=== PATIENT | female | born 1945 | race Caucasian/White ===

== ENCOUNTER 2017-11-09 13:25 | Inpatient (IN) ==
[2017-11-09 15:25] LABS: Hematocrit 30.8 % (35.3-44.9); Nucleated Red Blood Cells 0.1 /100 WBC (0)
[2017-11-09 15:27] LABS: Hemoglobin 9.4 g/dL (11.5-15.4); Mean Corpuscular HGB Conc 30.5 g/dL (31.6-35.5); Mean Corpuscular Hemoglobin 29.2 pg (28.0-33.3); Mean Corpuscular Volume 95.7 fL (83.0-100.0); Red Blood Count 3.22 M/mcL (3.82-4.97); Red Cell Distribution Width 17.9 % (11.5-14.5)
[2017-11-09 15:31] LABS: Platelet Count 79 K/mcL (140-400)
[2017-11-09 15:45] LABS: BUN/Creatinine Ratio 20 (6-26); Blood Urea Nitrogen 21 mg/dL (8-23); Calcium 8.7 mg/dL (8.6-10.3); Carbon Dioxide 25 mEq/L (23-29); Chloride 108 mEq/L (98-107); Glucose 164 mg/dL (70-105); Osmolality,Calculated 295 (280-300); Sodium 139 mEq/L (136-145); eGFR For African Americans > 60 (> 60); eGFR For Non-African Americans 50 (> 60)
[2017-11-09 16:09] LABS: Lymphocytes # 5.4 K/mcL (0.6-4.6); Neutrophils # 54.4 K/mcL (1.6-8.9); Platelet Estimate Decreased (Normal)
--- NOTE | 2017-11-09 16:20 | Emergency Department Note ---
Disposition Clinical Impression: HCAP (healthcare-associated pneumonia), Pleural effusion Disposition: Admitted As Inpatient Condition: Good SOB HPI - General Chief Complaint: ED Shortness of Breath/Dyspnea Stated Complaint: Possible pneumonia Time Seen by Provider: 11/09/17 13:48 Source: patient Mode of arrival: private vehicle Limitations: no limitations Nursing Notes Reviewed: Yes Vital Signs Reviewed: Yes - History of Present Illness 72-year-old female presents to the ER with a chief complaint of cough with productive sputum and shortness of breath for 3 weeks. Patient reports she was admitted to the [facility] back in September for facial swelling and abnormal labs. She went home they are feeling well but then started getting short of breath and coughing over the last 3 weeks. No history of COPD or asthma. No fever or chest pain at home. She thinks that she might be developing pneumonia. Reports she has felt dizzy with aspirin since she was discharged from the [facility]. No other complaints. Pt Subjective Complaint: shortness of breath, cough Onset (ago): week(s) Context: recent illness Severity: moderate Consistency/Duration: constant Improves with: nothing Worsens with: nothing Associated symptoms: Reports: cough, sputum production. Denies: chest pain, fever Treatment prior to arrival: none Cough present: Yes Cough Description: Involuntary - Related Data Home oxygen amount: none Home Medications Medication Instructions Recorded Confirmed Allopurinol [Zyloprim 300 MG] 300 mg PO DAILY 09/26/17 09/26/17 Cyclobenzaprine HCl 10 mg PO TID 09/26/17 09/26/17 Docusate [Colace] 100 mg PO BID 09/26/17 09/26/17 Enalapril Maleate [Vasotec] 30 mg PO DAILY 09/26/17 09/26/17 HYDROcodone/Acet 5/325 mg [[place] 1 tab PO Q6H PRN 09/26/17 09/26/17 5-325 mg] LORazepam [Ativan] 0.5 mg PO TID 09/26/17 09/26/17 Meclizine HCl [Bonine] 25 mg PO DAILY 09/26/17 09/26/17 Metformin HCl [Fortamet] 500 mg PO BID 09/26/17 09/26/17 NIFEdipine [Nifedipine] 90 mg PO DAILY 09/26/17 09/26/17 Nabumetone [Relafen] 500 mg PO BID 09/26/17 09/26/17 Simvastatin [Zocor] 40 mg PO HS 09/26/17 09/26/17 hydrALAZINE [HydrALAZINE] 100 mg PO Q8HR 09/26/17 09/26/17 Allergies Allergy/AdvReac Type Severity Reaction Status Date / Time Sulfa (Sulfonamide Allergy Fainting Verified 11/09/17 15:58 Antibiotics) All systems ED: reviewed and negative except as stated. Constitutional: Denies: fever Cardiovascular: Denies: chest pain Respiratory: Reports: cough, dyspnea, sputum production Gastrointestinal: Denies: nausea, vomiting, diarrhea Past Medical History - Past Medical History Attestation: Yes The following information was validated with the patient. Source: patient Medical history: Reports: diabetes, hyperlipidemia, hypertension, other Psychiatric history: Reports: no psych history WEATHER REPORTER history: Reports: no WEATHER REPORTER history - Social History Smoking Status: Former smoker Smokeless Tobacco Status: No Alcohol use: Reports: none Drug use: Reports: none Physical Exam - General Limitations: no limitations General appearance: alert, in no apparent distress - Head Head exam: atraumatic, normocephalic - Eye Eye exam: Present: normal appearance - ENT ENT exam: normal exam - Neck Neck exam: Present: normal inspection - Chest Chest inspection: Present: normal inspection, symmetric chest wall rise - Respiratory Respiratory exam: Present: other (Diminished breath sounds bilaterally) - Cardiovascular Cardiovascular exam: Present: regular rate, normal rhythm, normal heart sounds - Abdominal Exam Abdominal exam: Present: soft, Non-Tender, other (There are multiple blisters to the lower abdomen with some overlying cellulitic changes.). Absent: tenderness - Extremities Exam Extremities exam: Present: normal inspection, full ROM - Expanded Upper Extremity Exam Shoulder exam: Present: normal inspection, full ROM Arm exam: Present: normal inspection, full ROM Elbow exam: Present: normal inspection, full ROM Forearm/Wrist exam: Present: normal inspection, full ROM Hand exam: Present: normal inspection, full ROM - Expanded Lower Extremity Exam Hip/Pelvis exam: Present: normal inspection, full ROM Upper leg exam: Present: normal inspection, full ROM Knee exam: Present: normal inspection, full ROM Lower leg exam: Present: normal inspection, full ROM Ankle exam: Present: normal inspection, full ROM Foot/toe exam: Present: normal inspection, full ROM - Skin Skin exam: Present: warm, dry Course Course Narrative: Patient seen and examined. Vital signs reviewed. We will get an EKG, chest x- ray as well as labs including troponin. - Reevaluation(s) Reevaluation #1: Chest x-ray with right lower lobe developing infiltrate. She is also noted to have a leukocytosis of 68. We will pursue a CTA of her chest for evaluation. I had a long discussion with the patient and family present about the etiology of her leukocytosis. She was unable to give me a clear reason as to why. Her significant other says it was 3-lead her which she believes is either CML or CLL. He states she had a bone marrow biopsy performed there and follows up with oncology in a few weeks for repeat labs. She has not underwent chemotherapy. Reevaluation #2: Discussed results of imaging with the patient. Noted to have pneumonia by CTA with bilateral effusions as per radiology read. She has a recent hospitalization in September. We will cover her for healthcare associated pneumonia with vancomycin, Zosyn and Levaquin. Vital Signs Temperature 98.3 F 11/09/17 13:39 Pulse Rate 71 11/09/17 13:39 Respiratory Rate 18 11/09/17 13:39 Blood Pressure 171/80 11/09/17 13:39 O2 Sat by Pulse Oximetry 97 11/09/17 13:39 Temperature 98.3 F 11/09/17 13:39 Pulse Rate 72 11/09/17 19:09 Respiratory Rate 20 11/09/17 19:09 Blood Pressure 132/65 11/09/17 19:09 O2 Sat by Pulse Oximetry 94 11/09/17 19:09 Oxygen Delivery Oxygen Delivery Room Air Shortness of Breath/Dyspnea - [facility] Narrative Medical decision making narrative: 72-year-old female presents to the ER due to shortness of breath and cough for 3 weeks. She follows with the [facility] for abnormal labs and believe she either has CML or CLL. She is alert and well appearing here and hemodynamically stable. Chest x-ray with right lower lobe opacity. We pursued CTA of the chest given her history of malignancy and dyspnea. CT read of pneumonia with large effusion. She is noted to have a leukocytosis of 68 which is what she has been previously. Patient has recent admission requiring aggressive antibiotic therapy with vancomycin and Zosyn and Levaquin. She is admitted to the hospitalist service for healthcare associated pneumonia, pleural effusion. - Lab Data Lab results reviewed: Yes I reviewed the patient's lab results. Result diagrams: 11/09/17 15:11 11/09/17 15:11 Lab Results 11/09/17 11/09/17 11/09/17 Range/Units 15:11 15:11 16:17 WBC 68.0 H* (4.3-11.1) K/mcL RBC 3.22 L (3.82-4.97) M/mcL Hgb 9.4 L (11.5-15.4) g/dL Hct 30.8 L (35.3-44.9) % MCV 95.7 (83.0-100.0) fL MCH 29.2 (28.0-33.3) pg MCHC 30.5 L (31.6-35.5) g/dL RDW 17.9 H (11.5-14.5) % Plt Count 79 L (140-400) K/mcL MPV TNP Seg Neutrophils % 70.0 % Band Neutrophils % 10.0 H (0-4) % Lymphocytes % 8.0 % Myelocytes % 8.0 H (0) % Promyelocytes % 4.0 H (0) % Neutrophils # 54.4 H (1.6-8.9) K/mcL Lymphocytes # 5.4 H (0.6-4.6) K/mcL Nucleated RBCs/100 WBC 0.1 H (0) /100 WBC Platelet Estimate Decreased L (Normal) Sodium 139 (136-145) mEq/L Potassium 4.0 (3.5-5.1) mEq/L Chloride 108 H (98-107) mEq/L Carbon Dioxide 25 (23-29) mEq/L BUN 21 (8-23) mg/dL Creatinine 1.07 (0.60-1.20) mg/dL Est GFR ( Amer) > 60 (> 60) Est GFR (Non-Af Amer) 50 L (> 60) BUN/Creatinine Ratio 20 (6-26) Glucose 164 H (70-105) mg/dL Calculated Osmolality 295 (280-300) Lactic Acid 0.8 (0.5-2.2) mmol/L Calcium 8.7 (8.6-10.3) mg/dL Troponin I (< 0.04) ng/mL B-Natriuretic Peptide (Less than 100) pg/mL 11/09/17 11/09/17 Range/Units 16:17 16:17 WBC (4.3-11.1) K/mcL RBC (3.82-4.97) M/mcL Hgb (11.5-15.4) g/dL Hct (35.3-44.9) % MCV (83.0-100.0) fL MCH (28.0-33.3) pg MCHC (31.6-35.5) g/dL RDW (11.5-14.5) % Plt Count (140-400) K/mcL MPV Seg Neutrophils % % Band Neutrophils % (0-4) % Lymphocytes % % Myelocytes % (0) % Promyelocytes % (0) % Neutrophils # (1.6-8.9) K/mcL Lymphocytes # (0.6-4.6) K/mcL Nucleated RBCs/100 WBC (0) /100 WBC Platelet Estimate (Normal) Sodium (136-145) mEq/L Potassium (3.5-5.1) mEq/L Chloride (98-107) mEq/L Carbon Dioxide (23-29) mEq/L BUN (8-23) mg/dL Creatinine (0.60-1.20) mg/dL Est GFR ( Amer) (> 60) Est GFR (Non-Af Amer) (> 60) BUN/Creatinine Ratio (6-26) Glucose (70-105) mg/dL Calculated Osmolality (280-300) Lactic Acid (0.5-2.2) mmol/L Calcium (8.6-10.3) mg/dL Troponin I < 0.03 (< 0.04) ng/mL B-Natriuretic Peptide 183 H (Less than 100) pg/mL - Radiology Data Radiology results reviewed: Yes I reviewed the patient's radiology results. Chest X-Ray 11/09/17 13:49 IMPRESSION: Airspace opacity at the right lung base, new since the prior study, likely related to atelectasis versus pneumonia. Small right pleural effusion. Stable mild cardiomegaly. D/ / Duke Becker MD / Duke Becker MD Interpreting Provider: Duke Becker MD Chest CTA 11/09/17 16:08 IMPRESSION: No CT evidence of pulmonary embolism. [id number] right and small left pleural effusions as well as multifocal bilateral patchy airspace disease most compatible with pneumonia. Given areas of nodularity and history of cancer, short-term follow-up following treatment is recommended to ensure resolution. D/ / Pily Rao Cha, MD / Pily Rao Cha, MD Interpreting Provider: Pily Rao Cha, MD - EKG Data EKG attestation: Yes I reviewed and interpreted this EKG. EKG results narrative: EKG demonstrates sinus rhythm with a rate of 73 beats minute. Normal axis. Normal intervals. Normal R-wave progression. Low voltage diffusely. No gross ST elevations or depressions. No acute ischemic findings. S.B.Kumar. - Dwayne.Jamie.Cadence Situation: Demographics, MOA Background: Presenting Complaint, Relevant PMH, Meds, & Allergies Assessment: Vital Signs, Course and respsone to treatment, Exam Concerns, Patient/Family Expectation, Pertinant Lab Results Recommendation: Barrier(s) to disposition, Recommendation based on pending studies, treatments, or consults S.B.A.RLucinda Report Given to: Dr. Dhiraj Evans Repor Time: 18:40 Attestation Statement - Attestation Attestation: I examined this patient and my medical decision-making was reviewed with the Resident Physician. I agree with the documented findings, disposition and treatment plan as described except to the extent set forth below. Pneumonia, we will start antibiotics and admitted for further evaluation, may benefit from pulmonary consultation given extent of pleural effusion accompanied with leukocytosis. The patient has been evaluated by [facility] previously for leukocytosis. It is improved from baseline. Patient will be admitted in stable condition.
[2017-11-09] MEDS ORDERED: 0.9 % Sodium Chloride 1,000 ML IVC ONE (17:02)
[2017-11-09] MEDS ORDERED: Piperacillin/Tazobactam 3.375 GM in Water for inj. (sterile) 20 ML IVP ONE (18:05)
[2017-11-09] MEDS ORDERED: Vancomycin 1,500 MG in D5% in Water 250 ML IVPB ONE (18:05)
[2017-11-09] MEDS ORDERED: Levofloxacin 750 MG/150 ML 750 MG/150 ML BAG IVPB ONE (18:05)
[2017-11-09] MEDS ORDERED: Nystatin POWDER 30 GM BOTTLE TP PRN (20:53)
[2017-11-09] MEDS ORDERED: Dextrose Gel 15 GM/37.5 ML TUBE PO PRN ×2 (20:55)
[2017-11-09] MEDS ORDERED: D5% in Water 1,000 ML IVC PRN (20:55)
[2017-11-09] MEDS ORDERED: *HR* Dextrose 50 % in Water (Syg) 50 ML SYRINGE IVP PRN (20:55)
[2017-11-09] MEDS ORDERED: Naloxone 0.4 MG/ML INJ IVP PRN ×2 (20:56→20:58)
[2017-11-09] MEDS ORDERED: Vancomycin 0 MG in D5% in Water 250 ML IVPB SCH (21:00)
[2017-11-09] MEDS ORDERED: 0.9 % Sodium Chloride 1,000 ML IVC SCH (21:00)
--- NOTE | 2017-11-09 21:02 | Internal Med History&Physical ---
Date of Encounter: 11/09/17 Time of Encounter: 21:02 Assessment and Plan (1) HCAP (healthcare-associated pneumonia) Current visit: Yes Status: Acute IV vanc, cefepime send serologies cx pend duobnebs IS IVF overnight. Hold home lasix given on fluids - re-eval need in the a.m pulse ox, tele (2) Pleural effusion Current visit: Yes Status: Acute moderate. Monitor for now. If worsening respiratory status, consider therapeutic thora (3) Hematologic disorder Current visit: Yes Status: Acute leukocytosis follows with [facility] patient does not know her disease dx blood work diff suggest possible CMML ??? 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 Suarez is a 72 year old female with hematological disorder(does not know what disease she has) who presents with 2-3 weeks hx of cough, chills, SOB, not resting well. Found multifocal PNA She is established at [facility] for hematological disorder and appears to be in observational status at this time. This was discovered after hospital admission at [facility] from -Sep and later Sep for hemorrhoidal bleed. She is being managed with blood work and prn transfusion per her report. She will revisit her coach mechanic in 2 weeks. She presents to the hospital today for 2-3 weeks of cough, chills, SOB, not resting. Associated with chills and SOB to the point that she gets winded around her house. She does not use oxygen as baseline. EKG personally reviewed with rate 73, NSR CT/CT angio chest IMPRESSION: No CT evidence of pulmonary embolism. Bgvvdoma-[id number] right and small left pleural effusions as well as multifocal bilateral patchy airspace disease most compatible with pneumonia. Given areas of nodularity and history of cancer, short-term follow-up following treatment is recommended to ensure resolution. XR/XR chest 1V portable IMPRESSION: Airspace opacity at the right lung base, new since the prior study, likely related to atelectasis versus pneumonia. Small right pleural effusion. Stable mild cardiomegaly. Past Med Surg Social Fam HX - Past Medical History Medical history: diabetes, hyperlipidemia, hypertension, other Psychiatric history: no psych history - Past Surgical History Surgical History: non-contributory, other - Social History Smoking Status: Former smoker Smokeless Tobacco Status: No Alcohol use: none Drug use: none - Additional Family History Additional family history: HTN Internal Medicine - H&P: Meds Allopurinol [Zyloprim] 300 mg PO DAILY 11/09/17 [History] Carvedilol 12.5 mg PO BID 11/09/17 [History] Docusate [Colace] 100 mg PO BID 11/09/17 [History] Enalapril Maleate [Vasotec] 30 mg PO DAILY 11/09/17 [History] Furosemide [Lasix] 40 mg PO DAILY 11/09/17 [History] Hydralazine HCl 100 mg PO Q8H 11/09/17 [History] Hydrocodone/Acetaminophen [Xodol 5-300 Tablet] 1 each PO Q4H PRN 11/09/17 [ History] Insulin Glargine,Hum.rec.anlog [Lantus Solostar] 0 unit SQ HS 11/09/17 [History] Meclizine HCl [Verticalm] 25 mg PO DAILY PRN 11/09/17 [History] NIFEdipine [Nifedipine ER] 90 mg PO DAILY 11/09/17 [History] Nabumetone [Relafen] 500 mg PO BID 11/09/17 [History] Nystatin POWDER [Nystop] 1 appl TP TID PRN 11/09/17 [History] Omeprazole [PriLOSEC] 40 mg PO DAILY 11/09/17 [History] Polyethylene Glycol 3350 [MiraLAX] 17 gm PO DAILY 11/09/17 [History] Sennosides [Senna] 17.2 mg PO HS 11/09/17 [History] Simvastatin [Zocor] 40 mg PO HS 11/09/17 [History] metFORMIN [Glucophage] 500 mg PO BIDWM 11/09/17 [History] 3 Allergy/AdvReac Type Severity Reaction Status Date / Time Sulfa (Sulfonamide Allergy Fainting Verified 11/09/17 15:58 Antibiotics) All Systems PM: A 10-system review of systems was performed and is negative for pertinent findings except as documented above in the HPI. Review of systems: ROS 14 point review of systems reviewed as best as possible given presentation. Pertinent positive or negative as per HPI or otherwise reviewed as negative - Constitutional Vitals: Temp Pulse Resp BP Pulse Ox 98.3 F 72 20 132/65 94 11/09/17 13:39 11/09/17 19:09 11/09/17 19:09 11/09/17 19:09 11/09/17 19:09 Exam: General - AAO x 3 Psych - Appropriate affect/speech. No agitation Eyes - SHIV. Eye lids intact. No scleral icterus Neuro - No gross peripheral or central neuro deficits on inspection Heart - Sinus. RRR. S1 and S2 present. No added HS/murmurs appreciated. No elevated JVD appreciated. Lung - Adequate air entry b/l, Bibasal crackles, decrease BS along right base. No wheeze GI - Soft, non-tender. No hepatosplenomegaly/ascites. BS+ - No CVA/suprapubic tenderness or palpable bladder distension Skin - Fluid filled blister in the abdomen Internal Med - H&P Results - Labs CBC & Chem 7: 11/09/17 15:11 11/09/17 15:11
[2017-11-09] MEDS ORDERED: Ipratropium/Albuterol Neb 3 ML IH PRN (21:10)
[2017-11-09] MEDS ORDERED: *HR* Labetalol 20 MG/4 ML SYRINGE IVP PRN (21:51)
[2017-11-09] MEDS: Sennosides 8.6 MG TABLET PO SCH (22:00)
[2017-11-09] MEDS: hydrALAZINE 25 MG TABLET PO SCH (22:01)
[2017-11-09] MEDS: Insulin LISPRO 300 UNITS/3 ML VIAL SQ SCH (22:09)
[2017-11-10 04:41] LABS: Hemoglobin 8.6 g/dL (11.5-15.4); Nucleated Red Blood Cells 0.1 /100 WBC (0)
[2017-11-10 04:43] LABS: Mean Corpuscular HGB Conc 30.7 g/dL (31.6-35.5); Mean Corpuscular Hemoglobin 29.2 pg (28.0-33.3); Mean Corpuscular Volume 94.9 fL (83.0-100.0); Red Blood Count 2.95 M/mcL (3.82-4.97)
[2017-11-10 05:00] LABS: BUN/Creatinine Ratio 17 (6-26); Blood Urea Nitrogen 16 mg/dL (8-23); Calcium 8.4 mg/dL (8.6-10.3); Carbon Dioxide 24 mEq/L (23-29); Chloride 109 mEq/L (98-107); Glucose 136 mg/dL (70-105); Osmolality,Calculated 293 (280-300); Potassium 3.7 mEq/L (3.5-5.1); Sodium 140 mEq/L (136-145); eGFR For African Americans > 60 (> 60); eGFR For Non-African Americans 58 (> 60)
[2017-11-10] MEDS: Ipratropium/Albuterol Neb 3 ML IH SCH ×5 (05:04→23:29)
[2017-11-10 05:22] LABS: Platelet Count 71 K/mcL (140-400)
[2017-11-10] MEDS: hydrALAZINE 25 MG TABLET PO SCH ×3 (05:26→20:49)
[2017-11-10] MEDS: Cefepime HCl 2,000 MG in Water for inj. (sterile) 20 ML IVP SCH ×2 (05:28→17:55)
[2017-11-10] MEDS ORDERED: Cefepime HCl 2,000 MG in D5% in Water (Mini-Bag+) 100 ML IVPB SCH (06:00)
[2017-11-10 07:25] LABS: Lymphocytes # 4.7 K/mcL (0.6-4.6); Neutrophils # 43.3 K/mcL (1.6-8.9)
[2017-11-10 07:30] LABS: Anisocytosis 1+ (Not Present); Basophilic Stippling 1+ (Not Present); Polychromasia 1+ (Not Present)
[2017-11-10 07:31] LABS: Reactive Lymphocytes Present (Not Present)
[2017-11-10] MEDS: Insulin LISPRO 300 UNITS/3 ML VIAL SQ SCH ×4 (08:53→20:51)
[2017-11-10] MEDS: Lisinopril 20 MG TABLET PO SCH (08:53)
[2017-11-10] MEDS: NIFEdipine XL (24 HR) 30 MG TAB.ER.24 PO SCH (08:54)
[2017-11-10] MEDS: Vancomycin 1,250 MG in D5% in Water 250 ML IVPB SCH (08:54)
[2017-11-10] MEDS: Ondansetron 4 MG/2 ML VIAL IVP PRN (09:03)
--- NOTE | 2017-11-10 09:57 | Electrocardiograph Report ---
[place] [id number] Test Date: 2017-11-09 Pat Name: Yesi Suarez Department: 104 Room: 3B Gender: F Superintendent Service: DANA : 1945 Requested By: iWlmer Adames Order Number: [id number] Reading MD: Becki Stubbs Measurements Intervals [place] Rate: 73 P: 29 MT: 195 QRS: 47 QRSD: 89 T: 12 QT: 390 QTc: 416 Interpretive Statements SINUS RHYTHM RIGHT BUNDLE BRANCH BLOCK LOW QRS VOLTAGE IN PRECORDIAL LEADS [QRS DEFLECTION < 1.0 mV IN CHEST LEADS] Electronically Signed On 11-10-2017 9:55:56 EST by Becki Stubbs
--- NOTE | 2017-11-10 12:42 | Pulmonology Consult Note ---
Date of Encounter: 11/10/17 Time of Encounter: 12:40 Assessment and Plan (1) Pleural effusion Current Visit: Yes Status: Acute She has bilateral pleural effusions which reviewing her imaging in the past she has had persistent bilateral effusions although the right side is clearly much larger than where it has been in the past. I suspect this is related to hydrostatic pulmonary edema also possible but felt less likely hematological malignancy (although in this respect chylothorax would be a possibility). I do not feel that this is a complication of pneumonia such as uncomplicated complicated parapneumonic effusion or are there radiographic evidence of complex features that would suggest empyema. Patient is very comfortable at present has excellent saturation on room air and so there is no urgency from an infection standpoint nor symptom standpoint to menjivar to thoracentesis although I feel that this is warranted. Given that I do not feel that this is urgently necessary and given her large body habitus I would defer to the interventional radiology service to perform this procedure and collect pleural fluid for both diagnostic and therapeutic purposes . Please send serum for LDH and total protein if not collected. Pleural fluid analysis should include pH total cell count total protein LDH amylase lipase triglycerides cholesterol, Gram stain and culture . She also is sent for cytological analysis (pathology) This is a malignant effusion she may be a candidate for Pleurx catheter down the line based upon clinical course (2) Pneumonia Current Visit: Yes Status: Acute She is receiving antimicrobials for this and appears to be quite stable her white count elevation is a product of her hematological malignancy I do not think it reflects his severity of underlying pneumonia. She remains afebrile. Send sputum culture and blood cultures if not obtained along with respiratory infection panel Can likely be de-escalated to respiratory fluoroquinolone or Augmentin by mouth to complete 7 day course based upon clinical response Qualifiers: Qualified Code(s): J18.9 - Pneumonia, unspecified organism (3) Elevated brain natriuretic peptide (BNP) level Current Visit: Yes Status: Acute Long-standing poorly controlled hypertension she is at high risk for heart failure and she has clinical evidence of volume overload. We will need echocardiography if not performed recently at [facility] commend starting IV diuretic per medicine service with monitoring of kidney function and electrolytes daily Optimize blood pressure control (4) Hematologic disorder Current Visit: Yes Status: Acute Plan evaluated at [facility] outside hospital records per primary service have been requested (5) LUCAS (obstructive sleep apnea) Current Visit: Yes Status: Acute High pretest probability of obstructive sleep apnea she is scheduled for an outpatient polysomnogram. She is at high risk for cardiorespiratory failure with use of IV narcotics or benzodiazepines and so caution should be given if using these medications. Possible adverse effects of untreated sleep apnea explained including increased risk of stroke, hypertension, headaches, and pulmonary hypertension. Advised not to drive if sleepy as untreated LUCAS can cause motor vehicle accidents. (6) COPD (chronic obstructive pulmonary disease) Current Visit: Yes Status: Acute Vision is a former smoker and has had significant exposure to passive tobacco smoke I have a high suspicion that she has underlying obstructive lung disease and wheezing on examination which could be a manifestation of pulmonary edema however I think is just as likely or more a manifestation of COPD with likely mild exacerbation. Given concerns about pulmonary edema I do not think IV or oral steroids aggressively indicated right now as this is not appeared to be severe but patient should at least be on schedule bronchodilators and if she is not on a bronchodilator regimen at home at least a prescription for a nebulizer machine and duo nebs every 6-8 hours is warranted with outpatient follow-up in pulmonary for PFTs etc.. Pulmonary will continue to follow I discussed the case with the primary attending on the hospitalist service along with the nurse practitioner taking care of the patient. 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 She has had a recent sick exposure with multiple family members and patient's at the [facility] who were infected with influenza per the patient's story. She is a former smoker she smoked from the age of 12 up until about 14 years ago anywhere from a half a pack to a pack a day with substantial passive tobacco smoke exposure but no formal diagnosis of COPD and does not take any inhalers at home. 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 She denies fevers chills night sweats or hemoptysis. She Endorses progressive lower extremity edema and abdominal swelling including fluid "blisters" on the abdomen. Note she also snores so laterally that she wakes herself up and has unrefreshing sleep and daytime hypersomnolence. In the ED this x-ray was performed which was suggestive of right lower lobe pneumonia and pleural effusion a CTA was also performed which is negative for filling defect but notable for moderate to large right-sided pleural effusion and possible multifocal pneumonia she has been started on antimicrobials for this. Pulmonary was consulted for evaluation of right pleural effusion Past Med Surg Social Fam HX - Past Medical History Medical history: diabetes, hyperlipidemia, hypertension, other Psychiatric history: no psych history - Past Surgical History Surgical History: non-contributory, other - Social History Smoking Status: Former smoker Packs per day: 1 Smokeless Tobacco Status: No Alcohol use: none Drug use: none Medications and Allergies Allopurinol [Zyloprim] 300 mg PO DAILY 11/09/17 [History] Carvedilol 12.5 mg PO BID 11/09/17 [History] Docusate [Colace] 100 mg PO BID 11/09/17 [History] Enalapril Maleate [Vasotec] 30 mg PO DAILY 11/09/17 [History] Furosemide [Lasix] 40 mg PO DAILY 11/09/17 [History] Hydralazine HCl 100 mg PO Q8H 11/09/17 [History] Hydrocodone/Acetaminophen [Xodol 5-300 Tablet] 1 each PO Q4H PRN 11/09/17 [ History] Insulin Glargine,Hum.rec.anlog [Lantus Solostar] 0 unit SQ HS 11/09/17 [History] Meclizine HCl [Verticalm] 25 mg PO DAILY PRN 11/09/17 [History] NIFEdipine [Nifedipine ER] 90 mg PO DAILY 11/09/17 [History] Nabumetone [Relafen] 500 mg PO BID 11/09/17 [History] Nystatin POWDER [Nystop] 1 appl TP TID PRN 11/09/17 [History] Omeprazole [PriLOSEC] 40 mg PO DAILY 11/09/17 [History] Polyethylene Glycol 3350 [MiraLAX] 17 gm PO DAILY 11/09/17 [History] Sennosides [Senna] 17.2 mg PO HS 11/09/17 [History] Simvastatin [Zocor] 40 mg PO HS 11/09/17 [History] metFORMIN [Glucophage] 500 mg PO BIDWM 11/09/17 [History] 3 Allergy/AdvReac Type Severity Reaction Status Date / Time Sulfa (Sulfonamide Allergy Fainting Verified 11/09/17 15:58 Antibiotics) All Systems: A 10-system review of systems was performed and is negative for pertinent findings except as documented above in the HPI. Physical Examination Vital Signs: Vital Signs, Last 4 Hours Temp Pulse Resp BP Pulse Ox 11/10/17 12:24 98.5 F 70 16 110/62 90 11/10/17 11:32 18 98 General appearance: no acute distress Eyes: nonicteric ENT: oropharynx moist, other (Poor dentition) Mallampati (class): 4 Neck: supple Effort: normal Auscultation: right: diminished breath sounds, bilateral: wheezes Cardiovascular: regular rate and rhythm Gastrointestinal: normoactive bowel sounds, soft, tender Integumentary: other (She has evidence of chronic stasis throughout the abdomen and lower extremities including blisters noted on the anterior surface of the abdomen) Extremities: no cyanosis, no edema, no clubbing Musculoskeletal: no deformities normal mental status, non-focal exam mood appropriate Results - Laboratory Findings CBC and BMP: 11/10/17 04:24 11/10/17 04:24 Abnormal lab findings: Abnormal lab results WBC 58.5 K/mcL (4.3-11.1) H* 11/10/17 04:24 RBC 2.95 M/mcL (3.82-4.97) L 11/10/17 04:24 Hgb 8.6 g/dL (11.5-15.4) L 11/10/17 04:24 Hct 28.0 % (35.3-44.9) L 11/10/17 04:24 MCHC 30.7 g/dL (31.6-35.5) L 11/10/17 04:24 RDW 18.0 % (11.5-14.5) H 11/10/17 04:24 Plt Count 71 K/mcL (140-400) L 11/10/17 04:24 Metamyelocytes % 2.0 % (0) H 11/10/17 04:24 Myelocytes % 14.0 % (0) H 11/10/17 04:24 Promyelocytes % 2.0 % (0) H 11/10/17 04:24 Neutrophils # 43.3 K/mcL (1.6-8.9) H 11/10/17 04:24 Lymphocytes # 4.7 K/mcL (0.6-4.6) H 11/10/17 04:24 Nucleated RBCs/100 WBC 0.1 /100 WBC (0) H 11/10/17 04:24 Reactive Lymphocytes Present (Not Present) A 11/10/17 04:24 Platelet Estimate Decreased (Normal) L 11/09/17 15:11 Polychromasia 1+ (Not Present) A 11/10/17 04:24 Basophilic Stippling 1+ (Not Present) A 11/10/17 04:24 Anisocytosis 1+ (Not Present) A 11/10/17 04:24 Chloride 109 mEq/L (98-107) H 11/10/17 04:24 Est GFR (Non-Af Amer) 58 (> 60) L 11/10/17 04:24 Glucose 136 mg/dL (70-105) H 11/10/17 04:24 POC Glucose 177 (58-89) H 11/09/17 21:28 Calcium 8.4 mg/dL (8.6-10.3) L 11/10/17 04:24 B-Natriuretic Peptide 183 pg/mL (Less than 100) H 11/09/17 16:17 - Diagnostic Findings Chest x-ray: report reviewed, image reviewed CT scan - chest: report reviewed, image reviewed - Clinical Findings Intake & Output: Intake & Output 11/09/17 11/10/17 11/10/17 23:59 07:59 15:59 Output Total 400 / 400 600 / 600 Balance -400 / 770 -600 / -600 Weight 118.841 kg 118.932 kg Consult Discharge Plan - Plan Referrals: Noris Chavez, [employer] [Primary Care Provider] -
--- NOTE | 2017-11-10 13:17 | Internal Med Progress Note ---
<Melvina Bautista - Last Filed: 11/10/17 14:42> Date of Encounter: 11/10/17 Time of Encounter: 13:14 - Assessment and plan (1) MPN (myeloproliferative neoplasm) Current Visit: Yes Status: Chronic Assessment and plan: Ms. Suarez is a 72 year old female with MPN who presented with 2-3 weeks history of cough, chills, SOB, not resting well. Found on scan to have multifocal PNA. She is established at [facility] for hematological disorder and appears to be in observational status at this time. This was discovered after hospital admission at [facility] from -[facility] and later Sep for hemorrhoidal bleed. She is being managed with blood work and as needed transfusion per her report. She will revisit her line out man in 2 weeks. She presents to the hospital today for 2-3 weeks of cough, chills, SOB, not resting. Associated with chills and SOB to the point that she gets winded around her house. She does not use oxygen as baseline. EKG with rate 73, NSR leukocytosis with WBCs 58.5 which is down from initial reading of 90s in September She has had multiple bone marrow biopsies perr family report Patient does not know her disease dx, obtained from the daughter Requested records from [facility] (2) HCAP (healthcare-associated pneumonia) Current Visit: Yes Status: Acute Assessment and plan: White count elevation is secondary to her MPN She is afebrile Cough productive for yellow sputum, we will send sputum for culture Blood cultures are pending Influenza panel is negative for types AB antigen Check respiratory infection panel Continue IV vancomycin and cefepime, according to pulmonary can likely be de- escalated to respiratory fluoroquinolone or Augmentin by mouth to complete a 7 day course based upon clinical response Serological studies are 40 IV twice a day Continuous pulse ox O2 as needed, patient does not utilize oxygen at home Cardiac monitoring Duonebs every 4 hours Chest x-ray revealed air pasty at the right lung base CTA of the chest revealed moderate to large right and small left pleural effusions as well as multifocal bilateral patchy airspace disease most compatible with pneumonia No CT evidence of pulmonary embolism (3) Pleural effusion Current Visit: Yes Status: Acute Assessment and plan: Pulmonary consult Pulmonary states: "the bilateral pleural effusions which upon reviewing her imaging in the past she has had persistent bilateral effusions although the right side is clearly much larger than where it has been in the past. I suspect this is related to hydrostatic pulmonary edema but also possible but felt less likely hematological malignancy (although in this respect chylothorax would be a possibility). I do not feel that this is a complication of pneumonia such as uncomplicated complicated parapneumonic effusion or are there radiographic evidence of complex features that would suggest empyema. Patient is very comfortable at present has excellent saturation on room air and so there is no urgency from an infection standpoint nor symptom standpoint to menjivar to thoracentesis although I feel that this is warranted. Given that I do not feel that this is urgently necessary and given her large body habitus I would defer to the interventional radiology service to perform this procedure and collect pleural fluid for both diagnostic and therapeutic purposes ". 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; Z79.4 - 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 of insulin; Z79.4 - custodial ( current) use of insulin; Z79.4 - 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 of insulin (5) Elevated brain natriuretic peptide (BNP) level Current Visit: Yes Status: Acute Assessment and plan: Obtained echocardiogram report from [facility] that was done in September Continue IV diuretics 40 mg IV twice a day Monitor kidney function and electrolytes daily Maintain blood pressure control Daily weights Intake and output (6) LUCAS (obstructive sleep apnea) Current Visit: Yes Status: Acute Assessment and plan: Patient is scheduled for a outpatient polysomnogram High pretest probability of obstructive sleep apnea per pulmonary Avoid IV narcotics or benzodiazepines / exercise caution if given these medications (7) COPD (chronic obstructive pulmonary disease) Current Visit: Yes Status: Acute Assessment and plan: Former smoker and significant exposure to passive tobacco smoke in the past Pulmonary recommends nebulizer for home therapy rahel 6 to 8 hours Outpatient PFTs Qualifiers: Qualified Code(s): J44.9 - Chronic obstructive pulmonary disease, unspecified - Subjective Interval history: Patient sitting up in bed eating breakfast. She denies any chest pain or shortness of breath at rest. She reports shortness of breath with exertion. She also has a cough productive for some yellow sputum. She has some nasal congestion. She denied any fever or chills, chest pain or night sweats. She denies any change in bowel or bladder routine. Denies abdominal pain or headache. Family is at the bedside and provided some of her history. She was last seen at [facility] 2 weeks ago and is due to go back there in 2 more weeks to see hematology. Family tells me she was recently diagnosed in September with myeloproliferative neoplasm or MPN, She is currently sitting up in bed in no distress on room air. - Constitutional Vitals: Temp Pulse Resp BP Pulse Ox 98.5 F 70 16 110/62 90 11/10/17 12:24 11/10/17 12:24 11/10/17 12:24 11/10/17 12:24 11/10/17 12:24 General appearance: Present: cooperative, A&O X 3, morbidly obese, no acute distress, answers questions appropriately - Head Head exam: Present: atraumatic, normocephalic - Eye Eye exam: Present: conjuntiva pink, sclera anicteric - Neck Neck exam general surgery: Present: supple, trachea midline. Absent: lymphadenopathy - Respiratory Respiratory exam: Present: decreased breath sounds, wheezes. Absent: accessory muscle use, rales, rhonchi - Cardiovascular Cardiovascular exam: Present: RRR, +S1, +S2. Absent: diastolic murmur, gallop, rubs, systolic murmur Additional comments: Distant heart sounds - GI/Abdominal GI/Abdominal exam: Present: normal bowel sounds, soft, no peritoneal signs. Absent: distended, tenderness - Extremities Exam Extremities exam: Present: pedal edema, warm, radial pulses palpable and symmetrical. Absent: calf tenderness, cyanotic Additional comments: Abdominal wall edema with blisters noted on the mid abdomen - Neurological Exam Neurological exam: Present: oriented X3, no focal deficits. Absent: pronater drift, facial droop, speech deficit - Skin Skin exam: Present: dry, warm Additional comments: What her blisters on abdomen several intact one has been broken and is now reddened, 2 small areas on her breast. Internal Medicine: Result - Labs CBC & Chem 7: 11/10/17 04:24 11/10/17 04:24 Labs: Short CBC 11/10/17 Range/Units 04:24 WBC 58.5 H* (4.3-11.1) K/mcL Hgb 8.6 L (11.5-15.4) g/dL Hct 28.0 L (35.3-44.9) % Plt Count 71 L (140-400) K/mcL Neutrophils # 43.3 H (1.6-8.9) K/mcL BMP 11/10/17 04:24 Sodium 140 Potassium 3.7 Chloride 109 H Carbon Dioxide 24 BUN 16 Creatinine 0.95 Glucose 136 H Calcium 8.4 L - VTE Documentation of Mechanical Device: Graduated compression elastic hosiery Consult Discharge Plan - Plan Referrals: Noris Chavez, [employer] [Primary Care Provider] - <Natasha Morin - Last Filed: 11/10/17 17:16> Date of Encounter: 11/10/17 - Constitutional Vitals: Temp Pulse Resp BP Pulse Ox 97.6 F 71 20 98/50 90 11/10/17 15:02 11/10/17 15:02 11/10/17 15:02 11/10/17 15:02 11/10/17 15:02 Internal Medicine: Result - Labs CBC & Chem 7: 11/10/17 04:24 11/10/17 04:24 Labs: Short CBC 11/10/17 Range/Units 04:24 WBC 58.5 H* (4.3-11.1) K/mcL Hgb 8.6 L (11.5-15.4) g/dL Hct 28.0 L (35.3-44.9) % Plt Count 71 L (140-400) K/mcL Neutrophils # 43.3 H (1.6-8.9) K/mcL BMP 11/10/17 04:24 Sodium 140 Potassium 3.7 Chloride 109 H Carbon Dioxide 24 BUN 16 Creatinine 0.95 Glucose 136 H Calcium 8.4 L Urine 11/10/17 Range/Units 13:57 Urine Color Yellow (Yellow) Urine Clarity Clear (Clear) Urine pH 6.0 (5.0-8.0) pH Units Ur Specific [place] 1.017 (1.010-1.025) Urine Protein >=300 H (Neg-Trace) mg/dL Urine Glucose (UA) 100 H (Normal) mg/dL - Attending Attestation I have personally performed a face to face evaluation on this patient. I have reviewed and agree with the care plan provided by SMASHER Lucinda Lily . History and Exam by me shows: This is a 72 y/o F who recently diagnosed with myelo proliferative neoplasm, severe leukocytosis who is following at [facility], now presented to our ER with SOB, COugh with yellowish expectoration. Her CT of chest showed moderate to large right and small left pleural effusions as well as multifocal bilateral patchy airspace disease most compatible with pneumonia. Pt is comfortably breathing on RA. Denied any CP. Gen: A, A< O x 3 Chest : diminished BS b/l, moderate wheezing, rales + Heart: SS2+ RRR No murmurs Abd: blisters over lower abdomen region a/p 1. Acute Resp distress 2. Acute MLL Pneumonia Cont broad spec abx 3. Acute b/l Pleural effusion Rt > Lt 4. Acute CHF exacerbation Pleural effusion - unclear etiology could be CHF exacerbation will obtain recent 2 D Echo from [facility] Talked to Pulm about Thoracocentesis, since pt is so obese, will consult IR for thoracoentesis cont close monitoring BELKYS bronchodilators IV Lasix 40 BID Strict I & O
[2017-11-10 15:23] LABS: Bilirubin,Urine Negative (Negative); Blood,Urine Negative (Negative); Clarity,Urine Clear (Clear); Color,Urine Yellow (Yellow); Glucose,Urine (UA) 100 mg/dL (Normal); Ketones,Urine Trace mg/dL (Negative); Leukocyte Esterase,Urine Negative (Negative); Nitrite,Urine Negative (Negative); Protein,Urine >=300 mg/dL (Neg-Trace); Specific Gravity,Urine 1.017 (1.010-1.025); Urobilinogen,Urine Normal (Normal)
[2017-11-10 15:26] LABS: Bacteria,Urine None Seen per hpf (None-Few); Hyaline Casts,Urine None Seen per lpf (None-Few); Squamous Epithelial Cell,Urine Many per lpf (None-Few)
[2017-11-10] MEDS: Furosemide 40 MG/4 ML VIAL IVP SCH (15:41)
[2017-11-10 15:54] LABS: Adenovirus Not Detected (Not Detect); Bordetella Pertussis Not Detected (Not Detect); Chlamydophila pneumoniae Not Detected (Not Detect); Coronavirus 229E Not Detected (Not Detect); Coronavirus HKU1 Not Detected (Not Detect); Coronavirus NL63 Not Detected (Not Detect); Coronavirus OC43 Not Detected (Not Detect); Human Metapneumovirus Not Detected (Not Detect); Human Rhinovirus/Enterovirus Not Detected (Not Detect); Influenza A Subtype 2009 H1 Not Detected (Not Detect); Influenza A Untypeable Not Detected (Not Detect); Influenza B Not Detected (Not Detect); Mycoplasma pneumoniae Not Detected (Not Detect); Parainfluenza Virus 1 Not Detected (Not Detect); Parainfluenza Virus 2 Not Detected (Not Detect); Parainfluenza Virus 3 Not Detected (Not Detect); Parainfluenza Virus 4 Not Detected (Not Detect); Respiratory Syncytial Virus Not Detected (Not Detect)
[2017-11-10] MEDS: Sennosides 8.6 MG TABLET PO SCH (20:50)
[2017-11-11] MEDS: Ipratropium/Albuterol Neb 3 ML IH SCH ×6 (03:52→23:53)
[2017-11-11 04:05] LABS: Calcium 8.4 mg/dL (8.6-10.3); Potassium 3.9 mEq/L (3.5-5.1)
[2017-11-11 04:13] LABS: Lactate Dehydrogenase 262 Units/L (140-271); Total Protein 5.7 g/dL (6.4-8.9)
[2017-11-11 04:20] LABS: Hematocrit 28.4 % (35.3-44.9); Hemoglobin 8.6 g/dL (11.5-15.4); Mean Corpuscular HGB Conc 30.3 g/dL (31.6-35.5); Mean Corpuscular Hemoglobin 29.2 pg (28.0-33.3); Mean Corpuscular Volume 96.3 fL (83.0-100.0); Nucleated Red Blood Cells 0.2 /100 WBC (0); Red Blood Count 2.95 M/mcL (3.82-4.97); Red Cell Distribution Width 18.1 % (11.5-14.5)
[2017-11-11 05:20] LABS: Platelet Count 93 K/mcL (140-400)
[2017-11-11 05:29] LABS: Eosinophils # 1.2 K/mcL (0.0-0.6); Lymphocytes # 14.4 K/mcL (0.6-4.6); Neutrophils # 38.5 K/mcL (1.6-8.9); Platelet Estimate Decreased (Normal)
[2017-11-11] MEDS: Cefepime HCl 2,000 MG in Water for inj. (sterile) 20 ML IVP SCH ×2 (05:39→16:49)
[2017-11-11] MEDS: hydrALAZINE 25 MG TABLET PO SCH ×3 (05:40→20:26)
[2017-11-11] MEDS: Lisinopril 20 MG TABLET PO SCH (08:12)
[2017-11-11] MEDS: Furosemide 40 MG/4 ML VIAL IVP SCH ×2 (08:14→16:49)
[2017-11-11] MEDS: NIFEdipine XL (24 HR) 30 MG TAB.ER.24 PO SCH (08:14)
[2017-11-11] MEDS: Insulin LISPRO 300 UNITS/3 ML VIAL SQ SCH ×4 (08:27→20:26)
[2017-11-11] MEDS: Vancomycin 1,250 MG in D5% in Water 250 ML IVPB SCH (09:38)
--- NOTE | 2017-11-11 18:26 | Internal Med Progress Note ---
Date of Encounter: 11/11/17 Time of Encounter: 18:24 - Assessment and plan (1) MPN (myeloproliferative neoplasm) Current Visit: Yes Status: Chronic Assessment and plan: Ms. Suarez is a 72 year old female with MPN who presented with 2-3 weeks history of cough, chills, SOB, not resting well. Found on scan to have multifocal PNA. She is established at [facility] for hematological disorder and appears to be in observational status at this time. This was discovered after hospital admission at [facility] from -Sep and later Sep for hemorrhoidal bleed. She is being managed with blood work and as needed transfusion per her report. She will revisit her glass blower in 2 weeks. She presents to the hospital today for 2-3 weeks of cough, chills, SOB, not resting. Associated with chills and SOB to the point that she gets winded around her house. She does not use oxygen as baseline. EKG with rate 73, NSR leukocytosis with WBCs 58.5, now 60.1 which is down from initial reading of 90s in September She has had multiple bone marrow biopsies perr family report Patient does not know her disease dx, obtained from the daughter Requested records from [facility] (2) HCAP (healthcare-associated pneumonia) Current Visit: Yes Status: Acute Assessment and plan: White count elevation is secondary to her MPN She is afebrile Cough productive for yellow sputum, sputum for culture with preliminary read of many WBCs, few epithelial cells observed bacteria few gram-positive cocci considered normal upper respiratory tract kaelyn Blood cultures eliminate dairy reading no growth 2 bottles Legionella and Streptococcus pneumo antigens are negative Respiratory infectious panel is negative Influenza panel is negative for types AB antigen Check respiratory infection panel Continue IV vancomycin and cefepime, according to pulmonary can likely be de- escalated to respiratory fluoroquinolone or Augmentin by mouth to complete a 7 day course based upon clinical response continue Lasix 40 mg IV twice a day Continuous pulse ox O2 as needed, patient does not utilize oxygen at home Cardiac monitoring Duonebs every 4 hours Chest x-ray revealed air pasty at the right lung base CTA of the chest revealed moderate to large right and small left pleural effusions as well as multifocal bilateral patchy airspace disease most compatible with pneumonia No CT evidence of pulmonary embolism (3) Pleural effusion Current Visit: Yes Status: Acute Assessment and plan: Pulmonary consult Pulmonary states: "the bilateral pleural effusions which upon reviewing her imaging in the past she has had persistent bilateral effusions although the right side is clearly much larger than where it has been in the past. I suspect this is related to hydrostatic pulmonary edema but also possible but felt less likely hematological malignancy (although in this respect chylothorax would be a possibility). I do not feel that this is a complication of pneumonia such as uncomplicated complicated parapneumonic effusion or are there radiographic evidence of complex features that would suggest empyema. Patient is very comfortable at present has excellent saturation on room air and so there is no urgency from an infection standpoint nor symptom standpoint to menjivar to thoracentesis although I feel that this is warranted. Given that I do not feel that this is urgently necessary and given her large body habitus I would defer to the interventional radiology service to perform this procedure and collect pleural fluid for both diagnostic and therapeutic purposes ". 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; Z79.4 - 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 of insulin; Z79.4 - middle or intermediate school principal ( current) use of insulin; Z79.4 - 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 of insulin (5) Elevated brain natriuretic peptide (BNP) level Current Visit: Yes Status: Acute Assessment and plan: Obtain echocardiogram report from [facility] that was done in September Continue IV diuretics 40 mg IV twice a day Monitor kidney function and electrolytes daily Maintain blood pressure control Daily weights Intake and output (6) LUCAS (obstructive sleep apnea) Current Visit: Yes Status: Acute Assessment and plan: Patient is scheduled for a outpatient polysomnogram High pretest probability for obstructive sleep apnea per pulmonary Avoid IV narcotics or benzodiazepines / exercise caution if given these medications (7) COPD (chronic obstructive pulmonary disease) Current Visit: Yes Status: Acute Assessment and plan: Former smoker and significant exposure to passive tobacco smoke in the past Pulmonary recommends nebulizer for home therapy rahel 6 to 8 hours Obtain Outpatient PFTs Qualifiers: Qualified Code(s): J44.9 - Chronic obstructive pulmonary disease, unspecified - Subjective Interval history: Patient sitting up in bed eating breakfast. She denies any chest pain or shortness of breath at rest. She reports less shortness of breath with exertion, less sputum with cough. She has some nasal congestion. She denied any fever or chills, chest pain or night sweats. She denies any change in bowel or bladder routine. Denies abdominal pain or headache. She is sitting in a chair in no distress on room air. - Constitutional Vitals: Temp Pulse Resp BP Pulse Ox 97.8 F 71 16 189/62 94 11/11/17 16:26 11/11/17 16:26 11/11/17 16:26 11/11/17 16:26 11/11/17 16:26 General appearance: Present: cooperative, A&O X 3, morbidly obese, no acute distress, answers questions appropriately - Head Head exam: Present: atraumatic, normocephalic - Eye Eye exam: Present: PERRL, conjuntiva pink, sclera anicteric Pupils: Present: PERRL - Neck Neck exam general surgery: Present: supple, trachea midline. Absent: lymphadenopathy - Respiratory Respiratory exam: Present: decreased breath sounds. Absent: accessory muscle use, rales, respiratory distress, rhonchi, wheezes - Cardiovascular Cardiovascular exam: Present: distant heart sounds, RRR, +S1, +S2. Absent: diastolic murmur, gallop, rubs, systolic murmur - GI/Abdominal GI/Abdominal exam: Present: normal bowel sounds, soft, no peritoneal signs. Absent: distended, tenderness Additional comments: Several fluid-filled blisters on her abdomen and a few that have broken. She also has some excoriation and yeast in her skin folds - Extremities Exam Extremities exam: Present: warm, radial pulses palpable and symmetrical. Absent : calf tenderness, cyanotic, pedal edema - Neurological Exam Neurological exam: Present: CN II-XII intact, oriented X3, no focal deficits. Absent: pronater drift, facial droop, speech deficit Additional comments: Bilateral SHORTY hose intact - Skin Skin exam: Present: dry, intact, vesicles, warm Internal Medicine: Result - Labs CBC & Chem 7: 11/11/17 03:07 11/11/17 03:07 Labs: Short CBC 11/11/17 Range/Units 03:07 WBC 60.1 H* (4.3-11.1) K/mcL Hgb 8.6 L (11.5-15.4) g/dL Hct 28.4 L (35.3-44.9) % Plt Count 93 L (140-400) K/mcL Neutrophils # 38.5 H (1.6-8.9) K/mcL BMP 11/11/17 03:07 Sodium 142 Potassium 3.9 Chloride 111 H Carbon Dioxide 25 BUN 20 Creatinine 1.33 H Glucose 141 H Calcium 8.4 L - VTE Documentation of Mechanical Device: Graduated compression elastic hosiery Consult Discharge Plan - Plan Referrals: Noris Chavez, [facility] [Primary Care Provider] -
[2017-11-11] MEDS: Sennosides 8.6 MG TABLET PO SCH (20:25)
[2017-11-12] MEDS: Ipratropium/Albuterol Neb 3 ML IH SCH ×5 (04:29→20:26)
[2017-11-12 04:34] LABS: Nucleated Red Blood Cells 0.1 /100 WBC (0); Red Blood Count 2.84 M/mcL (3.82-4.97)
[2017-11-12 04:36] LABS: Hematocrit 27.4 % (35.3-44.9); Hemoglobin 8.2 g/dL (11.5-15.4); Mean Corpuscular HGB Conc 29.9 g/dL (31.6-35.5); Mean Corpuscular Hemoglobin 28.9 pg (28.0-33.3); Mean Corpuscular Volume 96.5 fL (83.0-100.0); Red Cell Distribution Width 17.8 % (11.5-14.5)
[2017-11-12 05:12] LABS: Platelet Count 91 K/mcL (140-400)
[2017-11-12] MEDS: Cefepime HCl 2,000 MG in Water for inj. (sterile) 20 ML IVP SCH ×2 (05:26→18:15)
[2017-11-12] MEDS: hydrALAZINE 25 MG TABLET PO SCH ×3 (05:27→20:01)
[2017-11-12 06:49] LABS: Anisocytosis 1+ (Not Present); Lymphocytes # 13.8 K/mcL (0.6-4.6); Monocytes # 2.3 K/mcL (0.0-1.3); Neutrophils # 41.3 K/mcL (1.6-8.9); Platelet Estimate Decreased (Normal)
[2017-11-12 06:50] LABS: Macrocytosis Present (Not Present); Microcytosis Present (Not Present)
[2017-11-12 08:39] LABS: Calcium 8.4 mg/dL (8.6-10.3); Potassium 4.3 mEq/L (3.5-5.1)
--- NOTE | 2017-11-12 08:41 | History & Physical Report ---
Date of Encounter: 11/12/17 Time of Encounter: 08:40 24 Hour HP Update - Instructions Instructions: If the History and Physical is less than 30 days old and was completed prior to A.M. admission and or procedure and has NOT been updated on calendar day of procedure please complete this update prior to performing procedure. - Update Patient reports changes in Medical Condition: No Changes in examination, assessment, or condition: No Changes in Medication: No Preop tests/diagnostics Reviewed: Yes Surgery Remains Indicated: Yes Consent for Planned Operative Procedure(s) Verified: Yes
--- NOTE | 2017-11-12 09:44 | Pulmonology Progress Note ---
Date of Encounter: 11/13/17 Time of Encounter: 09:30 Assessment and Plan (1) Pleural effusion Current Visit: Yes Status: Acute Patient has bilateral pleural effusion with elevated BNP and with imaging these pleural effusion secondary to CHF with thoracentesis the pleural fluid chemistry suggestive of transudative more in favor of heart failure to continue diuresis according to primary team . (2) Pneumonia Current Visit: Yes Status: Acute Patient antibiotics can be descalated to fluoroquinolones or pencillin like Augmentin Qualifiers: Pneumonia type: due to unspecified organism Laterality: unspecified laterality Qualified Code(s): J18.9 - Pneumonia, unspecified organism (3) COPD (chronic obstructive pulmonary disease) Current Visit: Yes Status: Acute To continue the nebulizer patient send her home on Duo neb and nebulizer will evaluate her as on outpatient Qualifiers: Emphysema type: unspecified Qualified Code(s): J43.9 - Emphysema, unspecified (4) LUCAS (obstructive sleep apnea) Current Visit: Yes Status: Chronic Needs outpatient PSG Subjective Principal diagnosis: Bilateral pleural effusion Interval history: 72 year old female consulted for evaluation of pleural effusion , COPD had a right sided thoracentesis patient tolerated the procedure well , denies any chest pain or tightness of shortness of breadth . Objective PUL Vital signs: Last Vital Signs Temp 98.1 F 11/12/17 07:18 Pulse 77 11/12/17 07:18 Resp 18 11/12/17 07:28 BP 132/64 11/12/17 07:18 Pulse Ox 93 11/12/17 07:28 Auscultation: right: diminished breath sounds (sided diminished breadth sounds ) Results - Laboratory Findings CBC and BMP: 11/12/17 04:13 11/12/17 04:13 Abnormal lab findings: Abnormal lab results WBC 57.4 K/mcL (4.3-11.1) H* 11/12/17 04:13 RBC 2.84 M/mcL (3.82-4.97) L 11/12/17 04:13 Hgb 8.2 g/dL (11.5-15.4) L 11/12/17 04:13 Hct 27.4 % (35.3-44.9) L 11/12/17 04:13 MCHC 29.9 g/dL (31.6-35.5) L 11/12/17 04:13 RDW 17.8 % (11.5-14.5) H 11/12/17 04:13 Plt Count 91 K/mcL (140-400) L 11/12/17 04:13 Metamyelocytes % 2.0 % (0) H 11/10/17 04:24 Myelocytes % 14.0 % (0) H 11/10/17 04:24 Promyelocytes % 2.0 % (0) H 11/10/17 04:24 Neutrophils # 41.3 K/mcL (1.6-8.9) H 11/12/17 04:13 Lymphocytes # 13.8 K/mcL (0.6-4.6) H 11/12/17 04:13 Monocytes # 2.3 K/mcL (0.0-1.3) H 11/12/17 04:13 Eosinophils # 1.2 K/mcL (0.0-0.6) H 11/11/17 03:07 Nucleated RBCs/100 WBC 0.1 /100 WBC (0) H 11/12/17 04:13 Reactive Lymphocytes Present (Not Present) A 11/10/17 04:24 Platelet Estimate Decreased (Normal) L 11/12/17 04:13 Polychromasia 1+ (Not Present) A 11/10/17 04:24 Basophilic Stippling 1+ (Not Present) A 11/10/17 04:24 Anisocytosis 1+ (Not Present) A 11/12/17 04:13 Microcytosis Present (Not Present) A 11/12/17 04:13 Macrocytosis Present (Not Present) A 11/12/17 04:13 BUN 24 mg/dL (8-23) H 11/12/17 04:13 Creatinine 1.78 mg/dL (0.60-1.20) H 11/12/17 04:13 Est GFR ( Amer) 34 (> 60) L 11/12/17 04:13 Est GFR (Non-Af Amer) 28 (> 60) L 11/12/17 04:13 Glucose 193 mg/dL (70-105) H 11/12/17 04:13 POC Glucose 181 (58-89) H 11/11/17 20:14 Calcium 8.4 mg/dL (8.6-10.3) L 11/12/17 04:13 B-Natriuretic Peptide 183 pg/mL (Less than 100) H 11/09/17 16:17 Serum Total Protein 5.7 g/dL (6.4-8.9) L 11/11/17 03:07 Urine Protein >=300 mg/dL (Neg-Trace) H 11/10/17 13:57 Urine Glucose (UA) 100 mg/dL (Normal) H 11/10/17 13:57 Urine Ketones Trace mg/dL (Negative) H 11/10/17 13:57 Urine Microscopic RBC 3-5 per hpf (0-3) H 11/10/17 13:57 Urine Microscopic WBC 5-15 per hpf (0-3) H 11/10/17 13:57 Ur Squamous Epith Cells Many per lpf (None-Few) H 11/10/17 13:57 - Microbiology Findings Microbiology Findings: Microbiology, Last 48 Hours 11/10/17 13:57 Sputum Culture - Preliminary Sputum 11/10/17 13:57 Legionella Antigen - Final Urine,Clean Catch Streptococcus pneumoniae Antigen (M - Final - Clinical Findings Intake & Output: Intake & Output 11/11/17 11/12/17 11/12/17 23:59 07:59 15:59 Intake Total 380 / 380 Output Total 200 / 200 Balance 180 / 180 Weight 118.025 kg - VTE Documentation of Mechanical Device: Graduated compression elastic hosiery Consult Discharge Plan - Plan Referrals: Noris Chavez, [employer] [employer] [Primary Care Provider] -
[2017-11-12] MEDS: NIFEdipine XL (24 HR) 30 MG TAB.ER.24 PO SCH (10:08)
[2017-11-12] MEDS: Lisinopril 20 MG TABLET PO SCH (10:09)
[2017-11-12] MEDS: Furosemide 40 MG/4 ML VIAL IVP SCH ×2 (10:11→18:14)
[2017-11-12] MEDS: Insulin LISPRO 300 UNITS/3 ML VIAL SQ SCH ×4 (10:19→21:28)
[2017-11-12] MEDS: Vancomycin 1,250 MG in D5% in Water 250 ML IVPB SCH (10:26)
[2017-11-12 13:04] LABS: Albumin 2.8 g/dL (3.5-5.7); Bilirubin,Indirect 0.2 mg/dL (0.0-1.2); Bilirubin,Total 0.2 mg/dL (0.3-1.0)
[2017-11-12 13:10] LABS: Albumin/Globulin Ratio 0.9 (1.1-2.2); Globulin 3.1 g/dL (2.4-3.5); Total Protein 5.9 g/dL (6.4-8.9)
[2017-11-12 13:39] LABS: Amylase,Pleural Fluid < 10 Units/L (No Ref Range); Glucose,Pleural Fluid 185 mg/dL (No Ref Range); LDH,Pleural Fluid 55 Units/L (No Ref Range); Total Protein,Pleural Fluid < 3.0 g/dL (No Ref Range); Triglycerides, Pleural Fluid 14 mg/dL (No Ref Range)
[2017-11-12 14:52] LABS: RBC,Pleural Fluid < 0.002 M/mcL
[2017-11-12 14:56] LABS: Appearance of Pleural Fl Clear (Clear)
[2017-11-12] MEDS: Ondansetron 4 MG/2 ML VIAL IVP PRN (18:14)
--- NOTE | 2017-11-12 19:45 | Internal Med Progress Note ---
Date of Encounter: 11/12/17 Time of Encounter: 19:36 - Assessment and plan (1) MPN (myeloproliferative neoplasm) Current Visit: Yes Status: Chronic Assessment and plan: Ms. Suarez is a 72 year old female with MPN who presented with 2-3 weeks history of cough, chills, SOB, not resting well. Found on scan to have multifocal PNA. She is established at [facility] for hematological disorder and appears to be in observational status at this time. This was discovered after hospital admission at [facility] from -[facility] and later Sep for hemorrhoidal bleed. She is being managed with blood work and as needed transfusion per her report. 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 She presents to the hospital today for 2-3 weeks of cough, chills, SOB, not resting. Associated with chills and SOB to the point that she gets winded around her house. She does not use oxygen as baseline. EKG with rate 73, NSR leukocytosis with WBCs 58.5, now 57.4 which is down from initial reading of 90s in September She has had multiple bone marrow biopsies per family report Patient does not know her disease dx, obtained from the daughter Requested records from [facility] (2) HCAP (healthcare-associated pneumonia) Current Visit: Yes Status: Acute Assessment and plan: White count elevation is secondary to her MPN She is afebrile Cough productive for yellow sputum, sputum for culture with preliminary read of many WBCs, few epithelial cells observed bacteria few gram-positive cocci considered normal upper respiratory tract kaelyn Blood cultures eliminate dairy reading no growth 2 bottles Legionella and Streptococcus pneumo antigens are negative Respiratory infectious panel is negative Influenza panel is negative for types AB antigen respiratory infection panel negative Continue IV vancomycin and cefepime, according to pulmonary can likely be de- escalated to respiratory fluoroquinolone or Augmentin by mouth to complete a 7 day course based upon clinical response continue Lasix 40 mg IV twice a day Continuous pulse ox O2 as needed, patient does not utilize oxygen at home Cardiac monitoring Duonebs every 4 hours Chest x-ray revealed opacity at the right lung base CTA of the chest revealed moderate to large right and small left pleural effusions as well as multifocal bilateral patchy airspace disease most compatible with pneumonia No CT evidence of pulmonary embolism (3) Pleural effusion Current Visit: Yes Status: Acute Assessment and plan: Pulmonary consult Pulmonary states: "the bilateral pleural effusions which upon reviewing her imaging in the past she has had persistent bilateral effusions although the right side is clearly much larger than where it has been in the past. I suspect this is related to hydrostatic pulmonary edema but also possible but felt less likely hematological malignancy (although in this respect chylothorax would be a possibility). I do not feel that this is a complication of pneumonia such as uncomplicated complicated parapneumonic effusion or are there radiographic evidence of complex features that would suggest empyema. Patient is very comfortable at present has excellent saturation on room air and so there is no urgency from an infection standpoint nor symptom standpoint to menjivar to thoracentesis although I feel that this is warranted. Given that I do not feel that this is urgently necessary and given her large body habitus I would defer to the interventional radiology service to perform this procedure and collect pleural fluid for both diagnostic and therapeutic purposes ". Pleural fluid analysis should include pH total cell count total protein LDH amylase lipase triglycerides cholesterol, Gram stain and culture, cytological analysis (pathology) obtain status post thoracentesis, a total of 0.8 L straw- colored fluid was removed during the procedure Lasix 40mg BID Follow labs (4) DMII (diabetes mellitus, type 2) Current Visit: Yes Status: Acute Assessment and plan: SS insulin and adjust accordingly, glucose controlled Qualifiers: Diabetes mellitus complication status: without complication Diabetes mellitus joint terminal attack controller insulin use: with joint terminal attack controller use Qualified Code(s): E11.9 - Type 2 diabetes mellitus without complications; Z79.4 - rat exterminator (current) use of insulin; Z79.4 - rat exterminator (current) use of insulin; Z79.4 - rat exterminator ( current) use of insulin; Z79.4 - rat exterminator (current) use of insulin (5) Elevated brain natriuretic peptide (BNP) level Current Visit: Yes Status: Acute Assessment and plan: Try Obtain echocardiogram report from [facility] that was done in September Continue IV diuretics 40 mg IV twice a day Monitor kidney function and electrolytes daily Maintain blood pressure control Daily weights Intake and output (6) LUCAS (obstructive sleep apnea) Current Visit: Yes Status: Acute Assessment and plan: Patient is scheduled for an outpatient polysomnogram High pretest probability for obstructive sleep apnea per pulmonary Avoid IV narcotics or benzodiazepines / exercise caution if given these medications (7) COPD (chronic obstructive pulmonary disease) Current Visit: Yes Status: Acute Assessment and plan: Former smoker and significant exposure to passive tobacco smoke in the past Pulmonary recommends nebulizer for home therapy rahel 6 to 8 hours Obtain Outpatient PFTs on discharge Qualifiers: Qualified Code(s): J44.9 - Chronic obstructive pulmonary disease, unspecified - Subjective Interval history: Patient lying in bed in no acute distress, her niece is at the bedside. She states that she has no shortness of breath and it is much easier to get her breath and now. Her only complaint is of leg pain. She states they hurt Her awake last night. The blisters on her belly are also little sore as some have broken open - Constitutional Vitals: Temp Pulse Resp BP Pulse Ox 97.4 F L 74 16 105/51 91 11/12/17 19:26 11/12/17 19:26 11/12/17 19:26 11/12/17 19:26 11/12/17 19:26 General appearance: Present: cooperative, A&O X 3, morbidly obese, no acute distress, answers questions appropriately - Head Head exam: Present: atraumatic, normocephalic - Eye Eye exam: Present: PERRL, conjuntiva pink, sclera anicteric Pupils: Present: PERRL - Neck Neck exam general surgery: Present: supple, trachea midline. Absent: lymphadenopathy - Respiratory Respiratory exam: Present: decreased breath sounds, CTAB. Absent: accessory muscle use, rales, rhonchi, wheezes - Cardiovascular Cardiovascular exam: Present: RRR, +S1, +S2. Absent: diastolic murmur, gallop, rubs, systolic murmur - GI/Abdominal GI/Abdominal exam: Present: normal bowel sounds, soft, no peritoneal signs. Absent: distended, tenderness Additional comments: Blisters on abdomen various sizes with some open and bases reddened and tender. No signs of infection. - Extremities Exam Extremities exam: Present: pedal edema, warm, radial pulses palpable and symmetrical. Absent: calf tenderness, cyanotic Additional comments: Anasarca of the lower extremities with some blisters noted around the ankle area on the right lower extremity - Neurological Exam Neurological exam: Present: CN II-XII intact, oriented X3, no focal deficits. Absent: pronater drift, facial droop, speech deficit - Skin Skin exam: Present: dry, vesicles, warm Internal Medicine: Result - Labs CBC & Chem 7: 11/12/17 04:13 11/12/17 04:13 Labs: Short CBC 11/12/17 Range/Units 04:13 WBC 57.4 H* (4.3-11.1) K/mcL Hgb 8.2 L (11.5-15.4) g/dL Hct 27.4 L (35.3-44.9) % Plt Count 91 L (140-400) K/mcL Neutrophils # 41.3 H (1.6-8.9) K/mcL BMP 11/12/17 04:13 Sodium 137 Potassium 4.3 Chloride 107 Carbon Dioxide 23 BUN 24 H Creatinine 1.78 H Glucose 193 H Calcium 8.4 L Liver Function 11/12/17 Range/Units 12:36 Total Bilirubin 0.2 L (0.3-1.0) mg/dL Direct Bilirubin 0.0 (0.0-0.2) mg/dL AST 9 L (13-39) Units/L ALT 5 L (7-52) Units/L Alkaline Phosphatase 63 (34-104) Units/L Albumin 2.8 L (3.5-5.7) g/dL - Impressions Impressions Thoracentesis Ultrasound 11/12/17 00:00 IMPRESSION: Successful ultrasound guided thoracentesis. D/ / Tristan Josue MD / Tristan Josue MD Interpreting Provider: Tristan Josue MD Chest X-Ray 11/12/17 08:54 IMPRESSION: 1. Interval decrease in previously seen right pleural effusion. There remains a small right residual pleural effusion. 2. No pneumothorax post thoracentesis. 3. Stable mild enlargement of the cardiac silhouette. D/ / Seth Hull MD / Seth Hull MD Interpreting Provider: Seth Hull MD - VTE Documentation of Mechanical Device: Graduated compression elastic hosiery Consult Discharge Plan - Plan Referrals: Noris Chavez, [facility] [Primary Care Provider] -
[2017-11-12] MEDS: Sennosides 8.6 MG TABLET PO SCH (20:00)
[2017-11-12] MEDS: Gabapentin 100 MG CAPSULE PO SCH (21:29)
[2017-11-13] MEDS: Ipratropium/Albuterol Neb 3 ML IH SCH ×6 (00:01→20:42)
[2017-11-13] MEDS: hydrALAZINE 25 MG TABLET PO SCH ×3 (05:57→21:08)
[2017-11-13] MEDS: Cefepime HCl 2,000 MG in Water for inj. (sterile) 20 ML IVP SCH ×2 (05:58→18:32)
[2017-11-13 07:38] LABS: Mycoplasma pneumoniae IgG 0.14 U/L (<=0.09)
[2017-11-13] MEDS: Gabapentin 100 MG CAPSULE PO SCH ×3 (10:10→21:08)
[2017-11-13] MEDS: NIFEdipine XL (24 HR) 30 MG TAB.ER.24 PO SCH (10:11)
[2017-11-13] MEDS: Lisinopril 20 MG TABLET PO SCH (10:11)
[2017-11-13] MEDS: Furosemide 40 MG/4 ML VIAL IVP SCH ×2 (10:12→18:31)
[2017-11-13] MEDS: Insulin LISPRO 300 UNITS/3 ML VIAL SQ SCH ×4 (10:22→21:09)
[2017-11-13 10:44] LABS: Basophils # 0.3 K/mcL (0.0-0.2); Basophils % 0.4 %; Eosinophils # 0.1 K/mcL (0.0-0.6); Eosinophils % 0.1 %; Hematocrit 28.8 % (35.3-44.9); Hemoglobin 8.8 g/dL (11.5-15.4); Immature Granulocytes % 29.2 % (0-4); Lymphocytes # 3.8 K/mcL (0.6-4.6); Lymphocytes % 5.3 %; Mean Corpuscular HGB Conc 30.6 g/dL (31.6-35.5); Mean Corpuscular Hemoglobin 29.3 pg (28.0-33.3); Monocytes # 0.6 K/mcL (0.0-1.3); Monocytes % 0.9 %; Neutrophils # 45.3 K/mcL (1.6-8.9); Nucleated Red Blood Cells 0.1 /100 WBC (0); Platelet Count 114 K/mcL (140-400); Red Cell Distribution Width 18.1 % (11.5-14.5); Segmented Neutrophils % 64.1 %
[2017-11-13 11:00] LABS: Calcium 8.4 mg/dL (8.6-10.3); Potassium 4.4 mEq/L (3.5-5.1)
[2017-11-13 11:45] LABS: Platelet Estimate Decreased (Normal)
--- NOTE | 2017-11-13 14:53 | Oncology Inp Consult Note ---
<Anay Lacey L - Last Filed: 11/13/17 16:28> Date of Encounter: 11/13/17 Time of Encounter: 14:50 Assessment and Plan (1) MPN (myeloproliferative neoplasm) Status: Chronic Assessment and plan: Follows Hem/Onc at [facility], has planned follow up within next 1-2 weeks Peripheral smear showed 1% blasts and a left shift. Bone marrow biopsy showed hypercellular bone marrow (95%) with granulocytic hyperplasia, consistent with myeloproliferative neoplasm. Analysis for t(9.22)/BCR-ABL with FISH was negative. WBC count was 83-90 during previous hospital stay at [facility]. WBC count at this current time is 70. Plan: Continue to monitor lab work and treat supportively with transfusion as needed, anemia and platelets are stable at this time and no current need for transfusion. Newly diagnosed with no current treatment planned at this time. She will need to follow up with [facility] for further treatment discussions following resolution of her acute illness, currently receiving treatment for pneumonia. Please refer to Dr. Burns's attestation below for further details. - Data of Consult Patient: new to practice Consult date: 11/13/17 Requesting Physician: Roxane Weems CNP Primary Care Provider: Noris Chavez CNP - Consult Narrative Reason for consult: Myeloproliferative Disorder History of present illness: Ms. Suarez is a 72 year old female with past medical history significant for HTN, hyperlipidemia and diabetes. Presented to [facility] ER with complaints of cough, chills, SOB, not resting for 2-3 weeks. She does not use oxygen as baseline. Admitted with HCAP and Pneumonia. She was previously hospitalized at [facility] in September for anemia/hematochezia. Follows Hem/Onc at [facility] who consulted on patient during this stay. Upon review of records, there was initial concern for acute leukemia, however, peripheral smear showed 1% blasts and a left shift. Bone marrow biopsy showed hypercellular bone marrow (95%) with granulocytic hyperplasia, consistent with myeloproliferative neoplasm. Analysis for t(9.22)/BCR-ABL with FISH was negative. Additionally she was found to have a 3 cm left adrenal incidentaloma. Evaluation for a functioning mass was unremarkable as the dexamethasone suppression test, serum aldosterone and serum metanephrines were normal. Her labs at discharge from [facility] on 09/27/17 show WBC 83, hgb 8.8, platelet 89 Past Med Surg Social Fam HX - Past Medical History Medical history: diabetes, hyperlipidemia, hypertension, other Psychiatric history: no psych history - Past Surgical History Surgical History: non-contributory, other - Social History Smoking Status: Former smoker Packs per day: 1 Smokeless Tobacco Status: No Alcohol use: none Drug use: none Medications and Allergies Allopurinol [Zyloprim] 300 mg PO DAILY 11/09/17 [History] Carvedilol 12.5 mg PO BID 11/09/17 [History] Docusate [Colace] 100 mg PO BID 11/09/17 [History] Enalapril Maleate [Vasotec] 30 mg PO DAILY 11/09/17 [History] Furosemide [Lasix] 40 mg PO DAILY 11/09/17 [History] Hydralazine HCl 100 mg PO Q8H 11/09/17 [History] Hydrocodone/Acetaminophen [Xodol 5-300 Tablet] 1 each PO Q4H PRN 11/09/17 [ History] Insulin Glargine,Hum.rec.anlog [Lantus Solostar] 0 unit SQ HS 11/09/17 [History] Meclizine HCl [Verticalm] 25 mg PO DAILY PRN 11/09/17 [History] NIFEdipine [Nifedipine ER] 90 mg PO DAILY 11/09/17 [History] Nabumetone [Relafen] 500 mg PO BID 11/09/17 [History] Nystatin POWDER [Nystop] 1 appl TP TID PRN 11/09/17 [History] Omeprazole [PriLOSEC] 40 mg PO DAILY 11/09/17 [History] Polyethylene Glycol 3350 [MiraLAX] 17 gm PO DAILY 11/09/17 [History] Sennosides [Senna] 17.2 mg PO HS 11/09/17 [History] Simvastatin [Zocor] 40 mg PO HS 11/09/17 [History] metFORMIN [Glucophage] 500 mg PO BIDWM 11/09/17 [History] Amoxicillin/Clavulanate [Augmentin] 875 mg PO BIDWM #12 tablet 11/14/17 [Rx] Ipratropium/Albuterol Neb [Duoneb] 3 ml IH Q6H #100 inhsol 11/14/17 [Rx] 3 Allergy/AdvReac Type Severity Reaction Status Date / Time Sulfa (Sulfonamide Allergy Fainting Verified 11/09/17 15:58 Antibiotics) Constitutional: Present: as per HPI, chills, fever(s), malaise Eyes: Absent: change in vision Nose, mouth and throat: Absent: mouth lesions Cardiovascular: Absent: chest pain, irregular heart rhythm, palpitations Gastrointestinal: Absent: abdominal pain, hematochezia, melena, nausea, vomiting Genitourinary: Absent: dysuria Musculoskeletal: Present: muscle weakness. Absent: numbness, tingling Integumentary: Absent: wounds Neurological: Absent: syncope Hematologic/Lymphatic: Absent: easy bleeding, lymphadenopathy Oncology - Exam - Constitutional Vitals: Temp Pulse Resp BP Pulse Ox 97.9 F 70 16 115/55 94 11/13/17 11:48 11/13/17 11:48 11/13/17 11:48 11/13/17 11:48 11/13/17 11:48 General appearance: cooperative, no acute distress, obese, no febrile - Head Head exam: Present: atraumatic - Respiratory Respiratory exam: Present: decreased breath sounds, wheezes. Absent: respiratory distress - Cardiovascular Cardiovascular exam: Present: RRR, +S1, +S2 - GI/Abdominal GI/Abdominal exam: Present: normal bowel sounds, soft. Absent: guarding, tenderness - Extremities Exam Extremities exam: Present: pedal edema. Absent: calf tenderness - Neurological Exam Neurological exam: Present: alert, oriented X3, no focal deficits, strengths equal and symetr throughout - Psychiatric Psychiatric exam: Present: normal affect, normal mood - Skin Skin exam: Present: normal color, warm Oncology - Results Labs: Short CBC 11/13/17 Range/Units 10:33 WBC 70.7 H* (4.3-11.1) K/mcL Hgb 8.8 L (11.5-15.4) g/dL Hct 28.8 L (35.3-44.9) % Plt Count 114 L (140-400) K/mcL Neutrophils # 45.3 H (1.6-8.9) K/mcL BMP 11/13/17 10:33 Sodium 136 Potassium 4.4 Chloride 108 H Carbon Dioxide 22 L BUN 29 H Creatinine 1.67 H Glucose 230 H Calcium 8.4 L Consult Discharge Plan - Plan Additional Instructions: Please take your medications as directed. Use your nebulizer every 6 hours as directed. Follow up with pulmonology as scheduled. Follow up with your PCP in the next 7-10 days for a follow up visit. You will still need the sleep study and assessment for CPAP at home. Take your normal medications and continue your normal dose of Lasix. Resume your normal activities as tolerated Eat a low fat, lower calorie diet Return to the ER as needed for any problems or concerns, or if your symptoms return or worsen. Referrals: Noris Chavez CNP [Primary Care Provider] - Prescriptions: Amoxicillin/Clavulanate [Augmentin] 875 mg PO BIDWM #12 tablet Ipratropium/Albuterol Neb [Duoneb] 3 ml IH Q6H #100 inhsol <Sobeida Govea - Last Filed: 11/14/17 12:52> Date of Encounter: 11/14/17 - Data of Consult Requesting Physician: Roxane Weems CNP Primary Care Provider: Noris Chavez CNP - Consult Narrative History of present illness: I examined this patient and my medical decision-making was reviewed with the Advanced Practice Nurse, Anay Lacey. I agree with the documented findings, disposition and treatment plan as described except to the extent set forth below. At [facility] patient has had colonoscopy for anemia w/u, bone marrow bx-leucocytosis. 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 She wants to follow up at [place] [facility] for additional treatments after discharge from here. Oncology - Exam - Constitutional Vitals: Temp Pulse Resp BP Pulse Ox 97.8 F 78 16 141/59 95 11/14/17 11:16 11/14/17 11:16 11/14/17 11:16 11/14/17 08:43 11/14/17 11:16 Oncology - Results Labs: Short CBC 11/14/17 Range/Units 05:41 WBC 61.8 H* (4.3-11.1) K/mcL Hgb 8.2 L (11.5-15.4) g/dL Hct 27.2 L (35.3-44.9) % Plt Count 94 L (140-400) K/mcL Neutrophils # 44.5 H (1.6-8.9) K/mcL BMP 11/14/17 05:41 Sodium 138 Potassium 4.1 Chloride 107 Carbon Dioxide 26 BUN 31 H Creatinine 1.67 H Glucose 166 H Calcium 8.3 L
[2017-11-13] MEDS ORDERED: Vancomycin 1,000 MG in D5% in Water 250 ML IVPB SCH (15:00)
--- NOTE | 2017-11-13 17:53 | Internal Med Progress Note ---
Date of Encounter: 11/13/17 Time of Encounter: 11:50 - Assessment and plan (1) COPD (chronic obstructive pulmonary disease) Current Visit: Yes Status: Acute Assessment and plan: No acute exacerbation at this time. Lungs are clear and diminished throughout. Patient is a former smoker and has had significant exposure to secondhand smoke throughout her life. Pulmonology recommended nebulizer for home therapy every 6-8 hours and outpatient PFTs on discharge. She has needed to maintain sats greater than 92%. Qualifiers: Emphysema type: unspecified Qualified Code(s): J43.9 - Emphysema, unspecified (2) DMII (diabetes mellitus, type 2) Current Visit: Yes Status: Acute Assessment and plan: Continue sliding scale insulin, Accu-Cheks before meals at bedtime, diabetic diet. A1c ordered for morning. Qualifiers: Diabetes mellitus complication status: without complication Diabetes mellitus half-way insulin use: with garment patternmaker use Qualified Code(s): E11.9 - Type 2 diabetes mellitus without complications; Z79.4 - senior living (current) use of insulin; Z79.4 - occupational medicine officer (current) use of insulin; Z79.4 - occupational medicine officer ( current) use of insulin; Z79.4 - senior living (current) use of insulin (3) Pleural effusion Current Visit: Yes Status: Acute Assessment and plan: Patient presented with pleural effusions, thoracentesis yesterday with a total of 0.8 L straw-colored fluid removed during the procedure. Continue Lasix 40 mg twice a day Attending monitor labs. [facility] is requesting that patient have a nebulizer for home, as well as follow with them for outpatient PFTs. Lungs are clear and diminished throughout. Patient is in no distress. Continue to monitor labs and titrate oxygen as needed to maintain sats greater than 92%. (4) Pneumonia Current Visit: Yes Status: Acute Assessment and plan: Patient was recently admitted at [facility] in early September for 6 days for pneumonia. Patient presents with productive cough with yellow sputum, sputum cultures were negative. Blood cultures negative legionella and strep pneumo negative respiratory infectious panel was negative. Influenza is negative. Chest x-ray showed a pace in the right lung base and chest CT a revealed moderate to large right and small left pleural effusions, as well as multifocal bilateral patchy airspace disease most compatible with pneumonia. Continue IV vancomycin and cefepime, will de-escalate tomorrow to fluoroquinolones are Augmentin to complete 7 days. Continue Lasix 40 mg IV twice daily Continue pulse ox as needed, she does not wear oxygen at home. Titrate oxygen to maintain sats greater than 92%. Continue telemetry. Continue duo nebs every 4 hours. Qualifiers: Pneumonia type: due to unspecified organism Laterality: unspecified laterality Qualified Code(s): J18.9 - Pneumonia, unspecified organism (5) MPN (myeloproliferative neoplasm) Current Visit: Yes Status: Chronic Assessment and plan: Further history patient she presents to 3 week history of cough, chills, shortness of breath. She is established at [facility] for hematological disorder that was discovered after hospital admission in early September. She is being managed with blood work and when necessary transfusions. Leukocytosis has increased to greater than 70 and was evaluated by oncology here. She has had multiple bone marrow biopsies at [facility]. [facility] reviewed by [facility]ology. Per oncology continue to monitor lab work and treat supportively with transfusions as needed. Patient is newly diagnosed and there is no current treatment plan, she will need to follow up with [facility] after discharge. Continue to monitor labs in the morning. (6) LUCAS (obstructive sleep apnea) Current Visit: Yes Status: Chronic Assessment and plan: Patient is scheduled for an outpatient polysomnogram High pretest probability for obstructive sleep apnea per pulmonary Avoid IV narcotics or benzodiazepines / exercise caution if given these medications (7) DVT prophylaxis Current Visit: Yes Status: Acute Assessment and plan: SCDs ordered. - Time Spent With Patient less than 15 minutes - Subjective Interval history: Patient was seen and assessed at bedside 1150. She was sitting up in her chair. She denies any pain, shortness of breath, headache or dizziness. No abdominal pain, nausea vomiting or diarrhea. Patient reports that she is constipated, enemas were ordered. Patient was evaluated by oncology today for leukocytosis. - Constitutional Vitals: Temp Pulse Resp BP Pulse Ox 97.9 F 80 18 110/61 94 11/13/17 15:56 11/13/17 15:56 11/13/17 15:56 11/13/17 15:56 11/13/17 15:56 General appearance: Present: cooperative, A&O X 3, morbidly obese, pleasant, no acute distress, answers questions appropriately - Head Head exam: Present: atraumatic, normal inspection, normocephalic - Eye Eye exam: Present: normal appearance, conjuntiva pink, sclera anicteric - Neck Neck exam general surgery: Present: supple, trachea midline. Absent: lymphadenopathy - Respiratory Respiratory exam: Present: decreased breath sounds, CTAB. Absent: accessory muscle use, chest wall tenderness, rales, respiratory distress, rhonchi, wheezes - Cardiovascular Cardiovascular exam: Present: RRR, +S1, +S2. Absent: diastolic murmur, gallop, rubs, systolic murmur - GI/Abdominal GI/Abdominal exam: Present: distended, normal bowel sounds, soft. Absent: hepatomegaly, tenderness - Extremities Exam Extremities exam: Present: normal capillary refill, normal inspection, warm, radial pulses palpable and symmetrical. Absent: calf tenderness, cyanotic, pedal edema - Neurological Exam Neurological exam: Present: alert, oriented X3, no focal deficits. Absent: altered, facial droop, speech deficit - Skin Skin exam: Present: dry, intact, normal color, warm. Absent: rash Internal Medicine: Result - Labs CBC & Chem 7: 11/13/17 10:33 11/13/17 10:33 Labs: Short CBC 11/13/17 Range/Units 10:33 WBC 70.7 H* (4.3-11.1) K/mcL Hgb 8.8 L (11.5-15.4) g/dL Hct 28.8 L (35.3-44.9) % Plt Count 114 L (140-400) K/mcL Neutrophils # 45.3 H (1.6-8.9) K/mcL BMP 11/13/17 10:33 Sodium 136 Potassium 4.4 Chloride 108 H Carbon Dioxide 22 L BUN 29 H Creatinine 1.67 H Glucose 230 H Calcium 8.4 L - VTE Documentation of Mechanical Device: Graduated compression elastic hosiery Consult Discharge Plan - Plan Referrals: Noris Chavez, FOOD ASSEMBLER [employer] [Primary Care Provider] -
[2017-11-13] MEDS: Sennosides 8.6 MG TABLET PO SCH (21:08)
[2017-11-14] MEDS: Ipratropium/Albuterol Neb 3 ML IH SCH ×4 (00:39→11:39)
[2017-11-14] MEDS: hydrALAZINE 25 MG TABLET PO SCH ×2 (05:41→12:54)
[2017-11-14] MEDS: Cefepime HCl 2,000 MG in Water for inj. (sterile) 20 ML IVP SCH (05:41)
[2017-11-14 06:17] LABS: Mean Corpuscular HGB Conc 30.1 g/dL (31.6-35.5); Nucleated Red Blood Cells 0.1 /100 WBC (0); Red Blood Count 2.85 M/mcL (3.82-4.97)
[2017-11-14 06:19] LABS: Hematocrit 27.2 % (35.3-44.9); Hemoglobin 8.2 g/dL (11.5-15.4); Mean Corpuscular Hemoglobin 28.8 pg (28.0-33.3); Mean Corpuscular Volume 95.4 fL (83.0-100.0)
[2017-11-14 06:27] LABS: Platelet Count 94 K/mcL (140-400)
[2017-11-14 06:40] LABS: Calcium 8.3 mg/dL (8.6-10.3); Potassium 4.1 mEq/L (3.5-5.1)
[2017-11-14 06:50] LABS: Hemoglobin A1C 5.9 %
[2017-11-14 08:19] LABS: Lymphocytes # 11.1 K/mcL (0.6-4.6); Monocytes # 3.7 K/mcL (0.0-1.3); Neutrophils # 44.5 K/mcL (1.6-8.9)
[2017-11-14 08:20] LABS: Platelet Estimate Slight Decrease (Normal)
[2017-11-14 08:45] VITALS: BP 141/59
[2017-11-14] MEDS: Furosemide 40 MG/4 ML VIAL IVP SCH (09:56)
[2017-11-14] MEDS: Lisinopril 20 MG TABLET PO SCH (09:57)
[2017-11-14] MEDS: NIFEdipine XL (24 HR) 30 MG TAB.ER.24 PO SCH (09:57)
[2017-11-14] MEDS: Gabapentin 100 MG CAPSULE PO SCH (09:57)
[2017-11-14] MEDS: Insulin LISPRO 300 UNITS/3 ML VIAL SQ SCH ×2 (09:58→12:55)
--- NOTE | 2017-11-14 10:27 | Discharge Summary ---
Date of Encounter: 11/14/17 Time of Encounter: 09:40 - Discharge Diagnosis (1) COPD (chronic obstructive pulmonary disease) Priority: Primary Status: Acute Comments: No acute exacerbation at this time. Lungs are clear and diminished throughout. Patient is a former smoker and has had significant exposure to secondhand smoke throughout her life. Pulmonology recommended nebulizer for home therapy every 6-8 hours and outpatient PFTs on discharge. Pt is aware, rx will be given prior to discharge. Qualifiers: Emphysema type: unspecified Qualified Code(s): J43.9 - Emphysema, unspecified (2) DMII (diabetes mellitus, type 2) Priority: Secondary Status: Chronic Comments: A1c 5.9%. Continue home medications and accuchecks, diabetic diet. Qualifiers: Diabetes mellitus complication status: without complication Diabetes mellitus continuous churn buttermaker insulin use: with alf use Qualified Code(s): E11.9 - Type 2 diabetes mellitus without complications; Z79.4 - local company intermodal truck driver (current) use of insulin; Z79.4 - shelter (current) use of insulin; Z79.4 - local company intermodal truck driver ( current) use of insulin; Z79.4 - shelter (current) use of insulin (3) Pleural effusion Priority: Secondary Status: Acute Comments: Patient presented with pleural effusions, thoracentesis 11/12 with a total of 0.8 L straw-colored fluid removed during the procedure. Continue Lasis home dose. Pulmonology is requesting that patient have a nebulizer for home, as well as follow with them for outpatient PFTs. Lungs are clear and diminished throughout. Patient is in no distress. (4) Pneumonia Priority: Secondary Status: Acute Comments: Patient was recently admitted at [facility] in early September for 6 days for pneumonia. Patient presents with productive cough with yellow sputum, sputum cultures were negative. Blood cultures negative legionella and strep pneumo negative respiratory infectious panel was negative. Influenza is negative. Chest x-ray showed opacity in the right lung base and chest CT a revealed moderate to large right and small left pleural effusions, as well as multifocal bilateral patchy airspace disease most compatible with pneumonia. Started Augmentin 875mg po bid x 4 days Continue Lasix home dose po Continue duo nebs every 6 hours. Qualifiers: Pneumonia type: due to unspecified organism Laterality: unspecified laterality Qualified Code(s): J18.9 - Pneumonia, unspecified organism (5) MPN (myeloproliferative neoplasm) Priority: Secondary Status: Chronic Comments: Per pt history, she presents to 3 week history of cough, chills, shortness of breath. She is established at [facility] for hematological disorder that was discovered after hospital admission in early September. She is being managed with blood work and prn transfusions. Leukocytosis has increased to greater than 70 and was evaluated by oncology here. She has had multiple bone marrow biopsies at [facility]. [facility] reviewed by [facility]ology. Per oncology continue to monitor lab work and treat supportively with transfusions as needed. Patient is newly diagnosed and there is no current treatment plan, she will need to follow up with [facility] after discharge. WBC today 61.8. Oncology has signed off and encourage follow up at [facility]. (6) LUCAS (obstructive sleep apnea) Priority: Secondary Status: Chronic Comments: Patient is scheduled for an outpatient polysomnogram High pretest probability for obstructive sleep apnea per pulmonary Avoid IV narcotics or benzodiazepines / exercise caution if given these medications. Pt is aware of need for follow up (7) DVT prophylaxis Priority: Secondary Status: Acute Comments: SCDs ordered. (8) Morbid obesity with BMI of 45.0-49.9, adult Priority: Secondary Status: Chronic Comments: Chronic. Encourage lifestyle modifications. - Discharge Medications Prescriptions: Amoxicillin/Clavulanate [Augmentin] 875 mg PO BIDWM #12 tablet Ipratropium/Albuterol Neb [Duoneb] 3 ml IH Q6H #100 inhsol Home Medications: Allopurinol [Zyloprim] 300 mg PO DAILY 11/09/17 [History] Carvedilol 12.5 mg PO BID 11/09/17 [History] Docusate [Colace] 100 mg PO BID 11/09/17 [History] Enalapril Maleate [Vasotec] 30 mg PO DAILY 11/09/17 [History] Furosemide [Lasix] 40 mg PO DAILY 11/09/17 [History] Hydralazine HCl 100 mg PO Q8H 11/09/17 [History] Hydrocodone/Acetaminophen [Xodol 5-300 Tablet] 1 each PO Q4H PRN 11/09/17 [ History] Insulin Glargine,Hum.rec.anlog [Lantus Solostar] 0 unit SQ HS 11/09/17 [History] Meclizine HCl [Verticalm] 25 mg PO DAILY PRN 11/09/17 [History] NIFEdipine [Nifedipine ER] 90 mg PO DAILY 11/09/17 [History] Nabumetone [Relafen] 500 mg PO BID 11/09/17 [History] Nystatin POWDER [Nystop] 1 appl TP TID PRN 11/09/17 [History] Omeprazole [PriLOSEC] 40 mg PO DAILY 11/09/17 [History] Polyethylene Glycol 3350 [MiraLAX] 17 gm PO DAILY 11/09/17 [History] Sennosides [Senna] 17.2 mg PO HS 11/09/17 [History] Simvastatin [Zocor] 40 mg PO HS 11/09/17 [History] metFORMIN [Glucophage] 500 mg PO BIDWM 11/09/17 [History] Amoxicillin/Clavulanate [Augmentin] 875 mg PO BIDWM #12 tablet 11/14/17 [Rx] Ipratropium/Albuterol Neb [Duoneb] 3 ml IH Q6H #100 inhsol 11/14/17 [Rx] Allergies/Adverse Reactions: 3 Allergy/AdvReac Type Severity Reaction Status Date / Time Sulfa (Sulfonamide Allergy Fainting Verified 11/09/17 15:58 Antibiotics) Procedures/tests Complete & Pending: Procedures Performed prior 72 hours Category Date Time Status IR thoracentesis ultrasound [IR] Routine IR 11/12/17 Completed Date of admission: 11/09/17 20:57 Primary care physician: Noris Chavez CNP Consults: 11/10/17 12:30 Consult to Pulmonology [CONS] Routine Consulting Provider: Pulm [facility] Reason for Consult: pleural effusion and PNA Time Notified: 12:30 Call Completed: Yes 11/10/17 15:15 Consult to Interventional Radiology [CONS] Routine Consulting Provider: Radiology Interventional Cols Reason for Consult: Therapeutic thoracentesis of large right pleural effusion Time Notified: 15:17 Call Completed: Yes 11/13/17 13:27 Consult to Oncology Hematology [CONS] Routine Consulting Provider: Anay Lacey Reason for Consult: Leukocytosis, 70k. Pt with MPN and is pt at [facility]. Being treated for pna with Vanco and Cefepime and white count elevating. Requesting evaluation of labs and recommendations . Time Notified: 13:28 Call Completed: Yes Discharging clinician: Jennifer Kendall Anticipated date of discharge: 11/14/17 - Patient Status Disposition: Home, Self-Care Condition: Good Functional capacity at discharge: uses cane/walker Overall status at discharge: patient is progressing back to baseline - Discharge Instructions Follow Up With: Noris Chavez, STORAGE FACILITY RENTAL CLERK [Primary Care Provider] - Additional Instructions: Please take your medications as directed. Use your nebulizer every 6 hours as directed. Follow up with pulmonology as scheduled. Follow up with your PCP in the next 7-10 days for a follow up visit. You will still need the sleep study and assessment for CPAP at home. Take your normal medications and continue your normal dose of Lasix. Resume your normal activities as tolerated Eat a low fat, lower calorie diet Return to the ER as needed for any problems or concerns, or if your symptoms return or worsen. - Diet and Activity Activity: increase activity as tolerated Diet: low fat, low cholesterol, low salt diet Hospital course: Ms. Suarez is a 72 year old female - Time Spent with Patient Total time spent providing and/or coordinating discharge services: - Constitutional Vitals: Temp Pulse Resp BP Pulse Ox 98.0 F 86 18 141/59 90 11/14/17 07:31 11/14/17 08:43 11/14/17 08:43 11/14/17 08:43 11/14/17 09:00 General appearance: Present: cooperative, A&O X 3, morbidly obese, pleasant, no acute distress, answers questions appropriately - Head Head exam: Present: atraumatic, normal inspection, normocephalic - Eye Eye exam: Present: normal appearance, conjuntiva pink, sclera anicteric - Neck Neck exam general surgery: Present: normal inspection, supple, trachea midline. Absent: lymphadenopathy, tenderness - Respiratory Respiratory exam: Present: decreased breath sounds, CTAB. Absent: accessory muscle use, chest wall tenderness, rales, respiratory distress, rhonchi, wheezes - Cardiovascular Cardiovascular exam: Present: RRR, +S1, +S2. Absent: bradycardia, diastolic murmur, gallop, rubs, systolic murmur, tachycardia - GI/Abdominal GI/Abdominal exam: Present: normal bowel sounds, soft. Absent: distended, hepatomegaly, tenderness - Extremities Exam Extremities exam: Present: normal capillary refill, normal inspection, warm, radial pulses palpable and symmetrical. Absent: calf tenderness, cyanotic, pedal edema, tenderness - Neurological Exam Neurological exam: Present: alert, oriented X3, no focal deficits, strengths equal and symetr throughout. Absent: facial droop, speech deficit - Skin Skin exam: Present: dry, intact, normal color, warm. Absent: rash - VTE Documentation of Mechanical Device: Graduated compression elastic hosiery
[2017-11-14] MEDS ORDERED: Aminoglycoside Consult 1 EACH MC ONE (16:20)
== END 2017-11-14 16:21 | disposition home or self-care (01) | DRG 139 ==
LOC: 3BNU 13:25 → EMEROO 13:25 → 3BNU 21:05
PROVIDERS: ADMIT Internal Medicine; ATTEND Registered Nurse

== ENCOUNTER 2018-02-20 09:51 | Inpatient (IN) ==
--- NOTE | 2018-02-20 11:24 | Emergency Department Note ---
Disposition Clinical Impression: History of leukemia Leukocytosis Qualifiers: Leukocytosis type: unspecified Qualified Code(s): D72.829 - Elevated white blood cell count, unspecified Pneumonia Qualifiers: Pneumonia type: due to unspecified organism Laterality: right Lung location: lower lobe of lung Qualified Code(s): J18.1 - Lobar pneumonia, unspecified organism Dyspnea Qualifiers: Dyspnea type: unspecified Qualified Code(s): R06.00 - Dyspnea, unspecified Disposition: Admitted As Inpatient Condition: Good Referrals: Mayra Uribe CNP [Primary Care Provider] - Forms: ED Satisfaction Letter Time of Disposition: 14:17 General Adult HPI - General Chief complaint: ED Weakness Stated complaint: Weakness, fluid retention Time Seen by Provider: 02/20/18 10:04 Source: patient, family Mode of arrival: ambulatory Limitations: no limitations Nursing Notes Reviewed: Yes Vital Signs Reviewed: Yes - History of Present Illness HPI Narrative: Patient is a 72-year-old female with past medical history of hypertension, hyperlipidemia, diabetes, CHF, previous right lower lobe effusion that had to be drained by thoracentesis, history of leukemia. She presents today due to shortness of breath. She states that over the past several days, she has became fatigued with generalized weakness, increased swelling of lower extremities, worsening shortness of breath above baseline with CHF. She also has been having a productive cough. Denies any fevers, nausea, vomiting, diarrhea, abdominal pain, dysuria, hematuria. She has been taking Lasix 20 mg twice daily. She was concern for possible pneumonia versus CHF exacerbation. Pain Scale: 4 - Related Data Home Medications Medication Instructions Recorded Confirmed Allopurinol [Zyloprim] 300 mg PO DAILY 11/09/17 02/20/18 Docusate [Colace] 100 mg PO BID 11/09/17 02/20/18 Enalapril Maleate [Vasotec] 30 mg PO DAILY 11/09/17 02/20/18 Furosemide [Lasix] 40 mg PO BID 11/09/17 02/20/18 Hydralazine HCl 100 mg PO Q8H 11/09/17 02/20/18 Hydrocodone/Acetaminophen [Xodol 1 each PO Q4H PRN 11/09/17 02/20/18 5-300 Tablet] Insulin Glargine,Hum.rec.anlog 45 unit SQ HS 11/09/17 02/20/18 [Lantus Solostar] Meclizine HCl [Verticalm] 25 mg PO DAILY PRN 11/09/17 02/20/18 NIFEdipine [Nifedipine ER] 90 mg PO DAILY 11/09/17 02/20/18 Omeprazole [PriLOSEC] 40 mg PO DAILY 11/09/17 02/20/18 Polyethylene Glycol 3350 [MiraLAX] 17 gm PO DAILY PRN 11/09/17 02/20/18 Simvastatin [Zocor] 40 mg PO HS 11/09/17 02/20/18 metFORMIN [Glucophage] 500 mg PO BIDWM 11/09/17 02/20/18 Carvedilol [Coreg] 25 mg PO BID 02/20/18 02/20/18 Previous Rx's Medication Instructions Recorded Ipratropium/Albuterol Neb [Duoneb] 3 ml IH Q6H #100 inhsol 11/14/17 Allergies Allergy/AdvReac Type Severity Reaction Status Date / Time Sulfa (Sulfonamide Allergy Fainting Verified 11/09/17 15:58 Antibiotics) All systems ED: reviewed and negative except as stated. Constitutional: Denies: fever Cardiovascular: Denies: chest pain Respiratory: Reports: cough, dyspnea, sputum production. Denies: wheezes Gastrointestinal: Denies: abdominal pain, nausea, vomiting, diarrhea Genitourinary: Denies: urgency, dysuria, frequency, hematuria, discharge Integumentary: Denies: rash Neurological: Denies: headache, weakness, numbness, paresthesias Endocrine: Reports: fatigue Past Medical History - Past Medical History Attestation: Yes The following information was validated with the patient. Source: patient Medical history: Reports: arthritis, cancer, diabetes, hyperlipidemia, hypertension, other Surgical history: Reports: other (Bone marrow biopsy) Psychiatric history: Reports: no psych history CHANNELER OUTSOLE history: Reports: no CHANNELER OUTSOLE history - Social History Smoking Status: Former smoker Smokeless Tobacco Status: No Alcohol use: Reports: none Drug use: Reports: none Physical Exam - General Limitations: no limitations General appearance: alert - Head Head exam: atraumatic, normocephalic, normal inspection - Eye Eye exam: Present: normal appearance, PERRL, EOMI - ENT ENT exam: normal exam, normal oropharynx, mucous membranes moist - Neck Neck exam: Present: normal inspection, full ROM, trachea midline - Chest Chest inspection: Present: normal inspection, symmetric chest wall rise - Respiratory Respiratory exam: Present: other (Decreased aeration and rhonchi of RLL). Absent: respiratory distress, wheezes, accessory muscle use - Cardiovascular Cardiovascular exam: Present: regular rate, normal rhythm, normal heart sounds - Abdominal Exam Abdominal exam: Present: soft, Non-Tender. Absent: tenderness, distention, guarding, rebound, rigidity - Extremities Exam Extremities exam: Present: full ROM, pedal edema (moderate pitting of bilateral LE). Absent: tenderness, joint swelling, calf tenderness - Neurological Exam Neurological exam: Present: alert, oriented X3 - Psychiatric Psychiatric exam: Present: normal affect, normal mood - Skin Skin exam: Present: warm, dry, intact, normal color Course Course Narrative: Physical blood work, troponin, EKG, chest x-ray obtained. EKG shows no acute ST elevation or depression, normal sinus rhythm. Troponin was negative. Creatinine near baseline for the patient. CBC was obtained and did show elevation in white blood cell count, this was part he noted to the patient due to history of leukemia. She has not established care with oncology at this time. Chest x-ray shows right lower lobe pneumonia. Due to history of recent previous admissions to the hospital, we will cover the patient with vancomycin, Zosyn, Levaquin. Blood culture was also obtained. Patient has needed 2 L nasal cannula placement during her stay to keep oxygen saturation above 89%. We will admit for further care at this time. Dr. Lloyd has accepted for admission. Dr. Ya is hospitalist providing care currently and has requested that we [facility] as well since patient has not had any established care for leukemia. Consult has been placed. Chest X-Ray 02/20/18 11:00 IMPRESSION: 1. New large right lower lobe pulmonary opacity with moderate right pleural effusion. Underlying consolidation cannot be excluded. 2. Mild interval worsening in pulmonary interstitial edema. D/ / Paul Vences MD / Paul Vences MD Interpreting Provider: Paul Vences MD Vital Signs Temperature 97.8 F 02/20/18 09:53 Pulse Rate 61 02/20/18 09:53 Respiratory Rate 22 02/20/18 09:53 Blood Pressure 153/71 02/20/18 09:53 O2 Sat by Pulse Oximetry 95 02/20/18 09:53 Temperature 97.8 F 02/20/18 10:36 Pulse Rate 64 02/20/18 10:36 Respiratory Rate 20 02/20/18 10:36 Blood Pressure 92/81 02/20/18 10:36 O2 Sat by Pulse Oximetry 96 02/20/18 10:36 Oxygen Delivery Oxygen Delivery Room Air Medical Decision Making - MDM Narrative Medical decision making narrative: Physical blood work, troponin, EKG, chest x-ray obtained. EKG shows no acute ST elevation or depression, normal sinus rhythm. Troponin was negative. Creatinine near baseline for the patient. CBC was obtained and did show elevation in white blood cell count, this was part he noted to the patient due to history of leukemia. She has not established care with oncology at this time. Chest x-ray shows right lower lobe pneumonia. Due to history of recent previous admissions to the hospital, we will cover the patient with vancomycin, Zosyn, Levaquin. Blood culture was also obtained. Patient has needed 2 L nasal cannula placement during her stay to keep oxygen saturation above 89%. We will admit for further care at this time. Dr. Lloyd has accepted for admission. Dr. Ya is hospitalist providing care currently and has requested that we consult [facility] as well since patient has not had any established care for leukemia. Consult has been placed. - Medical Records Medical records reviewed: Yes I reviewed the patient's medical records. - Lab Data Lab results reviewed: Yes I reviewed the patient's lab results. Result diagrams: 02/20/18 11:18 02/20/18 12:45 Lab Results 02/20/18 02/20/18 02/20/18 Range/Units 11:18 11:18 11:18 WBC 67.9 H* (4.3-11.1) K/mcL RBC 2.98 L (3.82-4.97) M/mcL Hgb 8.6 L (11.5-15.4) g/dL Hct 27.7 L (35.3-44.9) % MCV 93.0 (83.0-100.0) fL MCH 28.9 (28.0-33.3) pg MCHC 31.0 L (31.6-35.5) g/dL RDW 17.5 H (11.5-14.5) % Plt Count 113 L (140-400) K/mcL MPV TNP Seg Neutrophils % 62.0 % Band Neutrophils % 11.0 H (0-4) % Lymphocytes % 20.0 % Metamyelocytes % 3.0 H (0) % Myelocytes % 4.0 H (0) % Neutrophils # 49.6 H (1.6-8.9) K/mcL Lymphocytes # 13.6 H (0.6-4.6) K/mcL Platelet Estimate Slight Decrease L (Normal) Immature Plt Fraction 37.3 H (1.1-6.1) % Anisocytosis 2+ A (Not Present) Sodium Cancelled Potassium Cancelled Chloride Cancelled Carbon Dioxide Cancelled BUN Cancelled Creatinine Cancelled Est GFR ( Amer) Cancelled Est GFR (Non-Af Amer) Cancelled BUN/Creatinine Ratio Cancelled Glucose Cancelled Calculated Osmolality Cancelled Calcium Cancelled Troponin I < 0.03 (< 0.04) ng/mL Specimen Rejected Hemolyzed 02/20/18 Range/Units 12:45 WBC (4.3-11.1) K/mcL RBC (3.82-4.97) M/mcL Hgb (11.5-15.4) g/dL Hct (35.3-44.9) % MCV (83.0-100.0) fL MCH (28.0-33.3) pg MCHC (31.6-35.5) g/dL RDW (11.5-14.5) % Plt Count (140-400) K/mcL MPV Seg Neutrophils % % Band Neutrophils % (0-4) % Lymphocytes % % Metamyelocytes % (0) % Myelocytes % (0) % Neutrophils # (1.6-8.9) K/mcL Lymphocytes # (0.6-4.6) K/mcL Platelet Estimate (Normal) Immature Plt Fraction (1.1-6.1) % Anisocytosis (Not Present) Sodium 138 Potassium 3.9 Chloride 107 Carbon Dioxide 24 BUN 25 H Creatinine 1.32 H Est GFR ( Amer) 48 L Est GFR (Non-Af Amer) 39 L BUN/Creatinine Ratio 19 Glucose 157 H Calculated Osmolality 294 Calcium 8.5 L Troponin I (< 0.04) ng/mL Specimen Rejected - Radiology Data Radiology results reviewed: Yes I reviewed the patient's radiology results. Chest X-Ray 02/20/18 11:00 IMPRESSION: 1. New large right lower lobe pulmonary opacity with moderate right pleural effusion. Underlying consolidation cannot be excluded. 2. Mild interval worsening in pulmonary interstitial edema. D/ / Paul Vences MD / Paul Vences MD Interpreting Provider: Paul Vences MD - EKG Data EKG #1 EKG attestation: Yes I reviewed and interpreted this EKG. EKG results narrative: 02/20/2018 at 11:17. Normal sinus rhythm. Rate 64. NM 184. QRS 141. QTC 436. Normal axis. No acute ST elevation or depression. T-wave inversion in V1 , V2, V3 that are chronic for the patient when compared to EKG on 11/09/2017. S.B.A.R. - S.B.A.R. Situation: Demographics, MOA Background: Presenting Complaint, Relevant PMH, Meds, & Allergies Assessment: Vital Signs, Course and respsone to treatment, Exam Concerns, Patient/Family Expectation, Pertinant Lab Results Recommendation: Barrier(s) to disposition, Recommendation based on pending studies, treatments, or consults S.B.A.R. Report Given to: Dr. Lloyd
[2018-02-20 11:41] LABS: Hematocrit 27.7 % (35.3-44.9); Hemoglobin 8.6 g/dL (11.5-15.4); Immature Platelets 37.3 % (1.1-6.1); Mean Corpuscular Hemoglobin 28.9 pg (28.0-33.3); Platelet Count 113 K/mcL (140-400); Red Blood Count 2.98 M/mcL (3.82-4.97); Red Cell Distribution Width 17.5 % (11.5-14.5)
[2018-02-20 12:17] LABS: Lymphocytes # 13.6 K/mcL (0.6-4.6); Neutrophils # 49.6 K/mcL (1.6-8.9)
[2018-02-20 12:18] LABS: Anisocytosis 2+ (Not Present); Platelet Estimate Slight Decrease (Normal)
[2018-02-20 13:16] LABS: Calcium 8.5 mg/dL (8.6-10.3); Potassium 3.9 mEq/L (3.5-5.1)
[2018-02-20] MEDS ORDERED: Piperacillin/Tazobactam 3.375 GM in 0.9 % Sodium Chloride Mini Bag 100 ML IVPB ONE (13:42)
[2018-02-20] MEDS ORDERED: Levofloxacin 750 MG/150 ML 750 MG/150 ML BAG IVPB SCH (14:00)
[2018-02-20] MEDS ORDERED: Ondansetron ODT 4 MG TAB.RAPDIS SL ONE (14:15)
[2018-02-20] MEDS ORDERED: Naloxone 0.4 MG/ML INJ IVP PRN (14:19)
--- NOTE | 2018-02-20 14:30 | Internal Med History&Physical ---
Date of Encounter: 02/21/18 Time of Encounter: 14:28 Internal Medicine - H&P: HPI Chief complaint: generalized weakness Admitted From: Emergency Dept Plans for Post Hospital Care: Home History of present illness: Ms. Suarez is a 72 year old female who is a background history of diabetes, hypertension, dyslipidemia, previous right lower lobe pneumonia/effusion. Admitted with shortness of breath. Was supposed to see her primary care physician but was unable to get to the primary care's office. This was the reason she was sent to the emergency room for further evaluation. Workup in the emergency room: Patient was evaluated in the emergency room baseline labs were drawn. X-ray shows left lower lobe pneumonia. Reason for admission: Left lower lobe pneumonia and elevated white blood cell count to 67K. likely CLL. Past Med Surg Social Fam HX - Past Medical History Medical history: arthritis, cancer, diabetes, hyperlipidemia, hypertension, other Psychiatric history: no psych history - Past Surgical History Surgical History: other (Bone marrow biopsy) - Social History Smoking Status: Former smoker Smokeless Tobacco Status: No Alcohol use: none Drug use: none - Family History Mother Name: Becki White Family Member Ethnicity: Non- Living Status: Age at : 74 Cause of : fall, possible NE Hx Family Cardiac Disorders: Yes (NE) Internal Medicine - H&P: Meds Allopurinol [Zyloprim] 300 mg PO DAILY 11/09/17 [History] Docusate [Colace] 100 mg PO BID 11/09/17 [History] Enalapril Maleate [Vasotec] 30 mg PO DAILY 11/09/17 [History] Furosemide [Lasix] 40 mg PO BID 11/09/17 [History] Hydralazine HCl 100 mg PO Q8H 11/09/17 [History] Hydrocodone/Acetaminophen [Xodol 5-300 Tablet] 1 each PO Q4H PRN 11/09/17 [ History] Insulin Glargine,Hum.rec.anlog [Lantus Solostar] 45 unit SQ HS 11/09/17 [History ] Meclizine HCl [Verticalm] 25 mg PO DAILY PRN 11/09/17 [History] NIFEdipine [Nifedipine ER] 90 mg PO DAILY 11/09/17 [History] Omeprazole [PriLOSEC] 40 mg PO DAILY 11/09/17 [History] Polyethylene Glycol 3350 [MiraLAX] 17 gm PO DAILY PRN 11/09/17 [History] Simvastatin [Zocor] 40 mg PO HS 11/09/17 [History] metFORMIN [Glucophage] 500 mg PO BIDWM 11/09/17 [History] Ipratropium/Albuterol Neb [Duoneb] 3 ml IH Q6H #100 inhsol 11/14/17 [Rx] Carvedilol [Coreg] 25 mg PO BID 02/20/18 [History] 3 Allergy/AdvReac Type Severity Reaction Status Date / Time Sulfa (Sulfonamide Allergy Fainting Verified 11/09/17 15:58 Antibiotics) All Systems PM: A 10-system review of systems was performed and is negative for pertinent findings except as documented above in the HPI. - Constitutional Constitutional: no chills, no fever(s), no night sweats - EENT Eyes: no change in vision, no discharge, no pain, no photophobia Ears: no ear discharge, no ear pain, no tinnitus Nose, mouth and throat: no dysphagia, no nasal discharge, no neck pain, no sore throat - Cardiovascular Cardiovascular ROS IM: dyspnea, dyspnea on exertion, no chest pain, no diaphoresis, no lightheadedness, no palpitations, no syncope - Respiratory Respiratory: no cough, no dyspnea, no wheezing, no excessive phlegm production - Gastrointestinal Gastrointestinal: no abdominal pain, no diarrhea, no hematemesis, no hematochezia, no melena, no nausea, no vomiting - Genitourinary Genitourinary: no change in urinary stream, no dysuria, no flank pain, no hematuria - Musculoskeletal Musculoskeletal ROS IM: no numbness, no tingling - Integumentary Integumentary IM: no rash, no unusual bruising - Neurological Neurological ROS: no confusion, no convulsions, no focal weakness, no numbness, no tingling, no tremor(s) - Hematologic/Lymphatic Hematologic/Lymphatic: no easy bruising - Constitutional Vitals: Temp Pulse Resp BP Pulse Ox 97.8 F 69 18 162/70 98 02/20/18 10:36 02/20/18 14:25 02/20/18 14:25 02/20/18 14:25 02/20/18 14:25 General appearance: Present: A&O X 3, pleasant, no acute distress - Head Head exam: Present: atraumatic, normocephalic - Eye Eye exam: Present: PERRL, conjuntiva pink, sclera anicteric Pupils: Present: PERRL - Neck Neck exam general surgery: Present: supple, trachea midline. Absent: lymphadenopathy - Respiratory Respiratory exam: Present: CTAB. Absent: accessory muscle use, rales, rhonchi, wheezes - Cardiovascular Cardiovascular exam: Present: RRR, +S1, +S2. Absent: diastolic murmur, gallop, rubs, systolic murmur - GI/Abdominal GI/Abdominal exam: Present: normal bowel sounds, soft, no peritoneal signs. Absent: distended, tenderness - Extremities Exam Extremities exam: Present: warm, radial pulses palpable and symmetrical. Absent : calf tenderness, cyanotic, pedal edema - Neurological Exam Neurological exam: Present: CN II-XII intact, oriented X3, no focal deficits. Absent: pronater drift, facial droop, speech deficit - Skin Skin exam: Present: dry, intact Internal Med - H&P Results - Labs CBC & Chem 7: 02/21/18 00:35 02/21/18 00:35 - Assessment and plan (1) HCAP (healthcare-associated pneumonia) Current Visit: No Status: Acute Assessment and plan: 72/female Admitted with right-sided lower lobe pneumonia. She has been exposed to the healthcare facility in last 90 days. This is healthcare associated pneumonia Patient does have underlying immunocompromised status. Plan: Admit as inpatient. Resume home medication. Blood culture 2. IV antibiotics as per HAP guidelines. Close monitoring of the respiratory status. I examined this patient in the emergency department room #1. There were no family members at the bedside. Along with me timber buyer was present during my examination. Plan of care explained to the patient. She verbalized understanding. (2) DMII (diabetes mellitus, type 2) Current Visit: No Status: Chronic Assessment and plan: Patient does have type 2 diabetes mellitus. She is presently on insulin. We will follow the recommendations from subcutaneous tenderness insulin order set. Qualifiers: Diabetes mellitus business analytics director insulin use: with business analytics director use Diabetes mellitus complication status: with unspecified complications Qualified Code(s) : E11.8 - Type 2 diabetes mellitus with unspecified complications; Z79.4 - animal keeper (current) use of insulin; Z79.4 - retirement (current) use of insulin; Z79.4 - retirement (current) use of insulin; Z79.4 - animal keeper (current) use of insulin (3) COPD (chronic obstructive pulmonary disease) Current Visit: No Status: Acute Assessment and plan: Patient is known to have a COPD. At this point she is not in exacerbation. We will closely monitor and follow up during this hospitalization her respiratory status. Qualifiers: COPD type: unspecified COPD Qualified Code(s): J44.9 - Chronic obstructive pulmonary disease, unspecified (4) MPN (myeloproliferative neoplasm) Current Visit: No Status: Chronic Assessment and plan: Patient likely has a chronic lymphocytic leukemia. We will get hematology to see the patient. We will follow the recommendations from hematology oncology. (5) Morbid obesity with BMI of 45.0-49.9, adult Current Visit: No Status: Chronic Assessment and plan: Patient may benefit from outpatient evaluation by bariatric surgery. (6) DVT prophylaxis Current Visit: No Status: Acute Assessment and plan: heaprin Medical decision making: This patient has a moderate to severe risk of worsening in spite of being on appropriate medication due to the underlying complex comorbid conditions. - Time Spent With Patient Total time spent is greater than 50% in coordination of care (as documented) at patient's floor/unit and/or counseling patient:
[2018-02-20] MEDS ORDERED: D5% in Water 1,000 ML IVC PRN (14:31)
[2018-02-20] MEDS ORDERED: Dextrose Gel 15 GM/37.5 ML TUBE PO PRN ×2 (14:31)
[2018-02-20] MEDS ORDERED: *HR* Dextrose 50 % in Water (Syg) 50 ML SYRINGE IVP PRN (14:31)
[2018-02-20] MEDS: Ipratropium/Albuterol Neb 3 ML IH SCH ×2 (16:16→22:35)
[2018-02-20] MEDS: *HR* Heparin 5,000 UNIT/ML VIAL SQ SCH (16:31)
[2018-02-20] MEDS: hydrALAZINE 25 MG TABLET PO SCH ×2 (16:31→21:44)
[2018-02-20] MEDS: Furosemide 40 MG TABLET PO SCH (16:32)
[2018-02-20] MEDS: Insulin LISPRO 300 UNITS/3 ML VIAL SQ SCH (16:34)
--- NOTE | 2018-02-20 17:10 | Emergency Department Note ---
Disposition Clinical Impression: History of leukemia Leukocytosis Qualifiers: Leukocytosis type: unspecified Qualified Code(s): D72.829 - Elevated white blood cell count, unspecified Pneumonia Qualifiers: Pneumonia type: due to unspecified organism Laterality: right Lung location: lower lobe of lung Qualified Code(s): J18.1 - Lobar pneumonia, unspecified organism Dyspnea Qualifiers: Dyspnea type: unspecified Qualified Code(s): R06.00 - Dyspnea, unspecified Disposition: Admitted As Inpatient Condition: Good General Adult HPI - General Chief complaint: ED Weakness Stated complaint: Weakness, fluid retention Time Seen by Provider: 02/20/18 10:04 Source: patient, family Mode of arrival: ambulatory Limitations: no limitations - History of Present Illness Pain Scale: 0 - Related Data Home Medications Medication Instructions Recorded Confirmed Allopurinol [Zyloprim] 300 mg PO DAILY 11/09/17 02/20/18 Docusate [Colace] 100 mg PO BID 11/09/17 02/20/18 Enalapril Maleate [Vasotec] 30 mg PO DAILY 11/09/17 02/20/18 Furosemide [Lasix] 40 mg PO BID 11/09/17 02/20/18 Hydralazine HCl 100 mg PO Q8H 11/09/17 02/20/18 Hydrocodone/Acetaminophen [Xodol 1 each PO Q4H PRN 11/09/17 02/20/18 5-300 Tablet] Insulin Glargine,Hum.rec.anlog 45 unit SQ HS 11/09/17 02/20/18 [Lantus Solostar] Meclizine HCl [Verticalm] 25 mg PO DAILY PRN 11/09/17 02/20/18 NIFEdipine [Nifedipine ER] 90 mg PO DAILY 11/09/17 02/20/18 Omeprazole [PriLOSEC] 40 mg PO DAILY 11/09/17 02/20/18 Polyethylene Glycol 3350 [MiraLAX] 17 gm PO DAILY PRN 11/09/17 02/20/18 Simvastatin [Zocor] 40 mg PO HS 11/09/17 02/20/18 metFORMIN [Glucophage] 500 mg PO BIDWM 11/09/17 02/20/18 Carvedilol [Coreg] 25 mg PO BID 02/20/18 02/20/18 Previous Rx's Medication Instructions Recorded Ipratropium/Albuterol Neb [Duoneb] 3 ml IH Q6H #100 inhsol 11/14/17 Allergies Allergy/AdvReac Type Severity Reaction Status Date / Time Sulfa (Sulfonamide Allergy Fainting Verified 11/09/17 15:58 Antibiotics) Constitutional: Denies: fever Cardiovascular: Denies: chest pain Respiratory: Reports: cough, dyspnea, sputum production. 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 history: Reports: no TAR DISTRIBUTOR OPERATOR history - Social History Smoking Status: Former smoker Smokeless Tobacco Status: No Alcohol use: Reports: none Drug use: Reports: none Physical Exam - General Limitations: no limitations General appearance: alert Course Vital Signs Temperature 97.8 F 02/20/18 09:53 Pulse Rate 61 02/20/18 09:53 Respiratory Rate 22 02/20/18 09:53 Blood Pressure 153/71 02/20/18 09:53 O2 Sat by Pulse Oximetry 95 02/20/18 09:53 Temperature 97.6 F 02/20/18 16:06 Pulse Rate 74 02/20/18 16:06 Respiratory Rate 18 02/20/18 16:16 Blood Pressure 178/62 02/20/18 16:06 O2 Sat by Pulse Oximetry 98 02/20/18 16:16 Oxygen Delivery Oxygen Delivery Room Air Medical Decision Making - Lab Data Result diagrams: 02/20/18 11:18 02/20/18 12:45 Lab Results 02/20/18 02/20/18 02/20/18 Range/Units 11:18 11:18 11:18 WBC 67.9 H* (4.3-11.1) K/mcL RBC 2.98 L (3.82-4.97) M/mcL Hgb 8.6 L (11.5-15.4) g/dL Hct 27.7 L (35.3-44.9) % MCV 93.0 (83.0-100.0) fL MCH 28.9 (28.0-33.3) pg MCHC 31.0 L (31.6-35.5) g/dL RDW 17.5 H (11.5-14.5) % Plt Count 113 L (140-400) K/mcL MPV TNP Seg Neutrophils % 62.0 % Band Neutrophils % 11.0 H (0-4) % Lymphocytes % 20.0 % Metamyelocytes % 3.0 H (0) % Myelocytes % 4.0 H (0) % Neutrophils # 49.6 H (1.6-8.9) K/mcL Lymphocytes # 13.6 H (0.6-4.6) K/mcL Platelet Estimate Slight Decrease L (Normal) Immature Plt Fraction 37.3 H (1.1-6.1) % Anisocytosis 2+ A (Not Present) Sodium Cancelled Potassium Cancelled Chloride Cancelled Carbon Dioxide Cancelled BUN Cancelled Creatinine Cancelled Est GFR ( Amer) Cancelled Est GFR (Non-Af Amer) Cancelled BUN/Creatinine Ratio Cancelled Glucose Cancelled Calculated Osmolality Cancelled Calcium Cancelled Troponin I < 0.03 (< 0.04) ng/mL Specimen Rejected Hemolyzed 02/20/18 Range/Units 12:45 WBC (4.3-11.1) K/mcL RBC (3.82-4.97) M/mcL Hgb (11.5-15.4) g/dL Hct (35.3-44.9) % MCV (83.0-100.0) fL MCH (28.0-33.3) pg MCHC (31.6-35.5) g/dL RDW (11.5-14.5) % Plt Count (140-400) K/mcL MPV Seg Neutrophils % % Band Neutrophils % (0-4) % Lymphocytes % % Metamyelocytes % (0) % Myelocytes % (0) % Neutrophils # (1.6-8.9) K/mcL Lymphocytes # (0.6-4.6) K/mcL Platelet Estimate (Normal) Immature Plt Fraction (1.1-6.1) % Anisocytosis (Not Present) Sodium 138 Potassium 3.9 Chloride 107 Carbon Dioxide 24 BUN 25 H Creatinine 1.32 H Est GFR ( Amer) 48 L Est GFR (Non-Af Amer) 39 L BUN/Creatinine Ratio 19 Glucose 157 H Calculated Osmolality 294 Calcium 8.5 L Troponin I (< 0.04) ng/mL Specimen Rejected Attestation Statement - Attestation Attestation: I examined this patient and my medical decision-making was reviewed with the Resident Physician. I agree with the documented findings, disposition and treatment plan as described except to the extent set forth below. No chemotherapy for her leukemia. No respiratory distress. At risk for drug resistant bacteria with recent admission. Stable for admission.
[2018-02-20] MEDS: Insulin DETEMIR 100 UNIT/ML X5UNITS SQ SCH (21:45)
[2018-02-21] MEDS: *HR* Heparin 5,000 UNIT/ML VIAL SQ SCH ×3 (01:06→14:51)
[2018-02-21 01:12] LABS: Basophils % 0.2 %; Eosinophils % 0.1 %; Hematocrit 26.1 % (35.3-44.9); Hemoglobin 7.8 g/dL (11.5-15.4); Immature Granulocytes % 19.5 % (0-4); Lymphocytes # 2.2 K/mcL (0.6-4.6); Lymphocytes % 3.5 %; Mean Corpuscular HGB Conc 29.9 g/dL (31.6-35.5); Mean Corpuscular Hemoglobin 28.3 pg (28.0-33.3); Mean Corpuscular Volume 94.6 fL (83.0-100.0); Monocytes # 0.4 K/mcL (0.0-1.3); Monocytes % 0.6 %; Platelet Count 103 K/mcL (140-400); Red Blood Count 2.76 M/mcL (3.82-4.97); Red Cell Distribution Width 17.3 % (11.5-14.5); Segmented Neutrophils % 76.1 %
[2018-02-21 01:13] LABS: Basophils # 0.1 K/mcL (0.0-0.2); Eosinophils # 0.1 K/mcL (0.0-0.6); Neutrophils # 48.6 K/mcL (1.6-8.9)
[2018-02-21 01:17] LABS: INR 1.3; Prothrombin Time 14.1 Seconds (9.4-12.1)
[2018-02-21 01:20] LABS: Activated Partial Thrombo Time 26.1 Seconds (26.0-36.0)
[2018-02-21 01:31] LABS: Albumin 2.9 g/dL (3.5-5.7); Bilirubin,Total 0.2 mg/dL (0.3-1.0); Globulin 2.8 g/dL (2.4-3.5); Magnesium 1.9 mg/dL (1.6-2.6); Potassium 3.8 mEq/L (3.5-5.1); Total Protein 5.7 g/dL (6.4-8.9)
[2018-02-21] MEDS: Ipratropium/Albuterol Neb 3 ML IH SCH ×4 (04:22→22:15)
[2018-02-21] MEDS: Furosemide 40 MG TABLET PO SCH ×2 (09:09→18:53)
[2018-02-21] MEDS: Lisinopril 20 MG TABLET PO SCH (09:09)
[2018-02-21] MEDS: NIFEdipine XL (24 HR) 30 MG TAB.ER.24 PO SCH (09:10)
[2018-02-21] MEDS: Insulin LISPRO 300 UNITS/3 ML VIAL SQ SCH ×3 (09:10→18:53)
[2018-02-21] MEDS: hydrALAZINE 25 MG TABLET PO SCH ×3 (09:11→22:52)
--- NOTE | 2018-02-21 11:35 | Oncology Inp Consult Note ---
<DiegoRigo S - Last Filed: 02/22/18 08:51> Date of Encounter: 02/22/18 - Data of Consult Requesting Physician: Eric Lloyd Primary Care Provider: Mayra Uribe - Consult Narrative History of present illness: Ms. Suarez is a 72 year old female Medications and Allergies Allopurinol [Zyloprim] 300 mg PO DAILY 11/09/17 [History] Docusate [Colace] 100 mg PO BID 11/09/17 [History] Enalapril Maleate [Vasotec] 30 mg PO DAILY 11/09/17 [History] Furosemide [Lasix] 40 mg PO BID 11/09/17 [History] Hydralazine HCl 100 mg PO Q8H 11/09/17 [History] Hydrocodone/Acetaminophen [Xodol 5-300 Tablet] 1 each PO Q4H PRN 11/09/17 [ History] Insulin Glargine,Hum.rec.anlog [Lantus Solostar] 45 unit SQ HS 11/09/17 [History ] Meclizine HCl [Verticalm] 25 mg PO DAILY PRN 11/09/17 [History] NIFEdipine [Nifedipine ER] 90 mg PO DAILY 11/09/17 [History] Omeprazole [PriLOSEC] 40 mg PO DAILY 11/09/17 [History] Polyethylene Glycol 3350 [MiraLAX] 17 gm PO DAILY PRN 11/09/17 [History] Simvastatin [Zocor] 40 mg PO HS 11/09/17 [History] metFORMIN [Glucophage] 500 mg PO BIDWM 11/09/17 [History] Ipratropium/Albuterol Neb [Duoneb] 3 ml IH Q6H #100 inhsol 11/14/17 [Rx] Carvedilol [Coreg] 25 mg PO BID 02/20/18 [History] 3 Allergy/AdvReac Type Severity Reaction Status Date / Time Sulfa (Sulfonamide Allergy Fainting Verified 11/09/17 15:58 Antibiotics) Oncology - Exam - Constitutional Vitals: Temp Pulse Resp BP Pulse Ox 98.0 F 66 12 117/48 94 02/21/18 16:36 02/21/18 16:36 02/21/18 16:36 02/21/18 16:36 02/21/18 16:36 Oncology - Results Labs: Short CBC 02/21/18 Range/Units 00:35 WBC 63.8 H* (4.3-11.1) K/mcL Hgb 7.8 L (11.5-15.4) g/dL Hct 26.1 L (35.3-44.9) % Plt Count 103 L (140-400) K/mcL Neutrophils # 48.6 H (1.6-8.9) K/mcL BMP 02/21/18 00:35 Sodium 140 Potassium 3.8 Chloride 110 H Carbon Dioxide 24 BUN 24 H Creatinine 1.28 H Glucose 168 H Calcium 8.0 L Cardiac Enzymes 02/21/18 02/21/18 Range/Units 00:35 05:55 Troponin I < 0.03 < 0.03 (< 0.04) ng/mL Liver Function 02/21/18 Range/Units 00:35 Total Bilirubin 0.2 L (0.3-1.0) mg/dL AST 6 L (13-39) Units/L ALT 3 L (7-52) Units/L Alkaline Phosphatase 69 (34-104) Units/L Albumin 2.9 L (3.5-5.7) g/dL Consult Discharge Plan - Plan Referrals: Mayra Uribe, SHARDA [Primary Care Provider] - - Attending Attestation Atypical Myeloproliferative disorder. Anemia hemoglobin 7.8 and thrombocytopenia platelet count 103 Peripheral blood shows WBC count 63,000 mostly neutrophils 48,000 with 4% blasts Bone marrow aspirate/biopsy 09/21/2017 [facility] Flow cytometry: There is no immunophenotypic evidence of an abnormal population of B lymphocytes, T lymphocytes. The myeloid blasts, 0.5% of the total events analyzed, express ing CD33+, CD34+, CD117+, CD5+, HLA-DR+, with subpopulations expressing CD13+ (40%), CD7+ (28%) Bone marrow core: Hypercellular marrow (95%) with granulocytic hyperplasia Karyotype: 46,XX; FISH negative for BCR-ABL Molecular studies: Negative for JAK2 V617F and CALR, positive for ASXL1, SRSF2, TET2 Not a candidate for allogenic stem cell transplant. Patient and family understands the prognosis is guarded She may be a candidate for hypo-methylating agents. I do not think she will be a candidate for any clinical trial He can offer her Vidaza. We will make an appointment as an outpatient. Also discussed with her and the family that she can get treatment here and we can coordinate her care with [facility] <Anay Lacey - Last Filed: 02/25/18 12:30> Date of Encounter: 02/21/18 Time of Encounter: 11:35 Assessment and Plan (1) MPN (myeloproliferative neoplasm) Status: Chronic Assessment and plan: Myeloprolferative neoplasm, NOS - Yesi's mutation analysis is consistent with an underlying MPN, although she is JAK2, and CALR negative. Previously established with [facility]. Patient now wishing to establish care closer to home, will plan to establish care with Dr. Cortez. She has not previously received any treatment as it has not previously been indicated and has been on continual lab/clinic visit surveillance. B symptoms- she does report recent fevers/chills with recurrent pneumonia infections, denies weight loss, she does report drenching night sweats that occur on a regular basis. She has been progressively weak since her diagnosis in September, states she has not ambulated since this time but is able to transfer to/from wheelchair with assistance. Her anemia appears to have worsened below baseline-will check Iron profile, ferritin, B12, folate, LDH, occult stool. She had a recent colonoscopy at [facility] in October 2017 which revealed hemorrhoids were found on perianal exam, six sessile polyps were found in the sigmoid colon , transverse colon and ascending colon, multiple small-mouthed diverticula were found in the sigmoid colon, non-bleeding, grade I internal hemorrhoids were found during retroflexion. As mentioned above, she will establish care with Dr. Cortez for continued monitoring. Dr. Cortez to review [facility] records and continue to monitor counts/ patients symptoms and make decision on need for future treatment with hypomethylating agent versus continued monitoring. She is admitted for HAP. Chest x-ray shows a large right lower lobe opacity with moderate right pleural effusion. Etiology unclear whether infectious versus effusion. Awaiting chest CT and echo results-may pursue thoracentesis. Pulmonology following. - Data of Consult Patient: new to practice Consult date: 02/21/18 Requesting Physician: Eric Lloyd Primary Care Provider: Mayra Uribe - Consult Narrative Reason for consult: Myeloprolferative neoplasm, NOS History of present illness: Ms. Suarez is a 72 year old female with a past medical history notable for hypertension, type II DM, and adrenal incidentaloma and history of GI bleeds who was noted to have a marked leukocytosis in September 2017 amidst work-up for GI bleeding. She was referred the [facility] at this time and has completed oncological workup as summarized below. Bone marrow aspirate/biopsy 09/21/2017 [facility] Flow cytometry: There is no immunophenotypic evidence of an abnormal population of B lymphocytes, T lymphocytes. The myeloid blasts, 0.5% of the total events analyzed, express ing CD33+, CD34+, CD117+, CD5+, HLA-DR+, with subpopulations expressing CD13+ (40%), CD7+ (28%) Bone marrow core: Hypercellular marrow (95%) with granulocytic hyperplasia Karyotype: 46,XX; FISH negative for BCR-ABL Molecular studies: Negative for JAK2 V617F and CALR, positive for ASXL1, SRSF2, TET2 Myeloprolferative neoplasm, NOS - Yesi's mutation analysis is consistent with an underlying MPN, although she is JAK2, and CALR negative. She understands that it is rare with limited treatment options, but would likely require an allogeneic stem cell transplant for curative intent. At her most recent visit at [facility] in November 2017 she previously had moderate leukocytosis with WBC count 53, no circulating blasts and no PRBC (hgb 10.7) or platelet needs ( platelets 71). There has been no role for treatment and she has stayed on continual monitoring. Should her counts worsen or should she start to require PRBC/Platelets transfusions [facility] may consider HMA therapy, depending on further discussions for how well she may tolerate this treatment. Past Med Surg Social Fam HX - Past Medical History Medical history: arthritis, cancer, diabetes, hyperlipidemia, hypertension, other Psychiatric history: no psych history - Past Surgical History Surgical History: other (Bone marrow biopsy) - Social History Smoking Status: Former smoker Smokeless Tobacco Status: No Alcohol use: none Drug use: none - Family History Mother Name: Becki White Family Member Ethnicity: Non- Living Status: Age at : 74 Cause of : fall, possible [place] Hx Family Cardiac Disorders: Yes ([place]) Constitutional: Present: anorexia, chills, fatigue, fever(s), night sweats, weakness. Absent: weight loss Eyes: Absent: change in vision Nose, mouth and throat: Absent: dysphagia Cardiovascular: Absent: chest pain, irregular heart rhythm Respiratory: Present: cough, dyspnea. Absent: hemoptysis Gastrointestinal: Present: constipation, diarrhea. Absent: abdominal pain, change in bowel habits, hematemesis, hematochezia, melena, nausea, vomiting Genitourinary: Absent: dysuria, hematuria Musculoskeletal: Present: muscle weakness Integumentary: Absent: wounds Neurological: Absent: focal weakness, frequent falls Hematologic/Lymphatic: Present: as per HPI Oncology - Exam - Constitutional Vitals: Temp Pulse Resp BP Pulse Ox 97.9 F 95 16 154/68 95 02/21/18 06:56 02/21/18 06:56 02/21/18 10:44 02/21/18 06:56 02/21/18 10:44 General appearance: cooperative, no acute distress, obese Exam: fatigued, chronically ill appearing - Head Head exam: Present: atraumatic - ENT ENT exam: Present: mucous membranes moist - Respiratory Respiratory exam: Present: decreased breath sounds, CTAB. Absent: respiratory distress - Cardiovascular Cardiovascular exam: Present: RRR, +S1, +S2 - GI/Abdominal GI/Abdominal exam: Present: normal bowel sounds, soft. Absent: tenderness - Extremities Exam Extremities exam: Present: pedal edema. Absent: calf tenderness Additional comments: +1-2 pitting - Neurological Exam Neurological exam: Present: alert, oriented X3, no focal deficits, strengths equal and symetr throughout - Psychiatric Psychiatric exam: Present: normal affect, normal mood - Skin Skin exam: Present: dry, intact, pallor, warm Oncology - Results Labs: Short CBC 02/21/18 Range/Units 00:35 WBC 63.8 H* (4.3-11.1) K/mcL Hgb 7.8 L (11.5-15.4) g/dL Hct 26.1 L (35.3-44.9) % Plt Count 103 L (140-400) K/mcL Neutrophils # 48.6 H (1.6-8.9) K/mcL BMP 02/21/18 00:35 Sodium 140 Potassium 3.8 Chloride 110 H Carbon Dioxide 24 BUN 24 H Creatinine 1.28 H Glucose 168 H Calcium 8.0 L Cardiac Enzymes 02/20/18 02/21/18 02/21/18 Range/Units 16:42 00:35 05:55 Troponin I < 0.03 < 0.03 < 0.03 (< 0.04) ng/mL Liver Function 02/21/18 Range/Units 00:35 Total Bilirubin 0.2 L (0.3-1.0) mg/dL AST 6 L (13-39) Units/L ALT 3 L (7-52) Units/L Alkaline Phosphatase 69 (34-104) Units/L Albumin 2.9 L (3.5-5.7) g/dL
[2018-02-21] MEDS ORDERED: Isovue-370 500 ML INFUS..BTL IV ONE (11:37)
--- NOTE | 2018-02-21 11:51 | Internal Med Progress Note ---
Date of Encounter: 02/21/18 Time of Encounter: 11:50 - Assessment and plan (1) Acute respiratory failure with hypoxia Current Visit: Yes Status: Acute Assessment and plan: Sang 2/2 to pneumonia vs CHF. Continue antibiotics and diuresis. F/U CT chest , 2D echo (2) HCAP (healthcare-associated pneumonia) Current Visit: No Status: Acute Assessment and plan: Pt has right lower lobe plueral effusion with consolidation. On vanc and zosyn. Obtain CT chest and 2D echo to assess etiology of effusion. Pulmonary recs appreciated. (3) DMII (diabetes mellitus, type 2) Current Visit: No Status: Chronic Assessment and plan: Continue insulin and monitor fingersticks Qualifiers: Diabetes mellitus mcfp insulin use: with mcfp use Diabetes mellitus complication status: with unspecified complications Qualified Code(s) : E11.8 - Type 2 diabetes mellitus with unspecified complications; Z79.4 - termite exterminator (current) use of insulin; Z79.4 - termite exterminator (current) use of insulin; Z79.4 - termite exterminator (current) use of insulin; Z79.4 - termite exterminator (current) use of insulin (4) COPD (chronic obstructive pulmonary disease) Current Visit: No Status: Acute Assessment and plan: Nebs PRN Qualifiers: COPD type: unspecified COPD Qualified Code(s): J44.9 - Chronic obstructive pulmonary disease, unspecified (5) MPN (myeloproliferative neoplasm) Current Visit: No Status: Chronic Assessment and plan: Patient likely has a chronic lymphocytic leukemia. We will get hematology to see the patient. We will follow the recommendations from hematology oncology. (6) DVT prophylaxis Current Visit: No Status: Acute Assessment and plan: heaprin Medical decision making: This patient has a moderate to severe risk of worsening in spite of being on appropriate medication due to the underlying complex comorbid conditions. (7) Morbid obesity with BMI of 45.0-49.9, adult Current Visit: No Status: Chronic Assessment and plan: Patient may benefit from outpatient evaluation by bariatric surgery. - Time Spent With Patient Total time spent is greater than 50% in coordination of care (as documented) at patient's floor/unit and/or counseling patient: - Subjective Interval history: No acute events overnight - Constitutional Vitals: Temp Pulse Resp BP Pulse Ox 98.1 F 72 12 143/67 97 02/21/18 11:47 02/21/18 11:47 02/21/18 11:47 02/21/18 11:47 02/21/18 11:47 General appearance: Present: A&O X 3, pleasant, no acute distress - Head Head exam: Present: atraumatic, normocephalic - Eye Eye exam: Present: PERRL, conjuntiva pink, sclera anicteric Pupils: Present: PERRL - Neck Neck exam general surgery: Present: supple, trachea midline. Absent: lymphadenopathy - Respiratory Respiratory exam: Present: CTAB. Absent: accessory muscle use, rales, rhonchi, wheezes - Cardiovascular Cardiovascular exam: Present: RRR, +S1, +S2. Absent: diastolic murmur, gallop, rubs, systolic murmur - GI/Abdominal GI/Abdominal exam: Present: normal bowel sounds, soft, no peritoneal signs. Absent: distended, tenderness - Extremities Exam Extremities exam: Present: warm, radial pulses palpable and symmetrical. Absent : calf tenderness, cyanotic, pedal edema - Neurological Exam Neurological exam: Present: CN II-XII intact, oriented X3, no focal deficits. Absent: pronater drift, facial droop, speech deficit - Skin Skin exam: Present: dry, intact Internal Medicine: Result - Labs CBC & Chem 7: 02/21/18 00:35 02/21/18 00:35 Labs: Short CBC 02/21/18 Range/Units 00:35 WBC 63.8 H* (4.3-11.1) K/mcL Hgb 7.8 L (11.5-15.4) g/dL Hct 26.1 L (35.3-44.9) % Plt Count 103 L (140-400) K/mcL Neutrophils # 48.6 H (1.6-8.9) K/mcL BMP 02/21/18 00:35 Sodium 140 Potassium 3.8 Chloride 110 H Carbon Dioxide 24 BUN 24 H Creatinine 1.28 H Glucose 168 H Calcium 8.0 L Cardiac Enzymes 02/20/18 02/21/18 02/21/18 Range/Units 16:42 00:35 05:55 Troponin I < 0.03 < 0.03 < 0.03 (< 0.04) ng/mL Liver Function 02/21/18 Range/Units 00:35 Total Bilirubin 0.2 L (0.3-1.0) mg/dL AST 6 L (13-39) Units/L ALT 3 L (7-52) Units/L Alkaline Phosphatase 69 (34-104) Units/L Albumin 2.9 L (3.5-5.7) g/dL - ABG Interpretation ABG results: PT/INR, D-dimer PT 14.1 Seconds (9.4-12.1) H 02/21/18 00:35 Consult Discharge Plan - Plan Referrals: Mayra Uribe CNP [Primary Care Provider] -
[2018-02-21] MEDS ORDERED: Vancomycin 1,750 MG in 0.9 % Sodium Chloride 250 ML IVPB SCH (12:00)
--- NOTE | 2018-02-21 12:28 | Pulmonology Consult Note ---
<Ben Martinez - Last Filed: 02/21/18 13:57> Date of Encounter: 02/21/18 Time of Encounter: 12:33 Assessment and Plan (1) Pneumonia Current Visit: Yes Status: Acute Patient presents clinically with signs of cough, weakness. Patient's had increasing dyspnea with productive sputum. Patient had hospitalization in the past for pneumonia. Chest x-ray shows a large right lower lobe opacity with moderate right pleural effusion. At this point is difficult to ascertain whether this is infectious etiology versus effusion. Being treated for HAP. PLAN: -Recommend to continue antibiotic therapy at this point. Defer to primary team. -Supplemental oxygen titrate 92%-97% Qualifiers: Pneumonia type: due to unspecified organism Laterality: right Lung location: lower lobe of lung Qualified Code(s): J18.1 - Lobar pneumonia, unspecified organism (2) Pleural effusion Current Visit: No Status: Acute Moderate pleural effusion demonstrated on chest x-ray. Patient does have a history of bilateral pleural effusions in the past. Patient states she did not get significant relief after thoracentesis of those effusions. Patient's records in the past showed that the patient's pleural effusion was transudative likely in the setting of congestive heart failure. PLAN - Recommend diuresis-patient's kidney function is at baseline, will give lasix 40mg IV daily x 2. Monitor potassium. - Recommend echo, CT chest pending - If symptoms and effusion persist the patient would be a candidate for diagnostic thoracentesis. (3) COPD (chronic obstructive pulmonary disease) Current Visit: No Status: Acute Patient is a former smoker. 01/2018 Spirometry is Normal FEV1 and mild reduction in FVC, but TLC is normal. No response to inhaled bronchodilators is seen MVV is decreased. Increased residual Lung Volumes reveal hyperinflation and air trapping. Diffusion Capacity is moderately reduced. Flow Volume Loop: Normal. Plan: -titrate oxygen to 92%-97% -Duonebs scheduled and albuterol prn -Patient is not in acute exacerbation, continue with treatment of pneumonia. Qualifiers: COPD type: unspecified COPD Qualified Code(s): J44.9 - Chronic obstructive pulmonary disease, unspecified (4) LUCAS (obstructive sleep apnea) Current Visit: No Status: Chronic Patient will need outpatient sleep study. History of Present Illness Consult date: 02/21/18 Requesting physician: Rebecca Malone Reason for consult: pneumonia, pleural effusion Chief complaint: Weakness History of present illness: 72-year-old female with a history of COPD, hypertension, diabetes since for evaluation of weakness and dyspnea. Patient states she has been feeling weak over the past 2 weeks. Patient states he has had difficulty ambulating related the weakness. Patient also notes progressive dyspnea. Patient's also had a productive yellow sputum. Patient states that her dyspnea has progressed to the point that she can no longer perform her activities of daily living. Patient is dyspneic at rest. Patient also reported some lower leg swelling. Patient had chills. Patient denies any specific fevers. Patient denies any chest pain. Patient denies any history of heart attacks. Patient denies any abdominal pain. No nausea or vomiting. Patient reports a former smoking history approximately 14 years ago. Patient denies having home oxygen or use of CPAP. Patient states that she typically uses an inhaler at home. Reports a recent hospitalization 5 months ago where she was diagnosed with pneumonia. Past Med Surg Social Fam HX - Past Medical History Medical history: arthritis, cancer, diabetes, hyperlipidemia, hypertension, other Psychiatric history: no psych history - Past Surgical History Surgical History: other (Bone marrow biopsy) - Social History Smoking Status: Former smoker Smokeless Tobacco Status: No Alcohol use: none Drug use: none - Family History Mother Name: Becki White Family Member Ethnicity: Non- Living Status: Age at : 76 Cause of : fall, possible [place] Hx Family Cardiac Disorders: Yes ([place]) Medications and Allergies Allopurinol [Zyloprim] 300 mg PO DAILY 11/09/17 [History] Docusate [Colace] 100 mg PO BID 11/09/17 [History] Enalapril Maleate [Vasotec] 30 mg PO DAILY 11/09/17 [History] Furosemide [Lasix] 40 mg PO BID 11/09/17 [History] Hydralazine HCl 100 mg PO Q8H 11/09/17 [History] Hydrocodone/Acetaminophen [Xodol 5-300 Tablet] 1 each PO Q4H PRN 11/09/17 [ History] Insulin Glargine,Hum.rec.anlog [Lantus Solostar] 45 unit SQ HS 11/09/17 [History ] Meclizine HCl [Verticalm] 25 mg PO DAILY PRN 11/09/17 [History] NIFEdipine [Nifedipine ER] 90 mg PO DAILY 11/09/17 [History] Omeprazole [PriLOSEC] 40 mg PO DAILY 11/09/17 [History] Polyethylene Glycol 3350 [MiraLAX] 17 gm PO DAILY PRN 11/09/17 [History] Simvastatin [Zocor] 40 mg PO HS 11/09/17 [History] metFORMIN [Glucophage] 500 mg PO BIDWM 11/09/17 [History] Ipratropium/Albuterol Neb [Duoneb] 3 ml IH Q6H #100 inhsol 11/14/17 [Rx] Carvedilol [Coreg] 25 mg PO BID 02/20/18 [History] 3 Allergy/AdvReac Type Severity Reaction Status Date / Time Sulfa (Sulfonamide Allergy Fainting Verified 11/09/17 15:58 Antibiotics) All Systems: The remainder of the systems were reviewed and are negative - Constitutional Constitutional: as per HPI, chills, weakness, no fever(s) - Cardiovascular Cardiovascular: as per HPI, dyspnea, dyspnea on exertion, leg edema, no chest pain - Respiratory Respiratory: as per HPI, cough, dyspnea, dyspnea on exertion, no hemoptysis - Gastrointestinal Gastrointestinal: as per HPI - Genitourinary Genitourinary: as per HPI - Musculoskeletal Musculoskeletal: joint pain Physical Examination Vital Signs: Vital Signs, Last 4 Hours Temp Pulse Resp BP Pulse Ox 02/21/18 11:30 98.0 F 59 20 118/44 94 02/21/18 10:44 16 95 General appearance: no acute distress, other (Obese) Eyes: nonicteric ENT: oropharynx moist Neck: supple Effort: normal Inspection: normal Auscultation: right: diminished breath sounds (diminshed R lower lobe), bilateral: clear Cardiovascular: regular rate and rhythm Gastrointestinal: normoactive bowel sounds Integumentary: normal Extremities: no cyanosis, edema (1-2+ pitting edema) Musculoskeletal: no deformities normal mental status, non-focal exam Results - Laboratory Findings CBC and BMP: 02/21/18 00:35 02/21/18 00:35 PT/INR, D-dimer PT 14.1 Seconds (9.4-12.1) H 02/21/18 00:35 Abnormal lab findings: Abnormal lab results WBC 63.8 K/mcL (4.3-11.1) H* 02/21/18 00:35 RBC 2.76 M/mcL (3.82-4.97) L 02/21/18 00:35 Hgb 7.8 g/dL (11.5-15.4) L 02/21/18 00:35 Hct 26.1 % (35.3-44.9) L 02/21/18 00:35 MCHC 29.9 g/dL (31.6-35.5) L 02/21/18 00:35 RDW 17.3 % (11.5-14.5) H 02/21/18 00:35 Plt Count 103 K/mcL (140-400) L 02/21/18 00:35 Immature Gran % 19.5 % (0-4) H 02/21/18 00:35 Band Neutrophils % 11.0 % (0-4) H 02/20/18 11:18 Metamyelocytes % 3.0 % (0) H 02/20/18 11:18 Myelocytes % 4.0 % (0) H 02/20/18 11:18 Neutrophils # 48.6 K/mcL (1.6-8.9) H 02/21/18 00:35 Platelet Estimate Slight Decrease (Normal) L 02/20/18 11:18 Immature Plt Fraction 37.3 % (1.1-6.1) H 02/20/18 11:18 Anisocytosis 2+ (Not Present) A 02/20/18 11:18 PT 14.1 Seconds (9.4-12.1) H 02/21/18 00:35 Chloride 110 mEq/L (98-107) H 02/21/18 00:35 BUN 24 mg/dL (8-23) H 02/21/18 00:35 Creatinine 1.28 mg/dL (0.60-1.20) H 02/21/18 00:35 Est GFR ( Amer) 49 (> 60) L 02/21/18 00:35 Est GFR (Non-Af Amer) 41 (> 60) L 02/21/18 00:35 Glucose 168 mg/dL (70-105) H 02/21/18 00:35 POC Glucose 135 mg/dL (70-99) H 02/20/18 16:12 Calcium 8.0 mg/dL (8.6-10.3) L 02/21/18 00:35 Total Bilirubin 0.2 mg/dL (0.3-1.0) L 02/21/18 00:35 AST 6 Units/L (13-39) L 02/21/18 00:35 ALT 3 Units/L (7-52) L 02/21/18 00:35 B-Natriuretic Peptide 361 pg/mL (Less than 100) H 02/21/18 00:35 Serum Total Protein 5.7 g/dL (6.4-8.9) L 02/21/18 00:35 Albumin 2.9 g/dL (3.5-5.7) L 02/21/18 00:35 Albumin/Globulin Ratio 1.0 (1.1-2.2) L 02/21/18 00:35 Triglycerides 153 mg/dL (< 150) H 02/21/18 00:35 VLDL Cholesterol, Calc 31 mg/dL (< 31) H 02/21/18 00:35 HDL Cholesterol 29 mg/dL (40-59) L 02/21/18 00:35 - Clinical Findings Intake & Output: Intake & Output 02/20/18 02/21/18 02/21/18 23:59 07:59 15:59 Intake Total 250 / 250 100 / 100 120 / 120 Output Total 200 / 200 1000 / 1000 0 / 0 Balance 50 / 50 -900 / -900 120 / 120 Weight 120.8 kg Consult Discharge Plan - Plan Referrals: Mayra Uribe, [employer] [Primary Care Provider] - <Heriberto Gómez - Last Filed: 02/21/18 16:07> Date of Encounter: 02/21/18 All Systems: The remainder of the systems were reviewed and are negative Physical Examination Vital Signs: Vital Signs, Last 4 Hours Resp Pulse Ox 02/21/18 15:16 16 90 Results - Laboratory Findings CBC and BMP: 02/21/18 00:35 02/21/18 00:35 PT/INR, D-dimer PT 14.1 Seconds (9.4-12.1) H 02/21/18 00:35 Abnormal lab findings: Abnormal lab results WBC 63.8 K/mcL (4.3-11.1) H* 02/21/18 00:35 RBC 2.76 M/mcL (3.82-4.97) L 02/21/18 00:35 Hgb 7.8 g/dL (11.5-15.4) L 02/21/18 00:35 Hct 26.1 % (35.3-44.9) L 02/21/18 00:35 MCHC 29.9 g/dL (31.6-35.5) L 02/21/18 00:35 RDW 17.3 % (11.5-14.5) H 02/21/18 00:35 Plt Count 103 K/mcL (140-400) L 02/21/18 00:35 Immature Gran % 19.5 % (0-4) H 02/21/18 00:35 Band Neutrophils % 11.0 % (0-4) H 02/20/18 11:18 Metamyelocytes % 3.0 % (0) H 02/20/18 11:18 Myelocytes % 4.0 % (0) H 02/20/18 11:18 Neutrophils # 48.6 K/mcL (1.6-8.9) H 02/21/18 00:35 Platelet Estimate Slight Decrease (Normal) L 02/20/18 11:18 Immature Plt Fraction 37.3 % (1.1-6.1) H 02/20/18 11:18 Anisocytosis 2+ (Not Present) A 02/20/18 11:18 PT 14.1 Seconds (9.4-12.1) H 02/21/18 00:35 Chloride 110 mEq/L (98-107) H 02/21/18 00:35 BUN 24 mg/dL (8-23) H 02/21/18 00:35 Creatinine 1.28 mg/dL (0.60-1.20) H 02/21/18 00:35 Est GFR ( Amer) 49 (> 60) L 02/21/18 00:35 Est GFR (Non-Af Amer) 41 (> 60) L 02/21/18 00:35 Glucose 168 mg/dL (70-105) H 02/21/18 00:35 POC Glucose 135 mg/dL (70-99) H 02/20/18 16:12 Calcium 8.0 mg/dL (8.6-10.3) L 02/21/18 00:35 Total Bilirubin 0.2 mg/dL (0.3-1.0) L 02/21/18 00:35 AST 6 Units/L (13-39) L 02/21/18 00:35 ALT 3 Units/L (7-52) L 02/21/18 00:35 B-Natriuretic Peptide 361 pg/mL (Less than 100) H 02/21/18 00:35 Serum Total Protein 5.7 g/dL (6.4-8.9) L 02/21/18 00:35 Albumin 2.9 g/dL (3.5-5.7) L 02/21/18 00:35 Albumin/Globulin Ratio 1.0 (1.1-2.2) L 02/21/18 00:35 Triglycerides 153 mg/dL (< 150) H 02/21/18 00:35 VLDL Cholesterol, Calc 31 mg/dL (< 31) H 02/21/18 00:35 HDL Cholesterol 29 mg/dL (40-59) L 02/21/18 00:35 - Clinical Findings Intake & Output: Intake & Output 02/21/18 02/21/18 02/21/18 07:59 15:59 23:59 Intake Total 100 / 100 240 / 240 Output Total 1000 / 1000 0 / 0 Balance -900 / -900 240 / 240 Weight 120.8 kg - Attending Attestation I examined this patient and my medical decision-making was reviewed with the Resident Physician. I agree with the documented findings, disposition and treatment plan as described except to the extent set forth below. Patient seen and examined. Labs, radiology, chart personally reviewed. 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 Patient is not sure about previous thoracentesis that she had done has helped her for symptomatic relief and since there is some improvement continue diuresis if possible and empiric antibiotics for now if no improvement then we will need diagnostic and therapeutic thoracentesis again and even possible bronchoscopy for airway inspection. Explained this to the patient and family member at the bedside in the presence of the nurse. We will continue follow-up. Thank you for consultation
--- NOTE | 2018-02-21 13:25 | Electrocardiograph Report ---
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
[2018-02-21] MEDS: Furosemide 40 MG/4 ML VIAL IVP SCH (14:51)
[2018-02-21 17:45] LABS: % Iron Saturation 6 % (15-50); Ferritin 34 ng/ml (10-120); Iron 18 mcg/dL (50-170); Lactate Dehydrogenase 261 Units/L (140-271); Transferrin 233 mg/dL (203-362)
[2018-02-21 18:10] LABS: Folate 11.8 ng/mL (3.0-16.0)
[2018-02-21] MEDS ORDERED: Perflutren Lipid Microsphere 1.3 ML in 0.9 % Sodium Chloride 8.7 ML IVP ONE (21:00)
[2018-02-21] MEDS: Insulin DETEMIR 100 UNIT/ML X5UNITS SQ SCH (22:52)
[2018-02-22] MEDS: *HR* Heparin 5,000 UNIT/ML VIAL SQ SCH ×3 (00:55→16:50)
[2018-02-22] MEDS: Ipratropium/Albuterol Neb 3 ML IH SCH ×4 (03:42→21:46)
[2018-02-22] MEDS: hydrALAZINE 25 MG TABLET PO SCH ×2 (06:51→16:50)
--- NOTE | 2018-02-22 09:12 | Pulmonology Progress Note ---
<Ben Martinez - Last Filed: 02/22/18 11:07> Date of Encounter: 02/22/18 Time of Encounter: 09:10 Assessment and Plan (1) Pneumonia Current Visit: Yes Status: Acute CT of the chest reviewed shows bilateral lower lobe consolidations with right greater than left. Atelectasis versus aspiration pneumonia. Patient also has tree-in-bud pulmonary nodules throughout the lungs which is possibly infectious which includes bronchiolitis or multifocal pneumonia. Patient continues to require oxygen. Patient continues to have a productive cough. Breathing slightly improved from yesterday. PLAN -Agree with and continue antibiotics, incentive spirometry as the patient continues to improve -Respiratory support-Titrate oxygen 92-97% Qualifiers: Pneumonia type: due to unspecified organism Laterality: right Lung location: lower lobe of lung Qualified Code(s): J18.1 - Lobar pneumonia, unspecified organism (2) Pleural effusion Current Visit: No Status: Acute Patient has bilateral pleural effusions with a moderate right pleural effusion with a small on the left per CT of the chest. Patient received Lasix yesterday with a scheduled dose today. Patient has responded well to the Lasix. Echo: Impressions: LVEF 55-60%. Normal LV chamber size, wall thickness and function. Mild left ventricular diastolic dysfunction. PLAN -At this point the patient responded to a short course of diuretics. Patient did have a elevation in kidney function. Patient's breathing also improved. Reviewing the thoracentesis in the past that appeared to be a transudative effusion. Since the patient is improving clinically would recommend against thoracentesis at this time. Concerns that the fluid would reaccumulate if the patient underwent a thorocentesis. (3) COPD (chronic obstructive pulmonary disease) Current Visit: No Status: Acute History of COPD in the past. Continue with aerosols. Less likely exacerbation. Patient's on antibiotics for pneumonia. Qualifiers: COPD type: unspecified COPD Qualified Code(s): J44.9 - Chronic obstructive pulmonary disease, unspecified (4) LUCAS (obstructive sleep apnea) Current Visit: No Status: Chronic Subjective Principal diagnosis: COPD, pleural effusions Interval history: Patient seen and examined. Patient was resting comfortably. Patient states that her breathing is slightly improved. Patient continues to have a productive sputum. Patient does note increase urine output with the diuretics. Denies any chest pain. Denies any fevers. Objective PUL Vital signs: Last Vital Signs Temp 98.2 F 02/22/18 07:00 Pulse 100 02/22/18 07:00 Resp 18 02/22/18 07:00 BP 138/56 02/22/18 07:00 Pulse Ox 95 02/22/18 07:00 General appearance: no acute distress, alert Eyes: nonicteric ENT: oropharynx moist Neck: supple Effort: normal Auscultation: bilateral: clear Cardiovascular: regular rate and rhythm Gastrointestinal: normoactive bowel sounds, non-distended Integumentary: normal Extremities: no cyanosis, edema (1+ pitting edema b/l) Musculoskeletal: no deformities normal mental status mood appropriate, affect normal Results - Laboratory Findings CBC and BMP: 02/21/18 00:35 02/22/18 09:17 PT/INR, D-dimer PT 14.1 Seconds (9.4-12.1) H 02/21/18 00:35 Abnormal lab findings: Abnormal lab results WBC 63.8 K/mcL (4.3-11.1) H* 02/21/18 00:35 RBC 2.76 M/mcL (3.82-4.97) L 02/21/18 00:35 Hgb 7.8 g/dL (11.5-15.4) L 02/21/18 00:35 Hct 26.1 % (35.3-44.9) L 02/21/18 00:35 MCHC 29.9 g/dL (31.6-35.5) L 02/21/18 00:35 RDW 17.3 % (11.5-14.5) H 02/21/18 00:35 Plt Count 103 K/mcL (140-400) L 02/21/18 00:35 Immature Gran % 19.5 % (0-4) H 02/21/18 00:35 Band Neutrophils % 11.0 % (0-4) H 02/20/18 11:18 Metamyelocytes % 3.0 % (0) H 02/20/18 11:18 Myelocytes % 4.0 % (0) H 02/20/18 11:18 Neutrophils # 48.6 K/mcL (1.6-8.9) H 02/21/18 00:35 Platelet Estimate Slight Decrease (Normal) L 02/20/18 11:18 Immature Plt Fraction 37.3 % (1.1-6.1) H 02/20/18 11:18 Anisocytosis 2+ (Not Present) A 02/20/18 11:18 PT 14.1 Seconds (9.4-12.1) H 02/21/18 00:35 Chloride 110 mEq/L (98-107) H 02/21/18 00:35 BUN 24 mg/dL (8-23) H 02/21/18 00:35 Creatinine 1.28 mg/dL (0.60-1.20) H 02/21/18 00:35 Est GFR ( Amer) 49 (> 60) L 02/21/18 00:35 Est GFR (Non-Af Amer) 41 (> 60) L 02/21/18 00:35 Glucose 168 mg/dL (70-105) H 02/21/18 00:35 POC Glucose 182 mg/dL (70-99) H 02/21/18 16:39 Calcium 8.0 mg/dL (8.6-10.3) L 02/21/18 00:35 Iron 18 mcg/dL (50-170) L 02/21/18 16:30 % Saturation 6 % (15-50) L 02/21/18 16:30 Total Bilirubin 0.2 mg/dL (0.3-1.0) L 02/21/18 00:35 AST 6 Units/L (13-39) L 02/21/18 00:35 ALT 3 Units/L (7-52) L 02/21/18 00:35 B-Natriuretic Peptide 361 pg/mL (Less than 100) H 02/21/18 00:35 Serum Total Protein 5.7 g/dL (6.4-8.9) L 02/21/18 00:35 Albumin 2.9 g/dL (3.5-5.7) L 02/21/18 00:35 Albumin/Globulin Ratio 1.0 (1.1-2.2) L 02/21/18 00:35 Triglycerides 153 mg/dL (< 150) H 02/21/18 00:35 VLDL Cholesterol, Calc 31 mg/dL (< 31) H 02/21/18 00:35 HDL Cholesterol 29 mg/dL (40-59) L 02/21/18 00:35 Direct Antiglob Test 1+ (Negative) A 02/21/18 17:58 - Diagnostic Findings Chest x-ray: pending CT scan - chest: report reviewed, image reviewed - Clinical Findings Intake & Output: Intake & Output 02/21/18 02/22/18 02/22/18 23:59 07:59 15:59 Intake Total 240 / 240 1002 / 1002 240 / 240 Output Total 0 / 0 200 / 200 Balance 240 / 240 1002 / 1002 40 / 40 Weight 122.5 kg Consult Discharge Plan - Plan Referrals: Mayra Uribe CNP [Primary Care Provider] - <Heriberto Gómez - Last Filed: 02/22/18 13:12> Date of Encounter: 02/22/18 Objective PUL Vital signs: Last Vital Signs Temp 97.8 F 02/22/18 11:15 Pulse 95 02/22/18 11:15 Resp 18 02/22/18 11:15 BP 144/60 02/22/18 11:15 Pulse Ox 93 02/22/18 12:58 Results - Laboratory Findings CBC and BMP: 02/21/18 00:35 02/22/18 09:17 PT/INR, D-dimer PT 14.1 Seconds (9.4-12.1) H 02/21/18 00:35 Abnormal lab findings: Abnormal lab results WBC 63.8 K/mcL (4.3-11.1) H* 02/21/18 00:35 RBC 2.76 M/mcL (3.82-4.97) L 02/21/18 00:35 Hgb 7.8 g/dL (11.5-15.4) L 02/21/18 00:35 Hct 26.1 % (35.3-44.9) L 02/21/18 00:35 MCHC 29.9 g/dL (31.6-35.5) L 02/21/18 00:35 RDW 17.3 % (11.5-14.5) H 02/21/18 00:35 Plt Count 103 K/mcL (140-400) L 02/21/18 00:35 Immature Gran % 19.5 % (0-4) H 02/21/18 00:35 Band Neutrophils % 11.0 % (0-4) H 02/20/18 11:18 Metamyelocytes % 3.0 % (0) H 02/20/18 11:18 Myelocytes % 4.0 % (0) H 02/20/18 11:18 Neutrophils # 48.6 K/mcL (1.6-8.9) H 02/21/18 00:35 Platelet Estimate Slight Decrease (Normal) L 02/20/18 11:18 Immature Plt Fraction 37.3 % (1.1-6.1) H 02/20/18 11:18 Anisocytosis 2+ (Not Present) A 02/20/18 11:18 PT 14.1 Seconds (9.4-12.1) H 02/21/18 00:35 Chloride 109 mEq/L (98-107) H 02/22/18 09:17 BUN 26 mg/dL (8-23) H 02/22/18 09:17 Creatinine 1.95 mg/dL (0.60-1.20) H 02/22/18 09:17 Est GFR ( Amer) 30 (> 60) L 02/22/18 09:17 Est GFR (Non-Af Amer) 25 (> 60) L 02/22/18 09:17 Glucose 162 mg/dL (70-105) H 02/22/18 09:17 POC Glucose 154 mg/dL (70-99) H 02/22/18 11:21 Calcium 8.2 mg/dL (8.6-10.3) L 02/22/18 09:17 Iron 18 mcg/dL (50-170) L 02/21/18 16:30 % Saturation 6 % (15-50) L 02/21/18 16:30 Total Bilirubin 0.2 mg/dL (0.3-1.0) L 02/21/18 00:35 AST 6 Units/L (13-39) L 02/21/18 00:35 ALT 3 Units/L (7-52) L 02/21/18 00:35 B-Natriuretic Peptide 361 pg/mL (Less than 100) H 02/21/18 00:35 Serum Total Protein 5.7 g/dL (6.4-8.9) L 02/21/18 00:35 Albumin 2.9 g/dL (3.5-5.7) L 02/21/18 00:35 Albumin/Globulin Ratio 1.0 (1.1-2.2) L 02/21/18 00:35 Triglycerides 153 mg/dL (< 150) H 02/21/18 00:35 VLDL Cholesterol, Calc 31 mg/dL (< 31) H 02/21/18 00:35 HDL Cholesterol 29 mg/dL (40-59) L 02/21/18 00:35 Direct Antiglob Test 1+ (Negative) A 02/21/18 17:58 - Clinical Findings Intake & Output: Intake & Output 02/21/18 02/22/18 02/22/18 23:59 07:59 15:59 Intake Total 240 / 240 1002 / 1002 240 / 240 Output Total 0 / 0 200 / 200 Balance 240 / 240 1002 / 1002 40 / 40 Weight 122.5 kg - Attending Attestation I examined this patient and my medical decision-making was reviewed with the Resident Physician. I agree with the documented findings, disposition and treatment plan as described except to the extent set forth below. Patient seen and examined. Labs, radiology, chart personally reviewed. 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 Recommendation has outlined under resident's recommendation. Please call for any questions and will follow-up when necessary. Cardiovascular: stable
[2018-02-22] MEDS: Lisinopril 20 MG TABLET PO SCH (09:25)
[2018-02-22] MEDS: NIFEdipine XL (24 HR) 30 MG TAB.ER.24 PO SCH (09:25)
[2018-02-22] MEDS: Insulin LISPRO 300 UNITS/3 ML VIAL SQ SCH ×3 (09:26→16:51)
[2018-02-22] MEDS: Furosemide 40 MG/4 ML VIAL IVP SCH (09:26)
[2018-02-22] MEDS: Furosemide 40 MG TABLET PO SCH ×2 (09:27→16:50)
[2018-02-22 09:46] LABS: Calcium 8.2 mg/dL (8.6-10.3)
--- NOTE | 2018-02-22 11:03 | Internal Med Progress Note ---
Date of Encounter: 02/22/18 Time of Encounter: 11:00 - Assessment and plan (1) Acute respiratory failure with hypoxia Current Visit: Yes Status: Acute Assessment and plan: Sang 2/2 to pneumonia vs CHF. Continue antibiotics and diuresis. CT chest showed b/l pleural effusions. F/U 2D echo (2) HCAP (healthcare-associated pneumonia) Current Visit: No Status: Acute Assessment and plan: Pt has right lower lobe plueral effusion with consolidation. On vanc and zosyn. Obtain CT chest and 2D echo to assess etiology of effusion. Pulmonary recs appreciated. (3) DMII (diabetes mellitus, type 2) Current Visit: No Status: Chronic Assessment and plan: Continue insulin and monitor fingersticks Qualifiers: Diabetes mellitus chcf insulin use: with chcf use Diabetes mellitus complication status: with unspecified complications Qualified Code(s) : E11.8 - Type 2 diabetes mellitus with unspecified complications; Z79.4 - prison (current) use of insulin; Z79.4 - watermelon inspector (current) use of insulin; Z79.4 - prison (current) use of insulin; Z79.4 - prison (current) use of insulin (4) COPD (chronic obstructive pulmonary disease) Current Visit: No Status: Acute Assessment and plan: Nebs PRN Qualifiers: COPD type: unspecified COPD Qualified Code(s): J44.9 - Chronic obstructive pulmonary disease, unspecified (5) MPN (myeloproliferative neoplasm) Current Visit: No Status: Chronic Assessment and plan: Patient likely has a chronic lymphocytic leukemia. We will get hematology to see the patient. We will follow the recommendations from hematology oncology. (6) DVT prophylaxis Current Visit: No Status: Acute Assessment and plan: heaprin Medical decision making: This patient has a moderate to severe risk of worsening in spite of being on appropriate medication due to the underlying complex comorbid conditions. (7) Morbid obesity with BMI of 45.0-49.9, adult Current Visit: No Status: Chronic Assessment and plan: Diet and weight loss. - Time Spent With Patient Total time spent is greater than 50% in coordination of care (as documented) at patient's floor/unit and/or counseling patient: - Subjective Interval history: No acute events overnight - Constitutional Vitals: Temp Pulse Resp BP Pulse Ox 98.2 F 100 18 138/56 95 02/22/18 07:00 02/22/18 07:00 02/22/18 07:00 02/22/18 07:00 02/22/18 07:00 General appearance: Present: A&O X 3, pleasant, no acute distress Internal Medicine: Result - Labs CBC & Chem 7: 02/21/18 00:35 02/22/18 09:17 Labs: BMP 02/22/18 09:17 Sodium 140 Potassium 4.0 Chloride 109 H Carbon Dioxide 25 BUN 26 H Creatinine 1.95 H Glucose 162 H Calcium 8.2 L - ABG Interpretation ABG results: PT/INR, D-dimer PT 14.1 Seconds (9.4-12.1) H 02/21/18 00:35 - Impressions Impressions Chest CT 02/21/18 11:37 IMPRESSION: 1. Interval development of bilateral pleural effusions, moderate on the right, and small on the left. 2. Bilateral lower lobe airspace consolidation, right greater than left, most likely representing passive atelectasis, though aspiration or pneumonia are considered less likely. 3. Additional scattered ground-glass opacity within the bilateral upper lobes likely reflects asymmetric pulmonary edema. 4. New scattered nonspecific tree-in-bud pulmonary nodules throughout both lungs likely reflects an acute infectious or inflammatory process to include either bronchiolitis or multifocal pneumonia. 5. Stable bilateral adrenal adenomas. 6. Interval progression of nonspecific edematous change and fluid noted within the right breast soft tissues and bilateral flanks. RECOMMENDATIONS: Given the constellation of new lung findings, suggest appropriate clinical treatment and short-term chest CT follow-up in 6-8 weeks to ensure resolution of the pleural effusions, airspace consolidation, and multiple scattered pulmonary nodules. D/ / 02/21/2018 13:35:54 Cristi Johnson MD / [facility] Interpreting Provider: Cristi Johnson MD Echocardiogram 02/21/18 11:52 Impressions: LVEF 55-60%. Normal LV chamber size, wall thickness and function. Mild left ventricular diastolic dysfunction. Atypical septal motion consistent with bundle branch block. Normal right ventricular structure and function. Aortic valve not well visualized. Mild aortic stenosis suggested by Doppler. Mean gradient 14 mmHg. No evidence of pulmonary hypertension. Left Ventricular Wall Motion: Rest Echo Findings All wall segments showed normal motion. Findings: Study Quality * Technically adequate exam. ECG Findings * Sinus rhythm with BBB. Left Ventricle * LVEF 55-60%. * Normal LV chamber size, wall thickness and function. * Mild left ventricular diastolic dysfunction. * Atypical septal motion consistent with bundle branch block. Right Ventricle * Normal right ventricular structure and function. Left Atrium * Mildly dilated left atrium. Right Atrium * Normal right atrial size. Aortic Valve * Aortic valve not well visualized. * Mild aortic stenosis suggested by Doppler. Mean gradient 14 mmHg. * No aortic regurgitation. Mitral Valve * Normal mitral valve structure and function. * No mitral stenosis. * No mitral regurgitation. Tricuspid Valve * Normal tricuspid valve structure and function. * Trace tricuspid regurgitation. * No evidence of pulmonary hypertension. Pulmonic Valve * Normal pulmonic valve structure and function. * No pulmonic regurgitation. Aorta * Normally sized aortic root. Pericardium * The pericardium appears normal. IVC * Normal IVC dimensions and inspiratory collapse. Pulmonary Artery * Normal visualized portions of the main pulmonary artery. Consult Discharge Plan - Plan Referrals: Mayra Uribe, SHARDA [Primary Care Provider] -
[2018-02-22 14:08] LABS: Bilirubin,Urine Negative (Negative); Blood,Urine Negative (Negative); Color,Urine Yellow (Yellow); Glucose,Urine (UA) Normal (Normal); Ketones,Urine Negative (Negative); Leukocyte Esterase,Urine Negative (Negative); Nitrite,Urine Negative (Negative); PH,Urine 5.5 pH Units (5.0-8.0); Protein,Urine 100 mg/dL (Neg-Trace); Specific Gravity,Urine 1.016 (1.010-1.025); Urobilinogen,Urine Normal (Normal)
[2018-02-22 14:13] LABS: Bacteria,Urine None Seen per hpf (None-Few); Hyaline Casts,Urine None Seen per lpf (None-Few); Squamous Epithelial Cell,Urine Moderate per lpf (None-Few); WBC,Urine 0-3 per hpf (0-3)
[2018-02-22 14:17] LABS: Clarity,Urine Clear (Clear)
[2018-02-22] MEDS: Piperacillin/Tazobactam 3.375 GM in 0.9 % Sodium Chloride Mini Bag 100 ML IVPB SCH (16:50)
[2018-02-22] MEDS: *HR* HYDROcodone/Acet 5/325 mg TABLET PO PRN (16:50)
[2018-02-22] MEDS ORDERED: Nystatin POWDER 30 GM BOTTLE TP SCH (21:00)
[2018-02-22] MEDS: Nystatin POWDER 30 GM BOTTLE TP SCH (22:57)
[2018-02-22] MEDS: Insulin DETEMIR 100 UNIT/ML X5UNITS SQ SCH (22:57)
[2018-02-23] MEDS: hydrALAZINE 25 MG TABLET PO SCH ×4 (00:39→22:20)
[2018-02-23] MEDS: *HR* Heparin 5,000 UNIT/ML VIAL SQ SCH ×4 (00:39→23:40)
[2018-02-23] MEDS: Piperacillin/Tazobactam 3.375 GM in 0.9 % Sodium Chloride Mini Bag 100 ML IVPB SCH ×4 (00:43→23:50)
[2018-02-23 01:14] LABS: Hematocrit 26.4 % (35.3-44.9); Hemoglobin 7.7 g/dL (11.5-15.4); Mean Corpuscular HGB Conc 29.2 g/dL (31.6-35.5); Mean Corpuscular Hemoglobin 28.1 pg (28.0-33.3); Mean Corpuscular Volume 96.4 fL (83.0-100.0); Red Blood Count 2.74 M/mcL (3.82-4.97)
[2018-02-23 01:31] LABS: Platelet Count 99 K/mcL (140-400)
[2018-02-23 01:34] LABS: Calcium 8.1 mg/dL (8.6-10.3)
[2018-02-23 02:50] LABS: Lymphocytes # 3.1 K/mcL (0.6-4.6); Neutrophils # 58.8 K/mcL (1.6-8.9); Platelet Estimate Slight Decrease (Normal)
[2018-02-23 02:52] LABS: Anisocytosis 1+ (Not Present)
[2018-02-23] MEDS: Ipratropium/Albuterol Neb 3 ML IH SCH ×4 (03:54→21:57)
--- NOTE | 2018-02-23 09:12 | Internal Med Progress Note ---
Date of Encounter: 02/23/18 Time of Encounter: 09:00 - Assessment and plan (1) Acute respiratory failure with hypoxia Current Visit: Yes Status: Acute Assessment and plan: Sang 2/2 to pneumonia vs CHF. Continue antibiotics and diuresis. CT chest showed b/l pleural effusions. 2D echo showed Ef of 55-60%. Creatinine has been trending up and we will hold lasix at this time. Etioogy of pleural effusion seems likely infectious. Will repeat chest xray today. Pulmonary recommend against thoracentesis due to likelihood of fluid reaccumulating (2) HCAP (healthcare-associated pneumonia) Current Visit: No Status: Acute Assessment and plan: Pt has right lower lobe plueral effusion with consolidation. On vanc and zosyn. Repeat cxr today. Pulmonary following (3) DMII (diabetes mellitus, type 2) Current Visit: No Status: Chronic Assessment and plan: Continue insulin and monitor fingersticks Qualifiers: Diabetes mellitus reimbursement consultant insulin use: with reimbursement consultant use Diabetes mellitus complication status: with unspecified complications Qualified Code(s) : E11.8 - Type 2 diabetes mellitus with unspecified complications; Z79.4 - meat supervisor (current) use of insulin; Z79.4 - meat supervisor (current) use of insulin; Z79.4 - long-term (current) use of insulin; Z79.4 - long-term (current) use of insulin (4) COPD (chronic obstructive pulmonary disease) Current Visit: No Status: Acute Assessment and plan: Nebs PRN Qualifiers: COPD type: unspecified COPD Qualified Code(s): J44.9 - Chronic obstructive pulmonary disease, unspecified (5) MPN (myeloproliferative neoplasm) Current Visit: No Status: Chronic Assessment and plan: Patient likely has a chronic lymphocytic leukemia. We will follow the recommendations from hematology oncology. (6) DVT prophylaxis Current Visit: No Status: Acute Assessment and plan: heaprin Medical decision making: This patient has a moderate to severe risk of worsening in spite of being on appropriate medication due to the underlying complex comorbid conditions. (7) Morbid obesity with BMI of 45.0-49.9, adult Current Visit: No Status: Chronic Assessment and plan: Diet and weight loss. (8) Vertigo Current Visit: Yes Status: Acute Assessment and plan: started on meclizine. Obtain CT head to r/o any intracranial pathology - Time Spent With Patient Total time spent is greater than 50% in coordination of care (as documented) at patient's floor/unit and/or counseling patient: - Subjective Interval history: No acute events overnight - Constitutional Vitals: Temp Pulse Resp BP Pulse Ox 97.8 F 75 18 140/51 92 02/23/18 06:55 02/23/18 06:55 02/23/18 06:55 02/23/18 06:55 02/23/18 06:55 General appearance: Present: A&O X 3, pleasant, no acute distress - Head Head exam: Present: atraumatic, normocephalic - Eye Eye exam: Present: PERRL, conjuntiva pink, sclera anicteric Pupils: Present: PERRL - Neck Neck exam general surgery: Present: supple, trachea midline. Absent: lymphadenopathy - Respiratory Respiratory exam: Present: CTAB. Absent: accessory muscle use, rales, rhonchi, wheezes - Cardiovascular Cardiovascular exam: Present: RRR, +S1, +S2. Absent: diastolic murmur, gallop, rubs, systolic murmur - GI/Abdominal GI/Abdominal exam: Present: normal bowel sounds, soft, no peritoneal signs. Absent: distended, tenderness - Extremities Exam Extremities exam: Present: warm, radial pulses palpable and symmetrical. Absent : calf tenderness, cyanotic, pedal edema - Neurological Exam Neurological exam: Present: CN II-XII intact, oriented X3, no focal deficits. Absent: pronater drift, facial droop, speech deficit - Skin Skin exam: Present: dry, intact Internal Medicine: Result - Labs CBC & Chem 7: 02/23/18 01:02 02/23/18 01:02 Labs: Short CBC 02/23/18 Range/Units 01:02 WBC 77.4 H* (4.3-11.1) K/mcL Hgb 7.7 L (11.5-15.4) g/dL Hct 26.4 L (35.3-44.9) % Plt Count 99 L (140-400) K/mcL Neutrophils # 58.8 H (1.6-8.9) K/mcL BMP 02/22/18 02/23/18 09:17 01:02 Sodium 140 138 Potassium 4.0 4.0 Chloride 109 H 109 H Carbon Dioxide 25 22 L BUN 26 H 29 H Creatinine 1.95 H 2.08 H Glucose 162 H 141 H Calcium 8.2 L 8.1 L Urine 02/22/18 Range/Units 12:45 Urine Color Yellow (Yellow) Urine Clarity Clear (Clear) Urine pH 5.5 (5.0-8.0) pH Units Ur Specific [place] 1.016 (1.010-1.025) Urine Protein 100 H (Neg-Trace) mg/dL Urine Glucose (UA) Normal (Normal) mg/dL - ABG Interpretation ABG results: PT/INR, D-dimer PT 14.1 Seconds (9.4-12.1) H 02/21/18 00:35 - Impressions Impressions Echocardiogram 02/21/18 11:52 Impressions: LVEF 55-60%. Normal LV chamber size, wall thickness and function. Mild left ventricular diastolic dysfunction. Atypical septal motion consistent with bundle branch block. Normal right ventricular structure and function. Aortic valve not well visualized. Mild aortic stenosis suggested by Doppler. Mean gradient 14 mmHg. No evidence of pulmonary hypertension. Left Ventricular Wall Motion: Rest Echo Findings All wall segments showed normal motion. Findings: Study Quality * Technically adequate exam. ECG Findings * Sinus rhythm with BBB. Left Ventricle * LVEF 55-60%. * Normal LV chamber size, wall thickness and function. * Mild left ventricular diastolic dysfunction. * Atypical septal motion consistent with bundle branch block. Right Ventricle * Normal right ventricular structure and function. Left Atrium * Mildly dilated left atrium. Right Atrium * Normal right atrial size. Aortic Valve * Aortic valve not well visualized. * Mild aortic stenosis suggested by Doppler. Mean gradient 14 mmHg. * No aortic regurgitation. Mitral Valve * Normal mitral valve structure and function. * No mitral stenosis. * No mitral regurgitation. Tricuspid Valve * Normal tricuspid valve structure and function. * Trace tricuspid regurgitation. * No evidence of pulmonary hypertension. Pulmonic Valve * Normal pulmonic valve structure and function. * No pulmonic regurgitation. Aorta * Normally sized aortic root. Pericardium * The pericardium appears normal. IVC * Normal IVC dimensions and inspiratory collapse. Pulmonary Artery * Normal visualized portions of the main pulmonary artery. Consult Discharge Plan - Plan Referrals: Mayra Uribe, EPIC KALEIDOSCOPE ANALYST [Primary Care Provider] -
[2018-02-23] MEDS: NIFEdipine XL (24 HR) 30 MG TAB.ER.24 PO SCH (10:14)
[2018-02-23] MEDS: Lisinopril 20 MG TABLET PO SCH (10:15)
[2018-02-23] MEDS: Insulin LISPRO 300 UNITS/3 ML VIAL SQ SCH ×3 (10:15→17:26)
[2018-02-23] MEDS: Nystatin POWDER 30 GM BOTTLE TP SCH ×2 (10:16→22:20)
--- NOTE | 2018-02-23 10:52 | Oncology Inp Progress Note ---
Date of Encounter: 02/23/18 Time of Encounter: 11:30 (1) Iron deficiency anemia due to chronic blood loss Current Visit: Yes Status: Acute Assessment and plan: She has underlying iron deficiency by labs 02/21/2018. Will arrange for venofer 400mg x 1 today. Will likely need further IV iron as an outpatient. (2) Pneumonia Current Visit: Yes Status: Acute Assessment and plan: Clinically improving. Continue supportive measures and Zosyn/Vancomycin coverage. 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 In either case, her WBC is stable x 1 year and no cytoreductive therapy is indicated acutely. Will arrange for f/u with Dr. Cortez at discharge. Oncology: Subj Interval history: Ms. Suarez is feeling a bit better. Still SOB with cough productive of thick yellow sputum. Afebrile, and no chills. No new aches or pains. Fatigued still , but improving. No bleeding symptoms of epistaxis, hemoptysis, hematemesis, melena or hematochezia. Repeat CXR planned today. - Constitutional Vitals: Vital Signs Temp Pulse Resp BP Pulse Ox 02/23/18 10:49 97.8 F 75 16 140/46 95 02/23/18 10:08 16 95 02/23/18 06:55 97.8 F 75 18 140/51 92 02/23/18 04:00 98.3 F 94 19 113/55 94 02/23/18 03:54 19 87 02/22/18 22:00 91 02/22/18 21:46 16 92 02/22/18 18:59 98.4 F 92 18 102/45 91 02/22/18 16:00 98.2 F 67 18 119/45 92 02/22/18 15:42 18 93 02/22/18 12:58 93 02/22/18 11:15 97.8 F 95 18 144/60 93 02/22/18 11:07 18 94 Intake and Output 02/23/18 02/23/18 02/23/18 00:59 08:59 16:59 Intake Total 150 / 150 350 / 350 Output Total 100 / 100 200 / 200 Balance 50 / 50 150 / 150 Intake: IV Fluids 100 / 100 100 / 100 Zosyn 3.375 GM In 0.9 % Sodium 100 / 100 100 / 100 Chloride (Mini-Bag +) 100 ML @ 25 mls/hr IVPB Q8HR [facility] Rx#: [id number] Oral 50 / 50 250 / 250 Output: Urine 100 / 100 200 / 200 Other: Meal Breakfast Percent of Meal Consumed 15% Weight 123.2 kg Blood Glucose* 158 125 Patient Weight 02/24/18 00:59 Weight 123.2 kg General appearance: cooperative, morbidly obese - Head Head exam: Present: atraumatic, normal inspection, normocephalic - Eye Eye exam: Present: normal appearance, conjuntiva pink, sclera anicteric - ENT ENT exam: Present: mucous membranes moist, normal oropharynx - Neck Neck exam: Present: full ROM, normal inspection - Respiratory Respiratory exam: Present: decreased breath sounds, prolonged expiratory phase - Cardiovascular Cardiovascular exam: Present: RRR - GI/Abdominal GI/Abdominal exam: Present: normal bowel sounds, soft - Extremities Exam Extremities exam: Present: normal inspection, pedal edema - Neurological Exam Neurological exam: Present: alert, CN II-XII intact, oriented X3, no focal deficits Oncology: Obj Data - Labs CBC & Chem 7: 02/23/18 01:02 02/23/18 01:02 Labs: Laboratory Results - last 24 hr 02/21/18 02/22/18 02/22/18 20:25 07:09 11:21 WBC RBC Hgb Hct MCV MCH MCHC RDW Plt Count MPV Seg Neutrophils % Band Neutrophils % Lymphocytes % Metamyelocytes % Myelocytes % Promyelocytes % Neutrophils # Lymphocytes # Platelet Estimate Anisocytosis Sodium Potassium Chloride Carbon Dioxide BUN Creatinine Est GFR ( Amer) Est GFR (Non-Af Amer) BUN/Creatinine Ratio Glucose POC Glucose 126 H 128 H 154 H Calculated Osmolality Calcium Urine Color Urine Clarity Urine pH Ur Specific [place] Urine Protein Urine Glucose (UA) Urine Ketones Urine Blood Urine Nitrite Urine Bilirubin Urine Urobilinogen Ur Leukocyte Esterase Urine Microscopic RBC Urine Microscopic WBC Ur Squamous Epith Cells Urine Bacteria Hyaline Casts Ur Culture Indicated? Vancomycin Trough 02/22/18 02/22/18 02/22/18 12:45 16:15 19:03 WBC RBC Hgb Hct MCV MCH MCHC RDW Plt Count MPV Seg Neutrophils % Band Neutrophils % Lymphocytes % Metamyelocytes % Myelocytes % Promyelocytes % Neutrophils # Lymphocytes # Platelet Estimate Anisocytosis Sodium Potassium Chloride Carbon Dioxide BUN Creatinine Est GFR ( Amer) Est GFR (Non-Af Amer) BUN/Creatinine Ratio Glucose POC Glucose 151 H 158 H Calculated Osmolality Calcium Urine Color Yellow Urine Clarity Clear Urine pH 5.5 Ur Specific [place] 1.016 Urine Protein 100 H Urine Glucose (UA) Normal Urine Ketones Negative Urine Blood Negative Urine Nitrite Negative Urine Bilirubin Negative Urine Urobilinogen Normal Ur Leukocyte Esterase Negative Urine Microscopic RBC 3-5 H Urine Microscopic WBC 0-3 Ur Squamous Epith Cells Moderate H Urine Bacteria None Seen Hyaline Casts None Seen Ur Culture Indicated? NO Vancomycin Trough 02/23/18 02/23/18 02/23/18 01:02 01:02 01:02 WBC 77.4 H* RBC 2.74 L Hgb 7.7 L Hct 26.4 L MCV 96.4 MCH 28.1 MCHC 29.2 L RDW 18.0 H Plt Count 99 L MPV TNP Seg Neutrophils % 56.0 Band Neutrophils % 20.0 H Lymphocytes % 4.0 Metamyelocytes % 6.0 H Myelocytes % 6.0 H Promyelocytes % 8.0 H Neutrophils # 58.8 H Lymphocytes # 3.1 Platelet Estimate Slight Decrease L Anisocytosis 1+ A Sodium 138 Potassium 4.0 Chloride 109 H Carbon Dioxide 22 L BUN 29 H Creatinine 2.08 H Est GFR ( Amer) 28 L Est GFR (Non-Af Amer) 23 L BUN/Creatinine Ratio 14 Glucose 141 H POC Glucose Calculated Osmolality 294 Calcium 8.1 L Urine Color Urine Clarity Urine pH Ur Specific [place] Urine Protein Urine Glucose (UA) Urine Ketones Urine Blood Urine Nitrite Urine Bilirubin Urine Urobilinogen Ur Leukocyte Esterase Urine Microscopic RBC Urine Microscopic WBC Ur Squamous Epith Cells Urine Bacteria Hyaline Casts Ur Culture Indicated? Vancomycin Trough 26 H - Impressions Impressions Echocardiogram 02/21/18 11:52 Impressions: LVEF 55-60%. Normal LV chamber size, wall thickness and function. Mild left ventricular diastolic dysfunction. Atypical septal motion consistent with bundle branch block. Normal right ventricular structure and function. Aortic valve not well visualized. Mild aortic stenosis suggested by Doppler. Mean gradient 14 mmHg. No evidence of pulmonary hypertension. Left Ventricular Wall Motion: Rest Echo Findings All wall segments showed normal motion. Findings: Study Quality * Technically adequate exam. ECG Findings * Sinus rhythm with BBB. Left Ventricle * LVEF 55-60%. * Normal LV chamber size, wall thickness and function. * Mild left ventricular diastolic dysfunction. * Atypical septal motion consistent with bundle branch block. Right Ventricle * Normal right ventricular structure and function. Left Atrium * Mildly dilated left atrium. Right Atrium * Normal right atrial size. Aortic Valve * Aortic valve not well visualized. * Mild aortic stenosis suggested by Doppler. Mean gradient 14 mmHg. * No aortic regurgitation. Mitral Valve * Normal mitral valve structure and function. * No mitral stenosis. * No mitral regurgitation. Tricuspid Valve * Normal tricuspid valve structure and function. * Trace tricuspid regurgitation. * No evidence of pulmonary hypertension. Pulmonic Valve * Normal pulmonic valve structure and function. * No pulmonic regurgitation. Aorta * Normally sized aortic root. Pericardium * The pericardium appears normal. IVC * Normal IVC dimensions and inspiratory collapse. Pulmonary Artery * Normal visualized portions of the main pulmonary artery. Chest X-Ray 02/23/18 09:03 IMPRESSION: Increasing moderate left and small right pleural effusions with adjacent atelectasis. D/ / Ellen Vences MD / Ellen Vences MD Interpreting Provider: Ellen Vences MD Head CT 02/23/18 09:16 IMPRESSION: Atrophy and small-vessel ischemic change. No acute intracranial abnormality D/ / Tristan Benton MD / Tritsan Benton MD Interpreting Provider: Tristan Benton MD - ABG Interpretation ABG results: PT/INR, D-dimer PT 14.1 Seconds (9.4-12.1) H 02/21/18 00:35 Consult Discharge Plan - Plan Referrals: Mayra Uribe, HOT PRESS OPERATOR [Primary Care Provider] -
[2018-02-23] MEDS ORDERED: Iron Sucrose Complex 400 MG in 0.9 % Sodium Chloride 250 ML IVPB ONE (12:03)
[2018-02-23 18:50] LABS: ABG Base Excess -2 mEq/L (-2 to 3); ABG HCO3 24 mEq/L (21-27); ABG Oxygen Saturation 90 % (95-98); ABG PCO2 45 mmHg (35-45); ABG PH 7.33 pH Units (7.32-7.45); ABG PO2 63 mmHg (85-104); ABG TCO2 25 mEq/L (20-26)
[2018-02-23] MEDS: Insulin DETEMIR 100 UNIT/ML X5UNITS SQ SCH (20:02)
[2018-02-23] MEDS ORDERED: Furosemide 20 MG/2 ML VIAL IVP ONE (20:22)
[2018-02-23] MEDS: Ondansetron 4 MG/2 ML VIAL IVP PRN (20:34)
[2018-02-24] MEDS: Ipratropium/Albuterol Neb 3 ML IH SCH ×4 (03:42→22:00)
[2018-02-24] MEDS ORDERED: Furosemide 20 MG/2 ML VIAL IVP ONE (03:52)
[2018-02-24 04:57] LABS: Hematocrit 24.1 % (35.3-44.9); Hemoglobin 7.3 g/dL (11.5-15.4); Mean Corpuscular HGB Conc 30.3 g/dL (31.6-35.5); Mean Corpuscular Hemoglobin 29.6 pg (28.0-33.3); Mean Corpuscular Volume 97.6 fL (83.0-100.0); Nucleated Red Blood Cells 0.1 /100 WBC (0); Red Blood Count 2.47 M/mcL (3.82-4.97); Red Cell Distribution Width 17.9 % (11.5-14.5)
[2018-02-24 05:05] LABS: Platelet Count 91 K/mcL (140-400)
[2018-02-24 05:22] LABS: Calcium 8.1 mg/dL (8.6-10.3); Potassium 4.1 mEq/L (3.5-5.1)
[2018-02-24 05:29] LABS: Anisocytosis 1+ (Not Present); Lymphocytes # 4.3 K/mcL (0.6-4.6); Monocytes # 1.4 K/mcL (0.0-1.3); Neutrophils # 41.2 K/mcL (1.6-8.9)
[2018-02-24 05:30] LABS: Large Platelets Present (Not Present); Platelet Estimate Decreased (Normal); Poikilocytosis 1+ (Not Present)
[2018-02-24] MEDS: hydrALAZINE 25 MG TABLET PO SCH ×2 (05:43→17:25)
[2018-02-24] MEDS: Insulin LISPRO 300 UNITS/3 ML VIAL SQ SCH ×3 (07:58→17:26)
--- NOTE | 2018-02-24 08:30 | Internal Med Progress Note ---
Date of Encounter: 02/24/18 Time of Encounter: 08:30 - Assessment and plan (1) Acute respiratory failure with hypoxia Current Visit: Yes Status: Acute Assessment and plan: Sang 2/2 to pneumonia vs CHF. Continue antibiotics and diuresis. CT chest showed b/l pleural effusions. 2D echo showed Ef of 55-60%. Creatinine has been trending up and we will hold lasix at this time. Etiology of pleural effusion seems likely infectious. Repeat cxr shows worsening effusion. patients oxygen needs are increasing and she is on 5L. Pulmonary recs appreciated (2) HCAP (healthcare-associated pneumonia) Current Visit: No Status: Acute Assessment and plan: Pt has right lower lobe pleural effusion with consolidation. On vanc and zosyn. 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 Follow onc recs (6) DVT prophylaxis Current Visit: No Status: Acute Assessment and plan: heaprin Medical decision making: This patient has a moderate to severe risk of worsening in spite of being on appropriate medication due to the underlying complex comorbid conditions. (7) Morbid obesity with BMI of 45.0-49.9, adult Current Visit: No Status: Chronic Assessment and plan: Diet and weight loss. (8) Vertigo Current Visit: Yes Status: Acute Assessment and plan: started on meclizine. CT head was negative for any acute findfindings. continue meclizine - Time Spent With Patient Total time spent is greater than 50% in coordination of care (as documented) at patient's floor/unit and/or counseling patient: - Subjective Interval history: No acute events overnight - Constitutional Vitals: Temp Pulse Resp BP Pulse Ox 97.8 F 100 20 115/40 94 02/24/18 06:58 02/24/18 06:58 02/24/18 06:58 02/24/18 06:58 02/24/18 06:58 General appearance: Present: A&O X 3, pleasant, no acute distress - Head Head exam: Present: atraumatic, normocephalic - Eye Eye exam: Present: PERRL, conjuntiva pink, sclera anicteric Pupils: Present: PERRL - Neck Neck exam general surgery: Present: supple, trachea midline. Absent: lymphadenopathy - Respiratory Respiratory exam: Present: CTAB. Absent: accessory muscle use, rales, rhonchi, wheezes - Cardiovascular Cardiovascular exam: Present: RRR, +S1, +S2. Absent: diastolic murmur, gallop, rubs, systolic murmur - GI/Abdominal GI/Abdominal exam: Present: normal bowel sounds, soft, no peritoneal signs. Absent: distended, tenderness - Extremities Exam Extremities exam: Present: warm, radial pulses palpable and symmetrical. Absent : calf tenderness, cyanotic, pedal edema - Neurological Exam Neurological exam: Present: CN II-XII intact, oriented X3, no focal deficits. Absent: pronater drift, facial droop, speech deficit - Skin Skin exam: Present: dry, intact Internal Medicine: Result - Labs CBC & Chem 7: 02/24/18 04:16 02/24/18 04:16 Labs: Short CBC 02/24/18 Range/Units 04:16 WBC 71.0 H* (4.3-11.1) K/mcL Hgb 7.3 L (11.5-15.4) g/dL Hct 24.1 L (35.3-44.9) % Plt Count 91 L (140-400) K/mcL Neutrophils # 41.2 H (1.6-8.9) K/mcL BMP 02/24/18 04:16 Sodium 139 Potassium 4.1 Chloride 108 H Carbon Dioxide 22 L BUN 35 H Creatinine 2.58 H Glucose 137 H Calcium 8.1 L - ABG Interpretation ABG results: ABG ABG pH 7.33 pH Units (7.32-7.45) 02/23/18 18:48 ABG pCO2 45 mmHg (35-45) 02/23/18 18:48 ABG pO2 63 mmHg (85-104) L 02/23/18 18:48 ABG O2 Saturation 90 % (95-98) L 02/23/18 18:48 PT/INR, D-dimer PT 14.1 Seconds (9.4-12.1) H 02/21/18 00:35 - Impressions Impressions Chest X-Ray 02/23/18 09:03 IMPRESSION: Increasing moderate left and small right pleural effusions with adjacent atelectasis. D/ / Ellen Vences MD / Ellen Vences MD Interpreting Provider: Ellen Vences MD Head CT 02/23/18 09:16 IMPRESSION: Atrophy and small-vessel ischemic change. No acute intracranial abnormality D/ / Tristan Benton MD / Tristan Benton MD Interpreting Provider: Tristan Benton MD Consult Discharge Plan - Plan Referrals: Mayra Uribe, SHARDA [Primary Care Provider] -
[2018-02-24] MEDS: *HR* Heparin 5,000 UNIT/ML VIAL SQ SCH ×2 (08:55→17:26)
[2018-02-24] MEDS: NIFEdipine XL (24 HR) 30 MG TAB.ER.24 PO SCH (09:11)
[2018-02-24] MEDS: *HR* HYDROcodone/Acet 5/325 mg TABLET PO PRN (09:12)
[2018-02-24] MEDS: Piperacillin/Tazobactam 3.375 GM in 0.9 % Sodium Chloride Mini Bag 100 ML IVPB SCH ×2 (09:12→16:25)
[2018-02-24] MEDS: Lisinopril 20 MG TABLET PO SCH (09:17)
[2018-02-24] MEDS: Nystatin POWDER 30 GM BOTTLE TP SCH ×2 (09:17→20:08)
[2018-02-24] MEDS ORDERED: Furosemide 40 MG/4 ML VIAL IVP ONE (10:55)
[2018-02-24] MEDS: Ondansetron 4 MG/2 ML VIAL IVP PRN (12:11)
--- NOTE | 2018-02-24 14:48 | Pulmonology Progress Note ---
Date of Encounter: 02/24/18 Time of Encounter: 11:30 Assessment and Plan (1) Acute respiratory failure with hypoxia Current Visit: Yes Status: Acute The Acute hypoxic respiratory failure is multifactorial pneumonia with bilateral atelectasis and diastolic heart failure with fluid overload patient needs to sit up most of the day unless she is napping . Will need aggressive incentive spirometry and diuresis as tolerated . Pleural effusion is not only contributing to V/Q mismatch . (2) Pneumonia Current Visit: Yes Status: Acute Patient has bilateral lower lobe consolidation with some atelectasis to continue broad spectrum antibiotics . Encouraged patient to sit up and do incentive spirometry 10 time per hour while awake . Qualifiers: Pneumonia type: due to unspecified organism Laterality: bilateral Lung location: lower lobe of lung Qualified Code(s): J18.1 - Lobar pneumonia, unspecified organism (3) Diastolic heart failure Current Visit: Yes Status: Acute Patient has Acute on Chronic diastolic heart failure will need diuresis . Patient worsening renal function secondary to Cardiorenal syndrome Vs ATN Vs Prerenal if she is not diuresing and the renal function not improving consider Nephrology consult tomorrow. Will need Cardiology consult if she is difficult to diurese. Qualifiers: Qualified Code(s): I50.33 - Acute on chronic diastolic (congestive) heart failure (4) COPD (chronic obstructive pulmonary disease) Current Visit: No Status: Acute Qualifiers: COPD type: unspecified COPD Qualified Code(s): J44.9 - Chronic obstructive pulmonary disease, unspecified (5) Pleural effusion Current Visit: No Status: Acute Patient has bilateral pleural effusion secondary to CHF patient has thoracentesis in the past which showed transduative . Since pleural effusion is not alone contributing to V/Q mismatch doing thoracentesis will not help it may come back again . If the fluid is increasing V/Q mismatch worsening will refer to IR for Thoracentesis . Currently her Oxygenation is stable will hold off Thoracentesis today . Subjective Principal diagnosis: COPD, pleural effusions Interval history: Patient says she is sitting , but still breathing is not at baseline bringing some cough and sputum production . Denies any chest pain or tightness .Patient still has increasing O2 requirements Objective PUL Vital signs: Last Vital Signs Temp 98 F 02/24/18 12:17 Pulse 101 02/24/18 12:17 Resp 18 02/24/18 12:17 BP 130/54 02/24/18 12:17 Pulse Ox 93 02/24/18 12:17 Auscultation: bilateral: diminished breath sounds Extremities: edema Results - Laboratory Findings CBC and BMP: 02/24/18 04:16 02/24/18 04:16 ABG ABG pH 7.33 pH Units (7.32-7.45) 02/23/18 18:48 ABG pCO2 45 mmHg (35-45) 02/23/18 18:48 ABG pO2 63 mmHg (85-104) L 02/23/18 18:48 ABG O2 Saturation 90 % (95-98) L 02/23/18 18:48 PT/INR, D-dimer PT 14.1 Seconds (9.4-12.1) H 02/21/18 00:35 Abnormal lab findings: Abnormal lab results WBC 71.0 K/mcL (4.3-11.1) H* 02/24/18 04:16 RBC 2.47 M/mcL (3.82-4.97) L 02/24/18 04:16 Hgb 7.3 g/dL (11.5-15.4) L 02/24/18 04:16 Hct 24.1 % (35.3-44.9) L 02/24/18 04:16 MCHC 30.3 g/dL (31.6-35.5) L 02/24/18 04:16 RDW 17.9 % (11.5-14.5) H 02/24/18 04:16 Plt Count 91 K/mcL (140-400) L 02/24/18 04:16 Immature Gran % 19.5 % (0-4) H 02/21/18 00:35 Band Neutrophils % 12.0 % (0-4) H 02/24/18 04:16 Metamyelocytes % 2.0 % (0) H 02/24/18 04:16 Myelocytes % 28.0 % (0) H 02/24/18 04:16 Promyelocytes % 4.0 % (0) H 02/24/18 04:16 Neutrophils # 41.2 K/mcL (1.6-8.9) H 02/24/18 04:16 Monocytes # 1.4 K/mcL (0.0-1.3) H 02/24/18 04:16 Nucleated RBCs/100 WBC 0.1 /100 WBC (0) H 02/24/18 04:16 Platelet Estimate Decreased (Normal) L 02/24/18 04:16 Large Platelets Present (Not Present) A 02/24/18 04:16 Immature Plt Fraction 37.3 % (1.1-6.1) H 02/20/18 11:18 Poikilocytosis 1+ (Not Present) A 02/24/18 04:16 Anisocytosis 1+ (Not Present) A 02/24/18 04:16 PT 14.1 Seconds (9.4-12.1) H 02/21/18 00:35 ABG pO2 63 mmHg (85-104) L 02/23/18 18:48 ABG O2 Saturation 90 % (95-98) L 02/23/18 18:48 Chloride 108 mEq/L (98-107) H 02/24/18 04:16 Carbon Dioxide 22 mEq/L (23-29) L 02/24/18 04:16 BUN 35 mg/dL (8-23) H 02/24/18 04:16 Creatinine 2.58 mg/dL (0.60-1.20) H 02/24/18 04:16 Est GFR ( Amer) 22 (> 60) L 02/24/18 04:16 Est GFR (Non-Af Amer) 18 (> 60) L 02/24/18 04:16 Glucose 137 mg/dL (70-105) H 02/24/18 04:16 POC Glucose 133 mg/dL (70-99) H 02/24/18 06:58 Calcium 8.1 mg/dL (8.6-10.3) L 02/24/18 04:16 Iron 18 mcg/dL (50-170) L 02/21/18 16:30 % Saturation 6 % (15-50) L 02/21/18 16:30 Total Bilirubin 0.2 mg/dL (0.3-1.0) L 02/21/18 00:35 AST 6 Units/L (13-39) L 02/21/18 00:35 ALT 3 Units/L (7-52) L 02/21/18 00:35 B-Natriuretic Peptide 361 pg/mL (Less than 100) H 02/21/18 00:35 Serum Total Protein 5.7 g/dL (6.4-8.9) L 02/21/18 00:35 Albumin 2.9 g/dL (3.5-5.7) L 02/21/18 00:35 Albumin/Globulin Ratio 1.0 (1.1-2.2) L 02/21/18 00:35 Triglycerides 153 mg/dL (< 150) H 02/21/18 00:35 VLDL Cholesterol, Calc 31 mg/dL (< 31) H 02/21/18 00:35 HDL Cholesterol 29 mg/dL (40-59) L 02/21/18 00:35 Urine Protein 100 mg/dL (Neg-Trace) H 02/22/18 12:45 Urine Microscopic RBC 3-5 per hpf (0-3) H 02/22/18 12:45 Ur Squamous Epith Cells Moderate per lpf (None-Few) H 02/22/18 12:45 Vancomycin Trough 21 mcg/mL (5-10) H 02/23/18 12:49 Direct Antiglob Test 1+ (Negative) A 02/21/18 17:58 - Clinical Findings Intake & Output: Intake & Output 02/23/18 02/24/18 02/24/18 23:59 07:59 15:59 Intake Total 340 / 340 100 / 100 120 / 120 Output Total 100 / 100 100 / 100 Balance 340 / 340 0 / 0 20 / 20 Weight 123 kg Consult Discharge Plan - Plan Referrals: Mayra Uribe, SHARDA [Primary Care Provider] -
[2018-02-24] MEDS ORDERED: 0.9 % Sodium Chloride 250 ML IVC ONE (18:59)
[2018-02-24] MEDS ORDERED: 0.9 % Sodium Chloride 250 ML ONE (19:09)
[2018-02-24] MEDS: Insulin DETEMIR 100 UNIT/ML X5UNITS SQ SCH (22:15)
[2018-02-25] MEDS: Piperacillin/Tazobactam 3.375 GM in 0.9 % Sodium Chloride Mini Bag 100 ML IVPB SCH ×2 (00:41→17:27)
[2018-02-25] MEDS: hydrALAZINE 25 MG TABLET PO SCH ×4 (00:41→22:24)
[2018-02-25] MEDS: *HR* Heparin 5,000 UNIT/ML VIAL SQ SCH ×3 (01:02→17:26)
[2018-02-25 03:12] LABS: Hemoglobin 7.8 g/dL (11.5-15.4); Nucleated Red Blood Cells 0.1 /100 WBC (0); Platelet Count 107 K/mcL (140-400)
[2018-02-25 03:13] LABS: Hematocrit 26.1 % (35.3-44.9); Mean Corpuscular HGB Conc 29.9 g/dL (31.6-35.5); Mean Corpuscular Hemoglobin 28.8 pg (28.0-33.3); Mean Corpuscular Volume 96.3 fL (83.0-100.0); Red Blood Count 2.71 M/mcL (3.82-4.97); Red Cell Distribution Width 17.8 % (11.5-14.5)
[2018-02-25 03:31] LABS: Calcium 8.1 mg/dL (8.6-10.3); Potassium 4.4 mEq/L (3.5-5.1)
[2018-02-25 03:39] LABS: Platelet Estimate Normal (Normal)
[2018-02-25] MEDS: Ipratropium/Albuterol Neb 3 ML IH SCH ×4 (04:48→21:25)
[2018-02-25] MEDS: Insulin LISPRO 300 UNITS/3 ML VIAL SQ SCH ×3 (08:18→17:28)
[2018-02-25] MEDS: NIFEdipine XL (24 HR) 30 MG TAB.ER.24 PO SCH (08:19)
[2018-02-25] MEDS: *HR* HYDROcodone/Acet 5/325 mg TABLET PO PRN ×2 (08:19→17:19)
[2018-02-25] MEDS: Nystatin POWDER 30 GM BOTTLE TP SCH ×2 (08:20→22:24)
[2018-02-25] MEDS: Ondansetron 4 MG/2 ML VIAL IVP PRN (08:26)
[2018-02-25] MEDS ORDERED: Aminoglycoside Consult 1 EACH MC ONE (09:10)
--- NOTE | 2018-02-25 09:17 | Internal Med Progress Note ---
Date of Encounter: 02/25/18 Time of Encounter: 09:00 - Assessment and plan (1) Acute respiratory failure with hypoxia Current Visit: Yes Status: Acute Assessment and plan: Sang 2/2 to pneumonia vs CHF. Continue antibiotics and diuresis. CT chest showed b/l pleural effusions. 2D echo showed Ef of 55-60%. Creatinine has been trending up and we will hold lasix at this time. Etiology of pleural effusion seems likely infectious. Repeat cxr shows worsening effusion. patients oxygen needs are increasing and she is on 5L. Seen by pulmonary yesterday who gave her a one time dose of lasix. creatinine continues to trend up. will hold lasix, consult renal. Plan for IR guided thoracentesis (2) Acute kidney failure, unspecified Current Visit: Yes Status: Acute Assessment and plan: Renal consulted. Hold lasix. F/U renal ultrasound. Monitor ins and outs Qualifiers: Acute renal failure type: unspecified Qualified Code(s): N17.9 - Acute kidney failure, unspecified (3) HCAP (healthcare-associated pneumonia) Current Visit: No Status: Acute Assessment and plan: Pt has right lower lobe pleural effusion with consolidation. On vanc and zosyn. Pulmonary following (4) DMII (diabetes mellitus, type 2) Current Visit: No Status: Chronic Assessment and plan: Continue insulin and monitor fingersticks Qualifiers: Diabetes mellitus penitentiary insulin use: with penitentiary use Diabetes mellitus complication status: with unspecified complications Qualified Code(s) : E11.8 - Type 2 diabetes mellitus with unspecified complications; Z79.4 - long term acute care registered nurse (current) use of insulin; Z79.4 - prison (current) use of insulin; Z79.4 - long term acute care registered nurse (current) use of insulin; Z79.4 - long term acute care registered nurse (current) use of insulin (5) COPD (chronic obstructive pulmonary disease) Current Visit: No Status: Acute Assessment and plan: Nebs PRN Qualifiers: COPD type: unspecified COPD Qualified Code(s): J44.9 - Chronic obstructive pulmonary disease, unspecified (6) MPN (myeloproliferative neoplasm) Current Visit: No Status: Chronic Assessment and plan: Patient likely has a chronic lymphocytic leukemia. Follow onc recs (7) DVT prophylaxis Current Visit: No Status: Acute Assessment and plan: heaprin Medical decision making: This patient has a moderate to severe risk of worsening in spite of being on appropriate medication due to the underlying complex comorbid conditions. (8) Morbid obesity with BMI of 45.0-49.9, adult Current Visit: No Status: Chronic Assessment and plan: Diet and weight loss. (9) Vertigo Current Visit: Yes Status: Acute Assessment and plan: started on meclizine. CT head was negative for any acute findings. continue meclizine - Time Spent With Patient Total time spent is greater than 50% in coordination of care (as documented) at patient's floor/unit and/or counseling patient: - Subjective Interval history: No acute events overnight - Constitutional Vitals: Temp Pulse Resp BP Pulse Ox 98.1 F 97 15 114/46 92 02/25/18 07:17 02/25/18 07:17 02/25/18 08:33 02/25/18 07:17 02/25/18 08:33 General appearance: Present: A&O X 3, pleasant, no acute distress - Head Head exam: Present: atraumatic, normocephalic - Eye Eye exam: Present: PERRL, conjuntiva pink, sclera anicteric Pupils: Present: PERRL - Neck Neck exam general surgery: Present: supple, trachea midline. Absent: lymphadenopathy - Respiratory Respiratory exam: Present: CTAB. Absent: accessory muscle use, rales, rhonchi, wheezes - Cardiovascular Cardiovascular exam: Present: RRR, +S1, +S2. Absent: diastolic murmur, gallop, rubs, systolic murmur - GI/Abdominal GI/Abdominal exam: Present: normal bowel sounds, soft, no peritoneal signs. Absent: distended, tenderness - Extremities Exam Extremities exam: Present: warm, radial pulses palpable and symmetrical. Absent : calf tenderness, cyanotic, pedal edema - Neurological Exam Neurological exam: Present: CN II-XII intact, oriented X3, no focal deficits. Absent: pronater drift, facial droop, speech deficit - Skin Skin exam: Present: dry, intact Internal Medicine: Result - Labs CBC & Chem 7: 02/25/18 02:39 02/25/18 02:39 Labs: Short CBC 02/25/18 Range/Units 02:39 WBC 74.7 H* (4.3-11.1) K/mcL Hgb 7.8 L (11.5-15.4) g/dL Hct 26.1 L (35.3-44.9) % Plt Count 107 L (140-400) K/mcL Neutrophils # 53.8 H (1.6-8.9) K/mcL BMP 02/25/18 02:39 Sodium 140 Potassium 4.4 Chloride 110 H Carbon Dioxide 22 L BUN 41 H Creatinine 3.20 H Glucose 146 H Calcium 8.1 L - ABG Interpretation ABG results: ABG ABG pH 7.33 pH Units (7.32-7.45) 02/23/18 18:48 ABG pCO2 45 mmHg (35-45) 02/23/18 18:48 ABG pO2 63 mmHg (85-104) L 02/23/18 18:48 ABG O2 Saturation 90 % (95-98) L 02/23/18 18:48 PT/INR, D-dimer PT 14.1 Seconds (9.4-12.1) H 02/21/18 00:35 Consult Discharge Plan - Plan Referrals: Mayra Uribe, SHARDA [Primary Care Provider] -
--- NOTE | 2018-02-25 11:33 | Nephrology Consult Note ---
Date of Encounter: 02/25/18 Time of Encounter: 11:29 Assessment and Plan (1) Acute kidney failure, unspecified Current Visit: Yes Status: Acute The patient has worsening acute kidney injury in the setting of pneumonia with pleural effusions and total body anasarca. Her acute kidney injury could be related to vancomycin. Post renal obstruction needs to be ruled out. Acute interstitial nephritis is also a possibility. Her blood pressure may be relatively on the low side. She has also been diagnosed with diastolic congestive heart failure. I am going to get a renal ultrasound, I would suggest discontinuing the vancomycin and avoiding all nephro toxic medications, I am going to reduce the nifedipine to see if it helps with swelling and let her blood pressure come up a bit we will also check a urine for eosinophils. I am going to place a Damon catheter in the patient so we can more accurately follow her urine output in hopefully aid in her bladder emptying. Qualifiers: Acute renal failure type: unspecified Qualified Code(s): N17.9 - Acute kidney failure, unspecified (2) Anasarca Current Visit: Yes Status: Acute (3) Proteinuria due to type 2 diabetes mellitus Current Visit: Yes Status: Acute (4) HCAP (healthcare-associated pneumonia) Current Visit: No Status: Acute (5) MPN (myeloproliferative neoplasm) Current Visit: No Status: Chronic (6) Diastolic heart failure Current Visit: Yes Status: Acute Qualifiers: Heart failure chronicity: acute Qualified Code(s): I50.31 - Acute diastolic (congestive) heart failure History of Present Illness - History of Present Illness This is a 72-year-old female who was admitted with complaints of worsening shortness of breath. She has had chronic swelling since at least this past September if not longer. She has been diagnosed with a right lower lobe pneumonia and associated pleural effusion. CT scan done without contrast has shown a moderate right pleural effusion and small left pleural effusion. Groundglass opacities have been noted. On February 21 current was 1.28. During her hospital stay her creatinine is slowly and increased and currently is up to 3.20. Urine output is recorded as 500 mL. Patient reports she continues to have a lot of shortness of breath. She continues to have a lot of swelling. On physical exam she basically has anasarca. She has been on vancomycin since her admission. Blood cultures have been negative. Urinalysis shows protein at 100 mg/dL. Patient does have a history of diabetes, hypertension, hypercholesterolemia, and a myeloproliferative neoplasm. She has been on Lasix but has not really improved and her overall clinical status. Past Med Surg Social Fam HX - Past Medical History Medical history: arthritis, cancer, diabetes, hyperlipidemia, hypertension, other Psychiatric history: no psych history - Past Surgical History Surgical History: other (Bone marrow biopsy) - Social History Smoking Status: Former smoker Smokeless Tobacco Status: No Alcohol use: none Drug use: none - Family History Mother Name: Becki White Family Member Ethnicity: Non- Living Status: Age at : 74 Cause of : fall, possible [place] Hx Family Cardiac Disorders: Yes ([place]) Medications and Allergies Allopurinol [Zyloprim] 300 mg PO DAILY 11/09/17 [History] Docusate [Colace] 100 mg PO BID 11/09/17 [History] Enalapril Maleate [Vasotec] 30 mg PO DAILY 11/09/17 [History] Furosemide [Lasix] 40 mg PO BID 11/09/17 [History] Hydralazine HCl 100 mg PO Q8H 11/09/17 [History] Hydrocodone/Acetaminophen [Xodol 5-300 Tablet] 1 each PO Q4H PRN 11/09/17 [ History] Insulin Glargine,Hum.rec.anlog [Lantus Solostar] 45 unit SQ HS 11/09/17 [History ] Meclizine HCl [Verticalm] 25 mg PO DAILY PRN 11/09/17 [History] NIFEdipine [Nifedipine ER] 90 mg PO DAILY 11/09/17 [History] Omeprazole [PriLOSEC] 40 mg PO DAILY 11/09/17 [History] Polyethylene Glycol 3350 [MiraLAX] 17 gm PO DAILY PRN 11/09/17 [History] Simvastatin [Zocor] 40 mg PO HS 11/09/17 [History] metFORMIN [Glucophage] 500 mg PO BIDWM 11/09/17 [History] Ipratropium/Albuterol Neb [Duoneb] 3 ml IH Q6H #100 inhsol 11/14/17 [Rx] Carvedilol [Coreg] 25 mg PO BID 02/20/18 [History] 3 Allergy/AdvReac Type Severity Reaction Status Date / Time Sulfa (Sulfonamide Allergy Fainting Verified 11/09/17 15:58 Antibiotics) Review of Systems Constitutional: as per HPI Eyes: bilateral: blurred vision (patient denies), diplopia (patient denies) Nose, mouth and throat: no dizziness, no headache(s) Cardiovascular: as per HPI, dyspnea, dyspnea on exertion, edema, leg edema Respiratory: cough, dyspnea, dyspnea on exertion Gastrointestinal: abdominal pain, no change in bowel habits Musculoskeletal: no muscle weakness, no numbness Integumentary: no hirsutism, no striae Neurological: as per HPI Psychiatric: no depression, no difficulty concentrating Endocrine: as per HPI Hematologic/Lymphatic: no easy bruising, no lymphadenopathy Exam - Vital Signs Vital signs: Initial Vital Signs Temp Pulse Resp BP Pulse Ox 97.8 F 61 22 153/71 95 02/20/18 09:53 02/20/18 09:53 02/20/18 09:53 02/20/18 09:53 02/20/18 09:53 Vital Signs - Last 8 Hours Temp Pulse Resp BP Pulse Ox 02/25/18 10:24 97.8 F 85 15 114/73 02/25/18 08:33 15 92 02/25/18 07:17 98.1 F 97 15 114/46 92 02/25/18 04:49 17 93 02/25/18 03:55 97.6 F 101 20 141/69 95 Intake and Output 02/24/18 02/25/18 02/25/18 23:59 07:59 15:59 Intake Total 100 / 100 0 / 0 120 / 120 Output Total 250 / 250 300 / 300 Balance -150 / -150 -300 / -300 120 / 120 Intake: IV Fluids 100 / 100 Zosyn 3.375 GM In 0.9 % Sodium 100 / 100 Chloride (Mini-Bag +) 100 ML @ 25 mls/hr IVPB Q8HR [facility] Rx#: [id number] Oral 0 / 0 120 / 120 Output: Urine 250 / 250 300 / 300 Other: Meal Breakfast Percent of Meal Consumed 100% # Voids 0 Weight 125.2 kg Blood Glucose* 186 146 166 Patient Weight 02/25/18 23:59 Weight 125.2 kg - General Appearance Exam: The patient is sitting up in a chair. She is alert and oriented. She is in no acute distress. Blood pressure 114/73. Lung sounds in the bases consistent with pleural effusions. Heart regular rate and rhythm with a 2/6 talk ejection murmur. Patient has anasarca from her feet up to her thighs. She also has edema of the abdominal wall. Results - Lab Results 02/25/18 02:39 02/25/18 02:39 Most recent lab results ABG pH 7.33 pH Units (7.32-7.45) 02/23/18 18:48 ABG pCO2 45 mmHg (35-45) 02/23/18 18:48 ABG pO2 63 mmHg (85-104) L 02/23/18 18:48 ABG HCO3 24 mEq/L (21-27) 02/23/18 18:48 ABG O2 Saturation 90 % (95-98) L 02/23/18 18:48 Calcium 8.1 mg/dL (8.6-10.3) L 02/25/18 02:39 Phosphorus 4.0 mg/dL (2.7-4.5) 02/21/18 00:35 Magnesium 1.9 mg/dL (1.6-2.6) 02/21/18 00:35 Consult Discharge Plan - Plan Referrals: Mayra Uribe, SHARDA [Primary Care Provider] -
[2018-02-25 11:36] LABS: INR 1.3; Prothrombin Time 13.8 Seconds (9.4-12.1)
--- NOTE | 2018-02-25 14:57 | IR Procedure Note ---
Date of procedure: 02/25/18 Consent Obtained: Verbal consent, Written consent Timeout: Correct patient and procedure verified, Correct site verified, Time out performed, Skin prep completed Local anesthetic: Lidocaine 1% Indications: effusion Procedure Performed: right thoracentesis Was there an business office assistant present: No Site/Technique: right Results/Findings: insufficient fluid on the left Estimated blood loss (cc): 1 Complications: None; Tolerated procedure well Post Procedure Treatment Plan: CXR Specimen: serous fluid
[2018-02-25 16:37] LABS: RBC,Pleural Fluid < 0.002 M/mcL
[2018-02-25 17:11] LABS: Glucose,Pleural Fluid 188 mg/dL (No Ref Range); LDH,Pleural Fluid 57 Units/L (No Ref Range); Total Protein,Pleural Fluid < 3.0 g/dL (No Ref Range)
[2018-02-25 18:45] LABS: Appearance of Pleural Fl Clear (Clear)
[2018-02-25] MEDS: Insulin DETEMIR 100 UNIT/ML X5UNITS SQ SCH (22:24)
[2018-02-26] MEDS: Ipratropium/Albuterol Neb 3 ML IH SCH ×4 (03:28→21:11)
[2018-02-26] MEDS: *HR* Heparin 5,000 UNIT/ML VIAL SQ SCH ×2 (05:04→17:29)
[2018-02-26] MEDS: Piperacillin/Tazobactam 3.375 GM in 0.9 % Sodium Chloride Mini Bag 100 ML IVPB SCH ×2 (05:04→16:53)
[2018-02-26 05:20] LABS: Nucleated Red Blood Cells 0.1 /100 WBC (0); Platelet Count 109 K/mcL (140-400)
[2018-02-26 05:22] LABS: Hemoglobin 7.4 g/dL (11.5-15.4); Mean Corpuscular HGB Conc 30.8 g/dL (31.6-35.5); Mean Corpuscular Volume 97.2 fL (83.0-100.0); Red Blood Count 2.47 M/mcL (3.82-4.97); Red Cell Distribution Width 17.5 % (11.5-14.5)
[2018-02-26 05:41] LABS: Albumin 2.6 g/dL (3.5-5.7); Bilirubin,Total 0.2 mg/dL (0.3-1.0); Calcium 7.9 mg/dL (8.6-10.3); Globulin 2.6 g/dL (2.4-3.5); Potassium 4.6 mEq/L (3.5-5.1); Total Protein 5.2 g/dL (6.4-8.9)
[2018-02-26] MEDS: hydrALAZINE 25 MG TABLET PO SCH ×3 (07:44→23:13)
[2018-02-26 07:54] LABS: Lymphocytes # 3.9 K/mcL (0.6-4.6); Neutrophils # 40.6 K/mcL (1.6-8.9)
[2018-02-26 07:58] LABS: Anisocytosis 1+ (Not Present)
[2018-02-26 07:59] LABS: Platelet Estimate Slight Decrease (Normal)
--- NOTE | 2018-02-26 08:10 | Nephrology Progress Note ---
Date of Encounter: 02/26/18 Time of Encounter: 08:08 - Assessment and Plan (1) Acute kidney failure, unspecified Current Visit: Yes Status: Acute The patient has progressive acute kidney injury. Urine output is improved since placing the Damon catheter. I would again recommend that the patient be taken off vancomycin because of potential nephrotoxicity. Her blood pressures on the low side. I am going to discontinue the nifedipine and cut back on the hydralazine. Hopefully these measures will lead to some improvement in her renal function. Qualifiers: Acute renal failure type: unspecified Qualified Code(s): N17.9 - Acute kidney failure, unspecified (2) Anasarca Current Visit: Yes Status: Acute (3) Proteinuria due to type 2 diabetes mellitus Current Visit: Yes Status: Acute (4) HCAP (healthcare-associated pneumonia) Current Visit: No Status: Acute (5) MPN (myeloproliferative neoplasm) Current Visit: No Status: Chronic (6) Diastolic heart failure Current Visit: Yes Status: Acute Qualifiers: Heart failure chronicity: acute Qualified Code(s): I50.31 - Acute diastolic (congestive) heart failure Subjective Principal diagnosis: COPD, pleural effusions Interval history: Patient reports she is feeling short of breath. Oxygen saturation is 95%. She did undergo a right thoracentesis yesterday. Damon catheter was placed yesterday and urine output increased to 1.8 L. Serum creatinine continues to worsen. Blood pressure remains on the low side at 102/68. The renal ultrasound showed no hydronephrosis. The ultrasound was done after the Damon catheter had been placed so bladder evaluation was not possible. Objective - Vital Signs Vital signs: Vital Signs Temp Pulse Resp BP Pulse Ox 02/26/18 07:00 85 19 117/61 94 02/26/18 03:28 16 94 02/26/18 03:27 97.8 F 97 17 102/68 94 02/25/18 23:05 97.8 F 87 16 104/55 95 02/25/18 21:25 16 95 02/25/18 19:27 97.6 F 86 15 104/62 94 02/25/18 16:15 15 91 02/25/18 15:14 97.7 F 85 15 109/67 91 02/25/18 10:24 97.8 F 85 15 114/73 05/14/18 08:33 15 92 Intake and Output 05/14/18 05/15/18 05/15/18 23:59 07:59 15:59 Intake Total 130 / 130 Output Total 265 / 265 Balance -135 / -135 Intake: IV Fluids 100 / 100 Zosyn 3.375 GM In 0.9 % Sodium 100 / 100 Chloride (Mini-Bag +) 100 ML @ 25 mls/hr IVPB Q12H [facility] Rx#: [id number] Oral 30 / 30 Output: Catheter 265 / 265 Other: Meal Dinner Percent of Meal Consumed 5% Weight 125.4 kg Blood Glucose* 167 103 Patient Weight 02/26/18 23:59 Weight 125.4 kg - General Appearance Exam: Patient is alert and oriented. She is in no acute distress. Lungs diminished breath sounds bilaterally. Heart regular rate and rhythm. Abdomen is obese. There is edema of the abdominal wall. Patient exhibits signs of anasarca. - Lab 02/26/18 04:53 02/26/18 04:53 Most recent lab results ABG pH 7.33 pH Units (7.32-7.45) 02/23/18 18:48 ABG pCO2 45 mmHg (35-45) 02/23/18 18:48 ABG pO2 63 mmHg (85-104) L 02/23/18 18:48 ABG HCO3 24 mEq/L (21-27) 02/23/18 18:48 ABG O2 Saturation 90 % (95-98) L 02/23/18 18:48 Calcium 7.9 mg/dL (8.6-10.3) L 02/26/18 04:53 Phosphorus 4.0 mg/dL (2.7-4.5) 02/21/18 00:35 Magnesium 1.9 mg/dL (1.6-2.6) 02/21/18 00:35 Consult Discharge Plan - Plan Referrals: Mayra Uribe CNP [Primary Care Provider] -
[2018-02-26 08:17] LABS: Neutrophils # 47.8 K/mcL (1.6-8.9)
[2018-02-26 08:18] LABS: Lymphocytes # 3.7 K/mcL (0.6-4.6)
[2018-02-26] MEDS ORDERED: NIFEdipine XL (24 HR) 30 MG TAB.ER.24 PO SCH (09:00)
[2018-02-26] MEDS: Insulin LISPRO 300 UNITS/3 ML VIAL SQ SCH ×3 (10:27→16:56)
[2018-02-26] MEDS: Nystatin POWDER 30 GM BOTTLE TP SCH ×2 (10:29→23:11)
--- NOTE | 2018-02-26 12:27 | Internal Med Progress Note ---
Date of Encounter: 02/26/18 Time of Encounter: 12:25 - Assessment and plan (1) Acute respiratory failure with hypoxia Current Visit: Yes Status: Acute Assessment and plan: [place] 2/2 to pneumonia vs CHF. Continue antibiotics and diuresis. CT chest showed b/l pleural effusions. 2D echo showed Ef of 55-60%. Creatinine has been trending up and we will hold lasix at this time. Etiology of pleural effusion seems likely infectious. Repeat cxr shows worsening effusion. pt is s/p right sided thoracentesis. Oxygenation needs have slightly improved to 4L. Continue antibiotics (2) Exudative pleural effusion Current Visit: Yes Status: Acute Assessment and plan: s/p rght sided thoracentesis likely from HCAP. Cotninue antibiotics (3) Acute kidney failure, unspecified Current Visit: Yes Status: Acute Assessment and plan: Renal consulted. Hold lasix. F/U renal ultrasound. Monitor ins and outs. Creatinine is worsening. Will d/c vancomycin. Appreciate renal recs Qualifiers: Acute renal failure type: unspecified Qualified Code(s): N17.9 - Acute kidney failure, unspecified (4) HCAP (healthcare-associated pneumonia) Current Visit: No Status: Acute Assessment and plan: Pt has right lower lobe pleural effusion with consolidation. On vanc and zosyn. Pulmonary following. S/p thoracentesis (5) DMII (diabetes mellitus, type 2) Current Visit: No Status: Chronic Assessment and plan: Continue insulin and monitor fingersticks Qualifiers: Diabetes mellitus half-way insulin use: with technician terminal and repeater use Diabetes mellitus complication status: with unspecified complications Qualified Code(s) : E11.8 - Type 2 diabetes mellitus with unspecified complications; Z79.4 - termite exterminator (current) use of insulin; Z79.4 - termite exterminator (current) use of insulin; Z79.4 - termite exterminator (current) use of insulin; Z79.4 - termite exterminator (current) use of insulin (6) COPD (chronic obstructive pulmonary disease) Current Visit: No Status: Acute Assessment and plan: Nebs PRN Qualifiers: COPD type: unspecified COPD Qualified Code(s): J44.9 - Chronic obstructive pulmonary disease, unspecified (7) MPN (myeloproliferative neoplasm) Current Visit: No Status: Chronic Assessment and plan: Patient likely has a chronic lymphocytic leukemia. Follow onc recs (8) DVT prophylaxis Current Visit: No Status: Acute Assessment and plan: heaprin Medical decision making: This patient has a moderate to severe risk of worsening in spite of being on appropriate medication due to the underlying complex comorbid conditions. (9) Morbid obesity with BMI of 45.0-49.9, adult Current Visit: No Status: Chronic Assessment and plan: Diet and weight loss. (10) Vertigo Current Visit: Yes Status: Acute Assessment and plan: started on meclizine. CT head was negative for any acute findings. continue meclizine - Time Spent With Patient Total time spent is greater than 50% in coordination of care (as documented) at patient's floor/unit and/or counseling patient: - Subjective Interval history: No acute events overnight - Constitutional Vitals: Temp Pulse Resp BP Pulse Ox 97.8 F 86 17 128/58 93 02/26/18 03:27 02/26/18 11:06 02/26/18 11:06 02/26/18 11:06 02/26/18 11:38 General appearance: Present: A&O X 3, pleasant, no acute distress - Head Head exam: Present: atraumatic, normocephalic - Eye Eye exam: Present: PERRL, conjuntiva pink, sclera anicteric Pupils: Present: PERRL - Neck Neck exam general surgery: Present: supple, trachea midline. Absent: lymphadenopathy - Respiratory Respiratory exam: Present: CTAB. Absent: accessory muscle use, rales, rhonchi, wheezes - Cardiovascular Cardiovascular exam: Present: RRR, +S1, +S2. Absent: diastolic murmur, gallop, rubs, systolic murmur - GI/Abdominal GI/Abdominal exam: Present: normal bowel sounds, soft, no peritoneal signs. Absent: distended, tenderness - Extremities Exam Extremities exam: Present: warm, radial pulses palpable and symmetrical. Absent : calf tenderness, cyanotic, pedal edema - Neurological Exam Neurological exam: Present: CN II-XII intact, oriented X3, no focal deficits. Absent: pronater drift, facial droop, speech deficit - Skin Skin exam: Present: dry, intact Internal Medicine: Result - Labs CBC & Chem 7: 02/26/18 04:53 02/26/18 04:53 Labs: Short CBC 02/25/18 02/26/18 Range/Units 02:39 04:53 WBC 65.5 H* (4.3-11.1) K/mcL Hgb 7.4 L (11.5-15.4) g/dL Hct 24.0 L (35.3-44.9) % Plt Count 109 L (140-400) K/mcL Neutrophils # 47.8 H 40.6 H (1.6-8.9) K/mcL BMP 02/26/18 04:53 Sodium 140 Potassium 4.6 Chloride 110 H Carbon Dioxide 22 L BUN 49 H Creatinine 3.75 H Glucose 117 H Calcium 7.9 L Liver Function 02/26/18 Range/Units 04:53 Total Bilirubin 0.2 L (0.3-1.0) mg/dL AST 6 L (13-39) Units/L ALT 5 L (7-52) Units/L Alkaline Phosphatase 51 (34-104) Units/L Albumin 2.6 L (3.5-5.7) g/dL - ABG Interpretation ABG results: ABG ABG pH 7.33 pH Units (7.32-7.45) 02/23/18 18:48 ABG pCO2 45 mmHg (35-45) 02/23/18 18:48 ABG pO2 63 mmHg (85-104) L 02/23/18 18:48 ABG O2 Saturation 90 % (95-98) L 02/23/18 18:48 PT/INR, D-dimer PT 13.8 Seconds (9.4-12.1) H 02/25/18 11:20 - Impressions Impressions Chest Ultrasound 02/25/18 00:00 IMPRESSION: Successful ultrasound guided right-sided thoracentesis. Small left pleural effusion, insufficient for thoracentesis. D/ / 02/25/2018 15:27:59 Ranulfo Vargas MD / Filomena Hoffman Interpreting Provider: Ranulfo Vargas MD Thoracentesis Ultrasound 02/25/18 09:08 IMPRESSION: Successful ultrasound guided right-sided thoracentesis. Small left pleural effusion, insufficient for thoracentesis. D/ / 02/25/2018 15:27:59 Ranulfo Vargas MD / Filomena Hoffman Interpreting Provider: Ranulfo Vargas MD Chest X-Ray 02/25/18 14:56 IMPRESSION: Interval decrease in size of right pleural effusion. No definite pneumothorax identified. D/ / Ellen Vences MD / Ellen Vences MD Interpreting Provider: Ellen Vences MD Retroperitoneum Ultrasound 02/25/18 18:00 IMPRESSION: No hydronephrosis or any other acute abnormality involving the kidneys. Anterior inferior left renal cortex is suboptimally visualized, in part due to bowel gas shadowing, however appears thinned and correlates with cortical atrophy in this area on comparison CT. Small right renal midpolar simple cyst correlates with recent prior CT findings. D/ / Catracho Ward / Catracho Ward Interpreting Provider: Catracho Ward Consult Discharge Plan - Plan Referrals: Mayra Uribe CNP [Primary Care Provider] -
[2018-02-26] MEDS ORDERED: 0.9 % Sodium Chloride 250 ML IVC ONE ×2 (15:07→20:21)
[2018-02-26] MEDS: *HR* HYDROcodone/Acet 5/325 mg TABLET PO PRN (16:28)
[2018-02-26] MEDS ORDERED: MOM Conc 10 ML UD.LIQ PO PRN (16:40)
[2018-02-26] MEDS ORDERED: *HR* HYDROcodone/Acet 5/325 mg TABLET PO ONE (20:34)
[2018-02-26] MEDS: Insulin DETEMIR 100 UNIT/ML X5UNITS SQ SCH (23:10)
[2018-02-27] MEDS: Ipratropium/Albuterol Neb 3 ML IH SCH ×4 (03:57→22:36)
[2018-02-27] MEDS: *HR* HYDROcodone/Acet 5/325 mg TABLET PO PRN ×2 (04:07→10:06)
[2018-02-27] MEDS: Piperacillin/Tazobactam 3.375 GM in 0.9 % Sodium Chloride Mini Bag 100 ML IVPB SCH ×2 (04:08→16:59)
[2018-02-27 05:10] LABS: Hemoglobin 7.3 g/dL (11.5-15.4); Nucleated Red Blood Cells 0.1 /100 WBC (0)
[2018-02-27 05:11] LABS: Hematocrit 24.2 % (35.3-44.9); Mean Corpuscular HGB Conc 30.2 g/dL (31.6-35.5); Mean Corpuscular Hemoglobin 29.1 pg (28.0-33.3); Mean Corpuscular Volume 96.4 fL (83.0-100.0); Platelet Count 102 K/mcL (140-400); Red Blood Count 2.51 M/mcL (3.82-4.97); Red Cell Distribution Width 17.5 % (11.5-14.5)
[2018-02-27 05:29] LABS: Albumin 2.7 g/dL (3.5-5.7); Bilirubin,Total 0.2 mg/dL (0.3-1.0); Calcium 7.9 mg/dL (8.6-10.3); Globulin 2.6 g/dL (2.4-3.5); Potassium 4.6 mEq/L (3.5-5.1); Total Protein 5.3 g/dL (6.4-8.9)
[2018-02-27 05:30] LABS: Calcium 7.9 mg/dL (8.6-10.3); Potassium 4.7 mEq/L (3.5-5.1)
[2018-02-27 06:02] LABS: Hypochromasia Present (Not Present); Macrocytosis Present (Not Present); Platelet Estimate Slight Decrease (Normal)
[2018-02-27 06:03] LABS: Polychromasia 1+ (Not Present)
[2018-02-27 06:04] LABS: Large Platelets Present (Not Present)
[2018-02-27 06:05] LABS: Anisocytosis 1+ (Not Present); Toxic Granulation Present (Not Present)
[2018-02-27] MEDS: *HR* Heparin 5,000 UNIT/ML VIAL SQ SCH ×2 (06:05→16:58)
[2018-02-27] MEDS: Insulin LISPRO 300 UNITS/3 ML VIAL SQ SCH ×3 (08:04→16:53)
[2018-02-27] MEDS: hydrALAZINE 25 MG TABLET PO SCH ×2 (08:14→21:30)
[2018-02-27] MEDS: Nystatin POWDER 30 GM BOTTLE TP SCH ×2 (08:15→21:31)
--- NOTE | 2018-02-27 09:28 | Nephrology Progress Note ---
Date of Encounter: 02/27/18 Time of Encounter: 09:26 - Assessment and Plan (1) Acute kidney failure, unspecified Current Visit: Yes Status: Acute The patient has progressive acute kidney injury. I believe the vancomycin has been discontinued. Hopefully her renal function will reach a plateau and eventually improved. If she continues to worsen she may require dialysis. Qualifiers: Acute renal failure type: unspecified Qualified Code(s): N17.9 - Acute kidney failure, unspecified (2) Anasarca Current Visit: Yes Status: Acute (3) Proteinuria due to type 2 diabetes mellitus Current Visit: Yes Status: Acute (4) HCAP (healthcare-associated pneumonia) Current Visit: No Status: Acute (5) MPN (myeloproliferative neoplasm) Current Visit: No Status: Chronic (6) Diastolic heart failure Current Visit: Yes Status: Acute Qualifiers: Heart failure chronicity: acute Qualified Code(s): I50.31 - Acute diastolic (congestive) heart failure Subjective Principal diagnosis: COPD, pleural effusions Interval history: Patient says she does not feel well although she offers no details. Renal function continues to worsen. Creatinine is up to 3.97. Urine output appears to be decreasing. Blood pressure is better at 120/57. Her edema actually seems to be improved. Objective - Vital Signs Vital signs: Vital Signs Temp Pulse Resp BP Pulse Ox 02/27/18 06:40 97.4 F L 91 18 120/57 93 02/27/18 05:50 71 18 109/50 91 02/27/18 03:59 18 93 02/26/18 22:00 98.0 F 88 16 130/57 94 02/26/18 21:11 18 94 02/26/18 15:13 98.2 F 87 19 109/48 95 02/26/18 11:38 93 02/26/18 11:06 86 17 128/58 93 02/26/18 10:32 19 94 Intake and Output 02/26/18 02/27/18 02/27/18 23:59 07:59 15:59 Intake Total 100 / 100 60 / 60 Output Total 575 / 575 500 / 500 Balance -475 / -475 -500 / -500 60 / 60 Intake: IV Fluids 100 / 100 Zosyn 3.375 GM In 0.9 % Sodium 100 / 100 Chloride (Mini-Bag +) 100 ML @ 25 mls/hr IVPB Q12H [facility] Rx#: [id number] Oral 60 / 60 Output: Catheter 575 / 575 500 / 500 Other: Meal Breakfast Percent of Meal Consumed 10% Weight 125.5 kg Blood Glucose* 123 69 Patient Weight 02/27/18 23:59 Weight 125.5 kg - General Appearance Exam: Patient is alert and oriented. She is in no acute distress. Blood pressure 120 /57. Lung sounds otherwise clear. Heart regular rate and rhythm. Abdomen is benign. Lower extremity swelling appears to be less compared to previous examinations. - Lab 02/27/18 04:32 02/27/18 04:32 Most recent lab results ABG pH 7.33 pH Units (7.32-7.45) 02/23/18 18:48 ABG pCO2 45 mmHg (35-45) 02/23/18 18:48 ABG pO2 63 mmHg (85-104) L 02/23/18 18:48 ABG HCO3 24 mEq/L (21-27) 02/23/18 18:48 ABG O2 Saturation 90 % (95-98) L 02/23/18 18:48 Calcium 7.9 mg/dL (8.6-10.3) L 02/27/18 04:32 Phosphorus 4.0 mg/dL (2.7-4.5) 02/21/18 00:35 Magnesium 1.9 mg/dL (1.6-2.6) 02/21/18 00:35 Consult Discharge Plan - Plan Referrals: Mayra Uribe, SHARDA [Primary Care Provider] -
--- NOTE | 2018-02-27 10:57 | Internal Med Progress Note ---
Date of Encounter: 02/27/18 Time of Encounter: 10:55 - Assessment and plan (1) Acute respiratory failure with hypoxia Current Visit: Yes Status: Acute Assessment and plan: Sang 2/2 to pneumonia vs CHF. Continue antibiotics and diuresis. CT chest showed b/l pleural effusions. 2D echo showed Ef of 55-60%. Creatinine has been trending up and we will hold lasix at this time. Etiology of pleural effusion seems likely infectious. Repeat cxr shows worsening effusion. pt is s/p right sided thoracentesis. Oxygenation needs have slightly improved to 4L. Continue antibiotics. Plan to complete course of zosyn tomorrow (2) Exudative pleural effusion Current Visit: Yes Status: Acute Assessment and plan: s/p rght sided thoracentesis likely from HCAP. Cotninue antibiotics (3) Acute kidney failure, unspecified Current Visit: Yes Status: Acute Assessment and plan: Renal consulted. Hold lasix. F/U renal ultrasound. Monitor ins and outs. Creatinine is worsening. Will d/c vancomycin. Appreciate renal recs. Has been hydrated gently. Monitor creatinine Qualifiers: Acute renal failure type: unspecified Qualified Code(s): N17.9 - Acute kidney failure, unspecified (4) HCAP (healthcare-associated pneumonia) Current Visit: No Status: Acute Assessment and plan: Pt has right lower lobe pleural effusion with consolidation. On zosyn. Pulmonary following. S/p thoracentesis (5) DMII (diabetes mellitus, type 2) Current Visit: No Status: Chronic Assessment and plan: Continue insulin and monitor fingersticks Qualifiers: Diabetes mellitus assisted insulin use: with extermination supervisor use Diabetes mellitus complication status: with unspecified complications Qualified Code(s) : E11.8 - Type 2 diabetes mellitus with unspecified complications; Z79.4 - extermination inspector (current) use of insulin; Z79.4 - extermination inspector (current) use of insulin; Z79.4 - extermination inspector (current) use of insulin; Z79.4 - extermination inspector (current) use of insulin (6) COPD (chronic obstructive pulmonary disease) Current Visit: No Status: Acute Assessment and plan: Nebs PRN Qualifiers: COPD type: unspecified COPD Qualified Code(s): J44.9 - Chronic obstructive pulmonary disease, unspecified (7) MPN (myeloproliferative neoplasm) Current Visit: No Status: Chronic Assessment and plan: Patient likely has a chronic lymphocytic leukemia. Follow onc recs (8) DVT prophylaxis Current Visit: No Status: Acute Assessment and plan: heaprin Medical decision making: This patient has a moderate to severe risk of worsening in spite of being on appropriate medication due to the underlying complex comorbid conditions. (9) Morbid obesity with BMI of 45.0-49.9, adult Current Visit: No Status: Chronic Assessment and plan: Diet and weight loss. (10) Vertigo Current Visit: Yes Status: Acute Assessment and plan: started on meclizine. CT head was negative for any acute findings. continue meclizine - Time Spent With Patient Total time spent is greater than 50% in coordination of care (as documented) at patient's floor/unit and/or counseling patient: - Subjective Interval history: No acute events overnight - Constitutional Vitals: Temp Pulse Resp BP Pulse Ox 97.4 F L 91 18 120/57 93 02/27/18 06:40 02/27/18 06:40 02/27/18 06:40 02/27/18 06:40 02/27/18 06:40 General appearance: Present: A&O X 3, pleasant, no acute distress - Head Head exam: Present: atraumatic, normocephalic - Eye Eye exam: Present: PERRL, conjuntiva pink, sclera anicteric Pupils: Present: PERRL - Neck Neck exam general surgery: Present: supple, trachea midline. Absent: lymphadenopathy - Respiratory Respiratory exam: Present: CTAB. Absent: accessory muscle use, rales, rhonchi, wheezes Additional comments: Coarse breath sounds - Cardiovascular Cardiovascular exam: Present: RRR, +S1, +S2. Absent: diastolic murmur, gallop, rubs, systolic murmur - GI/Abdominal GI/Abdominal exam: Present: normal bowel sounds, soft, no peritoneal signs. Absent: distended, tenderness - Extremities Exam Extremities exam: Present: warm, radial pulses palpable and symmetrical. Absent : calf tenderness, cyanotic, pedal edema - Neurological Exam Neurological exam: Present: CN II-XII intact, oriented X3, no focal deficits. Absent: pronater drift, facial droop, speech deficit - Skin Skin exam: Present: dry, intact Internal Medicine: Result - Labs CBC & Chem 7: 02/27/18 04:32 02/27/18 04:32 Labs: Short CBC 02/27/18 Range/Units 04:32 WBC 59.6 H* (4.3-11.1) K/mcL Hgb 7.3 L (11.5-15.4) g/dL Hct 24.2 L (35.3-44.9) % Plt Count 102 L (140-400) K/mcL Neutrophils # 37.0 H (1.6-8.9) K/mcL BMP 02/27/18 02/27/18 04:32 04:32 Sodium 145 145 Potassium 4.7 4.6 Chloride 114 H 114 H Carbon Dioxide 21 L 21 L BUN 54 H 55 H Creatinine 3.94 H 3.97 H Glucose 77 79 Calcium 7.9 L 7.9 L Liver Function 02/27/18 Range/Units 04:32 Total Bilirubin 0.2 L (0.3-1.0) mg/dL AST 8 L (13-39) Units/L ALT 5 L (7-52) Units/L Alkaline Phosphatase 57 (34-104) Units/L Albumin 2.7 L (3.5-5.7) g/dL - ABG Interpretation ABG results: ABG ABG pH 7.33 pH Units (7.32-7.45) 02/23/18 18:48 ABG pCO2 45 mmHg (35-45) 02/23/18 18:48 ABG pO2 63 mmHg (85-104) L 02/23/18 18:48 ABG O2 Saturation 90 % (95-98) L 02/23/18 18:48 PT/INR, D-dimer PT 13.8 Seconds (9.4-12.1) H 02/25/18 11:20 Consult Discharge Plan - Plan Referrals: Mayra Uribe, DEVELOPMENT LEAD [Primary Care Provider] -
[2018-02-27] MEDS ORDERED: 0.9 % Sodium Chloride 250 ML IVC ONE (10:58)
[2018-02-27] MEDS ORDERED: Insulin DETEMIR 100 UNIT/ML X5UNITS SQ SCH (21:00)
[2018-02-27] MEDS: Insulin DETEMIR 100 UNIT/ML X5UNITS SQ SCH (22:13)
[2018-02-28] MEDS: Ipratropium/Albuterol Neb 3 ML IH SCH ×4 (03:19→21:45)
[2018-02-28] MEDS: Piperacillin/Tazobactam 3.375 GM in 0.9 % Sodium Chloride Mini Bag 100 ML IVPB SCH ×2 (05:02→16:30)
[2018-02-28] MEDS: *HR* Heparin 5,000 UNIT/ML VIAL SQ SCH ×2 (05:06→16:29)
[2018-02-28 05:16] LABS: Hemoglobin 7.6 g/dL (11.5-15.4); Nucleated Red Blood Cells 0.1 /100 WBC (0)
[2018-02-28 05:17] LABS: Hematocrit 25.8 % (35.3-44.9); Mean Corpuscular HGB Conc 29.5 g/dL (31.6-35.5); Mean Corpuscular Hemoglobin 28.5 pg (28.0-33.3); Mean Corpuscular Volume 96.6 fL (83.0-100.0); Platelet Count 101 K/mcL (140-400); Red Blood Count 2.67 M/mcL (3.82-4.97); Red Cell Distribution Width 17.6 % (11.5-14.5)
[2018-02-28 05:37] LABS: Albumin 2.8 g/dL (3.5-5.7); Albumin/Globulin Ratio 0.9 (1.1-2.2); Bilirubin,Total 0.2 mg/dL (0.3-1.0); Calcium 7.9 mg/dL (8.6-10.3); Potassium 5.2 mEq/L (3.5-5.1); Total Protein 5.8 g/dL (6.4-8.9)
[2018-02-28 06:00] LABS: Anisocytosis 1+ (Not Present); Lymphocytes # 4.7 K/mcL (0.6-4.6); Platelet Estimate Decreased (Normal)
[2018-02-28 06:01] LABS: Polychromasia 1+ (Not Present)
--- NOTE | 2018-02-28 10:15 | Internal Med Progress Note ---
Date of Encounter: 02/28/18 Time of Encounter: 10:15 - Assessment and plan (1) Acute respiratory failure with hypoxia Current Visit: Yes Status: Acute Assessment and plan: Likley 2/2 to pneumonia. Continue antibiotics and diuresis. CT chest showed b/l pleural effusions. 2D echo showed Ef of 55-60%. Creatinine has been trending up and we will hold lasix at this time. Etiology of pleural effusion seems likely infectious. Repeat cxr shows worsening effusion. pt is s/p right sided thoracentesis. Oxygenation needs have slightly improved to 4L. Continue antibiotics. Plan to complete 10 -14 day course of zosyn antibiotics 02/28. Pt has been on total of 10 days of levaquin (3 days of levaquin initially ) and zosyn. V/q scan was negative for pE. Pt oxygenation needs have decreased from 5l to 3L. F/U pleural fluid cultures (2) Exudative pleural effusion Current Visit: Yes Status: Acute Assessment and plan: s/p right sided thoracentesis likely from HCAP. Continue antibiotics. Repeat cxr today. F/U gram stain and cultures which are pending. to complete 10- 14 day course of antibiotics today as peural fluid was not parapneumonic (3) Acute kidney failure, unspecified Current Visit: Yes Status: Acute Assessment and plan: Renal consulted. Hold lasix. F/U renal ultrasound. Monitor ins and outs. Creatinine is worsening. Will d/c vancomycin. Appreciate renal recs. Has been hydrated gently. Monitor creatinine 02/28. Creatinine continues to worsen slowly. HAs been receiving intermittent 250 cc boluses. Will repeat cxr today. Renal following Qualifiers: Acute renal failure type: unspecified Qualified Code(s): N17.9 - Acute kidney failure, unspecified (4) HCAP (healthcare-associated pneumonia) Current Visit: No Status: Acute Assessment and plan: Pt has right lower lobe pleural effusion with consolidation. On zosyn. Pulmonary following. S/p thoracentesis. Plan to complete 10-14 day course of antibiotics (5) DMII (diabetes mellitus, type 2) Current Visit: No Status: Chronic Assessment and plan: Continue insulin and monitor fingersticks Qualifiers: Diabetes mellitus oil house attendant insulin use: with oil house attendant use Diabetes mellitus complication status: with unspecified complications Qualified Code(s) : E11.8 - Type 2 diabetes mellitus with unspecified complications; Z79.4 - penitentiary (current) use of insulin; Z79.4 - guest relations manager (current) use of insulin; Z79.4 - guest relations manager (current) use of insulin; Z79.4 - penitentiary (current) use of insulin (6) COPD (chronic obstructive pulmonary disease) Current Visit: No Status: Acute Assessment and plan: Nebs PRN Qualifiers: COPD type: unspecified COPD Qualified Code(s): J44.9 - Chronic obstructive pulmonary disease, unspecified (7) MPN (myeloproliferative neoplasm) Current Visit: No Status: Chronic Assessment and plan: Patient likely has a chronic lymphocytic leukemia. Follow onc recs (8) DVT prophylaxis Current Visit: No Status: Acute Assessment and plan: heaprin Medical decision making: This patient has a moderate to severe risk of worsening in spite of being on appropriate medication due to the underlying complex comorbid conditions. (9) Morbid obesity with BMI of 45.0-49.9, adult Current Visit: No Status: Chronic Assessment and plan: Diet and weight loss. (10) Vertigo Current Visit: Yes Status: Acute Assessment and plan: started on meclizine. CT head was negative for any acute findings. continue meclizine - Time Spent With Patient Total time spent is greater than 50% in coordination of care (as documented) at patient's floor/unit and/or counseling patient: - Subjective Interval history: No acute events overnight - Constitutional Vitals: Temp Pulse Resp BP Pulse Ox 97.5 F L 93 18 121/52 95 02/28/18 06:43 02/28/18 06:43 02/28/18 06:43 02/28/18 06:43 02/28/18 06:43 General appearance: Present: A&O X 3, pleasant, no acute distress - Head Head exam: Present: atraumatic, normocephalic - Eye Eye exam: Present: PERRL, conjuntiva pink, sclera anicteric Pupils: Present: PERRL - Neck Neck exam general surgery: Present: supple, trachea midline. Absent: lymphadenopathy - Respiratory Respiratory exam: Present: CTAB. Absent: accessory muscle use, rales, rhonchi, wheezes - Cardiovascular Cardiovascular exam: Present: RRR, +S1, +S2. Absent: diastolic murmur, gallop, rubs, systolic murmur - GI/Abdominal GI/Abdominal exam: Present: normal bowel sounds, soft, no peritoneal signs. Absent: distended, tenderness - Extremities Exam Extremities exam: Present: warm, radial pulses palpable and symmetrical. Absent : calf tenderness, cyanotic, pedal edema - Neurological Exam Neurological exam: Present: CN II-XII intact, oriented X3, no focal deficits. Absent: pronater drift, facial droop, speech deficit - Skin Skin exam: Present: dry, intact Internal Medicine: Result - Labs CBC & Chem 7: 02/28/18 04:52 02/28/18 04:52 Labs: Short CBC 02/28/18 Range/Units 04:52 WBC 58.8 H* (4.3-11.1) K/mcL Hgb 7.6 L (11.5-15.4) g/dL Hct 25.8 L (35.3-44.9) % Plt Count 101 L (140-400) K/mcL Neutrophils # 40.0 H (1.6-8.9) K/mcL BMP 02/28/18 04:52 Sodium 140 Potassium 5.2 H Chloride 110 H Carbon Dioxide 22 L BUN 58 H Creatinine 4.05 H Glucose 111 H Calcium 7.9 L Liver Function 02/28/18 Range/Units 04:52 Total Bilirubin 0.2 L (0.3-1.0) mg/dL AST 8 L (13-39) Units/L ALT 5 L (7-52) Units/L Alkaline Phosphatase 58 (34-104) Units/L Albumin 2.8 L (3.5-5.7) g/dL - ABG Interpretation ABG results: ABG ABG pH 7.33 pH Units (7.32-7.45) 02/23/18 18:48 ABG pCO2 45 mmHg (35-45) 02/23/18 18:48 ABG pO2 63 mmHg (85-104) L 02/23/18 18:48 ABG O2 Saturation 90 % (95-98) L 02/23/18 18:48 PT/INR, D-dimer PT 13.8 Seconds (9.4-12.1) H 02/25/18 11:20 - Impressions Impressions Pulmonary Perfusion Imaging 02/27/18 08:09 IMPRESSION: Low probability for pulmonary embolus. D/ / Ranulfo Vargas MD / Ranulfo Vargas MD Interpreting Provider: Ranulfo Vargas MD Consult Discharge Plan - Plan Referrals: Mayra Uribe CNP [Primary Care Provider] -
--- NOTE | 2018-02-28 10:31 | Nephrology Progress Note ---
Date of Encounter: 02/28/18 Time of Encounter: 10:00 Subjective Principal diagnosis: COPD, pleural effusions Interval history: A/P- Renal fct somewhat worse. Creat 4.05. K 3.7. Documented urine output 1000cc, cola color. No immediate need for HD today. Will continue to monitor for renal recovery. Watching tv. no new complaints. Objective - Vital Signs Vital signs: Vital Signs Temp Pulse Resp BP Pulse Ox 02/28/18 06:43 97.5 F L 93 18 121/52 95 02/28/18 05:00 97.4 F L 65 18 111/64 95 02/28/18 03:20 18 95 02/27/18 23:33 97.6 F 93 18 136/78 95 02/27/18 22:36 17 95 02/27/18 20:05 97.5 F L 93 18 126/54 95 02/27/18 14:59 93 18 108/65 96 02/27/18 14:13 16 96 02/27/18 12:16 92 22 120/59 96 Intake and Output 02/27/18 02/28/18 02/28/18 23:59 07:59 15:59 Intake Total 100 / 100 120 / 120 Output Total 500 / 500 150 / 150 Balance -400 / -400 -30 / -30 Intake: IV Fluids 100 / 100 Zosyn 3.375 GM In 0.9 % Sodium 100 / 100 Chloride (Mini-Bag +) 100 ML @ 25 mls/hr IVPB Q12H [facility] Rx#: [id number] Oral 0 / 0 120 / 120 Output: Urine 100 / 100 Catheter 400 / 400 150 / 150 Other: Stool Size Large Stool Consistency loose soft formed Stool Color Brown Yellow # Bowel Movements 1 Weight 125.5 kg Blood Glucose* 100 111 Patient Weight 02/28/18 23:59 Weight 125.5 kg - General Appearance General appearance: Present: well-developed, well-nourished, appears started age EENT: Present: mucous membranes moist Neck: Present: no JVD Respiratory: Present: clear Cardiology: Present: edema, regular rate, regular rhythm Additional Comments: 2-3+ LE, thighs, buttock Gastrointestinal: Present: hypoactive bowel sounds, no tenderness Integumentary: Present: warm and dry Neurologic: Present: alert and oriented x3 - Lab 02/28/18 04:52 02/28/18 04:52 Most recent lab results ABG pH 7.33 pH Units (7.32-7.45) 02/23/18 18:48 ABG pCO2 45 mmHg (35-45) 02/23/18 18:48 ABG pO2 63 mmHg (85-104) L 02/23/18 18:48 ABG HCO3 24 mEq/L (21-27) 02/23/18 18:48 ABG O2 Saturation 90 % (95-98) L 02/23/18 18:48 Calcium 7.9 mg/dL (8.6-10.3) L 02/28/18 04:52 Phosphorus 4.0 mg/dL (2.7-4.5) 02/21/18 00:35 Magnesium 1.9 mg/dL (1.6-2.6) 02/21/18 00:35 Consult Discharge Plan - Plan Referrals: Mayra Uribe, SHARDA [Primary Care Provider] -
[2018-02-28] MEDS: Insulin LISPRO 300 UNITS/3 ML VIAL SQ SCH ×3 (10:40→16:36)
[2018-02-28] MEDS: hydrALAZINE 25 MG TABLET PO SCH ×2 (10:58→21:23)
[2018-02-28] MEDS: Nystatin POWDER 30 GM BOTTLE TP SCH ×2 (11:00→21:21)
[2018-02-28 13:44] LABS: Total Volume 24 Hour,Urine 0.73 Liters (0.60-1.60)
[2018-02-28] MEDS: Insulin DETEMIR 100 UNIT/ML X5UNITS SQ SCH (21:17)
[2018-02-28] MEDS: *HR* HYDROcodone/Acet 5/325 mg TABLET PO PRN (21:23)
[2018-03-01] MEDS: Ipratropium/Albuterol Neb 3 ML IH SCH ×4 (03:38→22:25)
[2018-03-01] MEDS: Piperacillin/Tazobactam 3.375 GM in 0.9 % Sodium Chloride Mini Bag 100 ML IVPB SCH (04:32)
[2018-03-01] MEDS: *HR* Heparin 5,000 UNIT/ML VIAL SQ SCH ×2 (04:32→16:47)
[2018-03-01 08:26] LABS: Hematocrit 26.8 % (35.3-44.9); Hemoglobin 8.3 g/dL (11.5-15.4); Mean Corpuscular Hemoglobin 29.6 pg (28.0-33.3); Mean Corpuscular Volume 95.7 fL (83.0-100.0); Platelet Count 109 K/mcL (140-400); Red Cell Distribution Width 17.6 % (11.5-14.5)
[2018-03-01 08:27] LABS: Nucleated Red Blood Cells 0.2 /100 WBC (0)
[2018-03-01 08:44] LABS: Calcium 8.4 mg/dL (8.6-10.3); Potassium 4.8 mEq/L (3.5-5.1)
[2018-03-01 09:00] LABS: Lymphocytes # 1.5 K/mcL (0.6-4.6); Neutrophils # 49.8 K/mcL (1.6-8.9)
[2018-03-01 09:01] LABS: Anisocytosis 1+ (Not Present); Microcytosis Present (Not Present); Platelet Estimate Slight Decrease (Normal)
[2018-03-01] MEDS: Insulin LISPRO 300 UNITS/3 ML VIAL SQ SCH ×4 (09:17→21:50)
--- NOTE | 2018-03-01 09:44 | IR Procedure Note ---
Date of procedure: 03/01/18 Consent Obtained: Verbal consent, Written consent Timeout: Correct patient and procedure verified, Correct site verified, Time out performed, Skin prep completed Local anesthetic: Lidocaine 1% Indications: Right pleural effusion Procedure Performed: Right Thoracentesis Was there an assistant store manager sales present: No Site/Technique: Ultrasound guided right thoracentesis Results/Findings: Moderate pleural effusion Estimated blood loss (cc): 2 Complications: None; Tolerated procedure well Post Procedure Treatment Plan: Continue inpatient care Specimen: Serous pleural fluid
[2018-03-01] MEDS: Nystatin POWDER 30 GM BOTTLE TP SCH (10:08)
[2018-03-01] MEDS: hydrALAZINE 25 MG TABLET PO SCH ×2 (10:08→21:00)
[2018-03-01] MEDS: *HR* HYDROcodone/Acet 5/325 mg TABLET PO PRN ×2 (10:09→23:53)
[2018-03-01] MEDS ORDERED: Furosemide 40 MG/4 ML VIAL IVP ONE (10:55)
--- NOTE | 2018-03-01 10:57 | Nephrology Progress Note ---
Date of Encounter: 03/01/18 Time of Encounter: 10:40 - Assessment and Plan (1) Acute kidney failure, unspecified Current Visit: Yes Status: Acute A/P- Renal fct slow improvement Creat 3.86. K 4.8. Documented urine output 400cc. No immediate need for HD today. Will give Lasix 40mg IV x one. Will continue to monitor for renal recovery. Qualifiers: Acute renal failure type: unspecified Qualified Code(s): N17.9 - Acute kidney failure, unspecified Subjective Principal diagnosis: COPD, pleural effusions Interval history: Sleeping, arouses easily. Denies shortness of breath. Objective - Vital Signs Vital signs: Vital Signs Temp Pulse Resp BP Pulse Ox 03/01/18 07:17 97.3 F L 99 16 157/72 93 03/01/18 04:35 98.0 F 97 18 149/69 91 03/01/18 03:38 17 112/50 93 02/28/18 21:45 17 112/50 98 02/28/18 20:31 97.5 F L 69 17 112/50 99 02/28/18 15:19 16 98 02/28/18 14:26 98.9 F 93 15 138/51 99 Intake and Output 02/28/18 03/01/18 03/01/18 23:59 07:59 15:59 Intake Total 410 / 410 0 / 0 340 / 340 Output Total 250 / 250 200 / 200 Balance 160 / 160 -200 / -200 340 / 340 Intake: IV Fluids 100 / 100 100 / 100 Zosyn 3.375 GM In 0.9 % Sodium 100 / 100 100 / 100 Chloride (Mini-Bag +) 100 ML @ 25 mls/hr IVPB Q12H [facility] Rx#: [id number] Oral 310 / 310 0 / 0 240 / 240 Output: Catheter 250 / 250 200 / 200 Other: Meal Dinner Breakfast Percent of Meal Consumed 5% 100% Stool Size Large Small Stool Consistency liquid loose Stool Color Brown Brown # Bowel Movements 1 Weight 125.3 kg Blood Glucose* 161 126 Patient Weight 03/01/18 23:59 Weight 125.3 kg - General Appearance General appearance: Present: well-developed, well-nourished, appears started age , obese EENT: Present: mucous membranes moist Neck: Present: no JVD Respiratory: Present: clear Cardiology: Present: edema, regular rate, regular rhythm Additional Comments: 2-3+ buttocks down Gastrointestinal: Present: normoactive bowel sounds, no tenderness Integumentary: Present: warm and dry Neurologic: Present: alert and oriented x3 - Lab 03/01/18 08:12 03/01/18 08:12 Most recent lab results ABG pH 7.33 pH Units (7.32-7.45) 02/23/18 18:48 ABG pCO2 45 mmHg (35-45) 02/23/18 18:48 ABG pO2 63 mmHg (85-104) L 02/23/18 18:48 ABG HCO3 24 mEq/L (21-27) 02/23/18 18:48 ABG O2 Saturation 90 % (95-98) L 02/23/18 18:48 Calcium 8.4 mg/dL (8.6-10.3) L 03/01/18 08:12 Phosphorus 4.0 mg/dL (2.7-4.5) 02/21/18 00:35 Magnesium 1.9 mg/dL (1.6-2.6) 02/21/18 00:35 Urine Creatinine 90 mg/dL 02/27/18 22:23 Ur Total Protein 24 Hr 1453 mg/day (50-80) H 02/27/18 22:23 Urine Total Protein 199 mg/dL (1-14) H 02/27/18 22:23 Consult Discharge Plan - Plan Referrals: Mayra Uribe CNP [Primary Care Provider] -
--- NOTE | 2018-03-01 14:26 | Internal Med Progress Note ---
Date of Encounter: 03/01/18 Time of Encounter: 14:24 - Assessment and plan (1) Acute respiratory failure with hypoxia Current Visit: Yes Status: Acute Assessment and plan: Due to pneumonia and pleural effusion. Continue treating underlying medical issues. Improving oxygenation. Currently on 1.5 L nasal cannula. Underwent thoracentesis today. (2) HCAP (healthcare-associated pneumonia) Current Visit: Yes Status: Acute Assessment and plan: Will transition to oral antibiotics. Blood cultures have been negative and pleural fluid culture has also been negative so far. (3) DMII (diabetes mellitus, type 2) Current Visit: Yes Status: Chronic Assessment and plan: Fairly controlled. Continue current insulin regimen. Diabetic diet. We will add nighttime coverage for sliding scale insulin. Qualifiers: Diabetes mellitus alf insulin use: with alf use Diabetes mellitus complication status: with unspecified complications Qualified Code(s) : E11.8 - Type 2 diabetes mellitus with unspecified complications; Z79.4 - watermaster (current) use of insulin; Z79.4 - watermaster (current) use of insulin; Z79.4 - watermaster (current) use of insulin; Z79.4 - longterm (current) use of insulin (4) COPD (chronic obstructive pulmonary disease) Current Visit: Yes Status: Chronic Assessment and plan: Continue bronchodilators. O2 supplementation Qualifiers: COPD type: unspecified COPD Qualified Code(s): J44.9 - Chronic obstructive pulmonary disease, unspecified (5) MPN (myeloproliferative neoplasm) Current Visit: No Status: Chronic Assessment and plan: Leukocytosis persists. 75.4 today. Follow-up with oncology as outpatient (6) DVT prophylaxis Current Visit: No Status: Acute Assessment and plan: With subcutaneous heparin (7) Morbid obesity with BMI of 45.0-49.9, adult Current Visit: Yes Status: Chronic (8) Vertigo Current Visit: Yes Status: Acute Assessment and plan: On meclizine. Physical therapy consulted. Recommend placement to skilled rehabilitation. bilingual social worker working on this. (9) Acute kidney failure, unspecified Current Visit: Yes Status: Acute Assessment and plan: Improving. Creatinine 3.8 today. Nephrology following. Continue to follow nephrology recommendations. Follow renal function closely. Qualifiers: Acute renal failure type: with acute tubular necrosis Qualified Code(s): N17.0 - Acute kidney failure with tubular necrosis (10) Pleural effusion Current Visit: Yes Status: Acute Assessment and plan: Pleural fluid analysis suggests a transudative effusion. Cultures are currently negative. - Time Spent With Patient Total time spent is greater than 50% in coordination of care (as documented) at patient's floor/unit and/or counseling patient: - Subjective Interval history: Patient seen earlier today. Was lying in bed and comfortable. Improving oxygenation. Denies any chest pain. Underwent thoracentesis earlier today. No nausea or vomiting. No fever or chills. - Constitutional Vitals: Temp Pulse Resp BP Pulse Ox 97.6 F 65 16 154/65 97 03/01/18 11:28 03/01/18 11:28 03/01/18 11:28 03/01/18 11:28 03/01/18 11:28 General appearance: Present: A&O X 3, pleasant, no acute distress, answers questions appropriately - Neck Neck exam general surgery: Present: supple, trachea midline. Absent: lymphadenopathy - Respiratory Respiratory exam: Present: decreased breath sounds (at both bases), wheezes. Absent: accessory muscle use, rales, rhonchi - Cardiovascular Cardiovascular exam: Present: RRR, +S1, +S2. Absent: diastolic murmur, gallop, rubs, systolic murmur - GI/Abdominal GI/Abdominal exam: Present: normal bowel sounds, soft, no peritoneal signs. Absent: distended, tenderness - Extremities Exam Extremities exam: Present: pedal edema, warm, radial pulses palpable and symmetrical. Absent: calf tenderness, cyanotic - Neurological Exam Neurological exam: Present: CN II-XII intact, oriented X3, no focal deficits. Absent: facial droop, speech deficit - Skin Skin exam: Present: dry, intact Internal Medicine: Result - Labs CBC & Chem 7: 03/01/18 08:12 03/01/18 08:12 Labs: Short CBC 03/01/18 Range/Units 08:12 WBC 75.4 H* (4.3-11.1) K/mcL Hgb 8.3 L (11.5-15.4) g/dL Hct 26.8 L (35.3-44.9) % Plt Count 109 L (140-400) K/mcL Neutrophils # 49.8 H (1.6-8.9) K/mcL BMP 03/01/18 08:12 Sodium 143 Potassium 4.8 Chloride 111 H Carbon Dioxide 23 BUN 62 H Creatinine 3.86 H Glucose 132 H Calcium 8.4 L - ABG Interpretation ABG results: ABG ABG pH 7.33 pH Units (7.32-7.45) 02/23/18 18:48 ABG pCO2 45 mmHg (35-45) 02/23/18 18:48 ABG pO2 63 mmHg (85-104) L 02/23/18 18:48 ABG O2 Saturation 90 % (95-98) L 02/23/18 18:48 PT/INR, D-dimer PT 13.8 Seconds (9.4-12.1) H 02/25/18 11:20 - Impressions Impressions Chest X-Ray 02/28/18 10:19 IMPRESSION: Increased hazy opacity within the right lung which may be related to a layering pleural effusion. Probable trace left pleural effusion. D/ / Ellen Vences MD / Ellen Vences MD Interpreting Provider: Ellen Vences MD Thoracentesis Ultrasound 03/01/18 06:48 IMPRESSION: Successful ultrasound guided thoracentesis. D/ / Cristi Velazquez MD / Cristi Velazquez MD Interpreting Provider: Cristi Velazquez MD Chest X-Ray 03/01/18 09:41 IMPRESSION: 1. Small bilateral pleural effusions. No visible pneumothorax post thoracentesis. 2. Left base airspace opacity. If patient has clinical symptoms of infection, this may represent pneumonia. Alternatively, atelectasis can have the same appearance. D/ / Seth Hull MD / Seth Hull MD Interpreting Provider: Seth Hull MD Consult Discharge Plan - Plan Referrals: Mayra Uribe, SHARDA [Primary Care Provider] -
[2018-03-01] MEDS: Amoxicillin/Clavulanate 500 MG TABLET PO SCH (16:47)
[2018-03-01] MEDS: Doxycycline 100 MG CAPSULE PO SCH (20:05)
[2018-03-01] MEDS: Insulin DETEMIR 100 UNIT/ML X5UNITS SQ SCH (21:57)
[2018-03-01] MEDS ORDERED: *HR* Metoprolol 5 MG/5 ML VIAL IVP ONE (23:49)
[2018-03-02] MEDS ORDERED: *HR* Metoprolol 5 MG/5 ML VIAL IVP ONE (00:07)
[2018-03-02] MEDS: Nystatin POWDER 30 GM BOTTLE TP SCH ×3 (00:08→21:18)
[2018-03-02] MEDS: Ipratropium/Albuterol Neb 3 ML IH SCH ×4 (04:11→22:31)
[2018-03-02 05:00] LABS: Hemoglobin 6.7 g/dL (11.5-15.4); Nucleated Red Blood Cells 0.1 /100 WBC (0)
[2018-03-02 05:01] LABS: Hematocrit 22.4 % (35.3-44.9); Mean Corpuscular HGB Conc 29.9 g/dL (31.6-35.5); Mean Corpuscular Hemoglobin 28.5 pg (28.0-33.3); Mean Corpuscular Volume 95.3 fL (83.0-100.0); Red Blood Count 2.35 M/mcL (3.82-4.97); Red Cell Distribution Width 17.8 % (11.5-14.5)
[2018-03-02 05:18] LABS: Platelet Count 91 K/mcL (140-400)
[2018-03-02 05:24] LABS: Calcium 7.9 mg/dL (8.6-10.3); Potassium 4.4 mEq/L (3.5-5.1)
[2018-03-02 05:28] LABS: Lymphocytes # 3.3 K/mcL (0.6-4.6); Monocytes # 2.2 K/mcL (0.0-1.3); Neutrophils # 28.2 K/mcL (1.6-8.9); Platelet Estimate Decreased (Normal); Toxic Granulation Present (Not Present)
[2018-03-02] MEDS ORDERED: Furosemide 40 MG/4 ML VIAL IVP ONE (08:21)
[2018-03-02] MEDS: Doxycycline 100 MG CAPSULE PO SCH ×2 (08:34→21:17)
[2018-03-02] MEDS: hydrALAZINE 25 MG TABLET PO SCH ×2 (08:34→21:16)
[2018-03-02] MEDS: Insulin LISPRO 300 UNITS/3 ML VIAL SQ SCH ×4 (08:35→21:17)
[2018-03-02] MEDS: Amoxicillin/Clavulanate 500 MG TABLET PO SCH ×2 (08:35→17:42)
--- NOTE | 2018-03-02 10:02 | Nephrology Progress Note ---
Date of Encounter: 03/02/18 Time of Encounter: 08:20 - Assessment and Plan (1) Acute kidney failure, unspecified Current Visit: Yes Status: Acute A/P- Renal fct somewhat worse Creat 3.93. following IV lasix. May also be decreased renal perfusion related to anemia. Hgb 6.7. K 4.4. Documented urine output 1600cc. No immediate need for HD today. Will transfuse 2 units PRBC with Lasix 40mg IV x one in between units. Will continue to monitor for renal recovery. Qualifiers: Acute renal failure type: with acute tubular necrosis Qualified Code(s): N17.0 - Acute kidney failure with tubular necrosis Subjective Principal diagnosis: COPD, pleural effusions Interval history: Sleeping, arouses easily. Denies shortness of breath. Objective - Vital Signs Vital signs: Vital Signs Temp Pulse Resp BP Pulse Ox 03/02/18 06:30 98 F 93 18 138/64 97 03/02/18 04:11 18 98 03/02/18 04:00 98.3 F 98 18 126/55 94 03/01/18 23:29 97.9 F 101 18 169/77 93 03/01/18 22:25 18 99 03/01/18 21:00 97.8 F 98 18 153/66 92 03/01/18 20:01 98 118/58 03/01/18 16:38 97.8 F 97 18 165/71 94 03/01/18 15:52 16 95 03/01/18 11:28 97.6 F 65 16 154/65 97 03/01/18 10:47 16 93 Intake and Output 03/01/18 03/02/18 03/02/18 23:59 07:59 15:59 Intake Total 750 / 750 200 / 200 Output Total 1400 / 1400 700 / 700 Balance -650 / -650 -500 / -500 Intake: Oral 750 / 750 200 / 200 Output: Catheter 1400 / 1400 700 / 700 Other: Stool Size Small Stool Consistency soft Stool Characteristics Normal for Patient Stool Color Brown # Bowel Movements 1 Weight 124.7 kg Blood Glucose* 191 133 Patient Weight 03/02/18 23:59 Weight 124.7 kg - General Appearance General appearance: Present: well-developed, well-nourished, appears started age , obese EENT: Present: mucous membranes moist Neck: Present: no JVD Respiratory: Present: clear Cardiology: Present: edema, regular rate, regular rhythm Additional Comments: 2-3+ buttock down Gastrointestinal: Present: normoactive bowel sounds, no tenderness Integumentary: Present: warm and dry Neurologic: Present: alert and oriented x3 - Lab 03/02/18 04:10 03/02/18 04:10 Most recent lab results ABG pH 7.33 pH Units (7.32-7.45) 02/23/18 18:48 ABG pCO2 45 mmHg (35-45) 02/23/18 18:48 ABG pO2 63 mmHg (85-104) L 02/23/18 18:48 ABG HCO3 24 mEq/L (21-27) 02/23/18 18:48 ABG O2 Saturation 90 % (95-98) L 02/23/18 18:48 Calcium 7.9 mg/dL (8.6-10.3) L 03/02/18 04:10 Phosphorus 4.0 mg/dL (2.7-4.5) 02/21/18 00:35 Magnesium 1.9 mg/dL (1.6-2.6) 02/21/18 00:35 Urine Creatinine 90 mg/dL 02/27/18 22:23 Ur Total Protein 24 Hr 1453 mg/day (50-80) H 02/27/18 22:23 Urine Total Protein 199 mg/dL (1-14) H 02/27/18 22:23 Consult Discharge Plan - Plan Referrals: Mayra Uribe CNP [Primary Care Provider] -
[2018-03-02] MEDS ORDERED: 0.9 % Sodium Chloride 500 ML ONE (10:58)
--- NOTE | 2018-03-02 11:01 | Internal Med Progress Note ---
Date of Encounter: 03/02/18 Time of Encounter: 11:01 - Assessment and plan (1) Acute respiratory failure with hypoxia Current Visit: Yes Status: Acute Assessment and plan: Patient is currently on 3 L nasal cannula. Use BiPAP when lying down. Continue to treat pneumonia and underlying COPD. Status post thoracentesis yesterday. (2) Acute kidney failure, unspecified Current Visit: Yes Status: Acute Assessment and plan: Nephrology following. Creatinine 3.93 today. Patient will be transfused today. Lasix in between transfusions. Continue to monitor renal function. Qualifiers: Acute renal failure type: with acute tubular necrosis Qualified Code(s): N17.0 - Acute kidney failure with tubular necrosis (3) HCAP (healthcare-associated pneumonia) Current Visit: Yes Status: Acute Assessment and plan: On Augmentin and doxycycline. Blood cultures and pleural fluid cultures are negative. No signs of empyema. (4) Anemia Current Visit: Yes Status: Acute Assessment and plan: Hemoglobin 6.7 today. Will transfuse 2 units of packed red blood cells per nephrology recommendations. Monitor blood counts closely. Likely due to myeloproliferative Neoplasm, and chronic kidney disease. Qualifiers: Anemia type: other cause Other causes of anemia: chronic disease, neoplastic Qualified Code(s): D63.0 - Anemia in neoplastic disease (5) DMII (diabetes mellitus, type 2) Current Visit: Yes Status: Chronic Assessment and plan: Blood sugars are fairly controlled. Continue current insulin regimen. Qualifiers: Diabetes mellitus group home insulin use: with tank terminal gauger use Diabetes mellitus complication status: with unspecified complications Qualified Code(s) : E11.8 - Type 2 diabetes mellitus with unspecified complications; Z79.4 - oysterman (current) use of insulin; Z79.4 - oysterman (current) use of insulin; Z79.4 - alf (current) use of insulin; Z79.4 - oysterman (current) use of insulin (6) COPD (chronic obstructive pulmonary disease) Current Visit: Yes Status: Chronic Assessment and plan: On bronchodilators as needed. Qualifiers: COPD type: unspecified COPD Qualified Code(s): J44.9 - Chronic obstructive pulmonary disease, unspecified (7) MPN (myeloproliferative neoplasm) Current Visit: Yes Status: Chronic Assessment and plan: Follow-up outpatient with oncology. Patient does have anemia and hemoglobin was 6.7 today. We will transfuse. (8) DVT prophylaxis Current Visit: Yes Status: Acute Assessment and plan: On subcutaneous heparin. Platelet counts are fairly stable. 91 today. We will continue to monitor (9) Morbid obesity with BMI of 45.0-49.9, adult Current Visit: Yes Status: Chronic (10) Vertigo Current Visit: Yes Status: Acute Assessment and plan: On meclizine (11) Pleural effusion Current Visit: Yes Status: Acute Assessment and plan: Transudative. Cultures are negative. - Time Spent With Patient Total time spent is greater than 50% in coordination of care (as documented) at patient's floor/unit and/or counseling patient: - Subjective Interval history: Patient feels weak and tired today. Not feeling so good. She does report some shortness of breath. No fever or chills described overnight. No nausea or vomiting. - Constitutional Vitals: Temp Pulse Resp BP Pulse Ox 98.2 F 67 18 131/53 96 03/02/18 10:27 03/02/18 10:27 03/02/18 10:27 03/02/18 10:27 03/02/18 10:27 General appearance: Present: cooperative, mild distress, A&O X 3, morbidly obese , pleasant, answers questions appropriately - Neck Neck exam general surgery: Present: supple, trachea midline. Absent: lymphadenopathy - Respiratory Respiratory exam: Present: CTAB. Absent: accessory muscle use, rales, rhonchi, wheezes - Cardiovascular Cardiovascular exam: Present: RRR, +S1, +S2. Absent: diastolic murmur, gallop, rubs, systolic murmur - GI/Abdominal GI/Abdominal exam: Present: diminished bowel sounds (decreased at both bases), soft, no peritoneal signs. Absent: distended, tenderness - Extremities Exam Extremities exam: Present: pedal edema, warm, radial pulses palpable and symmetrical. Absent: calf tenderness, cyanotic - Neurological Exam Neurological exam: Present: CN II-XII intact, oriented X3, no focal deficits. Absent: facial droop, speech deficit - Skin Skin exam: Present: dry, intact Internal Medicine: Result - Labs CBC & Chem 7: 03/02/18 04:10 03/02/18 04:10 Labs: Short CBC 03/02/18 Range/Units 04:10 WBC 54.2 H* (4.3-11.1) K/mcL Hgb 6.7 L D (11.5-15.4) g/dL Hct 22.4 L (35.3-44.9) % Plt Count 91 L (140-400) K/mcL Neutrophils # 28.2 H (1.6-8.9) K/mcL BMP 03/02/18 04:10 Sodium 143 Potassium 4.4 Chloride 111 H Carbon Dioxide 22 L BUN 65 H Creatinine 3.93 H Glucose 134 H Calcium 7.9 L - ABG Interpretation ABG results: ABG ABG pH 7.33 pH Units (7.32-7.45) 02/23/18 18:48 ABG pCO2 45 mmHg (35-45) 02/23/18 18:48 ABG pO2 63 mmHg (85-104) L 02/23/18 18:48 ABG O2 Saturation 90 % (95-98) L 02/23/18 18:48 PT/INR, D-dimer PT 13.8 Seconds (9.4-12.1) H 02/25/18 11:20 - Impressions Impressions Thoracentesis Ultrasound 03/01/18 06:48 IMPRESSION: Successful ultrasound guided thoracentesis. D/ / Cristi Velazquez MD / Cristi Velazquez MD Interpreting Provider: Cristi Velazquez MD Consult Discharge Plan - Plan Referrals: Mayra Uribe, SH[employer] PAINTER [Primary Care Provider] -
[2018-03-02] MEDS: *HR* Heparin 5,000 UNIT/ML VIAL SQ SCH ×2 (11:32→17:42)
[2018-03-02] MEDS: Insulin DETEMIR 100 UNIT/ML X5UNITS SQ SCH (21:17)
[2018-03-03] MEDS: Ipratropium/Albuterol Neb 3 ML IH SCH ×4 (03:49→22:06)
[2018-03-03 05:15] LABS: Nucleated Red Blood Cells 0.1 /100 WBC (0); Red Cell Distribution Width 17.1 % (11.5-14.5)
[2018-03-03 05:16] LABS: Hematocrit 28.9 % (35.3-44.9); Hemoglobin 8.9 g/dL (11.5-15.4); Mean Corpuscular HGB Conc 30.8 g/dL (31.6-35.5); Mean Corpuscular Hemoglobin 29.2 pg (28.0-33.3); Mean Corpuscular Volume 94.8 fL (83.0-100.0); Red Blood Count 3.05 M/mcL (3.82-4.97)
[2018-03-03 05:17] LABS: Platelet Count 89 K/mcL (140-400)
[2018-03-03 05:34] LABS: Calcium 8.1 mg/dL (8.6-10.3); Potassium 5.1 mEq/L (3.5-5.1)
[2018-03-03 05:41] LABS: Anisocytosis 1+ (Not Present); Lymphocytes # 4.5 K/mcL (0.6-4.6); Microcytosis Present (Not Present); Monocytes # 1.1 K/mcL (0.0-1.3); Neutrophils # 45.6 K/mcL (1.6-8.9); Platelet Estimate Decreased (Normal)
[2018-03-03] MEDS: *HR* Heparin 5,000 UNIT/ML VIAL SQ SCH ×2 (06:00→17:34)
--- NOTE | 2018-03-03 08:46 | Nephrology Progress Note ---
Date of Encounter: 03/03/18 Time of Encounter: 08:35 - Assessment and Plan (1) Acute kidney failure, unspecified Current Visit: Yes Status: Acute A/P- Renal fct slow improvement, creat 3.73, following IV lasix. May also be decreased renal perfusion related to anemia. Hgb 8.9, post two units PRBC yesterday. K 5.1. Documented urine output 1925cc. No immediate need for HD today. Will give IV Lasix 40mg again today. Will continue to monitor for renal recovery. Qualifiers: Acute renal failure type: with acute tubular necrosis Qualified Code(s): N17.0 - Acute kidney failure with tubular necrosis Subjective Principal diagnosis: COPD, pleural effusions Interval history: Sleeping, arouses easily. Denies shortness of breath. Good response to IV Lasix yesterday with slow improvement in creat Objective - Vital Signs Vital signs: Vital Signs Temp Pulse Resp BP Pulse Ox 03/03/18 06:22 97.4 F L 92 17 147/72 99 03/03/18 04:36 98.6 F 97 16 143/65 95 03/03/18 03:49 16 97 03/02/18 22:31 17 97 03/02/18 20:10 97.9 F 71 17 170/76 97 03/02/18 15:30 97.7 F 67 16 170/72 100 03/02/18 15:25 16 170/72 99 03/02/18 15:17 97.6 F 68 17 158/78 98 03/02/18 15:15 97.6 F 67 16 158/78 03/02/18 14:24 97.7 F 68 16 145/65 99 03/02/18 11:44 98.0 F 66 16 132/49 03/02/18 11:29 97.4 F L 66 16 128/52 03/02/18 10:27 98.2 F 67 18 131/53 96 03/02/18 09:36 16 131/53 99 Intake and Output 03/02/18 03/03/18 03/03/18 23:59 07:59 15:59 Intake Total 0 / 0 0 / 0 Output Total 575 / 575 900 / 900 Balance -575 / -575 -900 / -900 Intake: Oral 0 / 0 0 / 0 Output: Catheter 575 / 575 900 / 900 Other: Weight 125.2 kg Blood Glucose* 142 124 Patient Weight 03/03/18 23:59 Weight 125.2 kg - General Appearance General appearance: Present: well-developed, well-nourished, appears started age , obese EENT: Present: mucous membranes moist Neck: Present: no JVD Respiratory: Present: clear Cardiology: Present: edema, regular rate, regular rhythm Additional Comments: 2-3 buttock down Gastrointestinal: Present: normoactive bowel sounds, no tenderness Integumentary: Present: warm and dry Neurologic: Present: alert and oriented x3 - Lab 03/03/18 04:32 03/03/18 04:32 Most recent lab results ABG pH 7.33 pH Units (7.32-7.45) 02/23/18 18:48 ABG pCO2 45 mmHg (35-45) 02/23/18 18:48 ABG pO2 63 mmHg (85-104) L 02/23/18 18:48 ABG HCO3 24 mEq/L (21-27) 02/23/18 18:48 ABG O2 Saturation 90 % (95-98) L 02/23/18 18:48 Calcium 8.1 mg/dL (8.6-10.3) L 03/03/18 04:32 Phosphorus 4.0 mg/dL (2.7-4.5) 02/21/18 00:35 Magnesium 1.9 mg/dL (1.6-2.6) 02/21/18 00:35 Urine Creatinine 90 mg/dL 02/27/18 22:23 Ur Total Protein 24 Hr 1453 mg/day (50-80) H 02/27/18 22:23 Urine Total Protein 199 mg/dL (1-14) H 02/27/18 22:23 Consult Discharge Plan - Plan Referrals: Mayra Uribe CNP [Primary Care Provider] -
[2018-03-03] MEDS ORDERED: Furosemide 40 MG/4 ML VIAL IVP ONE (08:50)
[2018-03-03] MEDS: Insulin LISPRO 300 UNITS/3 ML VIAL SQ SCH ×4 (08:52→21:10)
[2018-03-03] MEDS: Amoxicillin/Clavulanate 500 MG TABLET PO SCH ×2 (08:52→17:19)
[2018-03-03] MEDS: Doxycycline 100 MG CAPSULE PO SCH ×2 (08:53→21:09)
[2018-03-03] MEDS: hydrALAZINE 25 MG TABLET PO SCH ×2 (08:53→21:09)
[2018-03-03] MEDS: Nystatin POWDER 30 GM BOTTLE TP SCH ×2 (08:55→21:11)
--- NOTE | 2018-03-03 13:45 | Internal Med Progress Note ---
Date of Encounter: 03/03/18 Time of Encounter: 13:42 - Assessment and plan (1) Acute respiratory failure with hypoxia Current Visit: Yes Status: Acute Assessment and plan: Patient currently on oxymask at 4 L/m. Continue to treat underlying conditions. Wean FiO2 as tolerated. PT OT. Awaiting placement to skilled rehabilitation at time of discharge. (2) Acute kidney failure, unspecified Current Visit: Yes Status: Acute Assessment and plan: Stable. Creatinine 3.73 today. Nephrology following. Lasix ordered for today. Patient having good urine output. Has had -2.4 L fluid balance overall during this hospital stay. Qualifiers: Acute renal failure type: with acute tubular necrosis Qualified Code(s): N17.0 - Acute kidney failure with tubular necrosis (3) HCAP (healthcare-associated pneumonia) Current Visit: Yes Status: Acute Assessment and plan: On Augmentin and doxycycline. Day 12. We will complete 14 days of antibiotics. (4) Pleural effusion Current Visit: Yes Status: Acute Assessment and plan: Treated with thoracentesis. Transudative. Pleural fluid culture negative. (5) Anemia Current Visit: Yes Status: Acute Assessment and plan: Acute on chronic. With underlying chronic kidney disease. Received 2 units blood transfusion yesterday. Doing well. Hemoglobin 8.9 today. Qualifiers: Anemia type: other cause Other causes of anemia: chronic disease, neoplastic Qualified Code(s): D63.0 - Anemia in neoplastic disease (6) DMII (diabetes mellitus, type 2) Current Visit: Yes Status: Chronic Assessment and plan: Blood sugars are well controlled. Will continue current insulin regimen. Qualifiers: Diabetes mellitus meterman insulin use: with meterman use Diabetes mellitus complication status: with unspecified complications Qualified Code(s) : E11.8 - Type 2 diabetes mellitus with unspecified complications; Z79.4 - exterminator (current) use of insulin; Z79.4 - exterminator (current) use of insulin; Z79.4 - alf (current) use of insulin; Z79.4 - alf (current) use of insulin (7) COPD (chronic obstructive pulmonary disease) Current Visit: Yes Status: Chronic Assessment and plan: Continue bronchodilators. Not in acute exacerbation. Qualifiers: COPD type: unspecified COPD Qualified Code(s): J44.9 - Chronic obstructive pulmonary disease, unspecified (8) MPN (myeloproliferative neoplasm) Current Visit: Yes Status: Chronic Assessment and plan: Follow-up with oncology after discharge for further management (9) DVT prophylaxis Current Visit: Yes Status: Acute Assessment and plan: On subcutaneous heparin. Platelets 89. Fairly stable. (10) Morbid obesity with BMI of 45.0-49.9, adult Current Visit: Yes Status: Chronic (11) Vertigo Current Visit: Yes Status: Acute Assessment and plan: On meclizine. - Time Spent With Patient Total time spent is greater than 50% in coordination of care (as documented) at patient's floor/unit and/or counseling patient: - Subjective Interval history: Patient is sitting up in chair. Feeling better. Eating lunch well. Denies any chest pain or palpitations. She does have some shortness of breath. No fever or chills overnight. - Constitutional Vitals: Temp Pulse Resp BP Pulse Ox 97.7 F 97 18 143/68 95 03/03/18 11:23 03/03/18 11:23 03/03/18 11:23 03/03/18 11:23 03/03/18 11:23 General appearance: Present: cooperative, A&O X 3, morbidly obese, pleasant, answers questions appropriately - Neck Neck exam general surgery: Present: supple, trachea midline. Absent: lymphadenopathy - Respiratory Respiratory exam: Present: CTAB. Absent: accessory muscle use, rales, rhonchi, wheezes - Cardiovascular Cardiovascular exam: Present: RRR, +S1, +S2. Absent: diastolic murmur, gallop, rubs, systolic murmur - GI/Abdominal GI/Abdominal exam: Present: normal bowel sounds, soft, no peritoneal signs. Absent: distended, tenderness - Extremities Exam Extremities exam: Present: pedal edema, warm, radial pulses palpable and symmetrical. Absent: calf tenderness, cyanotic - Neurological Exam Neurological exam: Present: alert, CN II-XII intact, oriented X3, no focal deficits. Absent: facial droop, speech deficit - Skin Skin exam: Present: dry, intact Internal Medicine: Result - Labs CBC & Chem 7: 03/03/18 04:32 03/03/18 04:32 Labs: Short CBC 03/03/18 Range/Units 04:32 WBC 55.6 H* (4.3-11.1) K/mcL Hgb 8.9 L D (11.5-15.4) g/dL Hct 28.9 L (35.3-44.9) % Plt Count 89 L (140-400) K/mcL Neutrophils # 45.6 H (1.6-8.9) K/mcL BMP 03/03/18 04:32 Sodium 141 Potassium 5.1 Chloride 111 H Carbon Dioxide 24 BUN 66 H Creatinine 3.73 H Glucose 140 H Calcium 8.1 L - ABG Interpretation ABG results: ABG ABG pH 7.33 pH Units (7.32-7.45) 02/23/18 18:48 ABG pCO2 45 mmHg (35-45) 02/23/18 18:48 ABG pO2 63 mmHg (85-104) L 02/23/18 18:48 ABG O2 Saturation 90 % (95-98) L 02/23/18 18:48 PT/INR, D-dimer PT 13.8 Seconds (9.4-12.1) H 02/25/18 11:20 Consult Discharge Plan - Plan Referrals: Mayra Uribe CNP [Primary Care Provider] -
[2018-03-03] MEDS: *HR* HYDROcodone/Acet 5/325 mg TABLET PO PRN (21:09)
[2018-03-03] MEDS: Insulin DETEMIR 100 UNIT/ML X5UNITS SQ SCH (21:10)
[2018-03-04] MEDS: Ipratropium/Albuterol Neb 3 ML IH SCH ×3 (04:06→15:55)
[2018-03-04 05:03] LABS: Hemoglobin 8.4 g/dL (11.5-15.4)
[2018-03-04 05:04] LABS: Nucleated Red Blood Cells 0.1 /100 WBC (0)
[2018-03-04 05:05] LABS: Hematocrit 26.7 % (35.3-44.9); Mean Corpuscular HGB Conc 31.5 g/dL (31.6-35.5); Mean Corpuscular Hemoglobin 30.2 pg (28.0-33.3); Red Blood Count 2.78 M/mcL (3.82-4.97); Red Cell Distribution Width 17.2 % (11.5-14.5)
[2018-03-04 05:08] LABS: Platelet Count 78 K/mcL (140-400)
[2018-03-04 05:22] LABS: Potassium 4.9 mEq/L (3.5-5.1)
[2018-03-04 05:40] LABS: Anisocytosis 1+ (Not Present); Lymphocytes # 7.9 K/mcL (0.6-4.6); Neutrophils # 30.6 K/mcL (1.6-8.9)
[2018-03-04 05:41] LABS: Basophilic Stippling 1+ (Not Present); Platelet Estimate Decreased (Normal); Polychromasia 1+ (Not Present)
[2018-03-04] MEDS: *HR* Heparin 5,000 UNIT/ML VIAL SQ SCH (06:21)
[2018-03-04] MEDS: hydrALAZINE 25 MG TABLET PO SCH (08:53)
[2018-03-04] MEDS: Amoxicillin/Clavulanate 500 MG TABLET PO SCH (08:53)
[2018-03-04] MEDS: Doxycycline 100 MG CAPSULE PO SCH (08:53)
[2018-03-04] MEDS: Insulin LISPRO 300 UNITS/3 ML VIAL SQ SCH ×2 (08:54→11:34)
[2018-03-04] MEDS ORDERED: Furosemide 40 MG/4 ML VIAL IVP ONE (09:37)
--- NOTE | 2018-03-04 09:38 | Nephrology Progress Note ---
Date of Encounter: 03/04/18 Time of Encounter: 09:05 - Assessment and Plan (1) Acute kidney failure, unspecified Current Visit: Yes Status: Acute A/P- Renal fct slow improvement, creat 3.31. Documented urine output 2550cc. Will give IV Lasix 40mg again today. Will continue to monitor. Qualifiers: Acute renal failure type: with acute tubular necrosis Qualified Code(s): N17.0 - Acute kidney failure with tubular necrosis Subjective Principal diagnosis: COPD, pleural effusions Interval history: Sitting up in bed, feeding self breakfast. States feeling better, has noticed LE swelling improved. Objective - Vital Signs Vital signs: Vital Signs Temp Pulse Resp BP Pulse Ox 03/04/18 07:22 97.6 F 64 16 143/56 97 03/04/18 04:09 14 99 03/04/18 03:47 98.3 F 66 19 129/56 96 03/04/18 03:22 94 03/03/18 22:06 16 96 03/03/18 22:01 97.8 F 66 16 145/55 95 03/03/18 15:40 18 97 03/03/18 15:04 98 F 96 18 148/76 97 03/03/18 11:23 97.7 F 97 18 143/68 95 03/03/18 10:23 18 96 Intake and Output 03/03/18 03/04/18 03/04/18 23:59 07:59 15:59 Intake Total 0 / 0 200 / 200 Output Total 200 / 200 700 / 700 Balance -200 / -200 -500 / -500 Intake: Oral 0 / 0 200 / 200 Output: Catheter 200 / 200 700 / 700 Other: Stool Size Small Stool Consistency soft Weight 123.4 kg Blood Glucose* 151 117 Patient Weight 03/04/18 23:59 Weight 123.4 kg - General Appearance General appearance: Present: well-developed, well-nourished, appears started age , obese EENT: Present: mucous membranes moist Neck: Present: no JVD Respiratory: Present: clear Cardiology: Present: edema, regular rate, regular rhythm Additional Comments: 2+ butttock down, improving Gastrointestinal: Present: normoactive bowel sounds, no tenderness Integumentary: Present: warm and dry Neurologic: Present: alert and oriented x3 - Lab 03/04/18 04:48 03/04/18 04:48 Most recent lab results ABG pH 7.33 pH Units (7.32-7.45) 02/23/18 18:48 ABG pCO2 45 mmHg (35-45) 02/23/18 18:48 ABG pO2 63 mmHg (85-104) L 02/23/18 18:48 ABG HCO3 24 mEq/L (21-27) 02/23/18 18:48 ABG O2 Saturation 90 % (95-98) L 02/23/18 18:48 Calcium 8.0 mg/dL (8.6-10.3) L 03/04/18 04:48 Phosphorus 4.0 mg/dL (2.7-4.5) 02/21/18 00:35 Magnesium 1.9 mg/dL (1.6-2.6) 02/21/18 00:35 Urine Creatinine 90 mg/dL 02/27/18 22:23 Ur Total Protein 24 Hr 1453 mg/day (50-80) H 02/27/18 22:23 Urine Total Protein 199 mg/dL (1-14) H 02/27/18 22:23 Consult Discharge Plan - Plan Referrals: Mayra Uribe, SHARDA [Primary Care Provider] -
--- NOTE | 2018-03-04 10:23 | Discharge Summary ---
- NOTES TO OUTPATIENT PROVIDER Notes to Outpatient Provider: Patient admitted here with HCAP, Acute resp failure and treated with IV antibiotics. Developed CIPRIANO. Was treated with gentle IV hydration. Also had right pleural effusion and underwent thoracentessis twice. Transudative. Will be discharged to skilled rehab when accepted. Continue lasix for now due to fluid overload. Recheck BMP in 3 days and follow up with nephrology for further management. Orders not resulted at time of discharge: Pending orders 03/02/18 08:12 Red Blood Cells [BBK] Stat Type and Screen [BBK] Stat Date of Encounter: 03/04/18 Time of Encounter: 10:20 - Discharge Diagnosis (1) Acute respiratory failure with hypoxia Priority: Primary Status: Acute (2) Acute kidney failure, unspecified Priority: Secondary Status: Acute Qualifiers: Acute renal failure type: with acute tubular necrosis Qualified Code(s): N17.0 - Acute kidney failure with tubular necrosis (3) HCAP (healthcare-associated pneumonia) Priority: Secondary Status: Acute (4) Pleural effusion Priority: Secondary Status: Acute (5) Anemia Priority: Secondary Status: Acute Qualifiers: Anemia type: other cause Other causes of anemia: chronic disease, neoplastic Qualified Code(s): D63.0 - Anemia in neoplastic disease (6) DMII (diabetes mellitus, type 2) Priority: Secondary Status: Chronic Qualifiers: Diabetes mellitus intermediate school teacher insulin use: with intermediate school teacher use Diabetes mellitus complication status: with unspecified complications Qualified Code(s) : E11.8 - Type 2 diabetes mellitus with unspecified complications; Z79.4 - FCI (current) use of insulin; Z79.4 - salvage determiner (current) use of insulin; Z79.4 - [facility]CI (current) use of insulin; Z79.4 - salvage determiner (current) use of insulin (7) COPD (chronic obstructive pulmonary disease) Priority: Secondary Status: Chronic Qualifiers: COPD type: unspecified COPD Qualified Code(s): J44.9 - Chronic obstructive pulmonary disease, unspecified (8) MPN (myeloproliferative neoplasm) Priority: Secondary Status: Chronic (9) DVT prophylaxis Priority: Secondary Status: Acute (10) Morbid obesity with BMI of 45.0-49.9, adult Priority: Secondary Status: Chronic (11) Vertigo Priority: Secondary Status: Acute Hospital course: Ms. Suarez is a 72 year old female Patient with history of diabetes, hypertension , sleep anemia, previous history of right lower lobe pneumonia and effusion, myeloproliferative neoplasm was admitted here with HCAP and acute resp failure and treated with IV antibiotics. She did develop acute kidney injury during her hospital stay and nephrology was consulted. She was initially with gentle IV hydration. For her right pleural effusion, she underwent thoracentessis twice. Fluid analysis suggests a transudative effusion. Pleural fluid culture has been negative. She will complete 14 day antibiotics for pneumonia with parapneumonic effusion. She was evaluated by physical therapy and is now ready be discharged to skilled rehab when accepted. Her renal function is improving. Nephrology recommends to continue Lasix for now due to fluid overload. She will follow up with nephrology as outpatient. Recommend checking basic panel in 3 days for follow-up. Patient did receive 2 units PRBC transfusion for anemia. Anemia likely related to acute on chronic anemia with myeloproliferative neoplasm and underlying chronic kidney disease. This will be followed as outpatient with hematology/ oncology. Patient has a Damon catheter that was placed during this hospital stay. I discussed with the patient about removing this prior to discharge. She reports some pain and difficulty passing urine at this time. As such she will be discharged with Damon catheter with goal to remove the catheter in the next 2-3 days. However if her symptoms do not improve and we are unable to remove the Damon catheter, she will need follow-up with urology. Discharge discussed with: patient, executive search consultant - Time Spent with Patient Total time spent providing and/or coordinating discharge services: Greater than 30 minutes (45 min) - Discharge Medications Prescriptions: HYDROcodone/Acet 5/325 mg [[place] 5-325 mg] 1 tab PO Q6HR PRN 5 Days #14 tablet PRN Reason: Moderate Pain Amoxicillin/Clavulanate [Augmentin] 500 mg PO BIDWM #4 tablet Doxycycline 100 mg PO BID #4 capsule Furosemide [Lasix] 40 mg PO DAILY #10 tablet Lactobacillus Acidophilus [Acidophilus] 1 each PO BID #10 capsule Home Medications: Allopurinol [Zyloprim] 300 mg PO DAILY 11/09/17 [History] Docusate [Colace] 100 mg PO BID 11/09/17 [History] Meclizine HCl [Verticalm] 25 mg PO DAILY PRN 11/09/17 [History] Omeprazole [PriLOSEC] 40 mg PO DAILY 11/09/17 [History] Polyethylene Glycol 3350 [MiraLAX] 17 gm PO DAILY PRN 11/09/17 [History] Simvastatin [Zocor] 40 mg PO HS 11/09/17 [History] metFORMIN [Glucophage] 500 mg PO BIDWM 11/09/17 [History] Ipratropium/Albuterol Neb [Duoneb] 3 ml IH Q6H #100 inhsol 11/14/17 [Rx] Carvedilol [Coreg] 25 mg PO BID 02/20/18 [History] Amoxicillin/Clavulanate [Augmentin] 500 mg PO BIDWM #4 tablet 03/04/18 [Rx] Doxycycline 100 mg PO BID #4 capsule 03/04/18 [Rx] Furosemide [Lasix] 40 mg PO DAILY #10 tablet 03/04/18 [Rx] HYDROcodone/Acet 5/325 mg [[place] 5-325 mg] 1 tab PO Q6HR PRN 5 Days #14 tablet 03/04/18 [Rx] Lactobacillus Acidophilus [Acidophilus] 1 each PO BID #10 capsule 03/04/18 [Rx] Nystatin POWDER [Nystop] 1 appl TP BID bottle 03/04/18 [Rx] hydrALAZINE [HydrALAZINE] 50 mg PO BID tablet 03/04/18 [Rx] Allergies/Adverse Reactions: 3 Allergy/AdvReac Type Severity Reaction Status Date / Time Sulfa (Sulfonamide Allergy Fainting Verified 11/09/17 15:58 Antibiotics) Date of admission: 02/20/18 14:36 Primary care physician: Mayra Uribe Consults: 02/20/18 17:06 Consult to Pastoral Services [CONS] Routine Comment: 02/21/18 11:35 Consult to Pulmonology [CONS] Routine Consulting Provider: [facility] [place] Reason for Consult: HCAP with pleural effusion Call Completed: Yes 02/22/18 12:45 Consult to Occupational Therapy [CONS] Routine Comment: Evaluate, develop and implement POC Reason for Consult: Evaluate for discharge needs; Per nursing, patient states she can no longer get out of bed at home. Does patient have active BEDREST order?: No Is patient medically & hemodynamically stable?: Yes Consult to Physical Therapy [CONS] Routine Comment: Evaluate, develop and implement POC Reason for Consult: To assess for possible discharge needs; patient told nursing she can no longer get out of bed at home Does patient have active BEDREST order?: No Is patient medically & hemodynamically stable?: Yes 02/22/18 15:35 Consult to Tire Center Supervisor [CONS] Routine Reason for SW Consult: PT recommending SNF 02/23/18 09:24 Consult to Physical Therapy [CONS] Routine Comment: Evaluate, develop and implement POC Reason for Consult: weakness Does patient have active BEDREST order?: No Is patient medically & hemodynamically stable?: Yes 02/26/18 14:15 Consult to Physician [CONS] Routine Consulting Provider: [facility]ney [facility] Reason for Consult: creat elevated Call Completed: Yes 02/28/18 18:46 Consult to Interventional Radiology [CONS] Routine Consulting Provider: Radiology Interventional Cols Reason for Consult: Layering pleural effusion Call Completed: Yes Discharging clinician: Anel Garner Anticipated date of discharge: 03/04/18 - Constitutional Vitals: Temp Pulse Resp BP Pulse Ox 97.6 F 64 16 143/56 97 03/04/18 07:22 03/04/18 07:22 03/04/18 07:22 03/04/18 07:22 03/04/18 07:22 General appearance: Present: cooperative, A&O X 3, morbidly obese, pleasant, answers questions appropriately - Neck Neck exam general surgery: Present: supple, trachea midline. Absent: lymphadenopathy - Respiratory Respiratory exam: Present: decreased breath sounds (at bases). Absent: accessory muscle use, rales, rhonchi, wheezes - GI/Abdominal GI/Abdominal exam: Present: normal bowel sounds, soft, no peritoneal signs. Absent: distended, tenderness - Extremities Exam Extremities exam: Present: pedal edema, radial pulses palpable and symmetrical. Absent: calf tenderness, cyanotic - Neurological Exam Neurological exam: Present: alert, CN II-XII intact, oriented X3, no focal deficits. Absent: facial droop, speech deficit - Patient Status Disposition: Transfer SNF Condition: Good Functional capacity at discharge: wheelchair bound Overall status at discharge: patient is progressing back to baseline - Discharge Instructions Instructions: Furosemide (By mouth), Doxycycline (By mouth), Hydrocodone/ Acetaminophen (By mouth), Amoxicillin (By mouth), Probiotic (By mouth), Anemia ( GEN), Pneumonia (DC) Follow Up With: Eusebio Salinas DO [Non-Partnered Physician] - 03/19/18 10:15 am (in 1 week) Mayra Uribe CNP [Primary Care Provider] - (in 1-2 weeks) Additional Instructions: Follow up with Oncology as outpatient for Myeloproliferative neoplasm - Diet and Activity Activity: increase activity as tolerated, wear oxygen at all times Diet: diabetic diet, low fat, low cholesterol, low salt diet
--- NOTE | 2018-03-04 10:36 | Physician Discharge Referral ---
ExtendedCare Referral Info Provider in Charge after Transfer: PCP Institutional Level of Care: Skilled - Diagnosis (1) Acute respiratory failure with hypoxia Priority: Primary Status: Acute (2) Acute kidney failure, unspecified Priority: Secondary Status: Acute (3) HCAP (healthcare-associated pneumonia) Priority: Secondary Status: Acute (4) Pleural effusion Priority: Secondary Status: Acute (5) Anemia Priority: Secondary Status: Acute (6) DMII (diabetes mellitus, type 2) Priority: Secondary Status: Chronic (7) COPD (chronic obstructive pulmonary disease) Priority: Secondary Status: Chronic (8) MPN (myeloproliferative neoplasm) Priority: Secondary Status: Chronic (9) DVT prophylaxis Priority: Secondary Status: Acute (10) Morbid obesity with BMI of 45.0-49.9, adult Priority: Secondary Status: Chronic (11) Vertigo Priority: Secondary Status: Acute Prognosis: Fair Aware of Diagnosis: Patient Aware of Prognosis: Patient - Transfer Medications Prescriptions: HYDROcodone/Acet 5/325 mg [[place] 5-325 mg] 1 tab PO Q6HR PRN 5 Days #14 tablet PRN Reason: Moderate Pain Amoxicillin/Clavulanate [Augmentin] 500 mg PO BIDWM #4 tablet Doxycycline 100 mg PO BID #4 capsule Furosemide [Lasix] 40 mg PO DAILY #10 tablet Lactobacillus Acidophilus [Acidophilus] 1 each PO BID #10 capsule Home Medications: Allopurinol [Zyloprim] 300 mg PO DAILY 11/09/17 [History] Docusate [Colace] 100 mg PO BID 11/09/17 [History] Meclizine HCl [Verticalm] 25 mg PO DAILY PRN 11/09/17 [History] Omeprazole [PriLOSEC] 40 mg PO DAILY 11/09/17 [History] Polyethylene Glycol 3350 [MiraLAX] 17 gm PO DAILY PRN 11/09/17 [History] Simvastatin [Zocor] 40 mg PO HS 11/09/17 [History] metFORMIN [Glucophage] 500 mg PO BIDWM 11/09/17 [History] Ipratropium/Albuterol Neb [Duoneb] 3 ml IH Q6H #100 inhsol 11/14/17 [Rx] Carvedilol [Coreg] 25 mg PO BID 02/20/18 [History] Amoxicillin/Clavulanate [Augmentin] 500 mg PO BIDWM #4 tablet 03/04/18 [Rx] Doxycycline 100 mg PO BID #4 capsule 03/04/18 [Rx] Furosemide [Lasix] 40 mg PO DAILY #10 tablet 03/04/18 [Rx] HYDROcodone/Acet 5/325 mg [[place] 5-325 mg] 1 tab PO Q6HR PRN 5 Days #14 tablet 03/04/18 [Rx] Lactobacillus Acidophilus [Acidophilus] 1 each PO BID #10 capsule 03/04/18 [Rx] Nystatin POWDER [Nystop] 1 appl TP BID bottle 03/04/18 [Rx] hydrALAZINE [HydrALAZINE] 50 mg PO BID tablet 03/04/18 [Rx] Allergies/Adverse Reactions: 3 Allergy/AdvReac Type Severity Reaction Status Date / Time Sulfa (Sulfonamide Allergy Fainting Verified 11/09/17 15:58 Antibiotics) - Respiratory Orders Oxygen / L per min (3) Smoking Cessation: Smoking cessation has been advised. For more information, call the [employer] Quit Line at 0-764-FOCV-NOW. - Lab Orders Lab Orders: Other (include drug levels w/frequency) (CBC, BMP in 3 days) - Ancillary Orders May consult with Dentist, Set Designer, Support Architect PRN - Advance Directives Code Status: Full Code - Mobility Orders Ambulate (per PT) - Rehabiliation Orders Rehab Potential: Fair Rehab Orders: Evaluation for Physical Therapy, Evaluation for Occupational Therapy - Treatments List/Other: Patient being discharged with Damon catheter for now. Plan is to remove Damon catheter in 2-3 days. If patient fails voiding trial afterwards, she may need referral to urology. - Diet Orders Cardiac CERTIFICATION: I certify that the transfer of the above named patient to an Extended Care Facility is necessary for the continuing treatment of the diagnosis listed. The above information is true and accurate reflection of patient's current condition. Confidential - Redisclosure prohibited without a patient's written consent.
[2018-03-04] MEDS: Nystatin POWDER 30 GM BOTTLE TP SCH (11:34)
[2018-03-13 08:35] VITALS: BP 170/72
== END 2018-03-04 15:56 | DRG 139 ==
LOC: 2NENU 09:51 → EMEROO 09:51 → SUATTDRO 14:36 → 2NENU 15:06
PROVIDERS: ADMIT Internal Medicine; ATTEND Internal Medicine

== ENCOUNTER 2018-07-04 21:07 | Inpatient (IN) ==
[2018-07-04 21:51] LABS: Bilirubin,Urine Negative (Negative); Blood,Urine Negative (Negative); Clarity,Urine Cloudy (Clear); Color,Urine Yellow (Yellow); Glucose,Urine (UA) Normal (Normal); Ketones,Urine Negative (Negative); Leukocyte Esterase,Urine Large (Negative); Nitrite,Urine Negative (Negative); Protein,Urine 100 mg/dL (Neg-Trace); Urobilinogen,Urine Normal (Normal)
[2018-07-04 21:53] LABS: Bacteria,Urine Few per hpf (None-Few); Hyaline Casts,Urine None Seen per lpf (None-Few); RBC,Urine 0-3 per hpf (0-3); Squamous Epithelial Cell,Urine Moderate per lpf (None-Few); WBC,Urine TNTC per hpf (0-3)
[2018-07-04] MEDS ORDERED: Piperacillin/Tazobactam 3.375 GM in 0.9 % Sodium Chloride Mini Bag 100 ML IVPB ONE (23:19)
--- NOTE | 2018-07-04 23:34 | Emergency Department Note ---
Disposition Clinical Impression: UTI (urinary tract infection) Qualifiers: Urinary tract infection type: site unspecified Hematuria presence: without hematuria Qualified Code(s): N39.0 - Urinary tract infection, site not specified Leukocytosis Qualifiers: Leukocytosis type: unspecified Qualified Code(s): D72.829 - Elevated white blood cell count, unspecified Disposition: Admitted As Inpatient Condition: Good Female Urogenital HPI - General Chief complaint: ED Urogenital-Female Stated complaint: UTI Time Seen by Provider: 07/04/18 22:57 Source: patient Mode of arrival: private vehicle Limitations: no limitations Nursing Notes Reviewed: Yes Vital Signs Reviewed: Yes - History of Present Illness HPI Narrative: 73-year-old female presents to the ER with a complaint of dysuria. Reports 3 weeks of symptoms intermittently being treated twice for UTI. She finished her antibiotics 2 days ago. She believes she was on Keflex then. She started developing dysuria again yesterday. She denies any systemic symptoms including fevers nausea vomiting or diarrhea. Symptoms were improving so she came here. No other complaints. Pt Subjective Complaint: "UTI" Onset (ago): day(s) Improves with: none Worsens with: none Urinary Symptoms: dysuria Associated symptoms: Reports: denies other symptoms - Related Data Home Medications Medication Instructions Recorded Confirmed Allopurinol [Zyloprim] 300 mg PO DAILY 11/09/17 06/21/18 Docusate [Colace] 100 mg PO BID 11/09/17 06/21/18 Meclizine HCl [Verticalm] 25 mg PO DAILY PRN 11/09/17 06/21/18 Omeprazole [PriLOSEC] 40 mg PO DAILY 11/09/17 06/21/18 Polyethylene Glycol 3350 [MiraLAX] 17 gm PO DAILY PRN 11/09/17 06/21/18 Simvastatin [Zocor] 40 mg PO HS 11/09/17 06/21/18 metFORMIN [Glucophage] 500 mg PO BIDWM 11/09/17 06/21/18 Carvedilol [Coreg] 25 mg PO BID 02/20/18 06/21/18 Previous Rx's Medication Instructions Recorded Ipratropium/Albuterol Neb [Duoneb] 3 ml IH Q6H #100 inhsol 11/14/17 Furosemide [Lasix] 40 mg PO DAILY #10 tablet 03/04/18 Lactobacillus Acidophilus 1 each PO BID #10 capsule 03/04/18 [Acidophilus] Nystatin POWDER [Nystop] 1 appl TP BID bottle 03/04/18 hydrALAZINE [HydrALAZINE] 50 mg PO BID tablet 03/04/18 Cephalexin [Keflex] 500 mg PO BID #14 capsule 06/08/18 Phenazopyridine HCl [Pyridium] 200 mg PO TID #6 tab 06/08/18 Nitrofurantoin Monohyd/M-Cryst 100 mg PO BID #14 capsule 06/21/18 [Macrobid 100 mg Capsule] Nystatin POWDER [Nystop] 1 appl TP TID #30 gm 06/21/18 Phenazopyridine [Pyridium] 100 mg PO TID #9 tablet 06/21/18 Doxycycline 100 mg PO BID #20 capsule 06/22/18 Allergies Allergy/AdvReac Type Severity Reaction Status Date / Time Sulfa (Sulfonamide Allergy Fainting Verified 07/04/18 21:21 Antibiotics) All systems ED: reviewed and negative except as stated. Constitutional: Denies: fever, chills Gastrointestinal: Denies: abdominal pain, nausea, vomiting, diarrhea Genitourinary: Reports: dysuria. Denies: hematuria Past Medical History - Past Medical History Attestation: Yes The following information was validated with the patient. Source: patient Medical history: Reports: CHF, diabetes, hyperlipidemia, hypertension Surgical history: Reports: other (Bone marrow biopsy) Psychiatric history: Reports: no psych history MANAGER UNIVERSITY history: Reports: no MANAGER UNIVERSITY history - Social History Smoking Status: Never smoker Smokeless Tobacco Status: No Alcohol use: Reports: none Drug use: Reports: none Physical Exam - General Limitations: no limitations General appearance: alert, in no apparent distress - Head Head exam: atraumatic, normocephalic - Eye Eye exam: Present: normal appearance - ENT ENT exam: normal exam - Neck Neck exam: Present: normal inspection - Chest Chest inspection: Present: normal inspection, symmetric chest wall rise - Respiratory Respiratory exam: Present: normal lung sounds bilaterally - Cardiovascular Cardiovascular exam: Present: regular rate, normal rhythm, normal heart sounds - Abdominal Exam Abdominal exam: Present: soft, Non-Tender. Absent: tenderness, distention, guarding, rigidity - Extremities Exam Extremities exam: Present: normal inspection, full ROM - Expanded Upper Extremity Exam Shoulder exam: Present: normal inspection, full ROM Arm exam: Present: normal inspection, full ROM Elbow exam: Present: normal inspection, full ROM Forearm/Wrist exam: Present: normal inspection, full ROM Hand exam: Present: normal inspection, full ROM - Expanded Lower Extremity Exam Hip/Pelvis exam: Present: normal inspection, full ROM Upper leg exam: Present: normal inspection, full ROM Knee exam: Present: normal inspection, full ROM Lower leg exam: Present: normal inspection, full ROM Ankle exam: Present: normal inspection, full ROM Foot/toe exam: Present: normal inspection, full ROM - Back Exam Back exam: Absent: CVA tenderness (R), CVA tenderness (L) - Skin Skin exam: Present: warm, dry Course Course Narrative: Patient seen and examined. Vital signs reviewed. Urinalysis continues to demonstrate a UTI. Reviewed her prior cultures demonstrating resistance to oral antibiotics. Plan to check baseline labs, Zosyn and admission. Vital Signs Temperature 98.4 F 07/04/18 21:16 Pulse Rate 72 07/04/18 21:16 Respiratory Rate 16 07/04/18 21:16 Blood Pressure 152/75 07/04/18 21:16 O2 Sat by Pulse Oximetry 99 07/04/18 21:16 Temperature 98.4 F 07/04/18 21:16 Pulse Rate 77 07/04/18 22:30 Respiratory Rate 20 07/04/18 22:30 Blood Pressure 108/63 07/04/18 22:30 O2 Sat by Pulse Oximetry 98 07/04/18 22:30 Oxygen Delivery Oxygen Delivery Room Air Urogenital-Female - MDM Narrative Medical decision making narrative: 73-year-old female with dysuria with multiple UTIs previously treated as an outpatient. Prior urine culture demonstrates resistance to oral antibiotics. Well-appearing here. Hemogram is stable. Zosyn for UTI. Admission to the hospitalist. - Lab Data Lab results reviewed: Yes I reviewed the patient's lab results. Result diagrams: 07/04/18 23:59 07/04/18 23:59 Lab Results 07/04/18 07/04/18 07/04/18 Range/Units 21:34 23:59 23:59 WBC 51.2 H* (4.3-11.1) K/mcL RBC 3.44 L (3.82-4.97) M/mcL Hgb 10.8 L (11.5-15.4) g/dL Hct 33.5 L (35.3-44.9) % MCV 97.4 (83.0-100.0) fL MCH 31.4 (28.0-33.3) pg MCHC 32.2 (31.6-35.5) g/dL RDW 18.1 H (11.5-14.5) % Plt Count 58 L (140-400) K/mcL Immature Gran % JUNIOR ART DIRECTOR Seg Neutrophils % 14.0 % Lymphocytes % 20.0 % Monocytes % 66.0 % Eosinophils % JUNIOR ART DIRECTOR Basophils % JUNIOR ART DIRECTOR Neutrophils # 7.2 (1.6-8.9) K/mcL Lymphocytes # 10.2 H (0.6-4.6) K/mcL Monocytes # 33.8 H (0.0-1.3) K/mcL Eosinophils # JUNIOR ART DIRECTOR Basophils # JUNIOR ART DIRECTOR Platelet Estimate Decreased L (Normal) PT 13.0 H (9.4-12.1) Seconds INR 1.2 Sodium (136-145) mEq/L Potassium (3.5-5.1) mEq/L Chloride (98-107) mEq/L Carbon Dioxide (23-29) mEq/L BUN (8-23) mg/dL Creatinine (0.60-1.20) mg/dL Est GFR ( Amer) (> 60) Est GFR (Non-Af Amer) (> 60) BUN/Creatinine Ratio (6-26) Glucose (70-105) mg/dL Calculated Osmolality (280-300) Calcium (8.6-10.3) mg/dL Urine Color Yellow (Yellow) Urine Clarity Cloudy A (Clear) Urine pH 6.0 (5.0-8.0) pH Units Ur Specific [place] 1.010 (1.010-1.025) Urine Protein 100 H (Neg-Trace) mg/dL Urine Glucose (UA) Normal (Normal) mg/dL Urine Ketones Negative (Negative) mg/dL Urine Blood Negative (Negative) Urine Nitrite Negative (Negative) Urine Bilirubin Negative (Negative) Urine Urobilinogen Normal (Normal) mg/dL Ur Leukocyte Esterase Large H (Negative) Urine Microscopic RBC 0-3 (0-3) per hpf Urine Microscopic WBC TNTC H (0-3) per hpf Ur Squamous Epith Cells Moderate H (None-Few) per lpf Urine Bacteria Few (None-Few) per hpf Hyaline Casts None Seen (None-Few) per lpf Ur Culture Indicated? YES A (NO) 07/04/18 Range/Units 23:59 WBC (4.3-11.1) K/mcL RBC (3.82-4.97) M/mcL Hgb (11.5-15.4) g/dL Hct (35.3-44.9) % MCV (83.0-100.0) fL MCH (28.0-33.3) pg MCHC (31.6-35.5) g/dL RDW (11.5-14.5) % Plt Count (140-400) K/mcL Immature Gran % Seg Neutrophils % % Lymphocytes % % Monocytes % % Eosinophils % Basophils % Neutrophils # (1.6-8.9) K/mcL Lymphocytes # (0.6-4.6) K/mcL Monocytes # (0.0-1.3) K/mcL Eosinophils # Basophils # Platelet Estimate (Normal) PT (9.4-12.1) Seconds INR Sodium 135 L (136-145) mEq/L Potassium 3.6 (3.5-5.1) mEq/L Chloride 101 (98-107) mEq/L Carbon Dioxide 26 (23-29) mEq/L BUN 57 H (8-23) mg/dL Creatinine 1.43 H (0.60-1.20) mg/dL Est GFR ( Amer) 43 L (> 60) Est GFR (Non-Af Amer) 36 L (> 60) BUN/Creatinine Ratio 40 H (6-26) Glucose 142 H (70-105) mg/dL Calculated Osmolality 298 (280-300) Calcium 9.0 (8.6-10.3) mg/dL Urine Color (Yellow) Urine Clarity (Clear) Urine pH (5.0-8.0) pH Units Ur Specific [place] (1.010-1.025) Urine Protein (Neg-Trace) mg/dL Urine Glucose (UA) (Normal) mg/dL Urine Ketones (Negative) mg/dL Urine Blood (Negative) Urine Nitrite (Negative) Urine Bilirubin (Negative) Urine Urobilinogen (Normal) mg/dL Ur Leukocyte Esterase (Negative) Urine Microscopic RBC (0-3) per hpf Urine Microscopic WBC (0-3) per hpf Ur Squamous Epith Cells (None-Few) per lpf Urine Bacteria (None-Few) per hpf Hyaline Casts (None-Few) per lpf Ur Culture Indicated? (NO) SAleta - Nathan Situation: Demographics, MOA Background: Presenting Complaint, Relevant PMH, Meds, & Allergies Assessment: Course and respsone to treatment, Exam Concerns, Patient/Family Expectation, Pertinant Lab Results Recommendation: Barrier(s) to disposition, Recommendation based on pending studies, treatments, or consults SAleta Report Given to: Dr. Gee Evans Repor Time: 02:02 Attestation Statement - Attestation Attestation: I examined this patient and my medical decision-making was reviewed with the Resident Physician, Dr. Adames. I agree with the documented findings, disposition and treatment plan as described except to the extent set forth below. Patient is a 73-year-old white female who presents to the emergency department with ongoing dysuria and urinary symptoms despite 2 rounds of antibiotics over the past few weeks for UTI. Patient states she finished her last round of antibiotics 2 days ago and yesterday began with recurrence of dysuria and urinary frequency. Patient denies fevers chills, no blood in the urine, no flank pain, no abdominal pain, no nausea vomiting no other associated symptoms. I agree with patient's physical exam findings as documented. Vital signs are stable. After review of patient's medical records her urine culture is brought in to oral antibiotics. We will start patient on Zosyn IV which she is susceptible to an admit the patient for a drug resistant urinary tract infection. Patient remains hemodynamically stable and resting complaint bedside. Case was discussed with hospitalist to accept patient for admission.
[2018-07-05 00:18] LABS: Mean Corpuscular HGB Conc 32.2 g/dL (31.6-35.5); Red Cell Distribution Width 18.1 % (11.5-14.5)
[2018-07-05 00:20] LABS: Hematocrit 33.5 % (35.3-44.9); Hemoglobin 10.8 g/dL (11.5-15.4); Mean Corpuscular Hemoglobin 31.4 pg (28.0-33.3); Mean Corpuscular Volume 97.4 fL (83.0-100.0); Red Blood Count 3.44 M/mcL (3.82-4.97)
[2018-07-05 00:27] LABS: INR 1.2
[2018-07-05 00:29] LABS: Potassium 3.6 mEq/L (3.5-5.1)
[2018-07-05 00:40] LABS: Platelet Count 58 K/mcL (140-400)
[2018-07-05 00:45] LABS: Lymphocytes # 10.2 K/mcL (0.6-4.6); Monocytes # 33.8 K/mcL (0.0-1.3); Neutrophils # 7.2 K/mcL (1.6-8.9)
[2018-07-05 00:46] LABS: Platelet Estimate Decreased (Normal)
[2018-07-05] MEDS ORDERED: Naloxone 0.4 MG/ML INJ IVP PRN (07:43)
--- NOTE | 2018-07-05 08:59 | Internal Med History&Physical ---
Date of Encounter: 07/05/18 Time of Encounter: 08:57 Internal Medicine - H&P: HPI Chief complaint: burning urination Admitted From: Long-term Nursing Facility Plans for Post Hospital Care: Transfer Residential Facility History of present illness: Ms. Suarez is a 73 year old female past medical history of diabetes, CHF, hyperlipidemia, hypertension, chronic kidney disease, gout, MPN(NOS) presented with complaint of dysuria. Patient had symptoms of burning urination for about 3 weeks. Patient has been treated twice first with doxycycline and later with Keflex which she finished 2 days ago. She had recurrence of burning urination which made her come to the hospital. Admits to having nausea but denies any vomiting, abdominal pain, back pain, chest pain, shortness of breath, fevers or chills. She has constipation and on and off which occasionally requires enema. She has long-standing history of dizziness. She was morbidly obese and has lost significant weight. She uses walker at the custodial however has to lay down on bed for many hours of the day. Denies any incontinence. Denies any palpitation or lightheadedness.. Past Med Surg Social Fam HX - Past Medical History Medical history: CHF, diabetes, hyperlipidemia, hypertension Additional medical history: myeloid leukemia, gout Psychiatric history: no psych history - Past Surgical History Surgical History: no surgical history, other Additional surgical history: thoracentesis - Social History Smoking Status: Never smoker Smokeless Tobacco Status: No Alcohol use: none Drug use: none - Family History Mother Family Member Ethnicity: Non- Living Status: Hx Family Cardiac Disorders: Yes ([place]) Internal Medicine - H&P: Meds RX: Allopurinol [Zyloprim] 300 mg PO DAILY 11/09/17 [History] RX: Docusate [Colace] 100 mg PO DAILY 11/09/17 [History] RX: Omeprazole [PriLOSEC] 40 mg PO DAILY 11/09/17 [History] RX: Polyethylene Glycol 3350 [MiraLAX] 17 gm PO DAILY PRN 11/09/17 [History] RX: Simvastatin [Zocor] 40 mg PO HS 11/09/17 [History] RX: metFORMIN [Glucophage] 500 mg PO BIDWM 11/09/17 [History] RX: Carvedilol [Coreg] 25 mg PO BID 02/20/18 [History] RX: Furosemide [Lasix] 40 mg PO DAILY #10 tablet 03/04/18 [Rx] HYDROcodone/Acet 5/325 mg [[place] 5-325 mg] 1 tab PO Q6H PRN 07/05/18 [History] NIFEdipine [Nifedipine ER] 90 mg PO DAILY 07/05/18 [History] RX: Hydralazine HCl 50 mg PO BID 07/05/18 [History] RX: Ipratropium [place] 2 puff NS QID PRN 07/05/18 [History] RX: Lactobacillus Acidophilus [Acidophilus] 1 cap PO DAILY 07/05/18 [History] RX: Nystatin Cream [Mycostatin Cream] 1 appl TP BID 07/05/18 [History] Witch Denita [Preparation H] 1 appl TP BID 07/05/18 [History] 3 Allergy/AdvReac Type Severity Reaction Status Date / Time Sulfa (Sulfonamide Allergy Fainting Verified 07/04/18 21:21 Antibiotics) All Systems PM: A 10-system review of systems was performed and is negative for pertinent findings except as documented above in the HPI. - Constitutional Vitals: Temp Pulse Resp BP Pulse Ox 98.3 F 66 16 143/82 97 07/05/18 07:31 07/05/18 07:31 07/05/18 07:31 07/05/18 07:31 07/05/18 07:31 General appearance: Present: A&O X 3, no acute distress Exam: Constitutional: Vitals as noted. Conversant. No Apparent Distress. Well grommed. Obese. No obvious deformities. Eyes exam: Sclera white, conjunctiva clear, no lid lag, PEARLA. ENT exam: Grossly normal hearing. Nasophargeal and Oropharyngeal exam unremarkable. Moist mucus membranes. No JVD, carotid bruit, no cervical lymphadenopathy. no thyromegaly or mass. Respiratory exam: Clear to auscultation bilaterally. No accessory muscle use, rales, rhonchi or wheezes Cardiovascular exam: RRR, +S1, +S2. no murmur, gallop, rubs. No chest wall tenderness GI/Abdominal exam: Soft, Non-tender, Non-distended, normal bowel sounds, soft, no peritoneal signs. no orgenomegaly or mass appreciated. no hernia. Obese Musculoskeletal exam: full ROM, no atrophy or deformity noted. no edema or cyanosis, warm, pulses palpable and symmetrical in UE/LE. no calf tenderness. Neurological exam: AO X3, CN II-XII grossly intact, grossly normal motor and sensory exam. decreases strength in LE b/l Skin exam: No skin rash, lesions or ulcers noted. no purpura or ecchymosis. Pych: Good insight and judgement. Intact memory. AOx3. Mood and affect Internal Med - H&P Results - Labs CBC & Chem 7: 07/04/18 23:59 07/05/18 08:31 - Assessment and plan (1) UTI (urinary tract infection) Current Visit: Yes Status: Acute Assessment and plan: Patient has evidence of UTI by history and laboratory evidence - Failed the 2 course of outpatient oral antibiotics - Has history of UTI in the past most recently treated last month and earlier this month. Urine grew Proteus. - We will continue patient on Zosyn given the previous cultures and sensitivity. Received 1 dose in ER. - Follow urine and blood culture - We will consult infectious disease. Qualifiers: Urinary tract infection type: site unspecified Hematuria presence: without hematuria Qualified Code(s): N39.0 - Urinary tract infection, site not specified (2) CKD (chronic kidney disease) stage 3, GFR 30-59 ml/min Current Visit: Yes Status: Acute Assessment and plan: - Appears to have security stage III - Possible the from diabetes and hypertension. history of gout as well - Appears at baseline. 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 Appears at baseline Qualifiers: Leukocytosis type: unspecified Qualified Code(s): D72.829 - Elevated white blood cell count, unspecified (4) Anemia Current Visit: No Status: Acute Assessment and plan: - Appears at baseline with monitor - Likely from CKD Qualifiers: Anemia type: other cause Other causes of anemia: chronic disease, neoplastic Qualified Code(s): D63.0 - Anemia in neoplastic disease (5) DVT prophylaxis Current Visit: No Status: Acute Assessment and plan: - EPCD given thrombocytopenia (6) Diastolic heart failure Current Visit: No Status: Chronic Assessment and plan: Continue home Lasix and Coreg Qualifiers: Heart failure chronicity: chronic Qualified Code(s): I50.32 - Chronic diastolic (congestive) heart failure (7) COPD (chronic obstructive pulmonary disease) Current Visit: No Status: Chronic Assessment and plan: - Continue duo nebs prn Qualifiers: COPD type: unspecified COPD Qualified Code(s): J44.9 - Chronic obstructive pulmonary disease, unspecified (8) DMII (diabetes mellitus, type 2) Current Visit: No Status: Chronic Assessment and plan: - Hold metformin for now will manage with sliding scale insulin and Accu-Cheks Qualifiers: Diabetes mellitus oysterman insulin use: with oysterman use Diabetes mellitus complication status: with unspecified complications Qualified Code(s) : E11.8 - Type 2 diabetes mellitus with unspecified complications; Z79.4 - longterm (current) use of insulin; Z79.4 - laborer marine terminal (current) use of insulin; Z79.4 - laborer marine terminal (current) use of insulin; Z79.4 - laborer marine terminal (current) use of insulin (9) LUCAS (obstructive sleep apnea) Current Visit: No Status: Chronic Assessment and plan: - Was on CPAP before - However not using it currently. - CPAP at night (10) HTN (hypertension) Current Visit: Yes Status: Acute Assessment and plan: -Continue home Coreg, nifedipine and hydralazine Qualifiers: Qualified Code(s): I10 - Essential (primary) hypertension - Time Spent With Patient Total time spent is greater than 50% in coordination of care (as documented) at patient's floor/unit and/or counseling patient:
[2018-07-05 09:23] LABS: Calcium 8.8 mg/dL (8.6-10.3); Potassium 3.2 mEq/L (3.5-5.1)
[2018-07-05] MEDS: Piperacillin/Tazobactam 3.375 GM in 0.9 % Sodium Chloride Mini Bag 100 ML IVPB SCH ×3 (10:07→23:46)
--- NOTE | 2018-07-05 13:42 | Infectious Disease Consult ---
Date of Encounter: 07/05/18 Time of Encounter: 13:39 Assessment and Plan (1) Leukocytosis Status: Chronic Assessment and plan: Likely secondary to the patient's chronic low proliferative neoplasm. Follows with [facility]. Continue to trend. Per the patient, a white blood cell count of 51,000 is markedly improved for her as it has been up in the 90,000s before. Qualifiers: Leukocytosis type: unspecified Qualified Code(s): D72.829 - Elevated white blood cell count, unspecified (2) UTI (urinary tract infection) Status: Acute Assessment and plan: Causative organism: Unclear. Likely Proteus based on previous culture results. This is likely relapse of the same infection due to inadequate antibiotic therapy as the patient was treated with antibiotics that the bacteria is not sensitive to. I anticipate that with appropriate treatment, she will do well clinically. No evidence of pyelonephritis. She does have leukocytosis, but this is likely secondary to her chronic condition more so than an acute infection. She has no other sepsis criteria. Await urine culture. If Proteus grows again, we may be able to treat her with oral fosfomycin, but we will await cultures before making those recommendations. Continue Zosyn 3.375 g IV every 8 hours. Duration of treatment with the clinical picture. Monitor renal function and dose adjust antibiotics. Qualifiers: Urinary tract infection type: site unspecified Hematuria presence: without hematuria Qualified Code(s): N39.0 - Urinary tract infection, site not specified (3) CKD (chronic kidney disease) stage 3, GFR 30-59 ml/min Status: Chronic Assessment and plan: Serum creatinine appears to be at or below baseline. Continue to trend. Dose adjust antibiotics if needed. Avoid nephrotoxins as able. (4) Anemia Status: Chronic Assessment and plan: Chronic. Likely secondary to her chronic myeloproliferative neoplasm. Continue to trend. Further workup and management per the primary team. Qualifiers: Anemia type: other cause Other causes of anemia: chronic disease, neoplastic Qualified Code(s): D63.0 - Anemia in neoplastic disease (5) Diastolic heart failure Status: Chronic Qualifiers: Heart failure chronicity: chronic Qualified Code(s): I50.32 - Chronic diastolic (congestive) heart failure (6) COPD (chronic obstructive pulmonary disease) Status: Chronic Qualifiers: COPD type: unspecified COPD Qualified Code(s): J44.9 - Chronic obstructive pulmonary disease, unspecified (7) DMII (diabetes mellitus, type 2) Status: Chronic Assessment and plan: Recommend aggressive glucose monitoring and control. Management per the primary team. Qualifiers: Diabetes mellitus fpc insulin use: with fulfillment representative use Diabetes mellitus complication status: with unspecified complications Qualified Code(s) : E11.8 - Type 2 diabetes mellitus with unspecified complications; Z79.4 - jail (current) use of insulin; Z79.4 - jail (current) use of insulin; Z79.4 - jail (current) use of insulin; Z79.4 - jail (current) use of insulin (8) MPN (myeloproliferative neoplasm) Status: Chronic Assessment and plan: Follows with oncology at the [facility] [place] at [facility]. Not currently on any Treatment. Monitoring blood work biweekly with follow-up appointments every 3 months. (9) Morbid obesity with BMI of 45.0-49.9, adult Status: Chronic (10) LUCAS (obstructive sleep apnea) Status: Chronic Infectious Disease HPI - Data of Consult Patient: new to practice Consult date: 07/05/18 Requesting Physician: Osmar Flynn MD Primary Care Provider: Mayra Uribe - Consult Narrative Reason for consult: UTI History of present illness: Ms. Suarez is a 73 year old female with a past medical history of myeloproliferative neoplasm not currently on treatment and follows with the [facility], CHF, diabetes, hyperlipidemia , hypertension, and chronic kidney disease. The patient was admitted to the hospital July 04 for UTI. We are consulted July 05 for further recommendations for urinary tract infection. Briefly, the patient's a 73-year-old female with past medical history as stated above. The patient was evaluated back on June 08 at urgent care with symptoms of UTI. She was given a seven-day course of oral Keflex twice a day, which she completed. She reported minimal improvement in her symptoms and states her symptoms recurred after completing the treatment. She was evaluated at [facility] emergency department on June 21 and given a 7 day course of Macrobid and ten-day course of doxycycline, which she completed. She states her symptoms again improved somewhat, but recurred about 2 days after completing the course of treatment. Upon arrival to the ER, the patient was afebrile and hemodynamically stable. She had a white blood cell count of 51, 000 indicative of her myeloproliferative neoplasm. Her serum creatinine was elevated at 1.43, which is actually better than what appears to be her baseline. Urinalysis was positive for pyuria. Urine culture is pending. The patient was placed on IV Zosyn and admitted to the hospital for further evaluation. Since admission, the patient has remained afebrile hemodynamically stable. Her white blood cell count was not checked this morning. Her renal function is stable. Currently, she is on IV Zosyn. We have been asked to evaluate and make further recommendations. During my exam today, the patient endorses a history as stated above. She denies any known fevers or chills or rigors. She denies any headache, neck pain , weakness, or dizziness. She denies any chest pain. She does report chronic shortness of breath and cough and her baseline secondary to her chronic COPD. She denies any abdominal pain, nausea, vomiting, or diarrhea. She does report throat burning and dysuria and urinary frequency. She denies any back or flank pain. She denies any suprapubic pain. She denies any oral thrush or skin lesions. The patient currently lives at home with her friend. She denies any tobacco, alcohol, or illicit drug use. She denies recent travel outside the [facility]. She is not sexually active. CC: Osmar Flynn MD Past Med Surg Social Fam HX - Past Medical History Attestation: Yes The following information was validated with the patient. Source: patient, old records reviewed, nursing notes reviewed Medical history: CHF, diabetes, hyperlipidemia, hypertension Additional medical history: Myeloproliferative neoplasm, gout Psychiatric history: no psych history - Past Surgical History Surgical History: no surgical history, other Additional surgical history: thoracentesis - Social History Smoking Status: Never smoker Smokeless Tobacco Status: No Alcohol use: none Drug use: none - Family History Mother Family Member Ethnicity: Non- Living Status: Hx Family Cardiac Disorders: Yes ([place]) Infectious Disease-CN:Meds Allopurinol [Zyloprim] 300 mg PO DAILY 11/09/17 [History] Docusate [Colace] 100 mg PO DAILY 11/09/17 [History] Omeprazole [PriLOSEC] 40 mg PO DAILY 11/09/17 [History] Polyethylene Glycol 3350 [MiraLAX] 17 gm PO DAILY PRN 11/09/17 [History] Simvastatin [Zocor] 40 mg PO HS 11/09/17 [History] metFORMIN [Glucophage] 500 mg PO BIDWM 11/09/17 [History] Carvedilol [Coreg] 25 mg PO BID 02/20/18 [History] Furosemide [Lasix] 40 mg PO DAILY #10 tablet 03/04/18 [Rx] HYDROcodone/Acet 5/325 mg [[place] 5-325 mg] 1 tab PO Q6H PRN 07/05/18 [History] Hydralazine HCl 50 mg PO BID 07/05/18 [History] Ipratropium [place] 2 puff NS QID PRN 07/05/18 [History] Lactobacillus Acidophilus [Acidophilus] 1 cap PO DAILY 07/05/18 [History] NIFEdipine [Nifedipine ER] 90 mg PO DAILY 07/05/18 [History] Nystatin Cream [Mycostatin Cream] 1 appl TP BID 07/05/18 [History] Witch Denita [Preparation H] 1 appl TP BID 07/05/18 [History] 3 Allergy/AdvReac Type Severity Reaction Status Date / Time Sulfa (Sulfonamide Allergy Fainting Verified 07/04/18 21:21 Antibiotics) All systems: reviewed and no additional remarkable complaints except as stated Exam - Constitutional Vitals: Temp Pulse Resp BP Pulse Ox 97.9 F 74 14 137/77 99 07/05/18 09:47 07/05/18 09:47 07/05/18 09:47 07/05/18 09:47 07/05/18 09:47 General appearance: cooperative, morbidly obese, no acute distress - Head Head exam: Present: atraumatic, normal inspection, normocephalic - Eye Eye exam: Present: EOMI, normal appearance, PERRL Pupils: Present: normal accommodation - ENT ENT exam: Present: mucous membranes moist - Neck Neck exam: Present: normal inspection - Respiratory Respiratory exam: Present: CTAB. Absent: rales, respiratory distress, rhonchi, wheezes - Cardiovascular Cardiovascular exam: Present: RRR, +S1, +S2 - GI/Abdominal GI/Abdominal exam: Present: distended, normal bowel sounds, soft. Absent: tenderness - Extremities Exam Extremities exam: Present: normal inspection. Absent: joint swelling, pedal edema, tenderness - Back Exam Back exam: Present: normal inspection. Absent: CVA tenderness (L), CVA tenderness (R) - Neurological Exam Neurological exam: Present: alert, oriented X3, no focal deficits - Psychiatric Psychiatric exam: Present: normal affect, normal mood - Skin Skin exam: Present: dry, intact, normal color, warm Infectious Disease CN: Results - Labs CBC & Chem 7: 07/08/18 07:19 07/08/18 07:19 Consult Discharge Plan - Plan Referrals: Mayra Uribe CNP [Primary Care Provider] -
[2018-07-05] MEDS ORDERED: Ipratropium/Albuterol Neb 3 ML IH PRN (15:42)
[2018-07-05] MEDS: Insulin LISPRO 300 UNITS/3 ML VIAL SQ SCH ×2 (17:59)
[2018-07-05] MEDS: hydrALAZINE 25 MG TABLET PO SCH (20:30)
[2018-07-05] MEDS: Nystatin Cream 15 GM TUBE TP SCH (23:47)
[2018-07-06 05:59] LABS: Mean Corpuscular HGB Conc 32.1 g/dL (31.6-35.5)
[2018-07-06 06:01] LABS: Hematocrit 29.3 % (35.3-44.9); Hemoglobin 9.4 g/dL (11.5-15.4); Mean Corpuscular Hemoglobin 31.6 pg (28.0-33.3); Mean Corpuscular Volume 98.7 fL (83.0-100.0); Red Blood Count 2.97 M/mcL (3.82-4.97); Red Cell Distribution Width 17.8 % (11.5-14.5)
[2018-07-06 06:03] LABS: Platelet Count 44 K/mcL (140-400)
[2018-07-06 06:29] LABS: Lymphocytes # 11.1 K/mcL (0.6-4.6); Neutrophils # 29.5 K/mcL (1.6-8.9)
[2018-07-06] MEDS: Furosemide 40 MG TABLET PO SCH (08:10)
[2018-07-06] MEDS: Piperacillin/Tazobactam 3.375 GM in 0.9 % Sodium Chloride Mini Bag 100 ML IVPB SCH ×2 (08:11→17:19)
[2018-07-06] MEDS: hydrALAZINE 25 MG TABLET PO SCH ×2 (08:11→20:37)
[2018-07-06] MEDS: Lactobacillus 1 EACH CAP.SPRINK PO SCH (08:11)
[2018-07-06] MEDS: NIFEdipine XL (24 HR) 30 MG TAB.ER.24 PO SCH (08:11)
[2018-07-06] MEDS: Insulin LISPRO 300 UNITS/3 ML VIAL SQ SCH ×3 (08:17→17:20)
[2018-07-06] MEDS: Nystatin Cream 15 GM TUBE TP SCH ×2 (11:54→20:39)
--- NOTE | 2018-07-06 13:37 | Internal Med Progress Note ---
Hospitalist Progress Note - Encounter Date of Encounter: 07/06/18 Time of Encounter: 13:36 - Subjective Interval History: Ms. Suarez is a 73 year old female with a past medical history of myeloproliferative neoplasm not currently on treatment and follows with the [facility], diastolic CHF, diabetes, hyperlipidemia, hypertension, chronic kidney disease stage -3, and recurrent UTI with Proteus Mirabilis patient presented to ER with the dysuria and micturition. Pt was admitted in the hospital and started her on broad-spectrum antibiotic Zosyn. Patient states she is feeling little better today. However still having some burning sensation while she is urinating - Exam Vitals: Temp Pulse Resp BP Pulse Ox 97.7 F 100 15 125/55 96 07/06/18 10:50 07/06/18 10:50 07/06/18 10:50 07/06/18 10:50 07/06/18 10:50 Exam: Gen: Alert, awake, Oriented to time,place and person Chest: Diminished breath sounds B/L, No wheezing, No crackles, No rales Heart: S1S2+ RRR No murmurs Abd: Soft, NT, BS +, No organomegaly Ext: No edema, pulses are palpable, No calf tenderness Neuro : Benign findings Skin: No rash. - Assessment and Plan (1) UTI (urinary tract infection) Current Visit: Yes Status: Acute Assessment and Plan: Failed the 2 course of outpatient oral antibiotics recent history of UTI with Proteus. continue broad-spectrum antibiotic Zosyn urine culture growing gram-negative rods appreciate ID recommendations (2) DMII (diabetes mellitus, type 2) Current Visit: No Status: Chronic Assessment and Plan: Continue insulin sliding scale (3) LUCAS (obstructive sleep apnea) Current Visit: No Status: Chronic Assessment and Plan: Continue using CPAP at bedtime (4) COPD (chronic obstructive pulmonary disease) Current Visit: No Status: Chronic Assessment and Plan: Stable not in exacerbation Continue duo nebs prn (5) DVT prophylaxis Current Visit: No Status: Acute Assessment and Plan: Continue EPCD given thrombocytopenia (6) Leukocytosis Current Visit: Yes Status: Acute Assessment and Plan: 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 Appears at baseline (7) Diastolic heart failure Current Visit: No Status: Chronic Assessment and Plan: Continue home Lasix and Coreg stable not in exacerbation (8) Anemia Current Visit: No Status: Acute Assessment and Plan: - Appears at baseline with monitor - Likely from CKD (9) CKD (chronic kidney disease) stage 3, GFR 30-59 ml/min Current Visit: Yes Status: Acute (10) HTN (hypertension) Current Visit: Yes Status: Acute - Time Spent with Patient Total time spent is greater than 50% in coordination of care (as documented) at patient's floor/unit and/or counseling patient: Internal Medicine: Result - Labs CBC & Chem 7: 07/06/18 05:26 07/05/18 08:31 Labs: Short CBC 07/06/18 Range/Units 05:26 WBC 46.1 H* (4.3-11.1) K/mcL Hgb 9.4 L (11.5-15.4) g/dL Hct 29.3 L (35.3-44.9) % Plt Count 44 L (140-400) K/mcL Neutrophils # 29.5 H (1.6-8.9) K/mcL - ABG Interpretation ABG results: PT/INR, D-dimer PT 13.0 Seconds (9.4-12.1) H 07/04/18 23:59 Consult Discharge Plan - Plan Referrals: Mayra Uribe, SHARDA [Primary Care Provider] - (1) UTI (urinary tract infection) Qualifiers: Urinary tract infection type: site unspecified Hematuria presence: without hematuria Qualified Code(s): N39.0 - Urinary tract infection, site not specified (2) DMII (diabetes mellitus, type 2) Qualifiers: Diabetes mellitus penitentiary insulin use: with penitentiary use Diabetes mellitus complication status: with unspecified complications Qualified Code(s) : E11.8 - Type 2 diabetes mellitus with unspecified complications; Z79.4 - supervisor intermediates (current) use of insulin; Z79.4 - detention (current) use of insulin; Z79.4 - detention (current) use of insulin; Z79.4 - supervisor intermediates (current) use of insulin (4) COPD (chronic obstructive pulmonary disease) Qualifiers: COPD type: unspecified COPD Qualified Code(s): J44.9 - Chronic obstructive pulmonary disease, unspecified (6) Leukocytosis Qualifiers: Leukocytosis type: unspecified Qualified Code(s): D72.829 - Elevated white blood cell count, unspecified (7) Diastolic heart failure Qualifiers: Heart failure chronicity: chronic Qualified Code(s): I50.32 - Chronic diastolic (congestive) heart failure (8) Anemia Qualifiers: Anemia type: other cause Other causes of anemia: chronic disease, neoplastic Qualified Code(s): D63.0 - Anemia in neoplastic disease (10) HTN (hypertension) Qualifiers: Qualified Code(s): I10 - Essential (primary) hypertension
[2018-07-07] MEDS: Piperacillin/Tazobactam 3.375 GM in 0.9 % Sodium Chloride Mini Bag 100 ML IVPB SCH ×3 (00:25→17:42)
[2018-07-07] MEDS: NIFEdipine XL (24 HR) 30 MG TAB.ER.24 PO SCH (08:43)
[2018-07-07] MEDS: hydrALAZINE 25 MG TABLET PO SCH ×2 (08:44→21:48)
[2018-07-07] MEDS: Lactobacillus 1 EACH CAP.SPRINK PO SCH (08:44)
[2018-07-07] MEDS: Furosemide 40 MG TABLET PO SCH (08:44)
[2018-07-07] MEDS: Nystatin Cream 15 GM TUBE TP SCH (08:45)
[2018-07-07] MEDS: Insulin LISPRO 300 UNITS/3 ML VIAL SQ SCH ×3 (08:48→17:43)
--- NOTE | 2018-07-07 14:19 | Internal Med Progress Note ---
Hospitalist Progress Note - Encounter Date of Encounter: 07/07/18 Time of Encounter: 11:00 - Subjective Interval History: Ms. Suarez is a 73 year old female with a past medical history of myeloproliferative neoplasm not currently on treatment and follows with the [facility], diastolic CHF, diabetes, hyperlipidemia, hypertension, chronic kidney disease stage -3, and recurrent UTI with Proteus Mirabilis patient presented to ER with the dysuria and micturition. Pt was admitted in the hospital and started her on broad-spectrum antibiotic Zosyn. Patient states she is feeling little better today. Still having some burning sensation while she is urinating. Overall feels little better today - Exam Vitals: Temp Pulse Resp BP Pulse Ox 97.8 F 72 14 108/56 99 07/07/18 10:07 07/07/18 10:07 07/07/18 10:07 07/07/18 10:07 07/07/18 10:07 Exam: Gen: Alert, awake, Oriented to time,place and person Chest: Diminished breath sounds B/L, No wheezing, No crackles, No rales Heart: S1S2+ RRR No murmurs Abd: Soft, NT, BS +, No organomegaly Ext: No edema, pulses are palpable, No calf tenderness Neuro : Benign findings Skin: No rash. - Assessment and Plan (1) UTI (urinary tract infection) Current Visit: Yes Status: Acute Assessment and Plan: Failed the 2 course of outpatient oral antibiotics recent history of UTI with Proteus. continue broad-spectrum antibiotic Zosyn urine culture growing proteus again appreciate ID recommendations will do post voidal bladder scan to rule out any urinary retention (2) DMII (diabetes mellitus, type 2) Current Visit: No Status: Chronic Assessment and Plan: Continue insulin sliding scale (3) LUCAS (obstructive sleep apnea) Current Visit: No Status: Chronic Assessment and Plan: Continue using CPAP at bedtime (4) COPD (chronic obstructive pulmonary disease) Current Visit: No Status: Chronic Assessment and Plan: Stable not in exacerbation Continue duo nebs prn (5) DVT prophylaxis Current Visit: No Status: Acute Assessment and Plan: Continue EPCD given thrombocytopenia (6) Leukocytosis Current Visit: Yes Status: Acute Assessment and Plan: due to her MPGN Seems to be at baseline (7) Diastolic heart failure Current Visit: No Status: Chronic Assessment and Plan: Continue home Lasix and Coreg stable not in exacerbation (8) Anemia Current Visit: No Status: Acute Assessment and Plan: Chronic.. Stable At baseline Mostly due to CKD (9) CKD (chronic kidney disease) stage 3, GFR 30-59 ml/min Current Visit: Yes Status: Acute Assessment and Plan: - Appears to have security stage III - Possible the from diabetes and hypertension. history of gout as well - Appears at baseline. We will monitor (10) HTN (hypertension) Current Visit: Yes Status: Acute Assessment and Plan: -Continue home Coreg, nifedipine and hydralazine - Time Spent with Patient Total time spent is greater than 50% in coordination of care (as documented) at patient's floor/unit and/or counseling patient: Internal Medicine: Result - Labs CBC & Chem 7: 07/06/18 05:26 07/05/18 08:31 - ABG Interpretation ABG results: PT/INR, D-dimer PT 13.0 Seconds (9.4-12.1) H 07/04/18 23:59 - Impressions Impressions Chest X-Ray 07/06/18 13:46 IMPRESSION: No acute pulmonary disease. Calcific atherosclerotic disease aorta. D/ / Andrey Gant / Andrey Gant Interpreting Provider: Andrey Gant Consult Discharge Plan - Plan Referrals: Mayra Uribe, [facility] [Primary Care Provider] - (1) UTI (urinary tract infection) Qualifiers: Urinary tract infection type: site unspecified Hematuria presence: without hematuria Qualified Code(s): N39.0 - Urinary tract infection, site not specified (2) DMII (diabetes mellitus, type 2) Qualifiers: Diabetes mellitus assisted insulin use: with laborer marine terminal use Diabetes mellitus complication status: with unspecified complications Qualified Code(s) : E11.8 - Type 2 diabetes mellitus with unspecified complications; Z79.4 - superintendent terminal (current) use of insulin; Z79.4 - superintendent terminal (current) use of insulin; Z79.4 - superintendent terminal (current) use of insulin; Z79.4 - superintendent terminal (current) use of insulin (4) COPD (chronic obstructive pulmonary disease) Qualifiers: COPD type: unspecified COPD Qualified Code(s): J44.9 - Chronic obstructive pulmonary disease, unspecified (6) Leukocytosis Qualifiers: Leukocytosis type: unspecified Qualified Code(s): D72.829 - Elevated white blood cell count, unspecified (7) Diastolic heart failure Qualifiers: Heart failure chronicity: chronic Qualified Code(s): I50.32 - Chronic diastolic (congestive) heart failure (8) Anemia Qualifiers: Anemia type: other cause Other causes of anemia: chronic disease, neoplastic Qualified Code(s): D63.0 - Anemia in neoplastic disease (10) HTN (hypertension) Qualifiers: Qualified Code(s): I10 - Essential (primary) hypertension
[2018-07-08] MEDS: Nystatin Cream 15 GM TUBE TP SCH ×2 (00:18→10:03)
[2018-07-08] MEDS: Piperacillin/Tazobactam 3.375 GM in 0.9 % Sodium Chloride Mini Bag 100 ML IVPB SCH ×2 (00:47→09:44)
[2018-07-08 07:36] LABS: Hemoglobin 9.9 g/dL (11.5-15.4); Mean Corpuscular HGB Conc 31.9 g/dL (31.6-35.5); Mean Corpuscular Hemoglobin 31.6 pg (28.0-33.3); Red Blood Count 3.13 M/mcL (3.82-4.97); Red Cell Distribution Width 17.8 % (11.5-14.5)
[2018-07-08 07:55] LABS: Calcium 8.8 mg/dL (8.6-10.3); Potassium 3.4 mEq/L (3.5-5.1)
[2018-07-08 07:56] LABS: Platelet Count 53 K/mcL (140-400)
[2018-07-08 08:32] LABS: Eosinophils # 0.5 K/mcL (0.0-0.6); Lymphocytes # 9.4 K/mcL (0.6-4.6); Neutrophils # 34.8 K/mcL (1.6-8.9)
[2018-07-08 08:33] LABS: Anisocytosis 1+ (Not Present); Platelet Estimate Decreased (Normal)
[2018-07-08] MEDS: hydrALAZINE 25 MG TABLET PO SCH (09:38)
[2018-07-08] MEDS: Lactobacillus 1 EACH CAP.SPRINK PO SCH (09:40)
[2018-07-08] MEDS: NIFEdipine XL (24 HR) 30 MG TAB.ER.24 PO SCH (09:41)
[2018-07-08] MEDS: Furosemide 40 MG TABLET PO SCH (09:42)
[2018-07-08] MEDS: Insulin LISPRO 300 UNITS/3 ML VIAL SQ SCH ×3 (10:11→16:30)
[2018-07-08 12:21] VITALS: BP 95/63
[2018-07-08] MEDS ORDERED: Fosfomycin Tromethamine 3 GM Packet PO ONE (13:30)
--- NOTE | 2018-07-08 14:41 | Infectious Disease Progress No ---
Date of Encounter: 07/08/18 Time of Encounter: 10:40 - Assessment and Plan (1) Leukocytosis Status: Chronic Likely secondary to the patient's chronic low proliferative neoplasm. Follows with [facility]. Continue to trend. Per the patient, a white blood cell count of 51,000 is markedly improved for her as it has been up in the 90,000s before. Qualifiers: Leukocytosis type: unspecified Qualified Code(s): D72.829 - Elevated white blood cell count, unspecified (2) UTI (urinary tract infection) Status: Acute Causative organism: P. mirabilis. This is likely relapse of the same infection due to inadequate antibiotic therapy as the patient was treated with antibiotics that the bacteria is not sensitive to. I anticipate that with appropriate treatment, she will do well clinically. No evidence of pyelonephritis. She does have leukocytosis, but this is likely secondary to her chronic condition more so than an acute infection. She has no other sepsis criteria. Continue Zosyn 3.375 g IV every 8 hours while here. If ready for discharge today, give one dose of fosfomycin 3 grams PO, then discontinue. Qualifiers: Urinary tract infection type: site unspecified Hematuria presence: without hematuria Qualified Code(s): N39.0 - Urinary tract infection, site not specified (3) CKD (chronic kidney disease) stage 3, GFR 30-59 ml/min Status: Chronic Serum creatinine appears to be at or below baseline. Continue to trend. Dose adjust antibiotics if needed. Avoid nephrotoxins as able. (4) Anemia Status: Chronic Chronic. Likely secondary to her chronic myeloproliferative neoplasm. Continue to trend. Further workup and management per the primary team. Qualifiers: Anemia type: other cause Other causes of anemia: chronic disease, neoplastic Qualified Code(s): D63.0 - Anemia in neoplastic disease (5) Diastolic heart failure Status: Chronic Qualifiers: Heart failure chronicity: chronic Qualified Code(s): I50.32 - Chronic diastolic (congestive) heart failure (6) COPD (chronic obstructive pulmonary disease) Status: Chronic Qualifiers: COPD type: unspecified COPD Qualified Code(s): J44.9 - Chronic obstructive pulmonary disease, unspecified (7) DMII (diabetes mellitus, type 2) Status: Chronic Recommend aggressive glucose monitoring and control. Management per the primary team. 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 Not currently on any Treatment. Monitoring blood work biweekly with follow-up appointments every 3 months. (9) Morbid obesity with BMI of 45.0-49.9, adult Status: Chronic (10) LUCAS (obstructive sleep apnea) Status: Chronic - Subjective Interval history: Patient seen and examined. No acute events noted overnight. Patient states overall she feels well. Denies fevers, chills, or rigors. Denies chest pain, shortness of breath, or cough. Denies nausea, vomiting, or diarrhea. Denies abdominal pain or appetite changes. States dysuria is improved and denies other urinary complaints. Denies oral thrush or skin lesions. Infect Dis PN-Objective Data - Labs CBC & Chem 7: 07/08/18 07:19 07/08/18 07:19 Labs: Laboratory Results - last 24 hr 07/06/18 07/06/18 07/06/18 07:02 11:05 16:22 WBC RBC Hgb Hct MCV MCH MCHC RDW Plt Count MPV Seg Neutrophils % Band Neutrophils % Lymphocytes % Monocytes % Eosinophils % Metamyelocytes % Myelocytes % Neutrophils # Lymphocytes # Monocytes # Eosinophils # Platelet Estimate Anisocytosis Sodium Potassium Chloride Carbon Dioxide BUN Creatinine Est GFR ( Amer) Est GFR (Non-Af Amer) BUN/Creatinine Ratio Glucose POC Glucose 134 H 271 H 214 H Calculated Osmolality Calcium 07/06/18 07/07/18 07/07/18 20:40 16:08 19:53 WBC RBC Hgb Hct MCV MCH MCHC RDW Plt Count MPV Seg Neutrophils % Band Neutrophils % Lymphocytes % Monocytes % Eosinophils % Metamyelocytes % Myelocytes % Neutrophils # Lymphocytes # Monocytes # Eosinophils # Platelet Estimate Anisocytosis Sodium Potassium Chloride Carbon Dioxide BUN Creatinine Est GFR ( Amer) Est GFR (Non-Af Amer) BUN/Creatinine Ratio Glucose POC Glucose 136 H 178 H 157 H Calculated Osmolality Calcium 07/08/18 07/08/18 07:19 07:19 WBC 49.7 H* RBC 3.13 L Hgb 9.9 L Hct 31.0 L MCV 99.0 MCH 31.6 MCHC 31.9 RDW 17.8 H Plt Count 53 L MPV TNP Seg Neutrophils % 62.0 Band Neutrophils % 8.0 H Lymphocytes % 19.0 Monocytes % 4.0 Eosinophils % 1.0 Metamyelocytes % 2.0 H Myelocytes % 4.0 H Neutrophils # 34.8 H Lymphocytes # 9.4 H Monocytes # 2.0 H Eosinophils # 0.5 Platelet Estimate Decreased L Anisocytosis 1+ A Sodium 138 Potassium 3.4 L Chloride 109 H Carbon Dioxide 20 L BUN 53 H Creatinine 1.78 H Est GFR ( Amer) 34 L Est GFR (Non-Af Amer) 28 L BUN/Creatinine Ratio 30 H Glucose 160 H POC Glucose Calculated Osmolality 304 H Calcium 8.8 Exam - Constitutional Vitals: Temp Pulse Resp BP Pulse Ox 97.4 F L 94 16 95/63 98 07/08/18 12:20 07/08/18 12:20 07/08/18 12:20 07/08/18 12:20 07/08/18 12:20 General appearance: cooperative, no acute distress, obese - Head Head exam: Present: atraumatic, normal inspection, normocephalic - Eye Eye exam: Present: EOMI, normal appearance, PERRL Pupils: Present: normal accommodation - ENT ENT exam: Present: mucous membranes moist - Neck Neck exam: Present: normal inspection - Respiratory Respiratory exam: Present: CTAB. Absent: rales, respiratory distress, rhonchi, wheezes - Cardiovascular Cardiovascular exam: Present: RRR, +S1, +S2 - GI/Abdominal GI/Abdominal exam: Present: distended (obese), normal bowel sounds, soft. Absent: tenderness - Extremities Exam Extremities exam: Present: normal inspection. Absent: joint swelling, pedal edema, tenderness - Neurological Exam Neurological exam: Present: alert, oriented X3, no focal deficits - Psychiatric Psychiatric exam: Present: normal affect, normal mood - Skin Skin exam: Present: dry, intact, normal color, warm Consult Discharge Plan - Plan Instructions: Urinary Tract Infection in Women (DC) Additional Instructions: Follow-up appointments: If there is not an appointment listed below, please call your physician and schedule a follow-up appointment. If you have congestive heart failure and your symptoms return, make an appointment with your physician. Medication List: Carry an up to date list of medications you are taking at all time. We have given you an updated medication list including any new medications that you have been prescribed. Please provide that list to your primary provider Symptoms: If your condition changes or you experience any of the following symptoms, notify your physician immediately: Unusual or worsening pain, fever, persistent nausea and vomiting, bleeding, increase in swelling (especially in your legs), sudden weight gain, extreme dizziness, chest pain, increased drainage or redness from a wound or incision. Go to the emergency department if you experience a problem with breathing. Weights: If you have a history of swelling or shortness of breath, weigh yourself daily and notify your physician if you have a weight gain of two or more pounds in one day or 5 or more pounds in a week. If you experience any of the warning signs for stroke: Sudden numbness or weakness of the face, arm or leg; especially on one side of the body, sudden confusion, trouble speaking or understanding, sudden trouble seeing in one or both eyes, sudden trouble walking, dizziness, loss of balance or coordination, sudden sever headache with no cause; Call 911 or go to the emergency room. Stroke is a medical emergency. Some risk factors for stroke: Age, cigarette smoking, diabetes, excessive alcohol consumption, family history , high blood pressure, overweight, physical inactivity, prior stroke, heart attack, diagnosis of carotid artery stenosis or other artery disease. If you smoke, STOP: Smoking or tobacco use significantly increases your risk of heart and lung disease. Your chance of disease greatly increases if you continue to smoke. For more information, call the [place] tobacco quit line for smoking cessation QUIT-NOW ( ) Referrals: Mayra Uribe CNP [Primary Care Provider] - - Attending Attestation I examined this patient and my medical decision-making was reviewed with the Resident Physician. I agree with the documented findings, disposition and treatment plan as described except to the extent set forth below.
--- NOTE | 2018-07-08 15:22 | Physician Discharge Referral ---
Home Health/Hosp Referral Info Transfer to: Home Health Provider in Charge Post Discharge: PCP - Diagnosis (1) UTI (urinary tract infection) Priority: Primary Status: Acute (2) MPN (myeloproliferative neoplasm) Priority: Secondary Status: Chronic (3) History of leukemia Priority: Secondary Status: Acute (4) Leukocytosis Priority: Secondary Status: Chronic (5) Anemia Priority: Secondary Status: Chronic (6) CKD (chronic kidney disease) stage 3, GFR 30-59 ml/min Priority: Secondary Status: Chronic (7) HTN (hypertension) Priority: Secondary Status: Chronic - Respiratory Orders Smoking Cessation: Smoking cessation has been advised. For more information, call the [place] Tobacco Quit Line at 7-364-ZUWK-NOW. - Diet/Nutrition Diet/Nutrition Orders: Regular - Activity Activity Orders: Up ad martell - Services Needed Following services are medically necessary services: Nursing, Home Health Aide - Transfer Medications Home Medications: Allopurinol [Zyloprim] 300 mg PO DAILY 11/09/17 [History] Docusate [Colace] 100 mg PO DAILY 11/09/17 [History] Omeprazole [PriLOSEC] 40 mg PO DAILY 11/09/17 [History] Polyethylene Glycol 3350 [MiraLAX] 17 gm PO DAILY PRN 11/09/17 [History] Simvastatin [Zocor] 40 mg PO HS 11/09/17 [History] metFORMIN [Glucophage] 500 mg PO BIDWM 11/09/17 [History] Carvedilol [Coreg] 25 mg PO BID 02/20/18 [History] Furosemide [Lasix] 40 mg PO DAILY #10 tablet 03/04/18 [Rx] HYDROcodone/Acet 5/325 mg [[place] 5-325 mg] 1 tab PO Q6H PRN 07/05/18 [History] Hydralazine HCl 50 mg PO BID 07/05/18 [History] Ipratropium [place] 2 puff NS QID PRN 07/05/18 [History] Lactobacillus Acidophilus [Acidophilus] 1 cap PO DAILY 07/05/18 [History] NIFEdipine [Nifedipine ER] 90 mg PO DAILY 07/05/18 [History] Nystatin Cream [Mycostatin Cream] 1 appl TP BID 07/05/18 [History] Witch Denita [Preparation H] 1 appl TP BID 07/05/18 [History] Allergies/Adverse Reactions: 3 Allergy/AdvReac Type Severity Reaction Status Date / Time Sulfa (Sulfonamide Allergy Fainting Verified 07/04/18 21:21 Antibiotics) Certification: Further, I certify that my clinical findings support that this patient is homebound (i.e. absences from home require considerable and taxing effort and are for medical reasons or taoism services or infrequently or short duration when for other reasons) because: Homebound Reason: Leaving home requires considerable and taxing effort due to condition Attestation: My signature below is to certify that this patient is under my care and that I, or nurse practitioner, or a physician's service assistant working with me, has a face-to -face encounter with this patient.
--- NOTE | 2018-07-08 15:26 | Discharge Summary ---
<Cristi Simmons - Last Filed: 07/08/18 15:23> - NOTES TO OUTPATIENT PROVIDER Notes to Outpatient Provider: Patient was seen for a urinary tract infection after failing 2 outpatient antibiotics. Urine culture did grow multi resistant proteus and was treated with zosyn and fosfomycin per infectious disease recommendations. Please follow up with your primary care physican within 5 days and return to ED if your symptoms return or if you get back pain, fevers, inability to urinate. Date of Encounter: 07/08/18 Time of Encounter: 15:23 - Discharge Diagnosis (1) UTI (urinary tract infection) Priority: Primary Status: Acute Qualifiers: Urinary tract infection type: site unspecified Hematuria presence: without hematuria Qualified Code(s): N39.0 - Urinary tract infection, site not specified (2) MPN (myeloproliferative neoplasm) Priority: Secondary Status: Chronic (3) History of leukemia Priority: Secondary Status: Chronic (4) Leukocytosis Priority: Secondary Status: Chronic Qualifiers: Leukocytosis type: unspecified Qualified Code(s): D72.829 - Elevated white blood cell count, unspecified (5) Anemia Priority: Secondary Status: Chronic Qualifiers: Anemia type: other cause Other causes of anemia: chronic disease, neoplastic Qualified Code(s): D63.0 - Anemia in neoplastic disease (6) CKD (chronic kidney disease) stage 3, GFR 30-59 ml/min Priority: Secondary Status: Chronic (7) HTN (hypertension) Priority: Secondary Status: Chronic Qualifiers: Qualified Code(s): I10 - Essential (primary) hypertension Hospital course: Ms. Suarez is a 73 year old female - Time Spent with Patient Total time spent providing and/or coordinating discharge services: - Discharge Medications Home Medications: Allopurinol [Zyloprim] 300 mg PO DAILY 11/09/17 [History] Docusate [Colace] 100 mg PO DAILY 11/09/17 [History] Omeprazole [PriLOSEC] 40 mg PO DAILY 11/09/17 [History] Polyethylene Glycol 3350 [MiraLAX] 17 gm PO DAILY PRN 11/09/17 [History] Simvastatin [Zocor] 40 mg PO HS 11/09/17 [History] metFORMIN [Glucophage] 500 mg PO BIDWM 11/09/17 [History] Carvedilol [Coreg] 25 mg PO BID 02/20/18 [History] Furosemide [Lasix] 40 mg PO DAILY #10 tablet 03/04/18 [Rx] HYDROcodone/Acet 5/325 mg [[place] 5-325 mg] 1 tab PO Q6H PRN 07/05/18 [History] Hydralazine HCl 50 mg PO BID 07/05/18 [History] Ipratropium Manquin 2 puff NS QID PRN 07/05/18 [History] Lactobacillus Acidophilus [Acidophilus] 1 cap PO DAILY 07/05/18 [History] NIFEdipine [Nifedipine ER] 90 mg PO DAILY 07/05/18 [History] Nystatin Cream [Mycostatin Cream] 1 appl TP BID 07/05/18 [History] Witch Denita [Preparation H] 1 appl TP BID 07/05/18 [History] Allergies/Adverse Reactions: 3 Allergy/AdvReac Type Severity Reaction Status Date / Time Sulfa (Sulfonamide Allergy Fainting Verified 07/04/18 21:21 Antibiotics) Date of admission: 07/05/18 07:43 Primary care physician: Mayra Uribe Consults: 07/05/18 10:15 Consult to Infectious Diseases [CONS] Routine Consulting Provider: [facility] [place] Reason for Consult: UTI Call Completed: Yes Discharging clinician: Cristi Simmons Anticipated date of discharge: 07/08/18 - Constitutional Vitals: Temp Pulse Resp BP Pulse Ox 97.4 F L 94 16 95/63 98 07/08/18 12:20 07/08/18 12:20 07/08/18 12:20 07/08/18 12:20 07/08/18 12:20 General appearance: Present: A&O X 3, no acute distress - Patient Status Disposition: Home Health Service Condition: Fair Functional capacity at discharge: uses cane/walker Overall status at discharge: patient is progressing back to baseline - Discharge Instructions Instructions: Urinary Tract Infection in Women (DC) Follow Up With: Mayra Uribe CNP [Primary Care Provider] - Additional Instructions: Follow-up appointments: If there is not an appointment listed below, please call your physician and schedule a follow-up appointment. If you have congestive heart failure and your symptoms return, make an appointment with your physician. Medication List: Carry an up to date list of medications you are taking at all time. We have given you an updated medication list including any new medications that you have been prescribed. Please provide that list to your primary provider Symptoms: If your condition changes or you experience any of the following symptoms, notify your physician immediately: Unusual or worsening pain, fever, persistent nausea and vomiting, bleeding, increase in swelling (especially in your legs), sudden weight gain, extreme dizziness, chest pain, increased drainage or redness from a wound or incision. Go to the emergency department if you experience a problem with breathing. Weights: If you have a history of swelling or shortness of breath, weigh yourself daily and notify your physician if you have a weight gain of two or more pounds in one day or 5 or more pounds in a week. If you experience any of the warning signs for stroke: Sudden numbness or weakness of the face, arm or leg; especially on one side of the body, sudden confusion, trouble speaking or understanding, sudden trouble seeing in one or both eyes, sudden trouble walking, dizziness, loss of balance or coordination, sudden sever headache with no cause; Call 911 or go to the emergency room. Stroke is a medical emergency. Some risk factors for stroke: Age, cigarette smoking, diabetes, excessive alcohol consumption, family history , high blood pressure, overweight, physical inactivity, prior stroke, heart attack, diagnosis of carotid artery stenosis or other artery disease. If you smoke, STOP: Smoking or tobacco use significantly increases your risk of heart and lung disease. Your chance of disease greatly increases if you continue to smoke. 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 Suarez is a 73 year old female - Time Spent with Patient Total time spent providing and/or coordinating discharge services: Date of admission: 07/05/18 07:43 Primary care physician: Mayra Uribe Consults: 07/05/18 10:15 Consult to Infectious Diseases [CONS] Routine Consulting Provider: Infectious [facility] [place] Reason for Consult: UTI Call Completed: Yes - Constitutional Vitals: Temp Pulse Resp BP Pulse Ox 97.4 F L 94 16 95/63 98 07/08/18 12:20 07/08/18 12:20 07/08/18 12:20 07/08/18 12:20 07/08/18 12:20 Exam: Gen: Alert, awake, Oriented to time,place and person Chest: Diminished breath sounds B/L, No wheezing, No crackles, No rales Heart: S1S2+ RRR No murmurs Abd: Soft, NT, BS +, No organomegaly Ext: No edema, pulses are palpable, No calf tenderness Neuro : Benign findings Skin: No rash. - Attending Attestation I examined this patient and my medical decision-making was reviewed with the Resident Physician Dr. Simmons. I agree with the documented findings, disposition and treatment plan as described except to the extent set forth below. Ms. Suarez is a 73 year old female with a past medical history of myeloproliferative neoplasm not currently on treatment and follows with [facility], diastolic CHF, diabetes, hyperlipidemia, hypertension, chronic kidney disease stage -3, and recurrent UTI with Proteus Mirabilis patient presented to ER with the dysuria and micturition. Pt was admitted in the hospital and started her on broad-spectrum antibiotic Zosyn. Patient states she is feeling little better today. Still having some burning sensation while she is urinating. Overall feels better. Her Urine cx grew Proteus again. ID recommend Fosfomycin x 1 dose. Will d/c home today after Fosfomycin. Gen: A, A, O x 3 Chest: Diminished BS b/l Back: No CVA tenderness
== END 2018-07-08 17:20 | disposition home health service (06) | DRG 463 ==
LOC: EMEROOARM 21:07 → 3ANU 21:07 → SUATTDRO 07-05 07:43
PROVIDERS: ADMIT Pediatrics; ATTEND Family Medicine

== ENCOUNTER 2020-03-11 20:41 | Observation (INO) ==
[2020-03-11 21:50] LABS: Hematocrit 18.7 % (35.3-44.9); Immature Granulocytes % 0.8 % (0-4); Immature Platelets 10.1 % (1.1-6.1); Lymphocytes # 0.8 K/mcL (0.6-4.6); Lymphocytes % 60.6 %; Mean Corpuscular HGB Conc 31.6 g/dL (31.6-35.5); Mean Corpuscular Hemoglobin 29.1 pg (28.0-33.3); Mean Corpuscular Volume 92.1 fL (83.0-100.0); Monocytes # 0.4 K/mcL (0.0-1.3); Monocytes % 31.1 %; Neutrophils # 0.1 K/mcL (1.6-8.9); Red Blood Count 2.03 M/mcL (3.82-4.97); Red Cell Distribution Width 18.6 % (11.5-14.5); Segmented Neutrophils % 7.5 %; White Blood Count 1.3 K/mcL (4.3-11.1)
[2020-03-11 21:56] LABS: Hemoglobin 5.9 g/dL (11.5-15.4)
[2020-03-11 21:57] LABS: Platelet Count 38 K/mcL (140-400)
[2020-03-11 21:58] LABS: Calcium 7.9 mg/dL (8.6-10.3); Phosphorous 3.9 mg/dL (2.7-4.5); Potassium 4.1 mEq/L (3.5-5.1); Uric Acid 7.5 mg/dL (2.3-7.6)
[2020-03-11 22:09] LABS: Large Platelets Present (Not Present)
[2020-03-12] MEDS ORDERED: 0.9 % Sodium Chloride 250 ML ONE ×3 (01:09→11:56)
[2020-03-12] MEDS ORDERED: Naloxone 0.4 MG/ML INJ IVP PRN (01:24)
[2020-03-12] MEDS ORDERED: *HR* HYDROcodone/Acet 5/325 mg TABLET PO PRN (01:24)
[2020-03-12] MEDS ORDERED: Acetaminophen 325 MG TABLET PO PRN (01:24)
[2020-03-12] MEDS ORDERED: Ondansetron ODT 4 MG TAB.RAPDIS SL PRN (01:24)
[2020-03-12] MEDS ORDERED: *HR* Dextrose 50 % in Water (Syg) 50 ML SYRINGE IVP PRN (01:37)
[2020-03-12] MEDS ORDERED: D5% in Water 1,000 ML IVC PRN (01:37)
[2020-03-12] MEDS ORDERED: Dextrose Gel 15 GM/37.5 ML TUBE PO PRN ×2 (01:37)
[2020-03-12] MEDS ORDERED: Ipratropium/Albuterol Neb 3 ML IH PRN (03:16)
[2020-03-12] MEDS ORDERED: Famotidine 20 MG TABLET PO PRN (03:18)
[2020-03-12 05:50] LABS: Hemoglobin 6.1 g/dL (11.5-15.4); Immature Granulocytes % 0.8 % (0-4); Mean Corpuscular Hemoglobin 28.9 pg (28.0-33.3); Red Blood Count 2.11 M/mcL (3.82-4.97)
[2020-03-12 05:52] LABS: Hematocrit 19.4 % (35.3-44.9); Lymphocytes # 0.8 K/mcL (0.6-4.6); Lymphocytes % 66.1 %; Mean Corpuscular HGB Conc 31.4 g/dL (31.6-35.5); Mean Corpuscular Volume 91.9 fL (83.0-100.0); Monocytes # 0.3 K/mcL (0.0-1.3); Monocytes % 22.9 %; Neutrophils # 0.1 K/mcL (1.6-8.9); Red Cell Distribution Width 17.7 % (11.5-14.5); Segmented Neutrophils % 10.2 %; White Blood Count 1.2 K/mcL (4.3-11.1)
[2020-03-12 05:55] LABS: Platelet Count 36 K/mcL (140-400)
[2020-03-12] MEDS ORDERED: *HR* Heparin 5,000 UNIT/ML VIAL SQ SCH (06:00)
[2020-03-12 06:10] LABS: Calcium 7.7 mg/dL (8.6-10.3); Magnesium 1.7 mg/dL (1.6-2.6); Potassium 3.9 mEq/L (3.5-5.1)
[2020-03-12 06:22] LABS: Anisocytosis 1+ (Not Present); Hypochromasia Present (Not Present); Platelet Estimate Decreased (Normal)
[2020-03-12] MEDS ORDERED: allopurinoL 100 MG TABLET PO SCH (09:00)
[2020-03-12] MEDS ORDERED: Acyclovir 200 MG CAPSULE PO SCH (09:00)
[2020-03-12] MEDS ORDERED: Hydroxyurea 500 MG CAPSULE PO SCH (09:00)
[2020-03-12] MEDS: Insulin LISPRO 300 UNITS/3 ML VIAL SQ SCH ×3 (09:03→17:54)
[2020-03-12] MEDS: carvediloL 6.25 MG TABLET PO SCH ×2 (09:11→17:54)
[2020-03-12] MEDS: Calcium Acetate 667 MG CAPSULE PO SCH ×3 (09:11→17:54)
[2020-03-12] MEDS ORDERED: Furosemide 20 MG/2 ML VIAL IVP ONE (11:00)
[2020-03-12 15:22] LABS: Hematocrit 24.1 % (35.3-44.9); Hemoglobin 7.8 g/dL (11.5-15.4); Immature Platelets 5.9 % (1.1-6.1); Mean Corpuscular HGB Conc 32.4 g/dL (31.6-35.5); Mean Corpuscular Volume 89.6 fL (83.0-100.0); Mean Platelet Volume 11.4 fL (9.4-12.4); Neutrophils # 0.1 K/mcL (1.6-8.9); Red Blood Count 2.69 M/mcL (3.82-4.97); Red Cell Distribution Width 17.2 % (11.5-14.5)
[2020-03-12 15:23] LABS: Platelet Count 56 K/mcL (140-400)
[2020-03-12 15:27] VITALS: BP 148/55
[2020-03-12 15:27] LABS: INR 1.4; Prothrombin Time 15.7 Seconds (9.4-12.1)
[2020-03-12 15:56] LABS: Large Platelets Present (Not Present); Lymphocytes # 0.8 K/mcL (0.6-4.6); Monocytes # 0.1 K/mcL (0.0-1.3); Platelet Estimate Decreased (Normal); Reactive Lymphocytes Present (Not Present)
[2020-03-12] MEDS ORDERED: Insulin LISPRO 300 UNITS/3 ML VIAL SQ SCH (21:00)
== END 2020-03-12 19:10 | disposition home health service (06) ==
LOC: 3BNU 20:41 → EMEROOARM 20:41 → SUATTDRO 03-12 00:25 → 3BNU 03-12 00:51
PROVIDERS: ADMIT Family Medicine; ATTEND Internal Medicine

== ENCOUNTER 2020-04-28 16:51 | Inpatient (IN) ==
[2020-04-28] MEDS ORDERED: 0.9 % Sodium Chloride 1,000 ML IVC ONE (17:41)
[2020-04-28 17:51] LABS: INR 1.5; Prothrombin Time 16.6 Seconds (9.4-12.1)
[2020-04-28 17:57] LABS: Albumin 2.4 g/dL (3.5-5.7); Albumin/Globulin Ratio 0.5 (1.1-2.2); Bilirubin,Direct 0.2 mg/dL (0.0-0.2); Bilirubin,Indirect 0.5 mg/dL (0.0-1.0); Bilirubin,Total 0.7 mg/dL (0.3-1.0); Calcium 9.9 mg/dL (8.6-10.3); Globulin 4.4 g/dL (2.4-3.5); Potassium 3.6 mEq/L (3.5-5.1); Total Protein 6.8 g/dL (6.4-8.9)
[2020-04-28 17:58] LABS: Immature Platelets 15.4 % (1.1-6.1); Red Cell Distribution Width 14.5 % (11.5-14.5)
[2020-04-28 18:00] LABS: Hemoglobin 8.4 g/dL (11.5-15.4)
[2020-04-28 18:01] LABS: Amorphous Sediment,Urine Few per hpf (None-Few); Bacteria,Urine Few per hpf (None-Few); Bilirubin,Urine Negative (Negative); Blood,Urine Small (Negative); Clarity,Urine Clear (Clear); Color,Urine Yellow (Yellow); Glucose,Urine (UA) 30 mg/dL (Normal); Hyaline Casts,Urine Few per lpf (None Seen); Ketones,Urine Negative (Negative); Leukocyte Esterase,Urine Negative (Negative); Mucus,Urine Few per lpf (None-Few); Nitrite,Urine Negative (Negative); Protein,Urine >=300 mg/dL (Neg-Trace); RBC,Urine 0-3 per hpf (0-3); Specific Gravity,Urine 1.018 (1.010-1.025); Squamous Epithelial Cell,Urine Few per hpf (None-Few); Urobilinogen,Urine Normal (Normal); WBC,Urine 0-3 per hpf (0-3)
[2020-04-28 18:02] LABS: Hematocrit 26.5 % (35.3-44.9); Immature Granulocytes % 1.9 % (0-4); Lymphocytes # 0.3 K/mcL (0.6-4.6); Lymphocytes % 59.3 %; Mean Corpuscular HGB Conc 31.7 g/dL (31.6-35.5); Mean Corpuscular Hemoglobin 28.3 pg (28.0-33.3); Mean Corpuscular Volume 89.2 fL (83.0-100.0); Monocytes % 7.4 %; Neutrophils # 0.2 K/mcL (1.6-8.9); Red Blood Count 2.97 M/mcL (3.82-4.97); Segmented Neutrophils % 31.4 %
[2020-04-28 18:05] LABS: Platelet Count 94 K/mcL (140-400)
[2020-04-28] MEDS ORDERED: 0.9 % Sodium Chloride 1,000 ML ONE (18:07)
[2020-04-28 18:10] LABS: White Blood Count 0.5 K/mcL (4.3-11.1)
[2020-04-28 18:28] LABS: Platelet Estimate Decreased (Normal)
[2020-04-28 18:31] LABS: Hypochromasia Present (Not Present)
[2020-04-28] MEDS ORDERED: levoFLOXacin 750 MG/150 ML 750 MG/150 ML BAG IVPB ONE (19:10)
[2020-04-28] MEDS ORDERED: *HR* Promethazine 25 MG/ML VIAL IVP PRN (19:37)
[2020-04-28] MEDS: 0.9 % Sodium Chloride 1,000 ML IVC SCH (21:44)
[2020-04-28 23:08] LABS: VBG HCO3 29 mEq/L (21-27); VBG PCO2 37 mmHg (41-51); VBG PH 7.51 pH Units (7.32-7.42); VBG PO2 197 mmHg (25-50)
[2020-04-28 23:27] LABS: Adenovirus Not Detected (Not Detect); Bordetella Pertussis Not Detected (Not Detect); Chlamydophila pneumoniae Not Detected (Not Detect); Coronavirus 229E Not Detected (Not Detect); Coronavirus HKU1 Not Detected (Not Detect); Coronavirus NL63 Not Detected (Not Detect); Coronavirus OC43 Not Detected (Not Detect); Human Metapneumovirus Not Detected (Not Detect); Human Rhinovirus/Enterovirus Not Detected (Not Detect); Influenza A Subtype 2009 H1 Not Detected (Not Detect); Influenza B Not Detected (Not Detect); Mycoplasma pneumoniae Not Detected (Not Detect); Parainfluenza Virus 1 Not Detected (Not Detect); Parainfluenza Virus 2 Not Detected (Not Detect); Parainfluenza Virus 3 Not Detected (Not Detect); Parainfluenza Virus 4 Not Detected (Not Detect); Respiratory Syncytial Virus Not Detected (Not Detect); SARS-CoV-2 Not Detected (Not Detect)
[2020-04-28] MEDS: carvediloL 6.25 MG TABLET PO SCH (23:32)
[2020-04-29 03:35] LABS: Hemoglobin 7.3 g/dL (11.5-15.4); Red Cell Distribution Width 14.5 % (11.5-14.5)
[2020-04-29 03:37] LABS: Hematocrit 23.1 % (35.3-44.9); Immature Granulocytes % 1.7 % (0-4); Immature Platelets 9.9 % (1.1-6.1); Lymphocytes # 0.4 K/mcL (0.6-4.6); Mean Corpuscular HGB Conc 31.6 g/dL (31.6-35.5); Mean Corpuscular Hemoglobin 28.6 pg (28.0-33.3); Mean Corpuscular Volume 90.6 fL (83.0-100.0); Neutrophils # 0.2 K/mcL (1.6-8.9); Red Blood Count 2.55 M/mcL (3.82-4.97); Segmented Neutrophils % 28.3 %
[2020-04-29] MEDS: hydrALAZINE 25 MG TABLET PO PRN ×2 (03:45→18:25)
[2020-04-29 03:48] LABS: Platelet Count 93 K/mcL (140-400)
[2020-04-29 03:51] LABS: White Blood Count 0.6 K/mcL (4.3-11.1)
[2020-04-29 03:53] LABS: BUN/Creatinine Ratio 22 (6-26); Blood Urea Nitrogen 22 mg/dL (8-23); Calcium 8.6 mg/dL (8.6-10.3); Carbon Dioxide 27 mEq/L (23-29); Chloride 104 mEq/L (98-107); Glucose 105 mg/dL (70-105); Magnesium 1.4 mg/dL (1.6-2.6); Osmolality,Calculated 286 (280-300); Potassium 3.3 mEq/L (3.5-5.1); Sodium 136 mEq/L (136-145); eGFR For African Americans > 60 (> 60); eGFR For Non-African Americans 53 (> 60)
[2020-04-29 04:32] LABS: Platelet Estimate Decreased (Normal)
[2020-04-29] MEDS: 0.9 % Sodium Chloride 1,000 ML IVC SCH ×2 (06:08→20:56)
[2020-04-29] MEDS ORDERED: Magnesium Sulfate 1 GM/102 ML PIGGYBACK IVPB ONE (07:41)
[2020-04-29] MEDS: carvediloL 6.25 MG TABLET PO SCH ×2 (09:03→16:15)
[2020-04-29] MEDS ORDERED: 0.9 % Sodium Chloride 1,000 ML IVC SCH (11:30)
[2020-04-29] MEDS ORDERED: Famotidine 20 MG TABLET PO PRN (15:13)
[2020-04-29] MEDS ORDERED: ESTRADIOL 1 GM VG SCH (15:15)
[2020-04-29] MEDS ORDERED: Ipratropium/Albuterol Neb 3 ML IH PRN (15:16)
[2020-04-29] MEDS: Calcium Acetate 667 MG CAPSULE PO SCH (16:15)
[2020-04-29] MEDS: Acyclovir 200 MG CAPSULE PO SCH (20:47)
[2020-04-29] MEDS ORDERED: *HR* Labetalol 20 MG/4 ML SYRINGE IVP ONE (23:31)
[2020-04-30] MEDS: Cholecalciferol (D-3) 1,000 UNIT (25MCG) TABLET PO SCH (08:03)
[2020-04-30] MEDS: allopurinoL 100 MG TABLET PO SCH (08:03)
[2020-04-30] MEDS: carvediloL 6.25 MG TABLET PO SCH ×2 (08:03→16:10)
[2020-04-30] MEDS: Acyclovir 200 MG CAPSULE PO SCH ×2 (08:03→20:27)
[2020-04-30] MEDS: Calcium Acetate 667 MG CAPSULE PO SCH ×3 (08:05→16:10)
[2020-04-30] MEDS: hydrALAZINE 25 MG TABLET PO PRN (08:05)
[2020-04-30 08:59] LABS: Hematocrit 23.8 % (35.3-44.9); Hemoglobin 7.6 g/dL (11.5-15.4); Immature Granulocytes % 1.8 % (0-4); Immature Platelets 11.2 % (1.1-6.1); Lymphocytes # 0.4 K/mcL (0.6-4.6); Lymphocytes % 64.3 %; Mean Corpuscular HGB Conc 31.9 g/dL (31.6-35.5); Mean Corpuscular Hemoglobin 28.5 pg (28.0-33.3); Mean Corpuscular Volume 89.1 fL (83.0-100.0); Mean Platelet Volume 13.5 fL (9.4-12.4); Monocytes % 5.4 %; Neutrophils # 0.2 K/mcL (1.6-8.9); Red Blood Count 2.67 M/mcL (3.82-4.97); Red Cell Distribution Width 14.6 % (11.5-14.5); Segmented Neutrophils % 28.5 %
[2020-04-30] MEDS ORDERED: Hydroxyurea 500 MG CAPSULE PO SCH (09:00)
[2020-04-30] MEDS ORDERED: levoFLOXacin 750 MG/150 ML 750 MG/150 ML BAG IVPB SCH (09:00)
[2020-04-30 09:11] LABS: BUN/Creatinine Ratio 20 (6-26); Blood Urea Nitrogen 19 mg/dL (8-23); Calcium 8.1 mg/dL (8.6-10.3); Carbon Dioxide 24 mEq/L (23-29); Chloride 107 mEq/L (98-107); Glucose 100 mg/dL (70-105); Magnesium 1.6 mg/dL (1.6-2.6); Osmolality,Calculated 286 (280-300); Potassium 3.5 mEq/L (3.5-5.1); Sodium 137 mEq/L (136-145); eGFR For African Americans > 60 (> 60); eGFR For Non-African Americans 56 (> 60)
[2020-04-30 09:14] LABS: Platelet Count 92 K/mcL (140-400)
[2020-04-30 09:16] LABS: White Blood Count 0.6 K/mcL (4.3-11.1)
[2020-04-30 09:17] LABS: Anisocytosis 1+ (Not Present); Platelet Estimate Slight Decrease (Normal)
[2020-05-01] MEDS: carvediloL 6.25 MG TABLET PO SCH (09:28)
[2020-05-01] MEDS: Calcium Acetate 667 MG CAPSULE PO SCH (09:29)
[2020-05-01] MEDS: Acyclovir 200 MG CAPSULE PO SCH (09:29)
[2020-05-01] MEDS: Cholecalciferol (D-3) 1,000 UNIT (25MCG) TABLET PO SCH (09:29)
[2020-05-01] MEDS: allopurinoL 100 MG TABLET PO SCH (09:29)
[2020-05-01 09:53] LABS: Hemoglobin 7.3 g/dL (11.5-15.4); Red Cell Distribution Width 14.6 % (11.5-14.5)
[2020-05-01 09:55] LABS: Immature Platelets 10.7 % (1.1-6.1); Lymphocytes # 0.3 K/mcL (0.6-4.6); Lymphocytes % 66.7 %; Mean Corpuscular HGB Conc 31.7 g/dL (31.6-35.5); Mean Corpuscular Hemoglobin 28.2 pg (28.0-33.3); Mean Corpuscular Volume 88.8 fL (83.0-100.0); Mean Platelet Volume 13.7 fL (9.4-12.4); Monocytes % 7.8 %; Neutrophils # 0.1 K/mcL (1.6-8.9); Red Blood Count 2.59 M/mcL (3.82-4.97); Segmented Neutrophils % 25.5 %
[2020-05-01 10:08] LABS: Calcium 8.6 mg/dL (8.6-10.3); Platelet Count 92 K/mcL (140-400); Potassium 3.6 mEq/L (3.5-5.1)
[2020-05-01 10:09] LABS: White Blood Count 0.5 K/mcL (4.3-11.1)
[2020-05-01 10:35] LABS: Platelet Estimate Decreased (Normal); Reactive Lymphocytes Present (Not Present)
[2020-05-01 10:49] VITALS: BP 168/64
[2020-05-03] MEDS ORDERED: Ergocalciferol (VIT D2) 50,000 UNIT (1.25MG) CAP PO SCH (09:00)
== END 2020-05-01 13:35 | disposition home health service (06) | DRG 139 ==
LOC: 3BNU 16:51 → EMEROOARM 16:51 → 3BNU 20:07
PROVIDERS: ADMIT Student in an Organized Health Care Education/Training Program; ATTEND Student in an Organized Health Care Education/Training Program

== ENCOUNTER 2020-05-17 22:05 | Observation (INO) ==
[2020-05-17 23:23] LABS: Hematocrit 19.9 % (35.3-44.9); Hemoglobin 6.2 g/dL (11.5-15.4); Immature Granulocytes % 1.4 % (0-4); Lymphocytes # 0.8 K/mcL (0.6-4.6); Lymphocytes % 53.1 %; Mean Corpuscular HGB Conc 31.2 g/dL (31.6-35.5); Mean Corpuscular Hemoglobin 27.6 pg (28.0-33.3); Mean Corpuscular Volume 88.4 fL (83.0-100.0); Mean Platelet Volume 13.4 fL (9.4-12.4); Monocytes # 0.2 K/mcL (0.0-1.3); Monocytes % 12.2 %; Neutrophils # 0.5 K/mcL (1.6-8.9); Platelet Count 138 K/mcL (140-400); Red Blood Count 2.25 M/mcL (3.82-4.97); Segmented Neutrophils % 33.3 %; White Blood Count 1.5 K/mcL (4.3-11.1)
[2020-05-17 23:41] LABS: INR 1.3; Prothrombin Time 15.3 Seconds (9.4-12.1)
[2020-05-17 23:43] LABS: Activated Partial Thrombo Time 27.4 Seconds (26.0-36.0); Anisocytosis 1+ (Not Present); Polychromasia 1+ (Not Present); Reactive Lymphocytes Present (Not Present)
[2020-05-17 23:45] LABS: Albumin 2.4 g/dL (3.5-5.7); Albumin/Globulin Ratio 0.6 (1.1-2.2); Bilirubin,Direct 0.1 mg/dL (0.0-0.2); Bilirubin,Indirect 0.5 mg/dL (0.0-1.0); Bilirubin,Total 0.6 mg/dL (0.3-1.0); Calcium 8.9 mg/dL (8.6-10.3); Globulin 3.9 g/dL (2.4-3.5); Potassium 3.7 mEq/L (3.5-5.1); Total Protein 6.3 g/dL (6.4-8.9)
[2020-05-18] MEDS ORDERED: 0.9 % Sodium Chloride 500 ML ONE ×2 (00:46→10:24)
[2020-05-18] MEDS ORDERED: Naloxone 0.4 MG/ML INJ IVP PRN (02:06)
[2020-05-18] MEDS ORDERED: D5% in Water 1,000 ML IVC PRN (02:26)
[2020-05-18] MEDS ORDERED: *HR* Dextrose 50 % in Water (Vial) 50 ML VIAL IVP PRN (02:26)
[2020-05-18] MEDS ORDERED: Dextrose Gel 15 GM/37.5 ML TUBE PO PRN ×2 (02:26)
[2020-05-18] MEDS: Insulin LISPRO 300 UNITS/3 ML VIAL SQ SCH ×2 (07:45→12:43)
[2020-05-18 09:03] LABS: Hematocrit 21.4 % (35.3-44.9); Hemoglobin 6.8 g/dL (11.5-15.4); Immature Platelets 8.6 % (1.1-6.1); Mean Corpuscular HGB Conc 31.8 g/dL (31.6-35.5); Mean Corpuscular Hemoglobin 28.2 pg (28.0-33.3); Mean Corpuscular Volume 88.8 fL (83.0-100.0); Mean Platelet Volume 12.9 fL (9.4-12.4); Monocytes # 0.1 K/mcL (0.0-1.3); Neutrophils # 0.5 K/mcL (1.6-8.9); Nucleated Red Blood Cells 1.3 /100 WBC (0); Platelet Count 122 K/mcL (140-400); Red Blood Count 2.41 M/mcL (3.82-4.97); Red Cell Distribution Width 15.7 % (11.5-14.5); White Blood Count 1.5 K/mcL (4.3-11.1)
[2020-05-18 09:28] LABS: Albumin 2.3 g/dL (3.5-5.7); Albumin/Globulin Ratio 0.6 (1.1-2.2); Bilirubin,Total 0.6 mg/dL (0.3-1.0); Calcium 8.8 mg/dL (8.6-10.3); Globulin 3.6 g/dL (2.4-3.5); Potassium 3.5 mEq/L (3.5-5.1); Total Protein 5.9 g/dL (6.4-8.9)
[2020-05-18 09:56] LABS: Platelet Estimate Slight Decrease (Normal); Reactive Lymphocytes Present (Not Present)
[2020-05-18 11:33] LABS: Magnesium 1.9 mg/dL (1.6-2.6); Phosphorous 4.4 mg/dL (2.7-4.5)
[2020-05-18 15:18] LABS: Hematocrit 23.9 % (35.3-44.9); Hemoglobin 7.9 g/dL (11.5-15.4)
[2020-05-18 15:24] VITALS: BP 132/70
== END 2020-05-18 16:19 | disposition home health service (06) ==
LOC: EMEROOARM 22:05 → 3BNU 22:05 → SUATTDRO 05-18 00:42 → 3BNU 05-18 01:21
PROVIDERS: ADMIT Student in an Organized Health Care Education/Training Program; ATTEND Internal Medicine